=== PATIENT | female | born 1935 | race Caucasian/White ===

== ENCOUNTER → 2017-01-02 | Day surgery (SDC) | payer OTHER, MEDICARE ==
--- NOTE | 2017-01-05 15:22 | PATH ---
Surgical Pathology Report Patient Name: GISELA DAVIDSON [facility]. Rec. #: [id number] /Age/Gender: 1935 (Age: 81) / F Account: [id number] Location: [facility] RADIOLOGY U Taken: 01/02/2017 Received: 01/02/2017 Reported: 01/05/2017 Physicians: Milena Nino Specimen(s) Received LEFT AXILLARY MASS BIOPSY Clinical History Ultrasound findings: Highly suspicious/malignant Highly suspicious left axillary mass (LN) Final Diagnosis AXILLA, LEFT, MASS, BIOPSY: FIBRINOHEMORRHAGIC NECROTIC MATERIAL ONLY; INSUFFICIENT FOR EVALUATION. Electronically Signed Beth Matthews M.D. Gross Description Received in formalin labeled "left axilla biopsy," is a 1.5 x 1.4 x 0.3 cm aggregate of gandhi brown, possibly necrotic appearing portions of tissue admixed with blood clot. The formalin is filtered and the specimen is entirely submitted in one cassette. Time to formalin fixation: 2 minutes Total formalin fixation time: Approximately 7 hours. /01/02/2017 [facility]01/02/2017
== END | disposition home or self-care (01) ==
LOC: FRADUS-SUR 10:29
PROC: 07B63ZX Excision of Left Axillary Lymphatic, Percutaneous Approach, Diagnostic (ICD-10-PCS; principal; 2017-01-02)
PROC: BH47ZZZ Ultrasonography of Upper Extremity (ICD-10-PCS; 2017-01-02)
DX: R22.32 Localized swelling, mass and lump, left upper limb (principal)
CPT/HCPCS: 38505; 76942-TC; 87899; 88305-TC; A4648

== ENCOUNTER 2017-04-22 11:10 | Inpatient (IN) | payer OTHER, MEDICARE ==
--- NOTE | 2017-04-22 11:24 | PDOC ---
History of Present Illness <Andria Jennings - Last Filed: 04/22/17 16:45> - History of Present Illness Initial Comments: 04/22/17 17:13 81 year old female, with significant past medical history of CAD (on plavix and aspirin), chronically dislocated right shoulder, gout, GA, HTN, HLD, lower GI bleed (10/2014), who presents to the emergency room with a nose injury, jaw pain , and right shoulder pain s/p fall in the bathroom at home just prior to arrival. She states that she lost her balance when she was putting on her pants and she fell face first onto the floor, hitting her forehead, nose, and mouth. She believes she also hit her right right shoulder when she fell and the pain is exacerbated upon movement. Denies headache and lightheadedness prior to or after the fall. Her nose is actively bleeding. She took her usual 15 mg of percocet and 325mg of tylenol at 10:00am as prescribed by her pain managment doctor for osteoarthritis. Denies lightheadedness, headache, visual changes. Denies neck or back pain. Denies hip pain. Denies lower extremity pain. Denies chest pain, SOB. Allergies: NKDA Surgical history: bilateral hip replacement, tonsillectomy PCP: Dr. Dilcia Farrar <Belgica Peguero - Last Filed: 04/24/17 19:58> - General Stated Complaint: FALL Time Seen by Provider: 04/22/17 11:24 Past History <Andria Jennings - Last Filed: 04/22/17 16:45> - Past Medical History Anemia: No Asthma: No Cancer: No Cardiac Disorders: Yes (GA) CVA: No COPD: No CHF: Yes (chronic) Dementia: No Diabetes: No GI Disorders: No Disorders: No HTN: Yes Hypercholesterolemia: Yes Liver Disease: No Seizures: No Thyroid Disease: No - Surgical History Abdominal Surgery: No Appendectomy: No Cardiac Surgery: No Cholecystectomy: No Lung Surgery: No Neurologic Surgery: No Orthopedic Surgery: Yes (bilateral hip replacements) - Immunization History Immunization Up to Date: No - Suicide/Smoking/Psychosocial Hx Smoking History: Never smoked Have you smoked in the past 12 months: No Number of Cigarettes Smoked Daily: 20 Hx Alcohol Use: No Drug/Substance Use Hx: No Substance Use Type: None Hx Substance Use Treatment: No <Nassef,Yomna - Last Filed: 04/24/17 19:58> - Past Medical History Allergies/Adverse Reactions: Allergies Allergy/AdvReac Type Severity Reaction Status Date / Time No Known Allergies Allergy Verified 04/22/17 11:28 Home Medications: Ambulatory Orders Allopurinol [Zyloprim -] 200 mg PO DAILY 08/09/15 Atorvastatin Ca [Lipitor] 20 mg PO HS 08/09/15 Calcium Carbonate [Calcium] 600 mg PO DAILY 08/09/15 Clopidogrel Bisulfate [Plavix -] 75 mg PO DAILY 08/09/15 Folic Acid 1 mg PO DAILY 08/09/15 Furosemide [Lasix -] 20 mg PO DAILY 08/09/15 Iron 18 mg PO DAILY 08/09/15 Lactobacillus Acidophilus [Bacid -] 1 each PO DAILY 08/09/15 Methotrexate Sodium [Trexall] 7.5 mg PO WEEKLY 08/09/15 Multivitamins [Multivit ([facility] Formulary)] 1 tab PO DAILY 08/09/15 Ramipril 5 mg PO DAILY 08/09/15 Acetaminophen [Tylenol] 325 mg PO QID PRN 04/22/17 Amoxicillin - [Amoxicillin 500mg Capsule -] 500 mg PO BID 04/22/17 Carvedilol 3.125 mg PO BID 04/22/17 Colchicine [Colcrys -] 0.6 mg PO PRN PRN 04/22/17 Oxycodone HCl 15 mg PO QID PRN 04/22/17 Review of Systems - Review of Systems Comments:: 04/22/17 17:13 GENERAL/CONSTITUTIONAL: No fever or chills. No weakness. HEAD, EYES, EARS, NOSE AND THROAT: +nose injury and bleeding, jaw pain. No change in vision. No ear pain or discharge. No sore throat. GASTROINTESTINAL: No nausea, vomiting, diarrhea or constipation. GENITOURINARY: No dysuria, frequency, or change in urination. CARDIOVASCULAR: No chest pain or shortness of breath. RESPIRATORY: No cough, wheezing, or hemoptysis. MUSCULOSKELETAL: +right shoulder pain. No neck or back pain. SKIN: No rash NEUROLOGIC: No headache, vertigo, loss of consciousness, or change in strength/ sensation. ENDOCRINE: No increased thirst. No abnormal weight change. HEMATOLOGIC/LYMPHATIC: No anemia, easy bleeding, or history of blood clots. ALLERGIC/IMMUNOLOGIC: No hives or skin allergy. <Belgica Peguero - Last Filed: 04/24/17 19:58> *Physical Exam - Vital Signs Last Vital Signs Temp Pulse Resp BP Pulse Ox 98 F 81 18 138/90 97 04/22/17 11:26 04/22/17 11:26 04/22/17 11:26 04/22/17 11:26 04/22/17 11:26 <Raghu Jenningsssica - Last Filed: 04/22/17 16:45> - Physical Exam Comments: 04/22/17 17:13 GENERAL: Awake, alert, and fully oriented, in no acute distress HEAD: swollen nasal bridge, tender, with dried blood in nares, no active bleeding, no septal hematoma, no tenderness or other injuries noted. EYES: PERRLA, EOMI, sclera anicteric, conjunctiva clear NECK: Normal ROM, supple, no lymphadenopathy, JVD, or masses LUNGS: Breath sounds equal, clear to auscultation bilaterally. No wheezes, and no crackles HEART: Regular rate and rhythm, normal S1 and S2, no murmurs, rubs or gallops ABDOMEN: Soft, nontender, normoactive bowel sounds. No guarding, no rebound. No masses EXTREMITIES: RUE adducted, internally rotated, unable to range at shoulder. + deformity to proximal humerus, 2+ radial pulse, normal sensation over shoulder LUE, LLE, RLE: Normal range of motion, no edema. No clubbing or cyanosis. No cords, erythema, or tenderness. 2+peripheral pulses NEUROLOGICAL: Normal speech, cranial nerves intact, negative pronator drift, 5/ 5 strength in all 4 extremities, normal sensation to light touch in all 4 extremities, normal cerebellar exam, normal gait, normal reflexes and tone SKIN: Warm, Dry, normal turgor, no rashes or lesions noted. <Belgica Peguero - Last Filed: 04/24/17 19:58> ED Treatment Course - LABORATORY CBC & Chemistry Diagram: 04/22/17 12:03 04/22/17 12:03 - ADDITIONAL ORDERS Additional order review: Laboratory Results 04/22/17 04/22/17 12:03 12:03 PT with INR 11.60 INR 1.03 PTT (Actin FS) 29.6 Blood Type A POSITIVE Antibody Screen Negative 04/22/17 12:03 RBC 3.34 L MCV 103.0 H MCHC 32.9 RDW 14.6 D MPV 7.1 L D Neutrophils % 71.6 Lymphocytes % 17.5 Monocytes % 7.5 Eosinophils % 2.7 Basophils % 0.7 - Medications Given in the ED: ED Medications Discontinued Medications Generic Name Dose Route Start Last Admin Trade Name Christy PRN Reason Stop Dose Admin Diphtheria/Tetanus/Acell Pertussis 0.5 ml 04/22/17 12:04 04/22/17 12:15 Adacel Adolescent/Adult - IM 04/22/17 12:05 0.5 ml .ONCE ONE Administration Morphine Sulfate 4 mg 04/22/17 14:05 04/22/17 14:28 Morphine Injection - IVPUSH 04/22/17 14:06 4 mg ONCE ONE Administration <Andria Jennings - Last Filed: 04/22/17 16:45> - LABORATORY CBC & Chemistry Diagram: 04/24/17 07:12 04/24/17 07:12 <Belgica Peguero - Last Filed: 04/24/17 19:58> Medical Decision Making - Medical Decision Making 04/22/17 15:[address] Gailndo at 2:30. awaiting call back Second page 3:18pm. Dr. Galindo will come into the ER after seeing patients in his office. Paged Dr. Jonas at 3:00pm. Second page at 3:27pm Third page 4:06pm Called back 4:40pm <Andria Jennnigs - Last Filed: 04/22/17 16:45> - Medical Decision Making 04/22/17 19:53 81yo F with MMP including CAD on plavix p/w mechanical fall. Imaging reveals multiple fractures including R humerus fracture with R shoulder dislocation and nasal and maxillary fractures. Also, maxillary fluid collections c/f hematoma. Pt also with subgaleal hematoma. Dr. Jonas from ortho and Dr. Galindo from ENT are consulted to assist with management of the fractures. Given multiple hematoma's and antiplatelet on board will admit patient for monitoring. Also, Dr. Jonas recommends that patient is NWB with RUE and since patient ambulates with walker at home, she will be unable to be mobile and likely needs placement at [facility]. Pt is admitted to Dr. Corbin/Abbie for further management. <Belgica Peguero - Last Filed: 04/24/17 19:58> *DC/Admit/Observation/Transfer <Andria Jennings - Last Filed: 04/22/17 16:45> - Discharge Dispostion Admit: Yes - Attestations Physician Attestion: 04/22/17 17:18 I, Dr. Belgica Peguero MD, attest that this document has been prepared under my direction and personally reviewed by me in its entirety. I further attest, that it accurately reflects all work, treatment, procedures and medical decision -making performed by me. <Belgica Peguero - Last Filed: 04/24/17 19:58> Diagnosis at time of Disposition: Fall - Discharge Dispostion Condition at time of disposition: Stable
[2017-04-22 11:28] VITALS: BMI 25.6
[2017-04-22] MEDS ORDERED: DIPHTH,PERTUSS(ACELL),TET VAC 0.5 ML VIAL IM ONE (12:04)
[2017-04-22 12:13] LABS: BASOPHIL 0.7 % (0-2.0); EOSINOPHIL 2.7 % (0-4.5); MCH 33.9 pg (25.7-33.7); MCHC 32.9 g/dl (32.0-36.0); MEAN PLT VOLUME 7.1 fl (7.5-11.1); NEUTROPHILS 71.6 % (42.8-82.8); PLATELET COUNT 168 K/MM3 (134-434); RDW 14.6 % (11.6-15.6); WHITE BLOOD COUNT 7.5 K/mm3 (4.0-10.0)
[2017-04-22 12:30] LABS: INR 1.03 (0.82-1.09); PROTHROMBIN TIME (PATIENT) 11.6 SEC (9.98-11.88)
[2017-04-22 12:32] LABS: ACTIVATED PTT 29.6 SECONDS (26.9-34.4)
[2017-04-22] MEDS ORDERED: morphine CARPU-JECT 4 MG/1 ML DISP.SYRIN IVPUSH ONE ×2 (14:05→17:22)
[2017-04-22] MEDS ORDERED: morphine CARPU-JECT 10 MG/1 ML DISP.SYRIN ONE ×2 (14:27→17:05)
[2017-04-22 15:21] LABS: ALBUMIN 3.5 g/dl (3.4-5.0); ANION GAP 6 (8-16); BILIRUBIN,TOTAL 0.5 mg/dL (0.2-1.0); CALCIUM 8.6 mg/dL (8.5-10.1); CO2 33 mmol/L (21-32); CREATININE 0.9 mg/dL (0.55-1.02); GLUCOSE,RANDOM 113 mg/dL (74-106); SGOT/AST 26 U/L (15-37); SGPT/ALT 25 U/L (12-78)
[2017-04-22 15:22] LABS: ALK PHOS 87 U/L (45-117)
--- NOTE | 2017-04-22 17:14 | PN ---
Progress Note (short form) - Note Progress Note: Pt seen and examined in the ER. She is an 81 year old female patient, right hand dominant, who has a terminal carman history of a chronically dislocated right shoulder/glenohumeral joint. She already had very limited function and range of motion of the right shoulder. Closed reductions have been attempted in the past. She fell today injuring her right arm. Usually she uses a walker to ambulate. PE RUE grossly NVI, radial nerve normal. ROM of the elbow, forearm, wrist, fingers all good. + ecchymosis over the right proximal humerus + mild swelling + tender Xrays Show an acute oblique fracture of the right humerus and a chronically dislocated right shoulder joint. Imp Acute right humerus fracture in the setting of a chronically dislocated right shoulder. Rec Sling NWB RUE (using a walker to ambulate is out at this time) We discussed the surgical option, the patient and her daughters are completely against it, refusing at this time. She does not need to be admitted from an orthopedic point of view. F/U as an out patient either way in 10-14 days for repeat xrays.
[2017-04-22] MEDS ORDERED: morphine CARPU-JECT 2 MG/1 ML DISP.SYRIN IVPUSH PRN (18:26)
--- NOTE | 2017-04-22 18:26 | HP ---
CHIEF COMPLAINT: s/p mechanical fall PCP: Dr. Morrell Cardio: Dr. Dan Pain management: Sudeep Arthur Podiatry: Dr. Parekh ID: Dr. Henderson Wound: Dr. Nieto HISTORY OF PRESENT ILLNESS: 81 yr old woman with multiple co-morbidities presents s/p mechanical fall this afternoon. She was seen by her wound care physician in the Am for a routine f/u and when she got home she urgently needed to urinate. As she was getting up from the toilet after urinating she lost her balance and fell forward onto her face and her right side hitting the wall and then the floor. she denies LOC and recalls the episode. denies lightheadedness, dizzyness, palpitations, chest pain. ER course was notable for: (1) pichardo-xrays (2) facial bone/cervical spine and head CT (3) eval by Dr. Jonas Recent Travel: none PAST MEDICAL HISTORY: lives alone, feeds self, does not cook and requires assistance bathing herself, at baseline needs walker for gait instability due to LE deformities, 3 adult children, son is the healthcare proxy. daughter cooks for her and pt gets visited by children daily. HTN arthritis HLD CAD s/p MS (3 yrs) LV diastolic dysfunction gait instability chronic pain chronic right hip infection hemorrhoids chronic nonhealing decubitus ulcer PAST SURGICAL HISTORY: right hip replacement 2006 left hip replacement 2007 Social History: Smoking:denies Alcohol:denies Drugs: denies Family History: [place] Allergies No Known Allergies Allergy (Verified 04/22/17 11:28) HOME MEDICATIONS: Home Medications Medication Instructions Recorded Allopurinol [Zyloprim -] 200 mg PO DAILY 08/09/15 Atorvastatin Ca [Lipitor] 20 mg PO HS 08/09/15 Calcium Carbonate [Calcium] 600 mg PO DAILY 08/09/15 Clopidogrel Bisulfate [Plavix -] 75 mg PO DAILY 08/09/15 Folic Acid 1 mg PO DAILY 08/09/15 Furosemide [Lasix -] 20 mg PO DAILY 08/09/15 Iron 18 mg PO DAILY 08/09/15 Lactobacillus Acidophilus [Bacid -] 1 each PO DAILY 08/09/15 Methotrexate Sodium [Trexall] 7.5 mg PO WEEKLY 08/09/15 Multivitamins [Multivit ([facility] 1 tab PO DAILY 02/04/16 Formulary)] Ramipril 5 mg PO DAILY 08/09/15 Acetaminophen [Tylenol] 325 mg PO QID PRN 04/22/17 Amoxicillin - [Amoxicillin 500mg 500 mg PO BID 04/22/17 Capsule -] Carvedilol 3.125 mg PO BID 04/22/17 Colchicine [Colcrys -] 0.6 mg PO PRN PRN 04/22/17 Oxycodone HCl 15 mg PO QID PRN 04/22/17 REVIEW OF SYSTEMS CONSTITUTIONAL: Absent: fever, chills, diaphoresis, generalized weakness, malaise, loss of appetite, weight change HEENT: Absent: rhinorrhea, nasal congestion, throat pain, throat swelling, difficulty swallowing, mouth swelling, ear pain, eye pain, visual changes CARDIOVASCULAR: Present: chronic peripheral edema Absent: chest pain, syncope, palpitations, irregular heart rate, lightheadedness , RESPIRATORY: Absent: cough, shortness of breath, dyspnea with exertion, orthopnea, wheezing, stridor, hemoptysis GASTROINTESTINAL: Absent: abdominal pain, abdominal distension, nausea, vomiting, diarrhea, constipation, melena, hematochezia GENITOURINARY: Absent: dysuria, frequency, urgency, hesitancy, hematuria, flank pain, genital pain MUSCULOSKELETAL: Absent: myalgia, arthralgia, joint swelling, back pain, neck pain SKIN: Absent: rash, itching, pallor HEMATOLOGIC/IMMUNOLOGIC: Absent: easy bleeding, easy bruising, lymphadenopathy, frequent infections ENDOCRINE: Absent: unexplained weight gain, unexplained weight loss, heat intolerance, cold intolerance NEUROLOGIC: Present: chronic unsteady gait Absent: headache, focal weakness or paresthesias, dizziness, seizure, mental status changes, bladder or bowel incontinence PHYSICAL EXAMINATION GENERAL: Awake, alert, and fully oriented, in no acute distress. HEAD: Normal with no signs of trauma. swelling of left side of face, denied sinus tenderness EYES: Pupils equal, round and reactive to light, extraocular movements intact, sclera anicteric, conjunctiva clear. No lid lag. EARS, NOSE, THROAT: Ears normal, nares patent with dried blood, oropharynx clear without exudates, blood on upper palate. lower two teeth are unstable Moist mucous membranes. no tongue lacerations NECK: decreased range of motion with flexion and extension, wnl on left and right rotation, supple without lymphadenopathy, JVD, or masses. LUNGS: anterior ausculatation: Breath sounds equal, clear to auscultation bilaterally. No wheezes, and no crackles. No accessory muscle use. HEART: Regular rate and rhythm, normal S1 and S2 with murmur heard in RUSB and apex ABDOMEN: Soft, nontender, not distended, normoactive bowel sounds, no guarding, no rebound, no masses. MUSCULOSKELETAL: decreased rom in all joints. bruising in right upper arm. ttp throughout right upper arm from shoulder to hand. UPPER EXTREMITIES: 2+ radial pulses, warm, well-perfused. No cyanosis. No clubbing. No peripheral edema. LOWER EXTREMITIES: 1+ dp pulses, warm, well-perfused. ttp b/l lower legs. b/l valgus deformity L>R. left leg is larger than right. edema from feet to knees. 3 /5 b/l lower leg hip extension. 5/5 handgrip left. 2/5 handgrip in right due to pain. NEUROLOGICAL: Cranial nerves II-XII intact. Normal speech. no facial drooping. sensation intact and equal b/l face, lateral arms/hands, anterior legs and soles of feet. PSYCHIATRIC: Cooperative. Good eye contact. Appropriate mood and affect. SKIN: dry, normal turgor, erythema under both breasts. very dry flaky feet ASSESSMENT/PLAN: 81 yr old woman with multiple co-mobidities s/p mechanical fall admitted for further evaluation due to multiple fractures - monitor closely for neurological changes requiring repeat head CT #Acute right humerus fracture - Dr. Jonas; ortho consult recommendations: - non-weight bearing, no surgerical intervention at this time and outpatient follow-up - pain control with IVpush morphine 5mg ivpush q6hr prn - home pain control continued as well oxy 15mg po q6hr prn+325mg po tylenol - will need placement at SNF as patient lives alone and children are unavailable for full-time care - hold ASA and plavix due to acute fall - physical therapy evaluation #Nondisplaced acute fractures in b/l nasal and maxillary bones - ENT consulted, Dr. Galindo pending recommendations #HTN - ramipril 5mg po daily - carvidilol 3.125mg po bid #arthritis - methotrexate 7.5mg po q weekly #HLD - lipitor 20mg po HS #CAD - Hold plavix and ASA due to acute bleed #gait instability - pt evaluation for placement #chronic pain - oxy 15mg with 325mg po tylenol po q6hr prn #chronic right hip infection/chronic UTI's, will likely cover nasal fracture prophylaxis - amoxicillin 500mg po BID - Bacid 1 tab po daily #gout - colcrys po daily - allopurinol 200mg po daily #Supplements, continue: iron, folic acid, MVI, calcium #DVT: defer due to acute bleed #Diet: soft pending ENT evaluation and of loose teeth Visit type - Emergency Visit Emergency Visit: Yes ED Registration Date: 04/22/17 Care time: The patient presented to the Emergency Department on the above date and was hospitalized for further evaluation of their emergent condition. - New Patient This patient is new to me today: Yes Date on this admission: 04/22/17 - Critical Care Critical Care patient: No
[2017-04-22] MEDS ORDERED: COLCHICINE 0.6 MG TABLET (FP) PO PRN (18:30)
--- NOTE | 2017-04-22 18:51 | PN ---
Teaching Attending Note Name of Resident: Gokul Corbin ATTENDING PHYSICIAN STATEMENT I saw and evaluated the patient. I reviewed the resident's note and discussed the case with the resident. I agree with the resident's findings and plan as documented. SUBJECTIVE:81yo F with PMH CAD on plavix/asa, HTN, dyslipidemia, frequent UTI and lower GI bleed presented to ER after mechanical fall. pt was walking to the bathroom tripped on the carpet landing on her face. fall was witnessed by daughter who was present. no symptoms prior to fall or after. pt c/o pain to the face and mouth and R arm. ambulates with RW. denies CP, SOB, fever, chills, cough, N/V/C/D, LOC, visual changes, palpitations, tonic/clonic movements, bladder incontinence, confusion post fall OBJECTIVE: Last Vital Signs Temp Pulse Resp BP Pulse Ox 98 F 81 18 138/90 97 04/22/17 11:26 04/22/17 11:26 04/22/17 11:26 04/22/17 11:26 04/22/17 11:26 General NAD HEENT EOMI, PERRL, no nystagmus. dried blood over the bridge of the nose. swollen nasal bridge. facial tenderness. loose tooth in front bottom jaw CV S1 S2 RRR no murmur/rub/gallop Lungs CTA anteriorly Abdomen soft NT/ND obese Extremities 1+ pitting edema B/L LE, non pitting edema B/L LE. Tenderness to R shoulder ASSESSMENT AND PLAN: 81yo F with PMH CAD on plavix/asa, HTN, dyslipidemia, frequent UTI and lower GI bleed presented to ER after mechanical fall. 1. B/L nasal and maxillary fracture- s/p mechanical fall. ENT consulted. will likely require Abx due to blood in the sinuses. will defer to ENT as pt is already on amoxicillin for UTI prophylaxis. further management per ENT 2. R humerus fracture- s/p mechanical fall. evaluated by ortho. family opted for medical management. place in sling NWB x6 weeks. will need repeat XR 10-14 days. pain control 3. mechanical fall- s/p multiple fractures. will hold asa/plavix at this time. initial head CT is negative. will monitor for neurological changes if theres is will repeat Head CT. will need PT evaluation. will need [facility] placement as pt will be wheelchair bound while arm is immobilized. 4.CAD- on plavix/asa. will hold anticoagulation at this time. due to fall. cont coreg 5. frequent UTI- on prophylactic amoxil 6. DVT ppx- scd 7. will need [facility] when medically optimized.
--- NOTE | 2017-04-22 20:42 | CON.ENT ---
Consult Consult Specialty:: ENT Referred by:: Dr. Peguero Reason for Consultation:: nasal and maxillary fractures - History of Present Illness Chief Complaint: fall, facial injury History of Present Illness: ER hx: 04/22/17 17:13 81 year old female, with significant past medical history of CAD (on plavix and aspirin), chronically dislocated right shoulder, gout, LA, HTN, HLD, lower GI bleed (10/2014), who presents to the emergency room with a nose injury, jaw pain , and right shoulder pain s/p fall in the bathroom at home just prior to arrival. She states that she lost her balance when she was putting on her pants and she fell face first onto the floor, hitting her forehead, nose, and mouth. She believes she also hit her right right shoulder when she fell and the pain is exacerbated upon movement. Denies headache and lightheadedness prior to or after the fall. Her nose is actively bleeding. She took her usual 15 mg of percocet and 325mg of tylenol at 10:00am as prescribed by her pain managment doctor for osteoarthritis. Denies lightheadedness, headache, visual changes. Denies neck or back pain. Denies hip pain. Denies lower extremity pain. Denies chest pain, SOB. Allergies: NKDA Surgical history: bilateral hip replacement, tonsillectomy PCP: Dr. Dilcia Roberson ENT hx: pt examined on [address] tripped at home, fel forward over walker, no dizziness or other precipitating medical event face hit floor, NO LOC (witnessed by her daughter) had bleeding brought to ER for further evaluation and management. denies prior nasal problems (including prior trauma, allergic rhinitis, sinusitis) has known loose teeth (prior to fall), no change since fall, occlusion feels normal to pt denies diplopia or change in vision swallowed a lot of blood after stomach feels ok CT scan shows fractures of nasal bones and maxilla air fluid levels seen in both maxillary sinuses CT head shows scalp hematoma - History Source History Provided By: Patient, Family Member, Medical Record Limitations to Obtaining History: No Limitations - Past Medical History Cardio/Vascular: Yes: CAD, CHF (diastolic), HTN, Hyperlipdemia Gastrointestinal: Yes: Hemorrhoids. No: Diverticulosis, GI Bleed Infectious Disease: Yes: Other (chronic right hip infection) Rheumatology: Yes: Other (psoriatic arthritis) - Past Surgical History Past Surgical History: Yes: Joint Replacement (bilateral hip), Tonsillectomy ( bilateral iredectomy) - Alcohol/Substance Use Hx Alcohol Use: No - Smoking History Smoking history: Never smoked Have you smoked in the past 12 months: No Aproximately how many cigarettes per day: 20 - Social History Usual Living Arrangement: Alone ADL: Independent Occupation: , walks with walker History of Recent Travel: No Home Medications - Allergies Allergies/Adverse Reactions: Allergies Allergy/AdvReac Type Severity Reaction Status Date / Time No Known Allergies Allergy Verified 04/22/17 11:28 - Home Medications Home Medications: Ambulatory Orders Allopurinol [Zyloprim -] 200 mg PO DAILY 08/09/15 Atorvastatin Ca [Lipitor] 20 mg PO HS 08/09/15 Calcium Carbonate [Calcium] 600 mg PO DAILY 08/09/15 Clopidogrel Bisulfate [Plavix -] 75 mg PO DAILY 08/09/15 Folic Acid 1 mg PO DAILY 08/09/15 Furosemide [Lasix -] 20 mg PO DAILY 08/09/15 Iron 18 mg PO DAILY 08/09/15 Lactobacillus Acidophilus [Bacid -] 1 each PO DAILY 08/09/15 Methotrexate Sodium [Trexall] 7.5 mg PO WEEKLY 08/09/15 Multivitamins [Multivit ([facility] Formul[facility])] 1 tab PO DAILY 08/09/15 Ramipril 5 mg PO DAILY 08/09/15 Acetaminophen [Tylenol] 325 mg PO QID PRN 04/22/17 Amoxicillin - [Amoxicillin 500mg Capsule -] 500 mg PO BID 04/22/17 Carvedilol 3.125 mg PO BID 04/22/17 Colchicine [Colcrys -] 0.6 mg PO PRN PRN 04/22/17 Oxycodone HCl 15 mg PO QID PRN 04/22/17 Family Disease History - Family Disease History Family Disease History: Diabetes: Father, Heart Disease: Mother (s/p mi), Brother (open heart surgery), CA: Father, Other: Daughter (alive and well) Physical Exam-ENT Vital Signs: Vital Signs Temperature 98.9 F 04/22/17 19:59 Pulse Rate 80 04/22/17 19:59 Respiratory Rate 18 04/22/17 19:59 Blood Pressure 108/64 04/22/17 19:59 O2 Sat by Pulse Oximetry (%) 98 04/22/17 19:59 Constitutional: Yes: No Distress, Calm Face: Yes: WNL, Other (TMJ's OK, swelling right nasal dorsum with mild tenderness, no lacerations or bleeding. no stepoff palpable, no trismus or significant jaw deviation) Eyes: Yes: WNL (EOMI, no subconjunctival hemorrhage, no hyphema) Nose: Yes: Other (nasal septum intact, NO septal hematoma, no bleeding, nasal breathing adequate) Oral/Pharynx: Yes: Other (no lesions, missing teeth, poor dentition, lower central incisors loose (from periodontal disease, not trauma) Outer Ear: Yes: WNL Ear Canal: Yes: WNL Tympanic Membrane: Yes: WNL Neck: Yes: WNL Respiratory: Yes: WNL Neurological: Yes: WNL, Alert, Oriented Imaging - Results Cat Scan: Report Reviewed, Image Reviewed (nondisplaced nasal and maxillary fractures; air fluid levels bilateral maxillary sinuses, mild DNS , subgaleal hematoma frontoparietal, no intracranial bleeding) Assessment and Plan-Medical Impression: s/p fall with acute facial trauma no visual changes, non-displaced nasal and maxillary fractures with blood in sinuses loose teeth pre-injury from periodontal disease Plavix and ASA exacerbate bleeding on amoxicillin already for prophylaxis (under care of Dr. Henderson) Recommend: elevate head of bed ice to face prn comfort nasal saline spray continue amoxicillin, should be adequate prophylaxis for blood in maxilary sinuses advised pt to expect dark stool since she swallowed blood also to expect bloody/dark drainage from nose and throat as sinuses drain the blood no surgical intervention recommended since fractures are not displaced and no septal hematoma Discussed in detail with the patient and her two daughters Thank you for consultation, Samuel Galidno MD FACS
[2017-04-22] MEDS: oxyCODONE HCL 5 MG TABLET PO PRN (21:21)
[2017-04-22] MEDS: ACETAMINOPHEN 325 MG TABLET (FP) PO PRN (21:22)
[2017-04-22] MEDS ORDERED: METHOTREXATE 2.5 MG TABLET PO SCH (21:30)
[2017-04-22] MEDS: AMOXICILLIN 500 MG CAPSULE (FP) PO SCH (22:54)
[2017-04-22] MEDS: ATORVASTATIN CA 20 MG TABLET (FP) PO SCH (22:54)
[2017-04-22] MEDS: SODIUM CHLORIDE NASAL SPRAY 44 ML BOTTLE NS SCH (22:54)
[2017-04-22] MEDS ORDERED: PT OWN MED DRAWER 7, Y5N ONE (22:55)
[2017-04-22] MEDS ORDERED: FLU VACCINE QUAD 60 MCG/0.5 ML (MDV 17-18) IM ONE (23:34)
[2017-04-23] MEDS: ACETAMINOPHEN 325 MG TABLET (FP) PO PRN ×3 (03:49→23:30)
[2017-04-23] MEDS: oxyCODONE HCL 5 MG TABLET PO PRN ×3 (03:50→23:30)
--- NOTE | 2017-04-23 06:45 | PN ---
Physical Exam: SUBJECTIVE: Patient seen and examined at bedside. Patient is complaining of continued pain at her injury sites which is only moderately alleviated by pain medications. Patient had some episodes of low blood pressure overnight. Patient also complaining of pain in her unaffected arm and legs secondary to her psoriatic arthritis. OBJECTIVE: Vital Signs Period Temp Pulse Resp BP Sys/Seymour Pulse Ox Last 24 Hr 98.2 F-98.9 F 59-80 18-18 95-142/51-64 95-98 GENERAL: The patient is awake, alert, and fully oriented, in no acute distress. HEAD: Normal with no signs of trauma. EYES: extraocular movements intact, sclera anicteric, conjunctiva clear. No ptosis. ENT: Ears normal, nares patent, oropharynx clear without exudates, moist mucous membranes. Dried blood noted around the edge of the left nare. crusted blood present on the lips and gums. No active bleeding or open wounds seen. NECK: Trachea midline, full range of motion, supple. LUNGS: Breath sounds equal, clear to auscultation bilaterally, no wheezes, no crackles, no accessory muscle use. HEART: Regular rate and rhythm, S1, S2 without murmur, rub or gallop. ABDOMEN: Soft, nontender, nondistended, normoactive bowel sounds, no guarding, no rebound, no hepatosplenomegaly, no masses. EXTREMITIES: 2+ pulses, warm, well-perfused. ROM exam unable to be performed due to tenderness of both upper extremities and both lower extremities. Tenderness to palpation over whole right lower extremity, right upper extremity and left upper extremity. NEUROLOGICAL: Cranial nerves II through X grossly intact. Normal speech, gait not observed. strength 5/5 in all extremities. PSYCH: Normal mood, normal affect. SKIN: Warm, dry, normal turgor. ecchymoses seen over the left face. Active Medications Generic Name Dose Route Start Last Admin Trade Name Freq PRN Reason Stop Dose Admin Acetaminophen 325 mg 04/22/17 20:00 04/23/17 03:49 Tylenol - PO 325 mg Q6H PRN Administration PAIN Allopurinol 200 mg 04/23/17 10:00 Zyloprim - PO DAILY AYAN Amoxicillin 500 mg 04/22/17 22:00 04/22/17 22:54 Amoxicillin - PO 500 mg BID AYAN Administration Atorvastatin Calcium 20 mg 04/22/17 22:00 04/22/17 22:54 Lipitor - PO 20 mg HS AYAN Administration Calcium Carbonate 500 mg 04/23/17 10:00 Os-Ankit 500mg - PO DAILY [facility] Carvedilol 3.125 mg 04/22/17 22:00 Coreg - PO BID AYAN Colchicine 0.6 mg 04/22/17 18:30 Colcrys - PO DAILY PRN PAIN Ferrous Sulfate 325 mg 04/23/17 10:00 Feosol - PO DAILY [facility] Folic Acid 1 mg 04/23/17 10:00 Folic Acid - PO DAILY [facility] Influenza Virus Vaccine Quadrival 60 mcg 04/23/17 09:00 Flulaval Quad [id number] IM 04/23/17 09:01 .ONCE ONE Lactobacillus Acidophilus 1 tab 04/23/17 10:00 Bacid - PO DAILY [facility] Methotrexate 7.5 mg 04/24/17 10:00 Mexate - PO Fr@10 [facility] Morphine Sulfate 5 mg 04/22/17 18:26 Morphine Injection - IVPUSH Q6H PRN PAIN Multivitamins/Minerals/Vitamin C 1 tab 04/23/17 10:00 Tab-A-Vit - PO DAILY [facility] Oxycodone HCl 15 mg 04/22/17 20:00 04/23/17 03:50 Roxicodone - PO 15 mg Q6H PRN Administration PAIN Ramipril 5 mg 04/23/17 10:00 Altace - PO DAILY [facility] Sodium Chloride 2 spray 04/22/17 22:00 04/22/17 22:54 [place] Nasal [place] - NS 2 sprays BID AYAN Administration ASSESSMENT/PLAN: 81 yr old woman with multiple co-mobidities s/p mechanical fall admitted for further evaluation due to multiple fractures - monitor closely for neurological changes requiring repeat head CT #Acute right humerus fracture - Dr. Jonas; ortho consult recommendations: - non-weight bearing, no surgical intervention at this time and outpatient follow-up - pain control: morphine 2mg IVP q4hr. -can increase this if pn uncontrolled, but use caution as pt hypotensive last night -c/w oxy 15mg po q6hr prn + 325mg po tylenol -will require MCKENNA; PT onboard for eval #Nondisplaced acute fractures in b/l nasal and maxillary bones -ENT consulted: no surgical intervention indicated. Current abx are sufficient for sinusitis prophylaxsis -amoxicillin 500mg PO BID -bacid 1tab po daily #anemia 2/2 trauma r/o occult bleed -Patient with acute Hb drop 11.3 -> 8.7 -> 8.8 -most recent Hb stable, will restart home plavix and ASA -will continue to monitor #HTN -ramipril 5mg po daily -carvidilol 3.125mg po bid #psoriatic arthritis -methotrexate 7.5mg po q weekly #HLD -lipitor 20mg po HS #CAD -c/w home plavix 75mg daily -c/w home asa 81 #chronic right hip infection/chronic UTI's -amoxicillin 500mg po BID -Bacid 1 tab po daily #gout -colcrys po daily -allopurinol 200mg po daily #Prophylaxsis -SCDs for DVT -no gi prophy indicated at this time #FEN -no fluids indicated -monitor lytes -soft diet Visit type - Emergency Visit Emergency Visit: Yes ED Registration Date: 04/22/17 Care time: The patient presented to the Emergency Department on the above date and was hospitalized for further evaluation of their emergent condition. - New Patient This patient is new to me today: Yes Date on this admission: 04/23/17 - Critical Care Critical Care patient: No
[2017-04-23] MEDS ORDERED: PT OWN MED DRAWER 7, Y5N ONE ×3 (07:10→21:09)
[2017-04-23 07:38] LABS: BASOPHIL 0.3 % (0-2.0); EOSINOPHIL 0.9 % (0-4.5); MCH 33.9 pg (25.7-33.7); MCHC 33.3 g/dl (32.0-36.0); MEAN CELL VOLUME 101.7 fl (80-96); MEAN PLT VOLUME 7.9 fl (7.5-11.1); NEUTROPHILS 65.4 % (42.8-82.8); PLATELET COUNT 139 K/MM3 (134-434); RDW 14.7 % (11.6-15.6); WHITE BLOOD COUNT 8.8 K/mm3 (4.0-10.0)
[2017-04-23] MEDS ORDERED: morphine CARPU-JECT 2 MG/1 ML DISP.SYRIN IVPUSH PRN (07:44)
[2017-04-23] MEDS ORDERED: FLU VACCINE QUAD 60 MCG/0.5 ML (MDV 17-18) IM ONE (09:00)
--- NOTE | 2017-04-23 09:02 | PN ---
Progress Note (short form) - Note Progress Note: Ortho Pt seen and examined s/p right humerus fx with chronic shoulder dislocation + deformity, + swelling, + ttp, decr rom, nvi a/p Pt defers any surgical tx sling for immobilization pain control may d/c from ortho pov d/w Dr. Jonas
[2017-04-23] MEDS: MULTIVITAMINS (DAILY MVI) TABLET (FP) PO SCH (09:42)
[2017-04-23] MEDS: FOLIC ACID 1 MG TABLET (FP) PO SCH (09:42)
[2017-04-23] MEDS: SODIUM CHLORIDE NASAL SPRAY 44 ML BOTTLE NS SCH ×2 (09:42→21:58)
[2017-04-23] MEDS: RAMIPRIL 5 MG CAPSULE (FP) PO SCH (09:42)
[2017-04-23] MEDS: LACTOBACILLUS ACIDOPHILUS 1 EACH TAB (FP) PO SCH (09:42)
[2017-04-23] MEDS: FERROUS SO4 325 MG TABLET (FP) PO SCH (09:42)
[2017-04-23] MEDS: AMOXICILLIN 500 MG CAPSULE (FP) PO SCH ×2 (09:43→21:58)
[2017-04-23] MEDS: ALLOPURINOL 100 MG TABLET (FP) PO SCH (09:43)
[2017-04-23] MEDS: CALCIUM (OYSTER SHELL) 500 MG TABLET (FP) PO SCH (09:43)
[2017-04-23] MEDS: CARVEDILOL 3.125 MG TABLET (FP) PO SCH ×3 (09:44→21:58)
[2017-04-23] MEDS: morphine CARPU-JECT 2 MG/1 ML DISP.SYRIN IVPUSH PRN ×3 (10:05→22:05)
--- NOTE | 2017-04-23 10:51 | PN ---
Progress Note (short form) - Note Progress Note: Pt seen and examined. She is doing fine, relatively comfortable, in a shoulder sling. RUE is NVI, good ROM forearm, wrist, fingers. Stiff at the elbow. She was shown the exercises to start doing. Light PWB RUE, she cannot use a walker with her right UE. No surgery needed. Can DC from an ortho pov, f/u as an out pt
--- NOTE | 2017-04-23 12:29 | PN ---
Teaching Attending Note Name of Resident: Joshua Wilson ATTENDING PHYSICIAN STATEMENT I saw and evaluated the patient. I reviewed the resident's note and discussed the case with the resident. I agree with the resident's findings and plan as documented. SUBJECTIVE:continues to have RUE pain which is controlled by pain medication. deneis CP, SOB, fever, chills, N/V/C/D OBJECTIVE: Last Vital Signs Temp Pulse Resp BP Pulse Ox 100.4 F H 72 20 114/61 97 04/23/17 10:48 04/23/17 10:00 04/23/17 10:00 04/23/17 10:00 04/23/17 09:00 General NAD HEENT EOMI, swelling of L zygomatic arch. no tenderess to the face. loose tooth in front bottom jaw CV S1 S2 RRR no murmur/rub/gallop Lungs CTA anteriorly Abdomen soft NT/ND obese Extremities 1+ pitting edema B/L LE, non pitting edema B/L LE. Tenderness to R shoulder, decreased ROM on passive mvmt due to pain skin scaly plaques under B/L breast ASSESSMENT AND PLAN: 81yo F with PMH CAD on plavix/asa, HTN, dyslipidemia, frequent UTI and lower GI bleed presented to ER after mechanical fall. 1. B/L nasal and maxillary fracture- s/p mechanical fall. ENT consulted. no intervention at this time. amox is sufficient prophylactic treatment for sinusitis. pain control 2. R humerus fracture- s/p mechanical fall. evaluated by ortho. family opted for medical management. place in sling NWB x6 weeks. will need repeat XR 10-14 days. pain control 3. mechanical fall- s/p multiple fractures. will hold asa/plavix at this time. initial head CT is negative. no neurological changnes. will monitor for now. no need to repeat CT at this time. will need MCKENNA placement. 4. Acute blood loss anemia- due to multiple facial fractures. repeat CBC this afternoon. cont to hold anticoagulation. txn if necessary 5. Psorasis- call pharmacy to verify creams at home 6.CAD- on plavix/asa. will hold anticoagulation at this time. cont coreg 7. frequent UTI- on prophylactic amox 8. DVT ppx- scd 9. will need MCKENNA when medically optimized.
[2017-04-23 17:19] LABS: MCH 34.1 pg (25.7-33.7); MCHC 33.2 g/dl (32.0-36.0); MEAN CELL VOLUME 102.7 fl (80-96); MEAN PLT VOLUME 8.4 fl (7.5-11.1); PLATELET COUNT 140 K/MM3 (134-434); RDW 14.8 % (11.6-15.6); WHITE BLOOD COUNT 7.5 K/mm3 (4.0-10.0)
[2017-04-23] MEDS: KETOCONOZOLE 2% TOPICAL CREAM 15 GM TUBE TP SCH (17:58)
[2017-04-23] MEDS: AMINO ACIDS/PROTEIN HYDROLYS 30 ML LIQUID.PKT PO SCH (18:06)
[2017-04-23] MEDS: ATORVASTATIN CA 20 MG TABLET (FP) PO SCH (21:58)
--- NOTE | 2017-04-24 06:18 | PN ---
Physical Exam: SUBJECTIVE: Patient seen and examined at bedside. Patient feels well today; spiked fever overnight. OBJECTIVE: Vital Signs Period Temp Pulse Resp BP Sys/Seymour Pulse Ox Last 24 Hr 99.2 F-101.2 F 60-72 20-22 94-114/50-62 96-97 GENERAL: The patient is awake, alert, and fully oriented, in no acute distress. HEAD: Normal with no signs of trauma. NECK: Trachea midline, full range of motion, supple. LUNGS: Breath sounds equal, clear to auscultation bilaterally, no wheezes, no crackles, no accessory muscle use. HEART: Regular rate and rhythm, S1, S2 without murmur, rub or gallop. ABDOMEN: Soft, nontender, nondistended, normoactive bowel sounds, no guarding, no rebound. EXTREMITIES: 2+ pulses, warm, well-perfused, no edema. ROM exam unable to be performed due to exquisite tenderness. NEUROLOGICAL: Cranial nerves II through X grossly intact. Normal speech, gait not observed. PSYCH: Normal mood, normal affect. SKIN: Warm, dry, normal turgor, no rashes or lesions noted Laboratory Results - last 24 hr 04/23/17 04/23/17 06:50 16:00 WBC 8.8 7.5 RBC 2.58 L D 2.57 L Hgb 8.7 L D 8.8 L Hct 26.2 L D 26.4 L MCV 101.7 H 102.7 H MCH 33.9 H 34.1 H MCHC 33.3 33.2 RDW 14.7 14.8 Plt Count 139 140 MPV 7.9 D 8.4 Neutrophils % 65.4 Lymphocytes % 21.2 D Monocytes % 12.2 H Eosinophils % 0.9 Basophils % 0.3 Active Medications Generic Name Dose Route Start Last Admin Trade Name Freq PRN Reason Stop Dose Admin Acetaminophen 325 mg 04/22/17 20:00 04/23/17 23:30 Tylenol - PO 325 mg Q6H PRN Administration PAIN Allopurinol 200 mg 04/23/17 10:00 04/23/17 09:43 Zyloprim - PO 200 mg DAILY AYAN Administration Amino Acids 30 ml 04/23/17 17:30 04/23/17 18:06 Prosource No Carb Liquid Pkt PO 30 ml BID@0800,1730 AYAN Administration Amoxicillin 500 mg 04/22/17 22:00 04/23/17 21:58 Amoxicillin - PO 500 mg BID AYAN Administration Aspirin 81 mg 04/24/17 10:00 Ecotrin - PO DAILY AYAN Atorvastatin Calcium 20 mg 04/22/17 22:00 04/23/17 21:58 Lipitor - PO 20 mg HS AYAN Administration Calcium Carbonate 500 mg 04/23/17 10:00 04/23/17 09:43 Os-Ankit 500mg - PO 500 mg DAILY AYAN Administration Carvedilol 3.125 mg 04/22/17 22:00 04/23/17 21:58 Coreg - PO 3.125 mg BID AYAN Administration Clopidogrel Bisulfate 75 mg 04/24/17 10:00 Plavix - PO DAILY AYAN Colchicine 0.6 mg 04/22/17 18:30 Colcrys - PO DAILY PRN PAIN Ferrous Sulfate 325 mg 04/23/17 10:00 04/23/17 09:42 Feosol - PO 325 mg DAILY AYAN Administration Folic Acid 1 mg 04/23/17 10:00 04/23/17 09:42 Folic Acid - PO 1 mg DAILY AYAN Administration Ketoconazole 1 applic 04/23/17 14:45 04/23/17 17:58 Nizoral 2% Cream - TP 1 applic DAILY AYAN Administration Lactobacillus Acidophilus 1 tab 04/23/17 10:00 04/23/17 09:42 Bacid - PO 1 tab DAILY AYAN Administration Methotrexate 7.5 mg 04/24/17 10:00 Mexate - PO Fr@10 [facility] Morphine Sulfate 2 mg 04/23/17 09:53 04/23/17 22:05 Morphine Injection - IVPUSH 2 mg Q4H PRN Administration PAIN Multivitamins/Minerals/Vitamin C 1 tab 04/23/17 10:00 04/23/17 09:42 Tab-A-Vit - PO 1 tab DAILY AYAN Administration Oxycodone HCl 15 mg 04/22/17 20:00 04/23/17 23:30 Roxicodone - PO 15 mg Q6H PRN Administration PAIN Ramipril 5 mg 04/23/17 10:00 04/23/17 09:42 Altace - PO 5 mg DAILY AYAN Administration Sodium Chloride 2 spray 04/22/17 22:00 04/23/17 21:58 [place] Nasal [place] - NS 2 sprays BID AYAN Administration ASSESSMENT/PLAN: 81 yr old woman with multiple co-mobidities s/p mechanical fall admitted for further evaluation due to multiple fractures #new onset fever -patient afebrile since initial fever last night -ucx, bcx pending -CXR negative #Acute right humerus fracture - Dr. Jonas; ortho consult recommendations: - non-weight bearing, no surgical intervention at this time and outpatient follow-up - pain control: morphine 2mg IVP q4hr. -can increase this if pn uncontrolled, but use caution as pt hypotensive last night -c/w oxy 15mg po q6hr prn + 325mg po tylenol -will require MCKENNA; PT onboard for eval #Nondisplaced acute fractures in b/l nasal and maxillary bones -ENT consulted: no surgical intervention indicated. Current abx are sufficient for sinusitis prophylaxsis -amoxicillin 500mg PO BID -bacid 1tab po daily #anemia 2/2 trauma r/o occult bleed -Hb stable today -most recent Hb stable, will restart home plavix and ASA -will continue to monitor #HTN -ramipril 5mg po daily -carvidilol 3.125mg po bid #psoriatic arthritis -methotrexate 7.5mg po q weekly #HLD -lipitor 20mg po HS #CAD -c/w home plavix 75mg daily -c/w home asa 81 #chronic right hip infection/chronic UTI's -amoxicillin 500mg po BID -Bacid 1 tab po daily #gout -colcrys po daily -allopurinol 200mg po daily #Prophylaxsis -SCDs for DVT -no gi prophy indicated at this time #FEN -no fluids indicated -monitor lytes -soft diet Visit type - Emergency Visit Emergency Visit: Yes ED Registration Date: 04/22/17 Care time: The patient presented to the Emergency Department on the above date and was hospitalized for further evaluation of their emergent condition. - New Patient This patient is new to me today: No - Critical Care Critical Care patient: No
[2017-04-24] MEDS: oxyCODONE HCL 5 MG TABLET PO PRN ×4 (06:46→23:38)
[2017-04-24] MEDS: ACETAMINOPHEN 325 MG TABLET (FP) PO PRN ×4 (06:46→23:39)
[2017-04-24 08:48] LABS: MCH 34.3 pg (25.7-33.7); MCHC 33.4 g/dl (32.0-36.0); MEAN CELL VOLUME 102.6 fl (80-96); MEAN PLT VOLUME 7.9 fl (7.5-11.1); PLATELET COUNT 134 K/MM3 (134-434); RDW 14.8 % (11.6-15.6); WHITE BLOOD COUNT 8.3 K/mm3 (4.0-10.0)
[2017-04-24] MEDS: AMINO ACIDS/PROTEIN HYDROLYS 30 ML LIQUID.PKT PO SCH ×2 (08:59→16:57)
[2017-04-24 09:16] LABS: ANION GAP 8 (8-16); CO2 31 mmol/L (21-32); CREATININE 0.7 mg/dL (0.55-1.02); GLUCOSE,RANDOM 93 mg/dL (74-106)
[2017-04-24] MEDS ORDERED: METHOTREXATE 2.5 MG TABLET PO SCH (10:00)
--- NOTE | 2017-04-24 10:07 | PN ---
Progress Note (short form) - Note Progress Note: Ortho Pt seen and examined s/p right humerus fx with chronic shoulder dislocation + deformity, + swelling, + ttp, decr rom, nvi a/p continue sling pain control november d/c from ortho pov d/w Dr. Jonas
[2017-04-24] MEDS ORDERED: PT OWN MED DRAWER 7, Y5N ONE ×3 (10:55→23:44)
[2017-04-24] MEDS: FOLIC ACID 1 MG TABLET (FP) PO SCH (11:00)
[2017-04-24] MEDS: LACTOBACILLUS ACIDOPHILUS 1 EACH TAB (FP) PO SCH (11:00)
[2017-04-24] MEDS: FERROUS SO4 325 MG TABLET (FP) PO SCH (11:00)
[2017-04-24] MEDS: MULTIVITAMINS (DAILY MVI) TABLET (FP) PO SCH (11:00)
[2017-04-24] MEDS: CLOPIDOGREL BISULFATE 75 MG TABLET (FP) PO SCH (11:01)
[2017-04-24] MEDS: ALLOPURINOL 100 MG TABLET (FP) PO SCH (11:01)
[2017-04-24] MEDS: RAMIPRIL 5 MG CAPSULE (FP) PO SCH (11:01)
[2017-04-24] MEDS: ASPIRIN COATED 81 MG TABLET.EC PO SCH (11:01)
[2017-04-24] MEDS: CALCIUM (OYSTER SHELL) 500 MG TABLET (FP) PO SCH (11:02)
[2017-04-24] MEDS: CARVEDILOL 3.125 MG TABLET (FP) PO SCH ×2 (11:02→22:55)
[2017-04-24] MEDS: SODIUM CHLORIDE NASAL SPRAY 44 ML BOTTLE NS SCH ×2 (11:02→22:56)
[2017-04-24] MEDS: AMOXICILLIN 500 MG CAPSULE (FP) PO SCH ×2 (11:04→22:55)
[2017-04-24] MEDS: KETOCONOZOLE 2% TOPICAL CREAM 15 GM TUBE TP SCH (11:05)
[2017-04-24] MEDS: morphine CARPU-JECT 2 MG/1 ML DISP.SYRIN IVPUSH PRN (11:06)
--- NOTE | 2017-04-24 13:17 | PN ---
Teaching Attending Note Name of Resident: Joshua Wilson ATTENDING PHYSICIAN STATEMENT I saw and evaluated the patient. I reviewed the resident's note and discussed the case with the resident. I agree with the resident's findings and plan as documented. SUBJECTIVE:asymptomatic. states pain in arm is continuing to improve. denies CP , cough, fever, chills, N/V/C/D OBJECTIVE: Last Vital Signs Temp Pulse Resp BP Pulse Ox 98.2 F 68 22 139/66 96 04/24/17 06:00 04/24/17 06:00 04/24/17 06:00 04/24/17 06:00 04/23/17 21:00 General NAD HEENT EOMI, swelling of L zygomatic arch. no tenderess to the face. loose tooth in front bottom jaw CV S1 S2 RRR no murmur/rub/gallop Lungs CTA anteriorly Abdomen soft NT/ND obese ASSESSMENT AND PLAN: 81yo F with PMH CAD on plavix/asa, HTN, dyslipidemia, frequent UTI and lower GI bleed presented to ER after mechanical fall. 1. B/L nasal and maxillary fracture- s/p mechanical fall. ENT consulted. no intervention at this time. amox is sufficient prophylactic treatment for sinusitis. pain control 2. R humerus fracture- s/p mechanical fall. evaluated by ortho. family opted for medical management. place in sling NWB x6 weeks. will need repeat XR 10-14 days. pain control 3. mechanical fall- s/p multiple fractures. initial head CT is negative. no neurological changnes. will monitor for now. no need to repeat CT at this time. will need MCKENNA placement. 4. Acute blood loss anemia- due to multiple facial fractures. Hgb now stable. no signs of bleeding. will re-start asa/plavix. txn if necessary 5. Fever- Tm 101.2. no leukocytosis. sepsis workup done. no source identified. will cont to hold abx. if cont to have temp spikes with need to consider re- imaging the facial bones to further evaluate for abscess 6. Psorasis-ketaconazole cream 7.CAD- on plavix/asa/coreg 8. frequent UTI- on prophylactic amox 9. DVT ppx- scd 10. if afebrile over the next 24H can d/c to MCKENNA
--- NOTE | 2017-04-24 17:48 | PN ---
Progress Note (short form) - Note Progress Note: ENT mild pain of nose and face, some bruising noted nasal obstruction shoulder pain PE NAD mild lid ecchymosis left no stepoffs nose: obstructed with anterior crusts - removed with forceps, breathes better sl blood right anterior septum nasal endoscopy performed: septum intact, mild deviation no hemtoma inerior turbinates edematous middle turbinates WNL, middle meati narrowed superior turbinates, superior meati and sphenoethmoid recesses not well seen because of edema no pus or polyp Impression nasal fracture, maxillary fracture minimal bruising nondisplaced, no surgery recommended obstructive crusting, removed continue nasal spray to office after discharge for follow-up] Samuel Galindo MD FACS
[2017-04-24] MEDS ORDERED: oxyCODONE HCL 5 MG TABLET ONE (18:05)
[2017-04-24] MEDS: ATORVASTATIN CA 20 MG TABLET (FP) PO SCH (22:55)
[2017-04-25] MEDS: oxyCODONE HCL 5 MG TABLET PO PRN ×3 (06:18→19:20)
[2017-04-25 07:58] LABS: MCH 34.3 pg (25.7-33.7); MCHC 33.2 g/dl (32.0-36.0); MEAN CELL VOLUME 103.3 fl (80-96); MEAN PLT VOLUME 8.1 fl (7.5-11.1); PLATELET COUNT 137 K/MM3 (134-434); RDW 15.1 % (11.6-15.6); WHITE BLOOD COUNT 8.8 K/mm3 (4.0-10.0)
[2017-04-25] MEDS ORDERED: PT OWN MED DRAWER 7, Y5N ONE ×3 (08:58→21:38)
[2017-04-25] MEDS: AMINO ACIDS/PROTEIN HYDROLYS 30 ML LIQUID.PKT PO SCH ×2 (08:59→17:44)
[2017-04-25] MEDS: RAMIPRIL 5 MG CAPSULE (FP) PO SCH (09:17)
[2017-04-25] MEDS: FERROUS SO4 325 MG TABLET (FP) PO SCH (09:17)
[2017-04-25] MEDS: ASPIRIN COATED 81 MG TABLET.EC PO SCH (09:17)
[2017-04-25] MEDS: FOLIC ACID 1 MG TABLET (FP) PO SCH (09:17)
[2017-04-25] MEDS: LACTOBACILLUS ACIDOPHILUS 1 EACH TAB (FP) PO SCH (09:17)
[2017-04-25] MEDS: CALCIUM (OYSTER SHELL) 500 MG TABLET (FP) PO SCH (09:17)
[2017-04-25] MEDS: SODIUM CHLORIDE NASAL SPRAY 44 ML BOTTLE NS SCH ×2 (09:17→22:36)
[2017-04-25] MEDS: MULTIVITAMINS (DAILY MVI) TABLET (FP) PO SCH (09:17)
[2017-04-25] MEDS: ALLOPURINOL 100 MG TABLET (FP) PO SCH (09:18)
[2017-04-25] MEDS: AMOXICILLIN 500 MG CAPSULE (FP) PO SCH ×2 (09:18→21:37)
[2017-04-25] MEDS: CARVEDILOL 3.125 MG TABLET (FP) PO SCH ×2 (09:20→21:37)
[2017-04-25] MEDS: CLOPIDOGREL BISULFATE 75 MG TABLET (FP) PO SCH (09:20)
[2017-04-25] MEDS: KETOCONOZOLE 2% TOPICAL CREAM 15 GM TUBE TP SCH (09:24)
--- NOTE | 2017-04-25 10:11 | PN ---
Progress Note (short form) - Note Progress Note: ID Consult dictated + Urine c/s c/w contamination No treatment advised Continue concrete form setter amoxicillin for chronic suppression of infected R THR
--- NOTE | 2017-04-25 10:45 | CONS ---
DATE OF CONSULTATION: DATE OF DICTATION: 04/25/2017 HISTORY OF PRESENT ILLNESS: The patient is an 81-year-old female who is evaluated for positive urine culture. She was admitted to the hospital on April 22, 2017, after a mechanical fall at home. She sustained trauma to her face as well as her right upper extremity. She was found to have nasal and maxillary sinus fractures as well as a right humerus fracture and right shoulder dislocation. She was seen in consultation by orthopedics and ENT. Her course was complicated by fever to 101.2. Blood and urine cultures were obtained. Urine culture grew MRSA and a lactose advertising material distributor and low colony count. Blood cultures were negative. She denies any urinary tract symptoms. No complaints of dysuria or hematuria. No suprapubic or flank pain. The patient is known to me from past admissions. In 2007, she underwent a right total hip replacement, which subsequently became infected. She required 2 revisions. A decision was made in 2008 to maintain her on chronic antibiotic suppression. Since that time, she has been on amoxicillin 500 mg p.o. b.i.d. with successful suppression of her chronically infected right hip prosthesis. PAST MEDICAL HISTORY: Positive for rheumatoid and psoriatic arthritis on methotrexate, history of a chronically infected right hip prosthesis, GI bleed, gouty arthritis, coronary artery disease, myocardial infarction, hypertension. ALLERGIES: No known allergies. MEDICATIONS: Include Tylenol, Altace, amoxicillin, Bacid, Zyloprim, colchicine, methotrexate, Coreg, Lipitor, Ecotrin, oxycodone, Plavix, folic acid. SOCIAL HISTORY: She lives at home, a nonsmoker/nondrinker. SYSTEMS REVIEW: Neurologic: No loss of consciousness, seizure activity, or focal weakness. Cardiac: Negative for chest pain or palpitations. Respiratory: Negative for cough or sputum production. Gastrointestinal: Negative for vomiting or diarrhea. Genitourinary: As per HPI. LABORATORY DATA: White count 8.8, hematocrit 25.7, platelet count 137. BUN 25, creatinine 0.7. Urine culture growing MRSA and lactose advertising material distributor. Urinalysis is not available. Blood culture is negative. Chest x-ray with mild cardiomegaly. PHYSICAL EXAMINATION: General: She is awake and alert. She is not acutely toxic-appearing. Vital signs: Temperature 100.1, maximum temperature 101.2, blood pressure 119/54, pulse 80 and regular, respirations 20 per minute. HEENT: Sclerae anicteric. Heart: Heart sounds S1, S2. Lungs: Decreased breath sounds bilaterally. Abdomen: Soft. No tenderness elicited. No suprapubic tenderness. Extremities: Positive for edema. IMPRESSION: 1. Positive urine culture consistent with contamination. 2. Status post mechanical fall with facial fractures and right humerus fracture. 3. History of chronically infected right total hip prosthesis. 4. History of rheumatoid and psoriatic arthritis. No treatment advised for this patient with asymptomatic bacteriuria. Continue amoxicillin for chronic suppression of her right hip prosthesis infection. Thank you for the kind referral. MAKAYLA BROWN M.D. [id number]
[2017-04-25] MEDS: ACETAMINOPHEN 325 MG TABLET (FP) PO PRN ×2 (13:35→19:25)
--- NOTE | 2017-04-25 15:16 | PN ---
Teaching Attending Note Name of Resident: Joshua Wilson ATTENDING PHYSICIAN STATEMENT I saw and evaluated the patient. I reviewed the resident's note and discussed the case with the resident. I agree with the resident's findings and plan as documented. SUBJECTIVE:pain is controlled. no repeat epistaxis. denies CP, SOB, fever, chills, N/V/C/D OBJECTIVE: Last Vital Signs Temp Pulse Resp BP Pulse Ox 100.1 F H 80 20 119/54 94 L 04/25/17 09:06 04/25/17 09:06 04/25/17 09:06 04/25/17 09:06 04/24/17 22:00 General NAD HEENT EOMI, swelling of L zygomatic arch. no tenderness to the face. CV S1 S2 RRR no murmur/rub/gallop Lungs CTA anteriorly Abdomen soft NT/ND obese ASSESSMENT AND PLAN: 81yo F with PMH CAD on plavix/asa, HTN, dyslipidemia, frequent UTI and lower GI bleed presented to ER after mechanical fall. 1. B/L nasal and maxillary fracture- s/p mechanical fall. ENT consulted. no intervention at this time. amox is sufficient prophylactic treatment for sinusitis. pain control 2. R humerus fracture- s/p mechanical fall. evaluated by ortho. family opted for medical management. place in sling NWB x6 weeks. will need repeat XR 10-14 days. pain control 3. mechanical fall- s/p multiple fractures. initial head CT is negative. no neurological changnes. will monitor for now. no need to repeat CT at this time. will need MCKENNA placement. 4. Acute blood loss anemia- due to multiple facial fractures. Hgb now stable. no signs of bleeding. on plavix. txn if necessary 5. Fever-afebrile. UCx showing MRSA and GNR which appear to be colonization. consulted ID to comment and agrees. no indication for abx treatment. 6. Psorasis-ketaconazole cream 7.CAD- on plavix/coreg 8 Hip repair s/p infection and washout - on prophylactic amox 9. DVT ppx- scd 10. d/c to [facility]. spoke with Daughter regarding discharge planning. informed her there is no medical necessity for acute care at this time. verbalized understanding. all questions answered.
--- NOTE | 2017-04-25 16:23 | PN ---
Progress Note (short form) - Note Progress Note: Pt seen and examined. She is comfortable. The pain in her right arm is improving. RUE shey NVI No surgery planned. Will follow
[2017-04-25] MEDS: ATORVASTATIN CA 20 MG TABLET (FP) PO SCH (21:37)
[2017-04-26] MEDS: oxyCODONE HCL 5 MG TABLET PO PRN ×4 (01:56→21:15)
[2017-04-26] MEDS: ACETAMINOPHEN 325 MG TABLET (FP) PO PRN ×4 (01:58→21:18)
[2017-04-26] MEDS ORDERED: PT OWN MED DRAWER 7, Y5N ONE (08:56)
[2017-04-26] MEDS: FERROUS SO4 325 MG TABLET (FP) PO SCH (09:01)
[2017-04-26] MEDS: MULTIVITAMINS (DAILY MVI) TABLET (FP) PO SCH (09:01)
[2017-04-26] MEDS: FUROSEMIDE 20 MG TABLET (FP) PO SCH (09:01)
[2017-04-26] MEDS: AMINO ACIDS/PROTEIN HYDROLYS 30 ML LIQUID.PKT PO SCH ×2 (09:01→17:02)
[2017-04-26] MEDS: LACTOBACILLUS ACIDOPHILUS 1 EACH TAB (FP) PO SCH (09:01)
[2017-04-26] MEDS: RAMIPRIL 5 MG CAPSULE (FP) PO SCH (09:01)
[2017-04-26] MEDS: AMOXICILLIN 500 MG CAPSULE (FP) PO SCH ×2 (09:01→21:15)
[2017-04-26] MEDS: CLOPIDOGREL BISULFATE 75 MG TABLET (FP) PO SCH (09:01)
[2017-04-26] MEDS: ALLOPURINOL 100 MG TABLET (FP) PO SCH (09:01)
[2017-04-26] MEDS: CALCIUM (OYSTER SHELL) 500 MG TABLET (FP) PO SCH (09:01)
[2017-04-26] MEDS: CARVEDILOL 3.125 MG TABLET (FP) PO SCH ×2 (09:01→21:15)
[2017-04-26] MEDS: FOLIC ACID 1 MG TABLET (FP) PO SCH (09:01)
[2017-04-26] MEDS: KETOCONOZOLE 2% TOPICAL CREAM 15 GM TUBE TP SCH (09:02)
[2017-04-26] MEDS: SODIUM CHLORIDE NASAL SPRAY 44 ML BOTTLE NS SCH ×2 (09:02→21:23)
--- NOTE | 2017-04-26 09:03 | PN ---
Teaching Attending Note Name of Resident: Joshua Wilson ATTENDING PHYSICIAN STATEMENT I saw and evaluated the patient. I reviewed the resident's note and discussed the case with the resident. I agree with the resident's findings and plan as documented. SUBJECTIVE:asymptomatic. states she has no pain. denies CP, SOB< fever, chills, N/v/C/D OBJECTIVE: Last Vital Signs Temp Pulse Resp BP Pulse Ox 68 F L 68 20 112/67 95 04/26/17 06:13 04/26/17 06:13 04/26/17 06:13 04/26/17 06:13 04/25/17 21:00 General NAD HEENT EOMI, swelling of L zygomatic arch. no tenderness to the face. CV S1 S2 RRR no murmur/rub/gallop Lungs CTA anteriorly Abdomen soft NT/ND obese ASSESSMENT AND PLAN: 81yo F with PMH CAD on plavix/asa, HTN, dyslipidemia, frequent UTI and lower GI bleed presented to ER after mechanical fall. 1. B/L nasal and maxillary fracture- s/p mechanical fall. ENT consulted. no intervention at this time. amox is sufficient prophylactic treatment for sinusitis. pain control 2. R humerus fracture- s/p mechanical fall. evaluated by ortho. family opted for medical management. place in sling NWB x6 weeks. will need repeat XR 10-14 days. pain control 3. mechanical fall- s/p multiple fractures. initial head CT is negative. no neurological changnes. will monitor for now. no need to repeat CT at this time. will need MCKENNA placement. 4. Acute blood loss anemia- due to multiple facial fractures. Hgb now stable. no signs of bleeding. on plavix. txn if necessary 5. Fever-afebrile. UCx showing MRSA and GNR which appear to be colonization. consulted ID to comment and agrees. no indication for abx treatment. 6. Psorasis-ketaconazole cream 7.CAD- on plavix/coreg 8 Hip repair s/p infection and washout - on prophylactic amox 9. DVT ppx- scd
--- NOTE | 2017-04-26 09:45 | PN ---
Physical Exam: SUBJECTIVE: Patient seen and examined at bedside. Patient feels well. Pain controlled. Still has tenderness over both arms and legs. Pt states LT knee hurts more today. OBJECTIVE: Vital Signs Period Temp Pulse Resp BP Sys/Seymour Pulse Ox Last 24 Hr 68 F-99.3 F 64-69 20-20 98-144/50-67 95-95 GENERAL: The patient is awake, alert, and fully oriented, in no acute distress. HEAD: Normal. No gross abnormalities of posterior skull and anterior forehead and mandible. Bruising over orbits (Left> right) with minimal swelling. EYES: sclera anicteric, conjunctiva clear. No ptosis. NECK: Trachea midline, full range of motion, supple. LUNGS: Breath sounds equal, clear to auscultation bilaterally, no wheezes, no crackles, no accessory muscle use. HEART: Regular rate and rhythm, S1, S2 without murmur, rub or gallop. ABDOMEN: Soft, nontender, nondistended, normoactive bowel sounds, no guarding, no rebound. EXTREMITIES: 2+ pulses, warm, well-perfused. ROM exam could not be performed due to tenderness. Swelling of both knees RT > LT. Bruising over left knee Valgus deformity of both ankles. NEUROLOGICAL: Cranial nerves II through X grossly intact. Normal speech, gait not observed. 5/5 strength in all extremities. SKIN: Warm, dry, normal turgor Active Medications Generic Name Dose Route Start Last Admin Trade Name Freq PRN Reason Stop Dose Admin Acetaminophen 325 mg 04/22/17 20:00 04/26/17 09:15 Tylenol - PO 325 mg Q6H PRN Administration PAIN Allopurinol 200 mg 04/23/17 10:00 04/26/17 09:01 Zyloprim - PO 200 mg DAILY AYAN Administration Amino Acids 30 ml 04/23/17 17:30 04/26/17 09:01 Prosource No Carb Liquid Pkt PO 30 ml BID@0800,1730 AYAN Administration Amoxicillin 500 mg 04/22/17 22:00 04/26/17 09:01 Amoxicillin - PO 500 mg BID AYAN Administration Atorvastatin Calcium 20 mg 04/22/17 22:00 04/25/17 21:37 Lipitor - PO 20 mg HS AYAN Administration Calcium Carbonate 500 mg 04/23/17 10:00 04/26/17 09:01 Os-Ankit 500mg - PO 500 mg DAILY AYAN Administration Carvedilol 3.125 mg 04/22/17 22:00 04/26/17 09:01 Coreg - PO 3.125 mg BID AYAN Administration Clopidogrel Bisulfate 75 mg 04/24/17 10:00 04/26/17 09:01 Plavix - PO 75 mg DAILY AYAN Administration Colchicine 0.6 mg 04/22/17 18:30 Colcrys - PO DAILY PRN PAIN Ferrous Sulfate 325 mg 04/23/17 10:00 04/26/17 09:01 Feosol - PO 325 mg DAILY AYAN Administration Folic Acid 1 mg 04/23/17 10:00 04/26/17 09:01 Folic Acid - PO 1 mg DAILY AYAN Administration Furosemide 20 mg 04/26/17 10:00 04/26/17 09:01 Lasix - PO 20 mg DAILY AYAN Administration Ketoconazole 1 applic 04/23/17 14:45 04/26/17 09:02 Nizoral 2% Cream - TP 1 applic DAILY AYAN Administration Lactobacillus Acidophilus 1 tab 04/23/17 10:00 04/26/17 09:01 Bacid - PO 1 tab DAILY AYAN Administration Methotrexate 7.5 mg 04/24/17 10:00 04/24/17 11:02 Mexate - PO 7.5 mg Fr@10 AYAN Administration Morphine Sulfate 2 mg 04/23/17 09:53 04/24/17 11:06 Morphine Injection - IVPUSH 2 mg Q4H PRN Administration PAIN Multivitamins/Minerals/Vitamin C 1 tab 04/23/17 10:00 04/26/17 09:01 Tab-A-Vit - PO 1 tab DAILY AYAN Administration Oxycodone HCl 15 mg 04/22/17 20:00 04/26/17 08:07 Roxicodone - PO 15 mg Q6H PRN Administration PAIN Ramipril 5 mg 04/23/17 10:00 04/26/17 09:01 Altace - PO 5 mg DAILY AYAN Administration Sodium Chloride 2 spray 04/22/17 22:00 04/26/17 09:02 [place] Nasal [place] - NS 2 sprays BID AYAN Administration ASSESSMENT/PLAN: 81 yr old woman with multiple co-mobidities s/p mechanical fall admitted for further evaluation due to multiple fractures #new onset fever -patient afebrile since initial fever last night -ucx growing MRSA -ID consulted, most likely colonization -no treatment at this time -Bcx NGTD -CXR negative #Acute right humerus fracture - Dr. Jonas; ortho consult recommendations: - non-weight bearing, no surgical intervention at this time and outpatient follow-up - pain control: morphine 2mg IVP q4hr. -can increase this if pn uncontrolled, but use caution as pt hypotensive last night -c/w oxy 15mg po q6hr prn + 325mg po tylenol -will require MCKENNA; PT onboard for eval #Nondisplaced acute fractures in b/l nasal and maxillary bones -ENT consulted: no surgical intervention indicated. Current abx are sufficient for sinusitis prophylaxsis -amoxicillin 500mg PO BID -bacid 1tab po daily #anemia 2/2 trauma r/o occult bleed -Hb stable today -most recent Hb stable, will restart home plavix and ASA -will continue to monitor #HTN -ramipril 5mg po daily -carvidilol 3.125mg po bid #psoriatic arthritis -methotrexate 7.5mg po q weekly #HLD -lipitor 20mg po HS #CAD -c/w home plavix 75mg daily -c/w home asa 81 #chronic right hip infection/chronic UTI's -amoxicillin 500mg po BID -Bacid 1 tab po daily #gout -colcrys po daily -allopurinol 200mg po daily #Prophylaxsis -SCDs for DVT -no gi prophy indicated at this time #FEN -no fluids indicated -monitor lytes -soft diet Visit type - Emergency Visit Emergency Visit: Yes ED Registration Date: 04/22/17 Care time: The patient presented to the Emergency Department on the above date and was hospitalized for further evaluation of their emergent condition. - New Patient This patient is new to me today: No - Critical Care Critical Care patient: No
[2017-04-26] MEDS: ATORVASTATIN CA 20 MG TABLET (FP) PO SCH (21:15)
[2017-04-27] MEDS: ACETAMINOPHEN 325 MG TABLET (FP) PO PRN ×2 (05:24→11:37)
[2017-04-27] MEDS: oxyCODONE HCL 5 MG TABLET PO PRN ×2 (05:25→11:28)
--- NOTE | 2017-04-27 08:03 | PN ---
Physical Exam: SUBJECTIVE: Doing well this AM. RUE pain controlled w/ home chronic pain meds. Febrile overnight 100.7 but denies cough, dysuria, abd pain, CP, SOB OBJECTIVE: Vital Signs Period Temp Pulse Resp BP Sys/Seymour Pulse Ox Last 24 Hr 97.5 F-100.7 F 63-82 18-20 108-119/47-70 95-95 GEN: AAOx3, NAD, Lying comfortably w/ RUE sling HEENT: PERRLA, EOMi, L eyelid healing bruise, facial bruises healing CV: S1, S2, RRR, 4/6 systolic murmur RUSB (consistent w/ aortic stenosis seen on prior Echo in 2015) LUNG: CTABL ABD: Soft, NT, ND, Normoactive BS MSK: RUE Sling, +pulses, +sensation, MSK 4/5 CBC, BMP 04/25/17 07:25 04/24/17 07:12 Active Medications Generic Name Dose Route Start Last Admin Trade Name Freq PRN Reason Stop Dose Admin Acetaminophen 325 mg 04/22/17 20:00 04/27/17 05:24 Tylenol - PO 325 mg Q6H PRN Administration PAIN Allopurinol 200 mg 04/23/17 10:00 04/26/17 09:01 Zyloprim - PO 200 mg DAILY AYAN Administration Amino Acids 30 ml 04/23/17 17:30 04/26/17 17:02 Prosource No Carb Liquid Pkt PO 30 ml BID@0800,1730 AYAN Administration Amoxicillin 500 mg 04/22/17 22:00 04/26/17 21:15 Amoxicillin - PO 500 mg BID AYAN Administration Atorvastatin Calcium 20 mg 04/22/17 22:00 04/26/17 21:15 Lipitor - PO 20 mg HS AYAN Administration Calcium Carbonate 500 mg 04/23/17 10:00 04/26/17 09:01 Os-Ankit 500mg - PO 500 mg DAILY AYAN Administration Carvedilol 3.125 mg 04/22/17 22:00 04/26/17 21:15 Coreg - PO 3.125 mg BID AYAN Administration Clopidogrel Bisulfate 75 mg 04/24/17 10:00 04/26/17 09:01 Plavix - PO 75 mg DAILY AYAN Administration Colchicine 0.6 mg 04/22/17 18:30 Colcrys - PO DAILY PRN PAIN Ferrous Sulfate 325 mg 04/23/17 10:00 04/26/17 09:01 Feosol - PO 325 mg DAILY AYAN Administration Folic Acid 1 mg 04/23/17 10:00 04/26/17 09:01 Folic Acid - PO 1 mg DAILY AYAN Administration Furosemide 20 mg 04/26/17 10:00 04/26/17 09:01 Lasix - PO 20 mg DAILY AYAN Administration Ketoconazole 1 applic 04/23/17 14:45 04/26/17 09:02 Nizoral 2% Cream - TP 1 applic DAILY AYAN Administration Lactobacillus Acidophilus 1 tab 04/23/17 10:00 04/26/17 09:01 Bacid - PO 1 tab DAILY AYAN Administration Methotrexate 7.5 mg 04/24/17 10:00 04/24/17 11:02 Mexate - PO 7.5 mg Fr@10 AYAN Administration Morphine Sulfate 2 mg 04/23/17 09:53 04/24/17 11:06 Morphine Injection - IVPUSH 2 mg Q4H PRN Administration PAIN Multivitamins/Minerals/Vitamin C 1 tab 04/23/17 10:00 04/26/17 09:01 Tab-A-Vit - PO 1 tab DAILY AYAN Administration Oxycodone HCl 15 mg 04/22/17 20:00 04/27/17 05:25 Roxicodone - PO 15 mg Q6H PRN Administration PAIN Ramipril 5 mg 04/23/17 10:00 04/26/17 09:01 Altace - PO 5 mg DAILY AYAN Administration Sodium Chloride 2 spray 04/22/17 22:00 04/26/17 21:23 [place] Nasal [place] - NS 2 sprays BID AYAN Administration ASSESSMENT/PLAN: Pt is an 81yo F w/ PMHx of CAD, HTN, HLD, gait instability due to LE deformities (walks w/ walker), presented s/p mechanical fall. Found to have acute R humerus fracture and non-displaced acute fractures of B/L nasal and maxillary bones w/ blood in sinuses. # S/p Mechanical Fall - CT shows subgaleal hematoma, no IC pathology, no C- spine fx, neuro checks, IV morphine PRN # Acute R humerus fx - S/p fall, ortho consulted, family refuses surgery - Sling immobilizer, RUE NWB x 6 weeks (cannot use rolling walker), f/u in 10 -14 days # Acute nondisplaced B/L nasal and maxillary fx - S/p fall, blood in sinus - ENT consulted, conservative mgmt, no surgical tx, prophylactic sinus abx covered w/ pt's home amoxicillin for chronically infected R THR # Anemia - 2/2 blood loss, currently stable # CAD - On Plavix, held ASA # HTN - Continue Ramipril 5mg, Carvedilol 3.125 BID # Diastolic CHF - Continue Lasix 20mg # Chronically infected R THR - Continue chronic suppression w/ prophylactic amoxicillin # Psoriatic Arthritis - Continue methotrexate 7.5 weekly, ketoconazole cream # HLD - Continue Lipitor 20mg QHS # Chronic Pain - Continue Oxy 15mg + Tylenol Q6H # Gout - Continue Colchicine 0.6 + Allopurinol 200mg # FEN - No IVF, elect WNL, soft diet # PPX - SCDs, hold AC due to facial bleed, # Dispo - Plan for d/c today Eve Andrade MD - PGY1 Internal Medicine Visit type - Emergency Visit Emergency Visit: No - New Patient This patient is new to me today: No - Critical Care Critical Care patient: No - Discharge Referral Referred to [facility] Med P.C.: No
[2017-04-27] MEDS: AMINO ACIDS/PROTEIN HYDROLYS 30 ML LIQUID.PKT PO SCH (09:09)
[2017-04-27] MEDS ORDERED: PT OWN MED DRAWER 7, Y5N ONE ×2 (10:49→11:34)
[2017-04-27] MEDS: AMOXICILLIN 500 MG CAPSULE (FP) PO SCH (11:17)
[2017-04-27] MEDS: CALCIUM (OYSTER SHELL) 500 MG TABLET (FP) PO SCH (11:17)
[2017-04-27] MEDS: RAMIPRIL 5 MG CAPSULE (FP) PO SCH (11:17)
[2017-04-27] MEDS: MULTIVITAMINS (DAILY MVI) TABLET (FP) PO SCH (11:17)
[2017-04-27] MEDS: CLOPIDOGREL BISULFATE 75 MG TABLET (FP) PO SCH (11:18)
[2017-04-27] MEDS: FERROUS SO4 325 MG TABLET (FP) PO SCH (11:18)
[2017-04-27] MEDS: FOLIC ACID 1 MG TABLET (FP) PO SCH (11:18)
[2017-04-27] MEDS: CARVEDILOL 3.125 MG TABLET (FP) PO SCH (11:18)
[2017-04-27] MEDS: LACTOBACILLUS ACIDOPHILUS 1 EACH TAB (FP) PO SCH (11:18)
[2017-04-27] MEDS: FUROSEMIDE 20 MG TABLET (FP) PO SCH (11:18)
[2017-04-27] MEDS: ALLOPURINOL 100 MG TABLET (FP) PO SCH (11:19)
[2017-04-27] MEDS: KETOCONOZOLE 2% TOPICAL CREAM 15 GM TUBE TP SCH (11:20)
[2017-04-27] MEDS: SODIUM CHLORIDE NASAL SPRAY 44 ML BOTTLE NS SCH (11:20)
--- NOTE | 2017-04-27 13:41 | PN ---
Teaching Attending Note Name of Resident: Eve Andrade ATTENDING PHYSICIAN STATEMENT I saw and evaluated the patient. I reviewed the resident's note and discussed the case with the resident. I agree with the resident's findings and plan as documented. SUBJECTIVE:asymptomatic. denies CP, SOB, fever, chills, cough, dysuria, hematuria, N/V/C/D OBJECTIVE: Last Vital Signs Temp Pulse Resp BP Pulse Ox 98.4 F 76 24 125/66 95 04/27/17 08:45 04/27/17 08:45 04/27/17 08:45 04/27/17 08:45 04/26/17 21:00 General NAD HEENT EOMI, swelling of L zygomatic arch. no tenderness to the face. CV S1 S2 RRR no murmur/rub/gallop Lungs CTA anteriorly Abdomen soft NT/ND obese ASSESSMENT AND PLAN: 81yo F with PMH CAD on plavix/asa, HTN, dyslipidemia, frequent UTI and lower GI bleed presented to ER after mechanical fall. 1. B/L nasal and maxillary fracture- s/p mechanical fall. ENT consulted. no intervention at this time. amox is sufficient prophylactic treatment for sinusitis. pain control 2. R humerus fracture- s/p mechanical fall. evaluated by ortho. family opted for medical management. place in sling NWB x6 weeks. will need repeat XR 10-14 days. pain control 3. mechanical fall- s/p multiple fractures. initial head CT is negative. no neurological changnes. will monitor for now. no need to repeat CT at this time. will need MCKENNA placement. 4. Acute blood loss anemia- due to multiple facial fractures. Hgb now stable. no signs of bleeding. on plavix. txn if necessary 5. Fever-Tm 1000.7 no assoc symptoms. will wait on repeating cx or starting different abx at this time as no definate source is identified. Ucx showing colonization 6. Psorasis-ketaconazole cream 7.CAD- on plavix/coreg 8 Hip repair s/p infection and washout - on prophylactic amox 9. DVT ppx- scd 10. d/c on 04/25 as medically ready for discharge. Family appealed as not facility of choice. [facility]
[2017-04-27 14:49] VITALS: BP 123/78; PULSE 89; TEMP 98.3
--- NOTE | 2017-04-27 15:24 | DS ---
Physical Exam: SUBJECTIVE: Doing well this AM. RUE pain controlled w/ home chronic pain meds. Febrile overnight 100.7 but denies cough, dysuria, abd pain, CP, SOB OBJECTIVE: Vital Signs Period Temp Pulse Resp BP Sys/[place] Pulse Ox Last 24 Hr 97.5 F-99.2 F 63-89 18-24 118-125/47-78 95 PHYSICAL EXAM GEN: AAOx3, NAD, Lying comfortably w/ RUE sling HEENT: PERRLA, EOMi, L eyelid healing bruise, facial bruises healing CV: S1, S2, RRR, 4/6 systolic murmur RUSB (consistent w/ aortic stenosis seen on prior Echo in 2014) LUNG: CTABL ABD: Soft, NT, ND, Normoactive BS MSK: RUE Sling, +pulses, +sensation, MSK 4/5 LABS Laboratory Last Values WBC 8.8 K/mm3 (4.0-10.0) 04/25/17 07:25 RBC 2.49 M/mm3 (3.60-5.2) L 04/25/17 07:25 Hgb 8.6 GM/dL (10.7-15.3) L 04/25/17 07:25 Hct 25.7 % (32.4-45.2) L 04/25/17 07:25 MCV 103.3 fl (80-96) H 04/25/17 07:25 MCH 34.3 pg (25.7-33.7) H 04/25/17 07:25 MCHC 33.2 g/dl (32.0-36.0) 04/25/17 07:25 RDW 15.1 % (11.6-15.6) 04/25/17 07:25 Plt Count 137 K/MM3 (134-434) 04/25/17 07:25 MPV 8.1 fl (7.5-11.1) 04/25/17 07:25 Neutrophils % 65.4 % (42.8-82.8) 04/23/17 06:50 Lymphocytes % 21.2 % (8-40) D 04/23/17 06:50 Monocytes % 12.2 % (3.8-10.2) H 04/23/17 06:50 Eosinophils % 0.9 % (0-4.5) 04/23/17 06:50 Basophils % 0.3 % (0-2.0) 04/23/17 06:50 PT with INR 11.60 SEC (9.98-11.88) 04/22/17 12:03 INR 1.03 (0.82-1.09) 04/22/17 12:03 PTT (Actin FS) 29.6 SECONDS (26.9-34.4) 04/22/17 12:03 Sodium 140 mmol/L (136-145) 04/24/17 07:12 Potassium 3.8 mmol/L (3.5-5.1) 04/24/17 07:12 Chloride 101 mmol/L (98-107) 04/24/17 07:12 Carbon Dioxide 31 mmol/L (21-32) 04/24/17 07:12 Anion Gap 8 (8-16) 04/24/17 07:12 BUN 25 mg/dL (7-18) H 04/24/17 07:12 Creatinine 0.7 mg/dL (0.55-1.02) D 04/24/17 07:12 Creat Clearance w eGFR > 60 (>60) 04/22/17 12:03 Random Glucose 93 mg/dL (74-106) 04/24/17 07:12 Calcium 8.0 mg/dL (8.5-10.1) L 04/24/17 07:12 Total Bilirubin 0.5 mg/dL (0.2-1.0) D 04/22/17 12:03 AST 26 U/L (15-37) D 04/22/17 12:03 ALT 25 U/L (12-78) D 04/22/17 12:03 Alkaline Phosphatase 87 U/L (45-117) 04/22/17 12:03 Total Protein 7.0 g/dl (6.4-8.2) D 04/22/17 12:03 Albumin 3.5 g/dl (3.4-5.0) D 04/22/17 12:03 Blood Type A POSITIVE 04/22/17 12:03 Antibody Screen Negative 04/22/17 12:03 HOSPITAL COURSE: Date of Admission:04/22/17 Date of Discharge: 04/27/17 Briefly, Ms. Jones is an 81yo F w/ PMHx of CAD, HTN, HLD, gait instability due to LE deformities (walks w/ walker), bilateral hip replacement, Chronically infected R hip, psoriatic + osteoarthritis, chronically dislocated R shoulder presented to the ER s/p mechanical fall. She said that as she was getting up from the toilet, she lost her balance and fell forward onto her face and right side, hitting the wall and then floor. She denied loss of consciousness, palpitations, seizures, and recalls the episode. CT head was negative for intracranial pathology. She was found to have an acute R humerus fracture and non-displaced acute fractures of B/L nasal and maxillary bones w/ blood in the sinuses. ASA and Plavix were held, and patient was seen by ENT and Orthopedic surgery who after discussions with patient and patients family opted for conservative management of the fractures. She was placed on an immobilization sling. Patients home amoxicillin for frequent UTIs covered her for sinus prophylaxis. Urine cultures incidentally grew MRSA and GNR, likely from colonization. The patient is being transferred to [facility] for physical rehab. She verbalizes understanding and agrees with the plan. was notified. Minutes to complete discharge: 45 Discharge Summary Reason For Visit: FALL Current Active Problems Fall (Acute) Humerus distal fracture (Acute) Maxillary fracture (Acute) Condition: Improved - Instructions Diet, Activity, Other Instructions: RECOMMENDATIONS - You were admitted after your fall due to nasal bone and maxillary fractures of the face as well as R arm fracture. - As for now it is recommended to not ambulate with a rolling walker as this will put too much strain on your arm. - You may due partial weight bearing of the Right arm as tolerated. - Follow recommendations at rehab center as you slowly increase the ability of your Right arm. - You will need a repeat xray of your arm in 5-7 days NEW MEDICATIONS: - [place] spray nasal spray daily FOLLOWUPS: - Dr. Farrar - Primary care Doctor - 1 week, consider ultrasound of thyroid nodule - Dr. Jonas - Orthopedic Surgeon - 1 week - Dr. Galindo - Ear, Nose Throat Doctor - 1 week Return to the ER if your symptoms worsening or if you develop bleeding Referrals: Dilcia Farrar MD [Primary Care Provider] - 1 Week Ghanshyam Jonas MD [Staff Physician] - 2 Weeks Samuel Galindo MD [Staff Physician] - 1 Week Disposition: ALF FACILITY - Home Medications Comprehensive Discharge Medication List: Ambulatory Orders Allopurinol [Zyloprim -] 200 mg PO DAILY 08/09/15 Atorvastatin Ca [Lipitor] 20 mg PO HS 08/09/15 Calcium Carbonate [Calcium] 600 mg PO DAILY 08/09/15 Clopidogrel Bisulfate [Plavix -] 75 mg PO DAILY 08/09/15 Folic Acid 1 mg PO DAILY 08/09/15 Furosemide [Lasix -] 20 mg PO DAILY 08/09/15 Iron 18 mg PO DAILY 08/09/15 Lactobacillus Acidophilus [Bacid -] 1 each PO DAILY 08/09/15 Methotrexate Sodium [Trexall] 7.5 mg PO WEEKLY 08/09/15 Multivitamins [Multivit ([facility] Formulary)] 1 tab PO DAILY 08/09/15 Ramipril 5 mg PO DAILY 08/09/15 Acetaminophen [Tylenol] 325 mg PO QID PRN 04/22/17 Amoxicillin - [Amoxicillin 500mg Capsule -] 500 mg PO BID 04/22/17 Carvedilol 3.125 mg PO BID 04/22/17 Colchicine [Colcrys -] 0.6 mg PO PRN PRN 04/22/17 Oxycodone HCl 15 mg PO QID PRN 04/22/17 Sodium Chloride Nasal [place] [[place] Lengby Nasal Lengby -] 2 spray NS BID spray This patient is new to me today: No Emergency Visit: No Critical Care patient: No - Discharge Referral Referred to [facility] No
== END 2017-04-27 16:10 | DRG 563 ==
LOC: JER 11:10 → JERBED 17:18 → J5S 20:29 → J8W 04-25 17:25
PROVIDERS: ADMIT Internal Medicine; ATTEND Internal Medicine
DX: S42.401A Unspecified fracture of lower end of right humerus, initial encounter for closed fracture (principal); S02.40DA Maxillary fracture, left side, initial encounter for closed fracture; D62 Acute posthemorrhagic anemia; I50.30 Unspecified diastolic (congestive) heart failure; S02.40CA Maxillary fracture, right side, initial encounter for closed fracture; S02.2XXA Fracture of nasal bones, initial encounter for closed fracture; W19.XXXA Unspecified fall, initial encounter; Y93.9 Activity, unspecified; Y92.89 Other specified places as the place of occurrence of the external cause; Y99.9 Unspecified external cause status; I25.10 Atherosclerotic heart disease of native coronary artery without angina pectoris; E78.5 Hyperlipidemia, unspecified; R50.9 Fever, unspecified; L40.50 Arthropathic psoriasis, unspecified; I11.0 Hypertensive heart disease with heart failure; M10.9 Gout, unspecified; L40.9 Psoriasis, unspecified
CPT/HCPCS: 36415; 70450-TC; 70486-TC; 71010-TC; 71020-TC; 72125-TC; 72170-TC; 73030-TC-RT; 73060-TC-RT; 80048; 80053; 85025; 85027; 85610; 85730; 86850; 86900; 86901; 87040; 87086; 87186; 97162-GP; 99283-25; G0463-25; J8610

== ENCOUNTER 2017-09-16 07:35 | Inpatient (IN) | payer OTHER, MEDICARE ==
--- NOTE | 2017-09-16 08:28 | PDOC ---
History of Present Illness - General History Source: Patient Exam Limitations: No Limitations - History of Present Illness Initial Comments: 09/16/17 08:58 The patient is a 82 year old female, with a significant past medical history of osteoarthritis, gout, CAD, chronically dislocated right shoulder, [place], HTN, HLD, and lower GI bleed who presents to the emergency department with L knee pain. The patient reports having left knee pain with any extension, flexion, or movement of her left knee. She reports having difficulties with weight bearing activities. She denies any numbness or tingling in her LEs. She denies recent injury or trauma. She also reports having continued swelling in her LEs and knee. She denies recent fevers, chills, headache or dizziness. She denies recent nausea, voma hit, diarrhea or constipation. She denies recent dysuria, frequency, urgency or hematuria. She denies recent chest pain or shortness of breath. Allergies: NKA Past surgical history: Bilateral THR with recurrent infections now placed on amoxicillin chronically as preventive measure. Social history: Nonsmoker. Denies EtOH use and recreational drug use. Ortho: / (now in different practice) PCP: <Jonatan Barillas - Last Filed: 09/16/17 12:20> <Cayetano Granado - Last Filed: 09/16/17 12:42> - General Chief Complaint: Edema Stated Complaint: SOB Time Seen by Provider: 09/16/17 08:27 Past History <Jonatan Barillas - Last Filed: 09/16/17 12:20> - Past Medical History Anemia: No Asthma: No Cancer: No Cardiac Disorders: Yes ([place]) CVA: No COPD: No CHF: Yes (chronic) Dementia: No Diabetes: No GI Disorders: No Disorders: No HTN: Yes Hypercholesterolemia: Yes Liver Disease: No Seizures: No Thyroid Disease: No - Surgical History Abdominal Surgery: No Appendectomy: No Cardiac Surgery: No Cholecystectomy: No Lung Surgery: No Neurologic Surgery: No Orthopedic Surgery: Yes (bilateral hip replacements) - Immunization History Immunization Up to Date: No - Suicide/Smoking/Psychosocial Hx Smoking History: Never smoked Have you smoked in the past 12 months: No Number of Cigarettes Smoked Daily: 20 Information on smoking cessation initiated: No Hx Alcohol Use: No Drug/Substance Use Hx: No Substance Use Type: None Hx Substance Use Treatment: No <VannesaCayetano - Last Filed: 09/16/17 12:42> - Past Medical History Allergies/Adverse Reactions: Allergies Allergy/AdvReac Type Severity Reaction Status Date / Time No Known Allergies Allergy Verified 04/22/17 11:28 Home Medications: Ambulatory Orders Allopurinol [Zyloprim -] 200 mg PO DAILY 08/09/15 Atorvastatin Ca [Lipitor] 20 mg PO HS 08/09/15 Calcium Carbonate [Calcium] 600 mg PO DAILY 08/09/15 Clopidogrel Bisulfate [Plavix -] 75 mg PO DAILY 08/09/15 Folic Acid 1 mg PO DAILY 08/09/15 Furosemide [Lasix -] 20 mg PO BID 08/09/15 Iron 18 mg PO DAILY 08/09/15 Lactobacillus Acidophilus [Bacid -] 1 each PO DAILY 08/09/15 Methotrexate Sodium [Trexall] 7.5 mg PO WEEKLY 08/09/15 Multivitamins [Multivit ([facility] Formulary)] 1 tab PO DAILY 08/09/15 Ramipril 5 mg PO DAILY 08/09/15 Acetaminophen [Tylenol] 325 mg PO QID PRN 04/22/17 Amoxicillin - [Amoxicillin 500mg Capsule -] 500 mg PO BID 04/22/17 Carvedilol 3.125 mg PO BID 04/22/17 Colchicine [Colcrys -] 0.6 mg PO PRN PRN 04/22/17 Oxycodone HCl 15 mg PO QID PRN 04/22/17 Review of Systems - Review of Systems Able to Perform ROS?: Yes Comments:: 09/16/17 08:58 CONSTITUTIONAL: No fever, no chills, no fatigue EYES: No visual changes ENT: No ear pain, no sore throat CARDIOVASCULAR: No chest pain, no palpitations RESPIRATORY: No cough, no SOB GI: No abdominal pain, no nausea, no vomiting, no constipation, no diarrhea GENITOURINARY: No dysuria, no frequency, no hematuria MUSKULOSKELETAL: +left knee pain. No backpain, no joint pain, no myalgias SKIN: No rash NEURO: No headache <Jonatan Barillas - Last Filed: 09/16/17 12:20> *Physical Exam - Vital Signs Last Vital Signs Temp Pulse Resp BP Pulse Ox 98.1 F 74 16 138/70 97 09/16/17 07:45 09/16/17 08:23 09/16/17 07:45 09/16/17 07:45 09/16/17 08:23 <Jonatan Barillas - Last Filed: 09/16/17 12:20> - Vital Signs Last Vital Signs Temp Pulse Resp BP Pulse Ox 98.1 F 74 16 138/70 97 09/16/17 07:45 09/16/17 08:23 09/16/17 07:45 09/16/17 07:45 09/16/17 08:23 - Physical Exam Comments: 09/16/17 10:25 EXAMINATION CONSTITUTIONAL: Awake and alert, frail-appearing, in mild distress HEAD: +V shape indentation to apex of clvarium (old); atraumatic EYES: PERRL; EOM intact ENMT: External appears normal; normal oropharynx NECK: Supple; non-tender; no cervical lymphadenopathy CARD: Normal S1, S2; 3/6 holos murmur, no rubs, or gallops RESP: Normal chest excursion with respiration; breath sounds clear and equal bilaterally; no wheezes, rhonchi, or rales ABD: Soft, non-distended; non-tender; no palpable organomegaly, no palpable hernias EXT: LLE: + significant soft tissue swelling to the knee joint, most pronounced along the super-medial aspect of the knee joint with limited flex due to pain, warm to touch, w/o overlying erythema, wtih +3 pitting edema distally(aldso noted on the RLE); with lateral deform at the ankle joints and MTP joints b/l; +DP/TP: + 1 b/l SKIN: Warm, dry, + several stage 2 coccyx decub ulcers NEURO: awake and alert, moving all extr symmetrically (with exception of lle due to pain), no pronation drift, gait-deffered <Cayetano Granado - Last Filed: 09/16/17 12:42> Heart Score/ECG Review - ECG Impressions Comment:: 09/16/17 12:20 EKG Impressions by at 8:52am: Normal Sinus Rhythm at 74 bpm Right bundle branch block MS interval 170ms QTc 448 ms <Jonatan Barillas - Last Filed: 09/16/17 12:20> ED Treatment Course - LABORATORY CBC & Chemistry Diagram: 09/16/17 09:35 09/16/17 09:35 - RADIOLOGY Radiograph Interpretation: 09/16/17 11:56 LEFT KNEE X-RAYS: Moderately severe degenerative arthritis with n fracture or acute bone or joint abnormalities. <Jonatan Barillas - Last Filed: 09/16/17 12:20> - LABORATORY CBC & Chemistry Diagram: 09/16/17 09:35 09/16/17 09:35 <Cayetano Granado - Last Filed: 09/16/17 12:42> Medical Decision Making - Medical Decision Making 09/16/17 12:39 Patient is a frail-appearing 82-year-old female with multiple comorbidities who presents with atraumatic severe left knee pain and swelling as well as bilateral lower extremity edema. In the ER, patient is awake and alert, with +3 pitting edema of lower extremity is bilaterally and significant soft tissue swelling of the left knee most pronounced in the superomedial aspect of the joint with pain on palpation of the medial aspect of the knee joint with significantly limited flexion due to pain. Distal pulses are +1 bilaterally. Left knee x-ray reveals no evidence of fracture, arthritic changes and noted, no evidence of effusion is noted. ESR/CRP/uric acid/CBC within normal limit. I do not suspect acute infectious arthritis or gouty arthritis at this time. Patient received IV morphine with improvement in the level of her pain. Patient also diuresis the proximally 600 mL of clear urine after administration of 20 mg of IV Lasix. At this time, patient will require admission for lower extremity edema, continues diuresis as well as pain meds and the rehabilitation due to intractable pain and inability to bear weight. <Cayetano Granado - Last Filed: 09/16/17 12:42> *DC/Admit/Observation/Transfer - Attestations Scribe Attestion: 09/16/17 08:59 Documentation prepared by Jonatan Barillas, acting as biomedical engineering professor for Cayetano Granado MD. <Jonatan Barillas - Last Filed: 09/16/17 12:20> - Discharge Dispostion Admit: Yes - Attestations Physician Attestion: 09/16/17 10:25 The documentation was prepared by the scribe under my direct supervision. I have reviewed the documentation which correctly represents the findings, medical decision-making and critical action taken by me. <Cayetano Granado - Last Filed: 09/16/17 12:42> Diagnosis at time of Disposition: Edema of both legs, Swelling of knee joint, left, Intractable pain - Discharge Dispostion Condition at time of disposition: Fair - Referrals Referrals: Dilcia Farrar MD [Primary Care Provider] - - Patient Instructions - Post Discharge Activity
[2017-09-16] MEDS ORDERED: morphine CARPU-JECT 2 MG/1 ML DISP.SYRIN IVPUSH ONE ×2 (09:00→09:58)
[2017-09-16] MEDS ORDERED: FUROSEMIDE 40 MG/4 ML INJECTABLE VIAL IVPUSH ONE (09:01)
[2017-09-16] MEDS ORDERED: morphine SULFATE 4 MG/ML VIAL ONE ×3 (09:27→14:10)
[2017-09-16] MEDS ORDERED: FUROSEMIDE 40 MG/4 ML INJECTABLE VIAL ONE (09:27)
[2017-09-16 09:46] LABS: BASO % 0.5 % (0-2.0); EOS % 2.5 % (0-4.5); HEMATOCRIT 32.8 % (32.4-45.2); LYMPH % 18.1 % (8-40); MCH 34.3 pg (25.7-33.7); MCHC 33.5 g/dl (32.0-36.0); MEAN CELL VOLUME 102.3 fl (80-96); MEAN PLT VOLUME 7.3 fl (7.5-11.1); MONO % 10.1 % (3.8-10.2); NEUT % 68.8 % (42.8-82.8); PLATELET COUNT 201 K/MM3 (134-434); RBC 3.21 M/mm3 (3.60-5.2); RDW 15.2 % (11.6-15.6); WHITE BLOOD COUNT 7.3 K/mm3 (4.0-10.0)
[2017-09-16 10:06] LABS: ALBUMIN 3.6 g/dl (3.4-5.0); ANION GAP 10 (8-16); BLOOD UREA NITROGEN 20 mg/dL (7-18); CHLORIDE 98 mmol/L (98-107); CO2 26 mmol/L (21-32); CREATININE 0.8 mg/dL (0.55-1.02); GLUCOSE,RANDOM 91 mg/dL (74-106); INR 1.03 (0.82-1.09); POTASSIUM 4.6 mmol/L (3.5-5.1); PROTHROMBIN TIME (PATIENT) 11.6 SEC (9.98-11.88); SGOT/AST 20 U/L (15-37); SGPT/ALT 14 U/L (12-78); SODIUM 134 mmol/L (136-145); URIC ACID 3.4 mg/dL (2.6-7.2)
[2017-09-16 10:08] LABS: ALK PHOS 86 U/L (45-117); BILIRUBIN,TOTAL 0.8 mg/dL (0.2-1.0); TOT PROT 7.1 g/dl (6.4-8.2)
--- NOTE | 2017-09-16 12:37 | EKG ---
Test Reason : Blood Pressure : / mmHG Vent. Rate : 074 BPM Atrial Rate : 074 BPM P-R Int : 170 ms QRS Dur : 140 ms QT Int : 404 ms P-R-T Axes : 079 047 050 degrees QTc Int : 448 ms POOR DATA QUALITY, INTERPRETATION MAY BE ADVERSELY AFFECTED NORMAL SINUS RHYTHM RIGHT BUNDLE BRANCH BLOCK ABNORMAL ECG WHEN COMPARED WITH ECG OF 10-OCT-2014 22:55, PREMATURE SUPRAVENTRICULAR COMPLEXES ARE NO LONGER PRESENT Confirmed by LALITHA ASCENCIO MD ([id number]) on 09/16/2017 12:36:53 PM Referred By: Confirmed By:LALITHA ASCENCIO MD
[2017-09-16] MEDS ORDERED: morphine SULFATE 4 MG/ML VIAL IVPUSH ONE (14:08)
[2017-09-16] MEDS ORDERED: oxyCODONE HCL 5 MG TABLET PO PRN (14:22)
[2017-09-16] MEDS ORDERED: morphine SULFATE 4 MG/ML VIAL IVPUSH PRN ×2 (14:22→15:22)
[2017-09-16] MEDS ORDERED: COLCHICINE 0.6 MG TABLET (FP) PO PRN ×2 (15:14→15:52)
[2017-09-16] MEDS ORDERED: PATIENT'S OWN MEDICATION (NON-FORMULARY) (Oxycodone Hcl [Oxycodone Hcl] 15 MG) PO PRN (15:14)
--- NOTE | 2017-09-16 15:36 | HP ---
CHIEF COMPLAINT:L knee pain PCP:cirilo chaudhari HISTORY OF PRESENT ILLNESS: 82yo F with PMH CAD on plavix/asa, psoriasis arthritis, HTN, dyslipidemia, frequent UTI and lower GI bleed presented to ER for intractable knee pain x 5days. pt states pain has not been relieved with home dose of oxy. noticed for the past week was having increasing difficulty ambulating around and has been reclined to her recliner sofa during this time. no relief with morphine in the ER. also stopped taking her lasix because she was having difficulty getting to and from the bathroom. denies any trauma to the knee, twisting/bending the wrong way, denies CP, SOB, fever, chills, N/V/C/D. claims medications compliance except for lasix. ER course was notable for: (1)morphine 2mg IV x1 (2) Knee XR negative for effusion or fx (3) Recent Travel:denies PAST MEDICAL HISTORY:as above PAST SURGICAL HISTORY:b/l THR, ,cataract surgery Social History: Smoking:quit 20 years ago Alcohol:denies Drugs: denies Family History:father throat ca, 2 brothers with CAD, sister Alzheimer Allergies No Known Allergies Allergy (Verified 04/22/17 11:28) HOME MEDICATIONS: Home Medications Medication Instructions Recorded Allopurinol [Zyloprim -] 200 mg PO DAILY 08/09/15 Atorvastatin Ca [Lipitor] 20 mg PO HS 08/09/15 Calcium Carbonate [Calcium] 600 mg PO DAILY 08/09/15 Clopidogrel Bisulfate [Plavix -] 75 mg PO DAILY 08/09/15 Folic Acid 1 mg PO DAILY 08/09/15 Furosemide [Lasix -] 20 mg PO BID 08/09/15 Iron 18 mg PO DAILY 08/09/15 Lactobacillus Acidophilus [Bacid -] 1 each PO DAILY 08/09/15 Methotrexate Sodium [Trexall] 7.5 mg PO WEEKLY 08/09/15 Multivitamins [Multivit ([facility] 1 tab PO DAILY 08/09/15 Formulary)] Ramipril 5 mg PO DAILY 08/09/15 Acetaminophen [Tylenol] 325 mg PO QID PRN 04/22/17 Amoxicillin - [Amoxicillin 500mg 500 mg PO BID 04/22/17 Capsule -] Carvedilol 3.125 mg PO BID 04/22/17 Colchicine [Colcrys -] 0.6 mg PO PRN PRN 04/22/17 Oxycodone HCl 15 mg PO QID PRN 04/22/17 REVIEW OF SYSTEMS CONSTITUTIONAL: Absent: fever, chills, diaphoresis, generalized weakness, malaise, loss of appetite, weight change HEENT: Absent: rhinorrhea, nasal congestion, throat pain, throat swelling, difficulty swallowing, mouth swelling, ear pain, eye pain, visual changes CARDIOVASCULAR: Absent: chest pain, syncope, palpitations, irregular heart rate, lightheadedness , peripheral edema RESPIRATORY: Absent: cough, shortness of breath, dyspnea with exertion, orthopnea, wheezing, stridor, hemoptysis GASTROINTESTINAL: Absent: abdominal pain, abdominal distension, nausea, vomiting, diarrhea, constipation, melena, hematochezia GENITOURINARY: Absent: dysuria, frequency, urgency, hesitancy, hematuria, flank pain, genital pain MUSCULOSKELETAL: arthralgia, joint swelling, inability to walk, B/L LE swelling Absent: myalgia, back pain, neck pain SKIN: Absent: rash, itching, pallor HEMATOLOGIC/IMMUNOLOGIC: Absent: easy bleeding, easy bruising, lymphadenopathy, frequent infections ENDOCRINE: Absent: unexplained weight gain, unexplained weight loss, heat intolerance, cold intolerance NEUROLOGIC: Absent: headache, focal weakness or paresthesias, dizziness, unsteady gait, seizure, mental status changes, bladder or bowel incontinence PSYCHIATRIC: Absent: anxiety, depression, suicidal or homicidal ideation, hallucinations. PHYSICAL EXAMINATION Vital Signs - 24 hr 09/16/17 09/16/17 09/16/17 07:45 08:23 11:09 Temperature 98.1 F 97.8 F Pulse Rate 77 74 Pulse Rate [ 77 Left Apical] Respiratory 16 16 Rate Blood Pressure 138/70 Blood Pressure 129/60 [Left Calf] O2 Sat by Pulse 95 97 98 Oximetry (%) 09/16/17 12:59 Temperature 98.0 F Pulse Rate Pulse Rate [ 74 Left Apical] Respiratory 16 Rate Blood Pressure Blood Pressure 125/60 [Left Calf] O2 Sat by Pulse 97 Oximetry (%) GENERAL: Awake, alert, and fully oriented, in no acute distress. HEAD: Normal with no signs of trauma. EYES: Pupils equal, round and reactive to light, extraocular movements intact, sclera anicteric, conjunctiva clear. No lid lag. EARS, NOSE, THROAT: Ears normal, nares patent, oropharynx clear without exudates. Moist mucous membranes. NECK: Normal range of motion, supple without lymphadenopathy, JVD, or masses. LUNGS: Breath sounds equal, clear to auscultation bilaterally. No wheezes, and no crackles. No accessory muscle use. HEART: Regular rate and rhythm, normal S1 and S2 +systolic murmur, rub or gallop. ABDOMEN: Soft, nontender, not distended, normoactive bowel sounds, no guarding, no rebound, no masses. No hepatomegaly or splenomegaly. MUSCULOSKELETAL: Normal range of motion at all joints. No bony deformities or tenderness. No CVA tenderness. UPPER EXTREMITIES: 2+ pulses, warm, well-perfused. No cyanosis. No clubbing. No peripheral edema. LOWER EXTREMITIES: 2+ pulses, warm, well-perfused. L knee swollen tender refused movement of the leg. 1+ pitting edema B/L LE. slight erythema to B/L LE not tender or warm. NEUROLOGICAL: Cranial nerves II-XII intact. Normal speech. Normal gait. PSYCHIATRIC: Cooperative. Good eye contact. Appropriate mood and affect. SKIN: Warm, dry, normal turgor, no rashes or lesions noted, normal capillary refill. Laboratory Results - last 24 hr 09/16/17 09/16/17 09/16/17 09:35 09:35 09:35 WBC 7.3 RBC 3.21 L D Hgb 11.0 D Hct 32.8 D MCV 102.3 H MCH 34.3 H MCHC 33.5 RDW 15.2 Plt Count 201 D MPV 7.3 L Neutrophils % 68.8 Lymphocytes % 18.1 Monocytes % 10.1 Eosinophils % 2.5 D Basophils % 0.5 ESR 14 PT with INR INR Sodium 134 L Potassium 4.6 Chloride 98 Carbon Dioxide 26 Anion Gap 10 BUN 20 H Creatinine 0.8 Creat Clearance w eGFR > 60 Random Glucose 91 Uric Acid 3.4 Calcium 9.0 Total Bilirubin 0.8 D AST 20 ALT 14 Alkaline Phosphatase 86 C-Reactive Protein 0.9 H Total Protein 7.1 Albumin 3.6 09/16/17 09:35 WBC RBC Hgb Hct MCV MCH MCHC RDW Plt Count MPV Neutrophils % Lymphocytes % Monocytes % Eosinophils % Basophils % ESR PT with INR 11.60 INR 1.03 Sodium Potassium Chloride Carbon Dioxide Anion Gap BUN Creatinine Creat Clearance w eGFR Random Glucose Uric Acid Calcium Total Bilirubin AST ALT Alkaline Phosphatase C-Reactive Protein Total Protein Albumin ASSESSMENT/PLAN: 82yo F with PMH CAD on plavix/asa, psoriasis arthritis, HTN, dyslipidemia, frequent UTI and lower GI bleed presented to ER for intractable knee pain x 5days. 1. Intractable L knee pain- medicine admission. Uric acid normal. XR negative for fracture or joint effusion. ortho consulted. increase morphine to 4mg and titrate to provide relief. will need PT eval. pt is agreeable to [facility]. 2.pedal edema- non compliance with lasix due to decreased mobility. s/p lasix 20mg IVP in the ER. will resume home dosing of lasix for now. 3. CAD- on plavix. (not on asa due to GI bleed) 4. L THR- on prophylactic amoxicillin due to frequent infections 5. Gout- no flare at this time. cont colchicine, allopurinol 6. Psoratic arthritis- MTX weekly on fridays 7. DVT ppx- hep sq 8. PT assessment. will need [facility] Hospitalist Screening - Colonoscopy Questionnaire Colonoscopy Questionnaire: Colonoscopy Questionnaire
[2017-09-16] MEDS: oxyCODONE HCL 5 MG TABLET PO PRN ×2 (16:07→22:11)
[2017-09-16] MEDS: FUROSEMIDE 20 MG TABLET (FP) PO SCH (16:11)
[2017-09-16 16:39] VITALS: BMI 22.3
[2017-09-16] MEDS: ATORVASTATIN CA 20 MG TABLET (FP) PO SCH (22:11)
[2017-09-16] MEDS: CARVEDILOL 3.125 MG TABLET (FP) PO SCH (22:11)
[2017-09-16] MEDS: AMOXICILLIN 500 MG CAPSULE (FP) PO SCH (22:11)
[2017-09-17] MEDS ORDERED: ACETAMINOPHEN 325 MG TABLET (FP) PO ONE ×2 (02:10→02:15)
[2017-09-17] MEDS ORDERED: oxyCODONE HCL 5 MG TABLET PO ONE (02:15)
[2017-09-17] MEDS: oxyCODONE HCL 5 MG TABLET PO PRN ×4 (05:00→23:31)
[2017-09-17] MEDS: FUROSEMIDE 20 MG TABLET (FP) PO SCH ×2 (05:00→15:04)
[2017-09-17 07:33] LABS: BASO % 0.6 % (0-2.0); EOS % 2.9 % (0-4.5); HEMOGLOBIN 10.1 GM/dL (10.7-15.3); LYMPH % 23.2 % (8-40); MCH 34.5 pg (25.7-33.7); MCHC 33.6 g/dl (32.0-36.0); MEAN CELL VOLUME 102.6 fl (80-96); MEAN PLT VOLUME 7.4 fl (7.5-11.1); MONO % 13.3 % (3.8-10.2); PLATELET COUNT 163 K/MM3 (134-434); RBC 2.93 M/mm3 (3.60-5.2); WHITE BLOOD COUNT 6.5 K/mm3 (4.0-10.0)
[2017-09-17 08:01] LABS: ANION GAP 6 (8-16); BLOOD UREA NITROGEN 20 mg/dL (7-18); CALCIUM 7.5 mg/dL (8.5-10.1); CHLORIDE 100 mmol/L (98-107); CO2 31 mmol/L (21-32); CREATININE 0.7 mg/dL (0.55-1.02); GLUCOSE,RANDOM 86 mg/dL (74-106); SODIUM 137 mmol/L (136-145)
[2017-09-17] MEDS ORDERED: PT OWN MED DRAWER 7, Y5N ONE (10:01)
--- NOTE | 2017-09-17 10:07 | PN ---
Progress Note (short form) - Note Progress Note: Pt seen and examined. She is an 82 yo F with c/o severe acute on chronic Left knee pain. It has been getting worse for the past 5-6 days. She denies any recent h/o trauma. She states she can walk. She has chronic problems with both ankles, she wears AFOs. PE In NAD L knee is not swollen, no signs of acute trauma. No sig swelling No effusion Not hot, no erythema Limited ROM bc of pain + chronic deformity at the left ankle, externally rotated, arch collapsed Xrays Of the Left knee show severe Grade IV OA Imp Acute on chronic left knee pain, severe OA Rec We discussed the options. She is refusing surgery, bracing, and cortisone injections at this time. I rec P.T. for ambulation F/U as an out pt
[2017-09-17] MEDS: CLOPIDOGREL BISULFATE 75 MG TABLET (FP) PO SCH (10:35)
[2017-09-17] MEDS: MULTIVITAMINS (DAILY MVI) TABLET (FP) PO SCH (10:35)
[2017-09-17] MEDS: FOLIC ACID 1 MG TABLET (FP) PO SCH (10:35)
[2017-09-17] MEDS: RAMIPRIL 2.5 MG CAPSULE (FP) PO SCH (10:35)
[2017-09-17] MEDS: LACTOBACILLUS ACIDOPHILUS 1 EACH TAB (FP) PO SCH (10:35)
[2017-09-17] MEDS: ALLOPURINOL 100 MG TABLET (FP) PO SCH (10:35)
[2017-09-17] MEDS: CARVEDILOL 3.125 MG TABLET (FP) PO SCH ×2 (10:35→21:59)
[2017-09-17] MEDS: CALCIUM CARBONATE 650 MG TABLET PO SCH (10:36)
[2017-09-17] MEDS: AMOXICILLIN 500 MG CAPSULE (FP) PO SCH ×2 (10:36→21:59)
[2017-09-17] MEDS: LIDOCAINE 5% TOPICAL PATCH TP SCH (11:55)
--- NOTE | 2017-09-17 12:12 | PN ---
<Amarjit Greenfield - Last Filed: 09/17/17 18:22> Physical Exam: SUBJECTIVE: Patient seen and examined No acute events overnight. Patient still complains of severe pain in the left knee. Patient walks at home with walker and lives by herself. Denies fever, chills, chest pain, abdominal pain. OBJECTIVE: Vital Signs Period Temp Pulse Resp BP Sys/Seymour Pulse Ox Last 24 Hr 97.9 F-98.6 F 64-74 16-20 121-149/60-69 94-97 GENERAL: Awake, alert, and fully oriented, in no acute distress. HEAD: Normal with no signs of trauma. EYES: Pupils equal, round and reactive to light, Extraocular movements intact, sclera anicteric, conjunctiva clear. EARS, NOSE, THROAT: Ears normal, nares patent, oropharynx clear without exudates. Moist mucous membranes. NECK: Normal range of motion, supple without lymphadenopathy, JVD, or masses. LUNGS: Breath sounds equal, clear to auscultation bilaterally. No wheezes, and no crackles. No accessory muscle use. HEART: Regular rate and rhythm, normal S1 and S2, +2/6 SERGEI, No rub or gallop. ABDOMEN: Soft, nontender, not distended, normoactive bowel sounds, no guarding, no rebound, no masses. No hepatomegaly or splenomegaly. UPPER EXTREMITIES: 2+ pulses, warm, well-perfused. No cyanosis. No clubbing. No peripheral edema. LOWER EXTREMITIES: 2+ pulses, warm, well-perfused. +Left knee swollen, Severely tender to palpation, Decreased motion at knee. No warmth or erythema. 1+ pitting edema b/l lower extremities PSYCHIATRIC: Cooperative. Good eye contact. Appropriate mood and affect. SKIN: Warm, dry, normal turgor, no rashes or lesions noted, normal capillary refill. Laboratory Results - last 24 hr 09/17/17 09/17/17 06:15 06:15 WBC 6.5 RBC 2.93 L Hgb 10.1 L Hct 30.0 L MCV 102.6 H MCH 34.5 H MCHC 33.6 RDW 15.0 Plt Count 163 MPV 7.4 L Neutrophils % 60.0 Lymphocytes % 23.2 D Monocytes % 13.3 H Eosinophils % 2.9 Basophils % 0.6 Sodium 137 Potassium 4.0 Chloride 100 Carbon Dioxide 31 Anion Gap 6 L BUN 20 H Creatinine 0.7 Random Glucose 86 Calcium 7.5 L Active Medications Generic Name Dose Route Start Last Admin Trade Name Freq PRN Reason Stop Dose Admin Allopurinol 200 mg 09/17/17 10:00 09/17/17 10:35 Zyloprim - PO 200 mg DAILY AYAN Administration Amoxicillin 500 mg 09/16/17 22:00 09/17/17 10:36 Amoxicillin - PO 500 mg BID AYAN Administration Atorvastatin Calcium 20 mg 09/16/17 22:00 09/16/17 22:11 Lipitor - PO 20 mg HS [facility] Administration Calcium Carbonate 650 mg 09/17/17 10:00 09/17/17 10:36 Calcium Carbonate - PO 650 mg DAILY [facility] Administration Carvedilol 3.125 mg 09/16/17 22:00 09/17/17 10:35 Coreg - PO 3.125 mg BID AYAN Administration Clopidogrel Bisulfate 75 mg 09/17/17 10:00 09/17/17 10:35 Plavix - PO 75 mg DAILY AYAN Administration Folic Acid 1 mg 09/17/17 10:00 09/17/17 10:35 Folic Acid - PO 1 mg DAILY AYAN Administration Furosemide 20 mg 09/16/17 15:45 09/17/17 05:00 Lasix - PO 20 mg BIDLASIX [facility] Administration Lactobacillus Acidophilus 1 tab 09/17/17 10:00 09/17/17 10:35 Bacid - PO 1 tab DAILY [facility] Administration Lidocaine 1 patch 09/17/17 11:00 09/17/17 11:55 Lidoderm Patch - TP 1 patch DAILY [facility] Administration Methotrexate 7.5 mg 09/18/17 10:00 Mexate - PO Fr@1000 [facility] Miscellaneous 1 each 09/17/17 22:00 Lidoderm Patch Removal MC DAILY@2200 [facility] Morphine Sulfate 1 mg 09/17/17 10:46 Morphine Sulfate IVPUSH Q4H PRN PAIN LEVEL 6-10 Multivitamins/Minerals/Vitamin C 1 tab 09/17/17 10:00 09/17/17 10:35 Tab-A-Vit - PO 1 tab DAILY [facility] Administration Oxycodone HCl 15 mg 09/16/17 15:22 09/17/17 10:51 Roxicodone - PO 15 mg Q6H PRN Administration PAIN LEVEL 4 - 6 Ramipril 5 mg 09/17/17 10:00 09/17/17 10:35 Altace - PO 5 mg DAILY AYAN Administration ASSESSMENT/PLAN: 82 year old F with pmh of CAD on plavix, psoriatic arthritis, HTN, HLD, frequent UTIs, and previous lower GI bleed presented with intractable knee pain. #Intractable L knee pain, B/l KATHY -Uric acid levels unremarkable -Xray negative for fracture -Ortho recommends PT for ambulation and f/u outpt -PT evaluation -Will attend [facility] -Continue Morphine 1 mg q4h prn -Continue Oxycodone 15 mg q6h prn -Continue Lidocaine patch -Vascular study- no evidence of DVT -Continue Lasix 20 mg bid po #CAD/HTN -Continue Plavix 75 mg po daily -Continue Coreg 3.125 mg bid -Continue Ramipril 5 mg po daily #Left Total hip replacement -Continue ppx Amoxicillin 200 mg for prevention of infection #Gout -Continue Allopurinol 200 mg po daily #Psoriatic arthritis -Continue Methotrexate on Fridays -Continue Folic acid 1 mg po daily #FEN/GI -no IVF -monitor BMP -Sodium controlled diet #PPx -SCDs Dispo: Can d/c to [facility] when stable Visit type - Emergency Visit Emergency Visit: Yes ED Registration Date: 09/16/17 Care time: The patient presented to the Emergency Department on the above date and was hospitalized for further evaluation of their emergent condition. - New Patient This patient is new to me today: Yes Date on this admission: 09/17/17 - Critical Care Critical Care patient: No <Carmen Mclean - Last Filed: 09/17/17 19:15> Physical Exam: Patient seen and examined, feeling better, refusing any kind of surgery. continue PT, would like to send her to Rehab. Pending rehab.
[2017-09-17] MEDS: morphine SULFATE 4 MG/ML VIAL IVPUSH PRN ×2 (15:04→21:59)
[2017-09-17] MEDS: ATORVASTATIN CA 20 MG TABLET (FP) PO SCH (21:59)
[2017-09-17] MEDS: LIDOCAINE PATCH REMOVAL MC SCH (23:00)
[2017-09-18] MEDS: morphine SULFATE 4 MG/ML VIAL IVPUSH PRN (04:07)
[2017-09-18] MEDS: oxyCODONE HCL 5 MG TABLET PO PRN ×3 (06:08→19:20)
[2017-09-18] MEDS: FUROSEMIDE 20 MG TABLET (FP) PO SCH ×2 (06:09→13:59)
[2017-09-18] MEDS ORDERED: PT OWN MED DRAWER 7, Y5N ONE (06:50)
[2017-09-18 07:01] LABS: BASO % 0.6 % (0-2.0); EOS % 2.7 % (0-4.5); HEMATOCRIT 32.5 % (32.4-45.2); HEMOGLOBIN 10.9 GM/dL (10.7-15.3); LYMPH % 18.6 % (8-40); MCH 34.5 pg (25.7-33.7); MCHC 33.6 g/dl (32.0-36.0); MEAN CELL VOLUME 102.5 fl (80-96); MEAN PLT VOLUME 7.6 fl (7.5-11.1); MONO % 13.6 % (3.8-10.2); NEUT % 64.5 % (42.8-82.8); PLATELET COUNT 177 K/MM3 (134-434); RBC 3.17 M/mm3 (3.60-5.2); RDW 14.9 % (11.6-15.6); WHITE BLOOD COUNT 7.6 K/mm3 (4.0-10.0)
[2017-09-18 07:03] LABS: ANION GAP 11 (8-16); BLOOD UREA NITROGEN 12 mg/dL (7-18); CALCIUM 8.3 mg/dL (8.5-10.1); CHLORIDE 95 mmol/L (98-107); CO2 30 mmol/L (21-32); CREATININE 0.7 mg/dL (0.55-1.02); GLUCOSE,RANDOM 91 mg/dL (74-106); POTASSIUM 4.2 mmol/L (3.5-5.1); SODIUM 136 mmol/L (136-145)
[2017-09-18] MEDS ORDERED: METHOTREXATE 2.5 MG TABLET PO SCH (10:00)
[2017-09-18] MEDS: RAMIPRIL 2.5 MG CAPSULE (FP) PO SCH (10:59)
[2017-09-18] MEDS: CARVEDILOL 3.125 MG TABLET (FP) PO SCH ×2 (10:59→22:56)
[2017-09-18] MEDS: FOLIC ACID 1 MG TABLET (FP) PO SCH (10:59)
[2017-09-18] MEDS: MULTIVITAMINS (DAILY MVI) TABLET (FP) PO SCH (10:59)
[2017-09-18] MEDS: CLOPIDOGREL BISULFATE 75 MG TABLET (FP) PO SCH (10:59)
[2017-09-18] MEDS: LIDOCAINE 5% TOPICAL PATCH TP SCH (10:59)
[2017-09-18] MEDS: AMOXICILLIN 500 MG CAPSULE (FP) PO SCH ×2 (11:01→22:56)
[2017-09-18] MEDS: CALCIUM CARBONATE 650 MG TABLET PO SCH (11:01)
[2017-09-18] MEDS: LACTOBACILLUS ACIDOPHILUS 1 EACH TAB (FP) PO SCH (11:02)
[2017-09-18] MEDS: ALLOPURINOL 100 MG TABLET (FP) PO SCH (11:02)
--- NOTE | 2017-09-18 11:41 | PN ---
<Amarjit Greenfield - Last Filed: 09/18/17 15:11> Physical Exam: SUBJECTIVE: Patient seen and examined No acute events overnight. She continues to have left knee pain. Denies fevers, chills, chest pain, abdominal pain OBJECTIVE: Vital Signs Period Temp Pulse Resp BP Sys/Seymour Pulse Ox Last 24 Hr 98.0 F-98.9 F 62-98 17-20 115-131/56-74 94 GENERAL: Awake, alert, and fully oriented, in no acute distress. HEAD: Normal with no signs of trauma. EYES: Pupils equal, round and reactive to light, Extraocular movements intact, sclera anicteric, conjunctiva clear. EARS, NOSE, THROAT: Ears normal, nares patent, oropharynx clear without exudates. Moist mucous membranes. NECK: Normal range of motion, supple without lymphadenopathy, JVD, or masses. LUNGS: Breath sounds equal, clear to auscultation bilaterally. No wheezes, and no crackles. No accessory muscle use. HEART: Regular rate and rhythm, normal S1 and S2, +2/6 SERGEI, No rub or gallop. ABDOMEN: Soft, nontender, not distended, normoactive bowel sounds, no guarding, no rebound, no masses. No hepatomegaly or splenomegaly. UPPER EXTREMITIES: 2+ pulses, warm, well-perfused. No cyanosis. No clubbing. No peripheral edema. LOWER EXTREMITIES: 2+ pulses, warm, well-perfused. +Left knee swollen, Severely tender to palpation, Decreased motion at knee. No warmth or erythema. 1+ pitting edema b/l lower extremities PSYCHIATRIC: Cooperative. Good eye contact. Appropriate mood and affect. SKIN: Warm, dry, normal turgor, no rashes or lesions noted, normal capillary refill. Laboratory Results - last 24 hr 09/18/17 09/18/17 05:30 05:30 WBC 7.6 RBC 3.17 L Hgb 10.9 Hct 32.5 MCV 102.5 H MCH 34.5 H MCHC 33.6 RDW 14.9 Plt Count 177 MPV 7.6 Neutrophils % 64.5 Lymphocytes % 18.6 Monocytes % 13.6 H Eosinophils % 2.7 Basophils % 0.6 Sodium 136 Potassium 4.2 Chloride 95 L Carbon Dioxide 30 Anion Gap 11 BUN 12 Creatinine 0.7 Random Glucose 91 Calcium 8.3 L Active Medications Generic Name Dose Route Start Last Admin Trade Name Freq PRN Reason Stop Dose Admin Allopurinol 200 mg 09/17/17 10:00 09/18/17 11:02 Zyloprim - PO 200 mg DAILY AYAN Administration Amoxicillin 500 mg 09/16/17 22:00 09/18/17 11:01 Amoxicillin - PO 500 mg BID AYAN Administration Atorvastatin Calcium 20 mg 09/16/17 22:00 09/17/17 21:59 Lipitor - PO 20 mg HS AYAN Administration Calcium Carbonate 650 mg 09/17/17 10:00 09/18/17 11:01 Calcium Carbonate - PO 650 mg DAILY AYAN Administration Carvedilol 3.125 mg 09/16/17 22:00 09/18/17 10:59 Coreg - PO 3.125 mg BID AYAN Administration Clopidogrel Bisulfate 75 mg 09/17/17 10:00 09/18/17 10:59 Plavix - PO 75 mg DAILY AYAN Administration Folic Acid 1 mg 09/17/17 10:00 09/18/17 10:59 Folic Acid - PO 1 mg DAILY AYAN Administration Furosemide 20 mg 09/16/17 15:45 09/18/17 06:09 Lasix - PO 20 mg BIDLASIX AYAN Administration Lactobacillus Acidophilus 1 tab 09/17/17 10:00 09/18/17 11:02 Bacid - PO 1 tab DAILY AYAN Administration Lidocaine 1 patch 09/17/17 11:00 09/18/17 10:59 Lidoderm Patch - TP 1 patch DAILY AYAN Administration Methotrexate 7.5 mg 09/18/17 10:00 09/18/17 11:01 Mexate - PO 7.5 mg Fr@1000 [facility] Administration Miscellaneous 1 each 09/17/17 22:00 09/17/17 23:00 Lidoderm Patch Removal MC 1 each DAILY@2200 AYAN Administration Morphine Sulfate 1 mg 09/17/17 10:46 09/18/17 04:07 Morphine Sulfate IVPUSH 1 mg Q4H PRN Administration PAIN LEVEL 6-10 Multivitamins/Minerals/Vitamin C 1 tab 09/17/17 10:00 09/18/17 10:59 Tab-A-Vit - PO 1 tab DAILY AYAN Administration Oxycodone HCl 15 mg 09/16/17 15:22 09/18/17 06:08 Roxicodone - PO 15 mg Q6H PRN Administration PAIN LEVEL 4 - 6 Ramipril 5 mg 09/17/17 10:00 09/18/17 10:59 Altace - PO 5 mg DAILY AYAN Administration ASSESSMENT/PLAN: 82 year old F with pmh of CAD on plavix, psoriatic arthritis, HTN, HLD, frequent UTIs, and previous lower GI bleed presented with intractable knee pain. #Intractable L knee pain, B/l KATHY -Uric acid levels unremarkable -Xray negative for fracture -Ortho recommends PT for ambulation and f/u outpt -PT evaluation -Will attend [facility] -Continue Morphine 1 mg q4h prn -Continue Oxycodone 15 mg q6h prn -Continue Lidocaine patch -Vascular study- no evidence of DVT -Continue Lasix 20 mg bid po -Will obtain steroid injection to knee #CAD/HTN -Continue Plavix 75 mg po daily -Continue Coreg 3.125 mg bid -Continue Ramipril 5 mg po daily #Left Total hip replacement -Continue ppx Amoxicillin 200 mg for prevention of infection #Gout -Continue Allopurinol 200 mg po daily #Psoriatic arthritis -Continue Methotrexate on Fridays -Continue Folic acid 1 mg po daily #FEN/GI -no IVF -monitor BMP -Sodium controlled diet #PPx -SCDs Dispo: Can d/c to [facility] when stable Visit type - Emergency Visit Emergency Visit: Yes ED Registration Date: 09/16/17 Care time: The patient presented to the Emergency Department on the above date and was hospitalized for further evaluation of their emergent condition. - New Patient This patient is new to me today: No - Critical Care Critical Care patient: No <Carmen Mclean - Last Filed: 09/18/17 18:39> Physical Exam: Patient seen and examined with the resident. Patient is doing well still having difficulty with ambulation, possible discharge to rehab.in am.
[2017-09-18] MEDS ORDERED: methylPREDNISolone ACET (DEPO) 80 MG/1 ML VIAL IAR ONE (11:52)
--- NOTE | 2017-09-18 11:54 | PN ---
Progress Note (short form) - Note Progress Note: Ortho Pt seen and examined still c/o pain in left knee. Pain has not improved and would like a cortisone injection PE- + ttp, decr rom, nvi a/p lido/depo injection ordered will give injection either later today/tomorrow d/w Dr. Jonas
[2017-09-18] MEDS ORDERED: LIDOCAINE HCL 1%, 10 MG/ML (20ML VIAL) ONE (12:19)
--- NOTE | 2017-09-18 14:18 | PROC ---
Arthrocentesis - Arthrocentesis Indication: Steriod Injection Arthrocentesis Site: left: knee Skin prep: Alcohol Joint Injection of: Depo Medrol, Lidocaine 1% Sterile Dressing Applied: Yes Remarks: consent obtained, knee marked, time out was performed prior to injection by HENNY Reyna, injection given under sterile technique, tolerated well with no acute reactions.
[2017-09-18] MEDS: ATORVASTATIN CA 20 MG TABLET (FP) PO SCH (22:56)
[2017-09-18] MEDS: LIDOCAINE PATCH REMOVAL MC SCH (22:56)
[2017-09-19] MEDS: oxyCODONE HCL 5 MG TABLET PO PRN ×2 (03:09→09:56)
[2017-09-19] MEDS: FUROSEMIDE 20 MG TABLET (FP) PO SCH (06:48)
--- NOTE | 2017-09-19 09:17 | DS ---
Physical Exam: SUBJECTIVE: Patient seen and examined Patient is feeling better with no acute distress, going to Rehab. OBJECTIVE: Vital Signs Temperature 99.4 F 09/19/17 06:12 Pulse Rate 58 L 09/19/17 06:12 Respiratory Rate 18 09/19/17 06:12 Blood Pressure 106/51 09/19/17 06:12 O2 Sat by Pulse Oximetry (%) 93 L 09/18/17 21:00 PHYSICAL EXAM GENERAL: Awake, alert, and fully oriented, in no acute distress. HEAD: Normal with no signs of trauma. EYES: Pupils equal, round and reactive to light, Extraocular movements intact, sclera anicteric, conjunctiva clear. EARS, NOSE, THROAT: Ears normal, nares patent, oropharynx clear without exudates. Moist mucous membranes. NECK: Normal range of motion, supple without lymphadenopathy, JVD, or masses. LUNGS: Breath sounds equal, clear to auscultation bilaterally. No wheezes, and no crackles. No accessory muscle use. HEART: Regular rate and rhythm, normal S1 and S2, +2/6 SERGEI, No rub or gallop. ABDOMEN: Soft, nontender, not distended, normoactive bowel sounds, no guarding, no rebound, no masses. No hepatomegaly or splenomegaly. EXTREMITIES: 2+ pulses, warm, well-perfused. No swelling of left knee,No effusion, no erythema or warmth to touch, with Limited ROM, Limited ROM at the knee. positive for chronic deformity at the left ankle, externally rotated, arch collapsed. PSYCHIATRIC: Cooperative. Good eye contact. Appropriate mood and affect. SKIN: Warm, dry, normal turgor, no rashes or lesions noted, normal capillary refill. LABS CBCD WBC 7.6 K/mm3 (4.0-10.0) 09/18/17 05:30 RBC 3.17 M/mm3 (3.60-5.2) L 09/18/17 05:30 Hgb 10.9 GM/dL (10.7-15.3) 09/18/17 05:30 Hct 32.5 % (32.4-45.2) 09/18/17 05:30 MCV 102.5 fl (80-96) H 09/18/17 05:30 MCHC 33.6 g/dl (32.0-36.0) 09/18/17 05:30 RDW 14.9 % (11.6-15.6) 09/18/17 05:30 Plt Count 177 K/MM3 (134-434) 09/18/17 05:30 MPV 7.6 fl (7.5-11.1) 09/18/17 05:30 CMP Sodium 136 mmol/L (136-145) 09/18/17 05:30 Potassium 4.2 mmol/L (3.5-5.1) 09/18/17 05:30 Chloride 95 mmol/L (98-107) L 09/18/17 05:30 Carbon Dioxide 30 mmol/L (21-32) 09/18/17 05:30 Anion Gap 11 (8-16) 09/18/17 05:30 BUN 12 mg/dL (7-18) 09/18/17 05:30 Creatinine 0.7 mg/dL (0.55-1.02) 09/18/17 05:30 Creat Clearance w eGFR > 60 (>60) 09/16/17 09:35 Random Glucose 91 mg/dL (74-106) 09/18/17 05:30 Calcium 8.3 mg/dL (8.5-10.1) L 09/18/17 05:30 Total Bilirubin 0.8 mg/dL (0.2-1.0) D 09/16/17 09:35 AST 20 U/L (15-37) 09/16/17 09:35 ALT 14 U/L (12-78) 09/16/17 09:35 Alkaline Phosphatase 86 U/L (45-117) 09/16/17 09:35 Total Protein 7.1 g/dl (6.4-8.2) 09/16/17 09:35 Albumin 3.6 g/dl (3.4-5.0) 09/16/17 09:35 Current Medications Generic Name Dose Route Start Last Admin Trade Name Freq PRN Reason Stop Dose Admin Allopurinol 200 mg 09/17/17 10:00 09/18/17 11:02 Zyloprim - PO 200 mg DAILY AYAN Administration Amoxicillin 500 mg 09/16/17 22:00 09/18/17 22:56 Amoxicillin - PO 500 mg BID AYAN Administration Atorvastatin Calcium 20 mg 09/16/17 22:00 09/18/17 22:56 Lipitor - PO 20 mg HS AYAN Administration Calcium Carbonate 650 mg 09/17/17 10:00 09/18/17 11:01 Calcium Carbonate - PO 650 mg DAILY AYAN Administration Carvedilol 3.125 mg 09/16/17 22:00 09/18/17 22:56 Coreg - PO 3.125 mg BID AYAN Administration Clopidogrel Bisulfate 75 mg 09/17/17 10:00 09/18/17 10:59 Plavix - PO 75 mg DAILY AYAN Administration Folic Acid 1 mg 09/17/17 10:00 09/18/17 10:59 Folic Acid - PO 1 mg DAILY AYAN Administration Furosemide 20 mg 09/16/17 15:45 09/19/17 06:48 Lasix - PO 20 mg BIDLASIX AYAN Administration Lactobacillus Acidophilus 1 tab 09/17/17 10:00 09/18/17 11:02 Bacid - PO 1 tab DAILY AYAN Administration Lidocaine 1 patch 09/17/17 11:00 09/18/17 10:59 Lidoderm Patch - TP 1 patch DAILY AYAN Administration Methotrexate 7.5 mg 09/18/17 10:00 09/18/17 11:01 Mexate - PO 7.5 mg Fr@1000 AYAN Administration Miscellaneous 1 each 09/17/17 22:00 09/18/17 22:56 Lidoderm Patch Removal MC 1 each DAILY@2200 AYAN Administration Morphine Sulfate 1 mg 09/17/17 10:46 09/18/17 04:07 Morphine Sulfate IVPUSH 1 mg Q4H PRN Administration PAIN LEVEL 6-10 Multivitamins/Minerals/Vitamin C 1 tab 09/17/17 10:00 09/18/17 10:59 Tab-A-Vit - PO 1 tab DAILY AYAN Administration Oxycodone HCl 15 mg 09/16/17 15:22 09/19/17 03:09 Roxicodone - PO 15 mg Q6H PRN Administration PAIN LEVEL 4 - 6 Ramipril 5 mg 09/17/17 10:00 09/18/17 10:59 Altace - PO 5 mg DAILY AYAN Administration Home Medications Medication Instructions Recorded Allopurinol [Zyloprim -] 200 mg PO DAILY 08/09/15 Atorvastatin Ca [Lipitor] 20 mg PO HS 08/09/15 Calcium Carbonate [Calcium] 600 mg PO DAILY 08/09/15 Clopidogrel Bisulfate [Plavix -] 75 mg PO DAILY 08/09/15 Folic Acid 1 mg PO DAILY 08/09/15 Furosemide [Lasix -] 20 mg PO BID 08/09/15 Lactobacillus Acidophilus [Bacid -] 1 each PO DAILY 08/09/15 Methotrexate Sodium [Trexall] 7.5 mg PO FR 08/09/15 Multivitamins [Multivit ([facility] 1 tab PO DAILY 08/09/15 Formulary)] Ramipril 5 mg PO DAILY 08/09/15 Acetaminophen [Tylenol] 325 mg PO Q6H PRN 04/22/17 Amoxicillin - [Amoxicillin 500mg 500 mg PO BID 04/22/17 Capsule -] Carvedilol 3.125 mg PO DAILY 04/22/17 Oxycodone HCl 15 mg PO Q6H PRN 04/22/17 Ferrous Sulfate 325 mg PO DAILY 09/16/17 HOSPITAL COURSE: Date of Admission:09/16/17 Date of Discharge: 09/19/17 82 year old F with pmh of CAD on plavix, psoriatic arthritis, HTN, HLD, frequent UTIs, and previous lower GI bleed presented with intractable knee pain. #Acute over chronic Left knee pain, with severe OA of the knee On Oxycodone 15mg po q6prn , patient was taking it at home. Also added Vit D3 to the calcium that the patient is on. Added 1000U, patient needs Vit d checked as an outpatient. #CAD/HTN Continue Plavix 75 mg po daily, Coreg 3.125 mg bid, Ramipril 5 mg po daily #Left Total hip replacement on ppx Amoxicillin 200 mg for prevention of infection #Gout Continue Allopurinol 200 mg po daily #Psoriatic arthritis Continue Methotrexate on Fridays, and Folic acid 1 mg po daily #PPx: SCDs patient is getting transferred to Rehab. Please follow with ortho in a wek period. Minutes to complete discharge: 40 Discharge Summary Reason For Visit: BILATERAL EDEMA OF LOWER EXTREMITY Current Active Problems Intractable pain (Acute) CAD (coronary artery disease) (Chronic) Psoriatic arthritis (Chronic) Swelling of knee joint, left (Chronic) Condition: Stable - Instructions Diet, Activity, Other Instructions: You were in the hospital due to your severe left knee pain. Please follow up with your primary care provider within 2 week. Please follow up with the orthopedic surgeon within 1 week. Please continue your home medications. You will need to go to short term rehab for physical therapy prior to returning home. *If you have chest pain, shortness of breath, or any new/worsening symptoms please come back to the hospital immediately. Referrals: Dilcia Farrar MD [Primary Care Provider] - 2 Weeks Ghanshyam Jonas MD [Staff Physician] - 1 Week Disposition: HALF-WAY FACILITY - Home Medications Comprehensive Discharge Medication List: Ambulatory Orders Allopurinol [Zyloprim -] 200 mg PO DAILY 08/09/15 Atorvastatin Ca [Lipitor] 20 mg PO HS 08/09/15 Calcium Carbonate [Calcium] 600 mg PO DAILY 08/09/15 Clopidogrel Bisulfate [Plavix -] 75 mg PO DAILY 08/09/15 Folic Acid 1 mg PO DAILY 08/09/15 Furosemide [Lasix -] 20 mg PO BID 08/09/15 Lactobacillus Acidophilus [Bacid -] 1 each PO DAILY 08/09/15 Methotrexate Sodium [Trexall] 7.5 mg PO FR 08/09/15 Multivitamins [Multivit ([facility] Formulary)] 1 tab PO DAILY 08/09/15 Ramipril 5 mg PO DAILY 08/09/15 Acetaminophen [Tylenol] 325 mg PO Q6H PRN 04/22/17 Amoxicillin - [Amoxicillin 500mg Capsule -] 500 mg PO BID 04/22/17 Carvedilol 3.125 mg PO DAILY 04/22/17 Oxycodone HCl 15 mg PO Q6H PRN 04/22/17 Ferrous Sulfate 325 mg PO DAILY 09/16/17 This patient is new to me today: No Emergency Visit: Yes ED Registration Date: 09/16/17 Care time: The patient presented to the Emergency Department on the above date and was hospitalized for further evaluation of their emergent condition. Critical Care patient: No - Discharge Referral Referred to [facility] Yes Physician Referral: Dilcia Farrar MD ([facility]) (in 2 weeks)
[2017-09-19 09:56] VITALS: BP 129/73; PULSE 64; TEMP 98.2
[2017-09-19] MEDS: LIDOCAINE 5% TOPICAL PATCH TP SCH (09:57)
[2017-09-19] MEDS: MULTIVITAMINS (DAILY MVI) TABLET (FP) PO SCH (09:57)
[2017-09-19] MEDS: CLOPIDOGREL BISULFATE 75 MG TABLET (FP) PO SCH (09:57)
[2017-09-19] MEDS: FOLIC ACID 1 MG TABLET (FP) PO SCH (09:57)
[2017-09-19] MEDS: CARVEDILOL 3.125 MG TABLET (FP) PO SCH (09:57)
[2017-09-19] MEDS: LACTOBACILLUS ACIDOPHILUS 1 EACH TAB (FP) PO SCH (09:57)
[2017-09-19] MEDS: RAMIPRIL 2.5 MG CAPSULE (FP) PO SCH (09:57)
[2017-09-19] MEDS: AMOXICILLIN 500 MG CAPSULE (FP) PO SCH (09:58)
[2017-09-19] MEDS: CALCIUM CARBONATE 650 MG TABLET PO SCH (09:58)
[2017-09-19] MEDS: ALLOPURINOL 100 MG TABLET (FP) PO SCH (09:58)
== END 2017-09-19 11:14 | DRG 554 ==
LOC: JER 07:35 → JERBED 12:42 → J7W 14:25
PROVIDERS: ADMIT Internal Medicine; ATTEND Internal Medicine
PROC: 3E0U33Z Introduction of Anti-inflammatory into Joints, Percutaneous Approach (ICD-10-PCS; principal; 2017-09-18)
PROC: 3E0U3BZ Introduction of Anesthetic Agent into Joints, Percutaneous Approach (ICD-10-PCS; 2017-09-18)
DX: M17.12 Unilateral primary osteoarthritis, left knee (principal); I25.10 Atherosclerotic heart disease of native coronary artery without angina pectoris; M10.9 Gout, unspecified; I10 Essential (primary) hypertension; E78.5 Hyperlipidemia, unspecified; I25.2 Old myocardial infarction; M24.411 Recurrent dislocation, right shoulder; L40.50 Arthropathic psoriasis, unspecified; Z96.643 Presence of artificial hip joint, bilateral
CPT/HCPCS: 36415; 73560-TC-LT-FY; 80048; 80053; 84550; 85025; 85610; 85651; 86140; 93005; 93010; 93970-TC; 97116-GP; 97161-GP; 99285-25; J8610

== ENCOUNTER 2018-02-16 10:03 | Inpatient (IN) | payer OTHER, MEDICARE ==
[2018-02-16] MEDS ORDERED: oxyCODONE HCL 5 MG TABLET PO ONE (10:51)
--- NOTE | 2018-02-16 10:51 | PDOC ---
History of Present Illness - General History Source: Patient Exam Limitations: No Limitations - History of Present Illness Initial Comments: 02/16/18 11:17 The patient is a 82 year old female, with a significant PMH of osteoarthritis, gout, CAD, chronically dislocated right shoulder, NC, HTN, HLD, and lower GI bleed who presents to the emergency department for evaluation of her left foot. The patient reports she was sent by her registered nurse supervisor, Dr. Coates, for further evaluation of a pressure ulcer found on the patients 4th digit of her left foot. The patient states she has no pain to the left foot but mentions she has cellulitis. The patient denies chest pain, shortness of breath, headache and dizziness. Denies fever, chills, nausea, vomit, diarrhea and constipation. Allergies: NKDA Past surgical history: Bilateral hip replacement Social history: None reported PCP: Dilcia Looney <Padmini Reeves - Last Filed: 02/16/18 11:17> <Nilesh Haskins - Last Filed: 02/16/18 14:31> - General Chief Complaint: Wound Stated Complaint: WOUND Time Seen by Provider: 02/16/18 10:24 Past History <Padmini Reeves - Last Filed: 02/16/18 11:17> - Past Medical History Anemia: No Asthma: No Cancer: No Cardiac Disorders: Yes (NC) CVA: No COPD: No CHF: Yes (chronic) Dementia: No Diabetes: No GI Disorders: No Disorders: No HTN: Yes Hypercholesterolemia: Yes Liver Disease: No Seizures: No Thyroid Disease: No - Surgical History Abdominal Surgery: No Appendectomy: No Cardiac Surgery: No Cholecystectomy: No Lung Surgery: No Neurologic Surgery: No Orthopedic Surgery: Yes (bilateral hip replacements) - Immunization History Immunization Up to Date: No - Suicide/Smoking/Psychosocial Hx Smoking History: Never smoked Have you smoked in the past 12 months: No Number of Cigarettes Smoked Daily: 20 If you are a former smoker, when did you quit?: 20 years ago Information on smoking cessation initiated: No Hx Alcohol Use: No Drug/Substance Use Hx: No Substance Use Type: None Hx Substance Use Treatment: No <Nilesh Haskins - Last Filed: 02/16/18 14:31> - Past Medical History Allergies/Adverse Reactions: Allergies Allergy/AdvReac Type Severity Reaction Status Date / Time No Known Allergies Allergy Verified 02/16/18 10:10 Home Medications: Ambulatory Orders Allopurinol [Zyloprim -] 200 mg PO DAILY 08/09/15 Atorvastatin Ca [Lipitor] 20 mg PO HS 08/09/15 Calcium Carbonate [Calcium] 600 mg PO DAILY 08/09/15 Clopidogrel Bisulfate [Plavix -] 75 mg PO DAILY 08/09/15 Folic Acid 1 mg PO DAILY 08/09/15 Furosemide [Lasix -] 20 mg PO BID 08/09/15 Lactobacillus Acidophilus [Bacid -] 1 each PO DAILY 08/09/15 Methotrexate Sodium [Trexall] 7.5 mg PO FR 08/09/15 Multivitamins [Multivit ([facility] Formulary)] 1 tab PO DAILY 08/09/15 Ramipril 5 mg PO DAILY 08/09/15 Acetaminophen [Tylenol] 325 mg PO Q6H PRN 04/22/17 Carvedilol 3.125 mg PO BID 04/22/17 Oxycodone HCl 15 mg PO Q6H PRN 04/22/17 Ferrous Sulfate 325 mg PO DAILY 09/16/17 Cholecalciferol (Vitamin D3) [Children's Vitamin D3] 1,000 unit PO DAILY #30 tab.chew 09/19/17 Lidocaine 5% Patch [Lidoderm -] 1 patch TP DAILY patch 09/19/17 Lidocaine Patch Removal [Lidoderm Patch Removal] 1 each MC DAILY@2200 each Mupirocin Ointment [Bactroban 2% Ointment -] 1 applic TP DAILY #30 applic Naftifine HCl [Naftin] 1 applic TP DAILY #60 grams 01/05/18 Nystatin Powder [Nystop Powder -] 60 gm TP DAILY #60 gm 01/19/18 Amoxicillin - [Amoxicillin 500mg Capsule -] 500 mg PO TID 02/16/18 Review of Systems - Review of Systems Able to Perform ROS?: Yes Comments:: 02/16/18 11:02 A complete review of 10 out of 10 review of systems is taken and is negative apart from what is previously mentioned below and in the HPI. <Padmini Reeves - Last Filed: 02/16/18 11:17> *Physical Exam - Vital Signs Last Vital Signs Temp Pulse Resp BP Pulse Ox 98.4 F 59 L 16 156/76 93 L 02/16/18 10:11 02/16/18 10:11 02/16/18 10:11 02/16/18 10:11 02/16/18 10:11 - Physical Exam Comments: 02/16/18 11:00 Vitals: Triage vital signs reviewed General Appearance: No acute distress, well nourished, well developed Chest Wall: Nontender Cardiac: +Systolic injection murmur. Lungs: Clear to auscultation bilateral, good air movement bilaterally Rectal: Exam deferred Extremities: Full range of motion to all extremities, no cyanosis, clubbing, or edema Skin: +Pressure ulcer to the 4th digit of the left foot. Neuro: AOX3; Cranial Nerves 2-12 grossly intact, Strength intact to all extremities, Sensation intact to all extremities, gait normal Psych: Normal mood, normal affect <Padmini Reeves - Last Filed: 02/16/18 11:17> - Vital Signs Last Vital Signs Temp Pulse Resp BP Pulse Ox 98.4 F 59 L 16 156/76 93 L 02/16/18 10:11 02/16/18 10:11 02/16/18 10:11 02/16/18 10:11 02/16/18 10:11 <Nilesh Haskins - Last Filed: 02/16/18 14:31> ED Treatment Course - LABORATORY CBC & Chemistry Diagram: 02/16/18 11:15 02/16/18 11:15 - RADIOLOGY Radiology Studies Ordered: Category Date Time Status CXRPORT [CHEST X-RAY PORTABLE*] [RAD] Stat Radiology 02/16/18 10:32 Ordered FOOT-LEFT [RAD] Stat Radiology 02/16/18 10:38 Ordered <Nilesh Haskins - Last Filed: 02/16/18 14:31> Medical Decision Making - Medical Decision Making 02/16/18 14:31 Patient sent to the emergency department for foot ulcer extending to bone. We'll admit for IV antibiotics podiatry consultation and MRI to rule out osteo-. <Nilesh Haskins - Last Filed: 02/16/18 14:31> *DC/Admit/Observation/Transfer <Padmini Reeves - Last Filed: 02/16/18 11:17> - Discharge Dispostion Decision to Admit order: Yes <Nilesh Haskins - Last Filed: 02/16/18 14:31> Diagnosis at time of Disposition: Foot ulcer Qualifiers: Laterality: left Non-pressure ulcer stage: with fat layer exposed Qualified Code(s): L97.522 - Non-pressure chronic ulcer of other part of left foot with fat layer exposed
[2018-02-16] MEDS ORDERED: oxyCODONE HCL 5 MG TABLET ONE ×2 (11:23→21:20)
[2018-02-16 11:26] LABS: EOS % 4.3 % (0-4.5); HEMATOCRIT 36.7 % (32.4-45.2); HEMOGLOBIN 12.3 GM/dL (10.7-15.3); LYMPH % 27.2 % (8-40); MCH 34.5 pg (25.7-33.7); MCHC 33.4 g/dl (32.0-36.0); MEAN CELL VOLUME 103.2 fl (80-96); MEAN PLT VOLUME 7.1 fl (7.5-11.1); NEUT % 57.5 % (42.8-82.8); PLATELET COUNT 198 K/MM3 (134-434); RBC 3.56 M/mm3 (3.60-5.2); RDW 13.6 % (11.6-15.6)
[2018-02-16 11:51] LABS: ALK PHOS 92 U/L (45-117); ANION GAP 6 (8-16); BILIRUBIN,TOTAL 0.5 mg/dL (0.2-1.0); BLOOD UREA NITROGEN 11 mg/dL (7-18); CALCIUM 9.4 mg/dL (8.5-10.1); CHLORIDE 96 mmol/L (98-107); CO2 31 mmol/L (21-32); CREATININE 0.6 mg/dL (0.55-1.02); GLUCOSE,RANDOM 91 mg/dL (74-106); SGPT/ALT 24 U/L (12-78); SODIUM 133 mmol/L (136-145); TOT PROT 7.5 g/dl (6.4-8.2)
[2018-02-16 11:52] LABS: POTASSIUM 4.7 mmol/L (3.5-5.1); SGOT/AST 25 U/L (15-37)
[2018-02-16] MEDS ORDERED: PIPERACILLIN/TAZOB 3.375 GM 3.375 GM in DEXTROSE 5%-WATER - 50 ML IVPB ONE (12:34)
[2018-02-16] MEDS ORDERED: VANCOMYCIN 1,000 MG in DEXTROSE 5%-WATER - 250 ML IVPB ONE (12:34)
[2018-02-16] MEDS ORDERED: VANCOMYCIN 1 GRAM (PRE-DOCKED) 1,000 MG/250 ML BAG IVPB ONE (13:06)
[2018-02-16] MEDS ORDERED: PIPERACILLIN/TAZOB 3.375 GM 3.375 GM/50 ML BAG IVPB ONE (13:06)
--- NOTE | 2018-02-16 13:46 | EKG ---
Test Reason : Blood Pressure : / mmHG Vent. Rate : 057 BPM Atrial Rate : 057 BPM P-R Int : 158 ms QRS Dur : 138 ms QT Int : 446 ms P-R-T Axes : 077 010 017 degrees QTc Int : 434 ms POOR DATA QUALITY, INTERPRETATION MAY BE ADVERSELY AFFECTED SINUS BRADYCARDIA RIGHT BUNDLE BRANCH BLOCK ABNORMAL ECG WHEN COMPARED WITH ECG OF 16-SEP-2017 07:52, NO SIGNIFICANT CHANGE WAS FOUND Confirmed by Nick Frias MD ([id number]) on 02/16/2018 1:46:22 PM Referred By: Confirmed By:Nick Frias MD
--- NOTE | 2018-02-16 15:06 | HP ---
"CHIEF COMPLAINT: Left foot 4th digit ulcer [employer] Supervisor: Dr. Coates HISTORY OF PRESENT ILLNESS: 82 year-old female with a PMH significant for HTN, HLD, CAD s/p MT (2013), diastolic HF, recurrent UTIs, lower GI bleed (2014), s/p left total hip replacement on prophylactic amoxicillin, severe osteoarthritis, psoriatic arthritis, and gout. Patient has been treated over the past several months by Dr. Coates for cellulitis bilateral feet, pressure ulcer of the right medial rearfoot, and left fourth digit pressure ulcer. Dr. Coates performed excisional debridement of left fourth digit today, culture sent, and patient referred to the ED for admission to r/o osteomyeltitis and to start IV antibiotic therapy. Recent Travel: No PAST MEDICAL HISTORY: Hypertension Hyperlipidemia Coronary artery disease s/p MT (2013) Diastolic heart failure Recurrent UTIs Lower GI bleed (2014) Severe osteoarthritis Psoriatic arthritis Gout Prophylactic antibiotics PAST SURGICAL HISTORY: Bilateral hip replacements (2006, 2007) Tonsillectomy Social History: Smoking: never Alcohol: no Drugs: no Family History: Allergies No Known Allergies Allergy (Verified 02/16/18 10:10) HOME MEDICATIONS: Home Medications Medication Instructions Recorded Allopurinol [Zyloprim -] 200 mg PO DAILY 08/09/15 Atorvastatin Ca [Lipitor] 20 mg PO HS 08/09/15 Calcium Carbonate [Calcium] 600 mg PO DAILY 08/09/15 Clopidogrel Bisulfate [Plavix -] 75 mg PO DAILY 08/09/15 Folic Acid 1 mg PO DAILY 08/09/15 Furosemide [Lasix -] 20 mg PO BID 08/09/15 Lactobacillus Acidophilus [Bacid -] 1 each PO DAILY 08/09/15 Methotrexate Sodium [Trexall] 7.5 mg PO FR 08/09/15 Multivitamins [Multivit ([facility] 1 tab PO DAILY 08/09/15 Formulary)] Ramipril 5 mg PO DAILY 08/09/15 Acetaminophen [Tylenol] 325 mg PO Q6H PRN 04/22/17 Carvedilol 3.125 mg PO BID 04/22/17 Oxycodone HCl 15 mg PO Q6H PRN 04/22/17 Ferrous Sulfate 325 mg PO DAILY 09/16/17 Cholecalciferol (Vitamin D3) 1,000 unit PO DAILY #30 tab.chew 09/19/17 [Children's Vitamin D3] Lidocaine 5% Patch [Lidoderm -] 1 patch TP DAILY patch 09/19/17 Lidocaine Patch Removal [Lidoderm 1 each MC DAILY@2200 each 09/19/17 Patch Removal] Mupirocin Ointment [Bactroban 2% 1 applic TP DAILY #30 applic 01/05/18 Ointment -] Naftifine HCl [Naftin] 1 applic TP DAILY #60 grams 01/05/18 Nystatin Powder [Nystop Powder -] 60 gm TP DAILY #60 gm 01/19/18 Amoxicillin - [Amoxicillin 500mg 500 mg PO TID 02/16/18 Capsule -] REVIEW OF SYSTEMS CONSTITUTIONAL: Absent: fever, chills, diaphoresis, generalized weakness, malaise, loss of appetite, weight change HEENT: Absent: rhinorrhea, nasal congestion, throat pain, throat swelling, difficulty swallowing, mouth swelling, ear pain, eye pain, visual changes CARDIOVASCULAR: Absent: chest pain, syncope, palpitations, irregular heart rate, lightheadedness , peripheral edema RESPIRATORY: Absent: cough, shortness of breath, dyspnea with exertion, orthopnea, wheezing, stridor, hemoptysis GASTROINTESTINAL: Absent: abdominal pain, abdominal distension, nausea, vomiting, diarrhea, constipation, melena, hematochezia GENITOURINARY: Absent: dysuria, frequency, urgency, hesitancy, hematuria, flank pain, genital pain MUSCULOSKELETAL: Absent: myalgia, arthralgia, joint swelling, back pain, neck pain SKIN: Absent: rash, itching, pallor HEMATOLOGIC/IMMUNOLOGIC: Absent: easy bleeding, easy bruising, lymphadenopathy, frequent infections ENDOCRINE: Absent: unexplained weight gain, unexplained weight loss, heat intolerance, cold intolerance NEUROLOGIC: Absent: headache, focal weakness or paresthesias, dizziness, unsteady gait, seizure, mental status changes, bladder or bowel incontinence PSYCHIATRIC: Absent: anxiety, depression, suicidal or homicidal ideation, hallucinations. PHYSICAL EXAMINATION Vital Signs - 24 hr 02/16/18 10:11 Temperature 98.4 F Pulse Rate 59 L Respiratory 16 Rate Blood Pressure 156/76 O2 Sat by Pulse 93 L Oximetry (%) GENERAL: Awake, alert, and fully oriented, in no acute distress. HEAD: Normal with no signs of trauma. EYES: Pupils equal, round and reactive to light, sclera anicteric, conjunctiva clear. Left eyelid droop (chronic) LUNGS: CTA no crackles. No accessory muscle use. HEART: Regular rate and rhythm, S1 and S2 ABDOMEN: Soft, nontender, not distended UPPER EXTREMITIES: 2+ pulses, warm, well-perfused. No cyanosis. No clubbing. No peripheral edema. LOWER EXTREMITIES: No calf tenderness. 1+ bilateral edema; mild erythema bilateral toes; Stage III pressure ulcer left 4th toe 0.5 cm x 0.3 cm x 0.1 cm, slough in center; mild erythema bilateral ankles to shins NEUROLOGICAL: Cranial nerves II-XII intact. Normal speech. Laboratory Results - last 24 hr 02/16/18 02/16/18 02/16/18 11:15 11:15 11:15 WBC 5.0 RBC 3.56 L Hgb 12.3 Hct 36.7 MCV 103.2 H MCH 34.5 H MCHC 33.4 RDW 13.6 Plt Count 198 MPV 7.1 L Absolute Neuts (auto) 2.9 Neutrophils % 57.5 Lymphocytes % 27.2 D Monocytes % 10.0 Eosinophils % 4.3 Basophils % 1.0 Nucleated RBC % 0 PTT (Actin FS) 33.3 Sodium Potassium Chloride Carbon Dioxide Anion Gap BUN Creatinine Creat Clearance w eGFR Random Glucose Calcium Total Bilirubin AST ALT Alkaline Phosphatase Total Protein Albumin Blood Type A POSITIVE Antibody Screen Negative 02/16/18 11:15 WBC RBC Hgb Hct MCV MCH MCHC RDW Plt Count MPV Absolute Neuts (auto) Neutrophils % Lymphocytes % Monocytes % Eosinophils % Basophils % Nucleated RBC % PTT (Actin FS) Sodium 133 L Potassium 4.7 Chloride 96 L Carbon Dioxide 31 Anion Gap 6 L BUN 11 Creatinine 0.6 Creat Clearance w eGFR > 60 Random Glucose 91 Calcium 9.4 Total Bilirubin 0.5 AST 25 ALT 24 Alkaline Phosphatase 92 Total Protein 7.5 Albumin 4.0 Blood Type Antibody Screen ASSESSMENT/PLAN: 82 year-old female with a PMH significant for HTN, HLD, CAD s/p MT (2013), diastolic HF, recurrent UTIs, lower GI bleed (2014), s/p left total hip replacement on prophylactic amoxicillin, severe osteoarthritis, psoriatic arthritis, and gout. Has been treated over the past several months for cellulitis bilateral feet, pressure ulcer of the right medial rearfoot, and left fourth digit pressure ulcer. Admitted for IV antibiotic therapy and to r/o osteo of left foot. Bilateral pedal cellulitis --on immunosuppressant methotrexate --start Vanc and Zosyn Right foot medial rearfoot pressure ulcer Stage II Right foot 5th digit pressure ulcer, Stage III - PRESENT ON ADMISSION Left foot 4th digit pressure ulcer --left foot xray pending --MRI left foot ordered to r/o osteo Hypertension --BP stable --continue carvedilol, ramipril Hyperlipidemia --continue atorvastatin Coronary artery disease --continue clopidogrel, atorvastatin Diastolic heart failure --continue home dose Lasix PO 20mg daily s/p bilateral hip replacements --hold amoxicillin (home prophylaxis) Severe osteoarthritis --verified home dose oxycodone 15mg q6h PRN on ISTOP (see below) Psoriatic arthritis --continue methotrexate Gout --continue allopurinol FEN Fluids: PO intake adequate Electrolytes: replete as indicated Nutrition: low sodium DVT prophylaxis: subq heparin Physical therapy Dispo: continues to require inpatient care. Full code. ISTOP Search Terms: Ruma Jones, 1935 Search Date: 02/16/2018 08:57:33 PM This report was requested by: Becka Leal | Reference #: [id number] Patient Name: Ruma Jones Date: 1935 Address: [address] [place] [address] [place] [address] Sex: Female Rx Written Rx Dispensed Drug Quantity Days Supply Prescriber Name 02/08/2018 02/15/2018 oxycodone hcl 15 mg tablet 120 30 Zach Ridley MD 01/11/2018 01/16/2018 oxycodone hcl 15 mg tablet 120 30 Zach Ridley MD 12/07/2017 12/18/2017 oxycodone hcl 15 mg tablet 120 30 Zach Ridley MD 11/16/2017 11/20/2017 oxycodone hcl 15 mg tablet 120 30 Zach Ridley MD 10/26/2017 10/29/2017 oxycodone hcl 15 mg tablet 90 25 Zach Ridley MD 10/15/2017 10/21/2017 oxycodone hcl 15 mg tablet 30 8 Tata Cox 09/21/2017 09/21/2017 oxycodone hcl 15 mg tablet 120 30 Tata Cox 08/31/2017 08/31/2017 oxycodone hcl 15 mg tablet 120 30 Zach Ridley MD 08/03/2017 08/03/2017 oxycodone hcl 15 mg tablet 120 30 Zach Ridley MD 06/20/2017 07/08/2017 oxycodone hcl 15 mg tablet 120 30 Tata Cox Tami 06/16/2017 06/16/2017 oxycodone hcl 15 mg tablet 90 22 Artis Coxmarika Garrett 05/18/2017 05/18/2017 oxycodone hcl 15 mg tablet 120 30 Lizzeth Coxfredo Garrett 04/28/2017 04/28/2017 oxycodone-acetaminophen 5-325 mg tab 90 11 Lizzeth Coxfredo Garrett 04/28/2017 04/28/2017 oxycodone hcl 15 mg tablet 90 22 Whitley Coxjesenia Garrett 04/01/2017 04/01/2017 oxycodone hcl 15 mg tablet 120 30 Zach Ridley MD 03/04/2017 03/04/2017 oxycodone hcl 15 mg tablet 120 30 Zach Ridley MD Visit type - Emergency Visit Emergency Visit: Yes ED Registration Date: 02/16/18 Care time: The patient presented to the Emergency Department on the above date and was hospitalized for further evaluation of their emergent condition. - New Patient This patient is new to me today: Yes Date on this admission: 02/18/18 - Critical Care Critical Care patient: No Hospitalist Screening - Colonoscopy Questionnaire Colonoscopy Questionnaire: Colonoscopy Questionnaire - Patient: 50 - 75 years old and never had a screening colonoscopy: No History of colon or rectal polyps, or CA: No History of IBD, Crohn's disease or UC: No History of abdominal radiation therapy as a child: No - Relative: 1 with colon or rectal CA, or polyps at age 60 or younger: Unknown Colon or rectal CA diagnosed at age 45 or younger: Unknown Multiple relatives with colon or rectal CA: Unknown - Outcome: Screening Result: Negative Screen"
--- NOTE | 2018-02-16 18:03 | PN ---
Progress Note (short form) - Note Progress Note: id consult dictated imp/reccd 82 year old female admitted from home with worsening toe ulcer just debrided by podiatry history of MRSA in urine 2017 chronic hip infection on amox possible osteo of the toe wound infection cellulitis plan vancomycin/zosyn cultures pending f/u imaging contact isolation Problem List - Problems (1) Osteomyelitis Code(s): M86.9 - OSTEOMYELITIS, UNSPECIFIED (2) Cellulitis Code(s): L03.90 - CELLULITIS, UNSPECIFIED (3) MRSA (methicillin resistant staph aureus) culture positive Code(s): Z22.322 - CARRIER OR SUSPECTED CARRIER OF METHICILLIN RESIS STAPH
[2018-02-16 18:59] LABS: URINE APPEARANCE CLEAR; URINE BILIRUBIN NEGATIVE (<2.0 mg/dL); URINE COLOR LTYELLOW; URINE GLUCOSE (UA) NEGATIVE (NEGATIVE); URINE KETONE NEGATIVE (NEGATIVE); URINE NITRITE NEGATIVE (NEGATIVE); URINE PROTEIN NEGATIVE (NEGATIVE); URINE UROBILINOGEN NEGATIVE mg/dL (0.2-1.0)
[2018-02-16 19:18] LABS: URINE LEUK ESTERASE 2+ (NEGATIVE)
[2018-02-16 19:26] LABS: EPI CELLS RARE /HPF (FEW)
[2018-02-16] MEDS ORDERED: CARVEDILOL 3.125 MG TABLET (FP) ONE (21:20)
[2018-02-16] MEDS ORDERED: LIDOCAINE 5% TOPICAL PATCH ONE (21:21)
[2018-02-16] MEDS ORDERED: ATORVASTATIN CA 10 MG TABLET (FP) ONE (21:21)
[2018-02-16] MEDS: oxyCODONE HCL 5 MG TABLET PO PRN (21:29)
[2018-02-16] MEDS: LIDOCAINE PATCH REMOVAL MC SCH (21:31)
[2018-02-16] MEDS: ATORVASTATIN CA 20 MG TABLET (FP) PO SCH (21:31)
[2018-02-16] MEDS: CARVEDILOL 3.125 MG TABLET (FP) PO SCH (21:31)
--- NOTE | 2018-02-17 00:41 | CONS ---
DATE OF CONSULTATION: DATE OF DICTATION: 02/16/2018 INFECTIOUS DISEASE CONSULTATION REQUESTING REPUBLICAN: [facility]ist [facility] CONSULTING PHYSICIAN: Ginger Castro M.D. HISTORY OF PRESENT ILLNESS: This is an 82-year-old woman with a past medical history of osteoarthritis, psoriatic arthritis, who for the last 6-8 weeks has been under the care of the safety belt installer for cellulitis of both her feet. She recently had a pressure ulcer on the right foot that healed and subsequently developed an ulcer on the left 4th toe that had persisted. Today she had an excisional debridement of the left 4th digit, culture was sent, the patient was sent to the ER for admission. There is no history of any fevers or chills. PAST MEDICAL HISTORY: Notable for hypertension, hyperlipidemia, coronary artery disease, diastolic heart failure, history of UTI, lower GI bleeds, osteoarthritis, psoriatic arthritis, gout, as well as there is a history of prior culture with MRSA in the past. Patient has a history as well of a chronically infected right hip prosthesis and is on amoxicillin 500 b.i.d. for suppression which she has been on for many years, since 2008. PAST SURGICAL HISTORY: Includes right hip total replacement with 2 revisions, as well as a history of tonsillectomy, left hip replacement as well. SOCIAL HISTORY: She is . There is no history of cigarette or substance use. She has no known drug allergies. MEDICATION: As an outpatient include allopurinol, atorvastatin, calcium carbonate, Plavix, folic acid, furosemide, Bacid, methotrexate, multivitamins, ramipril, Coreg, oxycodone, ferrous sulfate, vitamin D3, lidocaine patch, mupirocin ointment, amoxicillin 500 and Nystatin powder. REVIEW OF SYSTEMS: She has no fevers or chills. She has no dysuria or diarrhea , abdominal pain, or chest pain. She apparently wears braces on her legs and walks with a walker. PHYSICAL EXAMINATION: GENERAL: She is a pleasant elderly woman in no acute distress. History was partially from patient, partially from her daughter. Elderly woman in no acute distress. VITAL SIGNS: Temperature 98.4, pulse 59, blood pressure 156/76, respiratory rate 16. HEENT: Normocephalic. Eyes are anicteric. NECK: Supple. LUNGS: Clear to auscultation. HEART: Regular rate and rhythm. She has a harsh 3/6 systolic ejection murmur. ABDOMEN: Soft, nontender. EXTREMITIES: Notable for mild erythema of both feet. She has an open ulcer on her 4th toe of her left foot which is erythematous. There is currently no drainage. LABORATORY: Her white count is 5, hemoglobin 12.3, platelets 198, INR is 1. BUN and creatinine are 11 and 0.6. LFTs are normal. Urinalysis has 2+ leukocytes with 7 white cells. Cultures are pending. She had a urine culture in 2017 that grew E. coli and MRSA. IMAGING STUDIES: X-ray of the foot is pending. Chest x-ray shows large heart, no lung infiltrates IMPRESSION: In summary, this is an 82-year-old woman admitted with worsening toe ulcer and with surrounding erythema, history of methicillin-resistant Staphylococcus aureus in 2017 urine, chronic hip infection on amoxicillin, possible osteo of the toe. I would treat her at this time for possible osteomyelitis of the toe with wound infection and cellulitis of the foot with plan to continue vancomycin and Zosyn. Cultures are pending. Will follow up the imaging studies as well. Case was discussed at length with the family member at bedside. Further recommendations to follow based on her clinical course. hold amox while on BS antibiotics. add probiotics Milena [id number] CLEVE
[2018-02-17] MEDS ORDERED: VANCOMYCIN 1,000 MG in DEXTROSE 5%-WATER - 250 ML IVPB SCH (02:00)
[2018-02-17] MEDS ORDERED: PIPERACILLIN/TAZOB 3.375 GM 3.375 GM in DEXTROSE 5%-WATER - 50 ML IVPB ONE (02:00)
[2018-02-17] MEDS ORDERED: VANCOMYCIN 1,000 MG in DEXTROSE 5%-WATER - 250 ML IVPB ONE (02:00)
[2018-02-17] MEDS ORDERED: PIPERACILLIN/TAZOBACTAM 3.375 GM VIAL IVPB ONE ×2 (02:16→22:17)
[2018-02-17] MEDS ORDERED: DEXTROSE 5%-WATER - 50 ML IVPB ONE ×2 (02:16→22:17)
[2018-02-17] MEDS: oxyCODONE HCL 5 MG TABLET PO PRN ×4 (03:45→22:18)
[2018-02-17] MEDS: FUROSEMIDE 20 MG TABLET (FP) PO SCH ×2 (06:51→15:00)
[2018-02-17] MEDS: HEPARIN NA (PORCINE) 5,000 UNITS/ML 1ML VIAL SQ SCH ×3 (06:51→22:19)
[2018-02-17 07:40] LABS: BASO % 0.6 % (0-2.0); EOS % 3.6 % (0-4.5); HEMATOCRIT 33.2 % (32.4-45.2); HEMOGLOBIN 11.4 GM/dL (10.7-15.3); LYMPH % 22.1 % (8-40); MCH 35.4 pg (25.7-33.7); MCHC 34.4 g/dl (32.0-36.0); MEAN CELL VOLUME 103.1 fl (80-96); MONO % 10.7 % (3.8-10.2); PLATELET COUNT 169 K/MM3 (134-434); RBC 3.21 M/mm3 (3.60-5.2); RDW 13.4 % (11.6-15.6); WHITE BLOOD COUNT 6.9 K/mm3 (4.0-10.0)
[2018-02-17 08:35] LABS: ALBUMIN 3.3 g/dl (3.4-5.0); ANION GAP 8 (8-16); BLOOD UREA NITROGEN 13 mg/dL (7-18); CALCIUM 8.6 mg/dL (8.5-10.1); CHLORIDE 100 mmol/L (98-107); CO2 31 mmol/L (21-32); CREATININE 0.6 mg/dL (0.55-1.02); GLUCOSE,RANDOM 83 mg/dL (74-106); MAGNESIUM 1.9 mg/dL (1.8-2.4); SGOT/AST 20 U/L (15-37); SGPT/ALT 20 U/L (12-78); SODIUM 139 mmol/L (136-145)
[2018-02-17 08:36] LABS: ALK PHOS 78 U/L (45-117); BILIRUBIN,TOTAL 0.6 mg/dL (0.2-1.0); TOT PROT 6.2 g/dl (6.4-8.2)
[2018-02-17] MEDS ORDERED: PT OWN MED DRAWER 7, Y5N ONE (09:44)
[2018-02-17] MEDS: LACTOBACILLUS ACIDOPHILUS 1 TABLET PO SCH (09:47)
[2018-02-17] MEDS: ALLOPURINOL 100 MG TABLET (FP) PO SCH (09:47)
[2018-02-17] MEDS: CARVEDILOL 3.125 MG TABLET (FP) PO SCH ×2 (09:47→22:19)
[2018-02-17] MEDS: CLOPIDOGREL BISULFATE 75 MG TABLET (FP) PO SCH (09:47)
[2018-02-17] MEDS: RAMIPRIL 5 MG CAPSULE (FP) PO SCH (09:48)
[2018-02-17] MEDS: LIDOCAINE 5% TOPICAL PATCH TP SCH (09:51)
[2018-02-17] MEDS ORDERED: NAFTIFINE HCL TP SCH (10:00)
--- NOTE | 2018-02-17 10:06 | PN ---
Physical Exam: SUBJECTIVE: Patient seen and examined at bedside. Complaining of itchiness on stomach and back. OBJECTIVE: Vital Signs Period Temp Pulse Resp BP Sys/Seymour Pulse Ox Last 24 Hr 98.2 F-98.4 F 59-74 16-24 144-159/76-81 93-97 GENERAL: Awake, alert, and fully oriented, in no acute distress. EYES: Pupils equal, round and reactive to light, sclera anicteric, conjunctiva clear. Left eyelid droop (chronic) LUNGS: CTA no crackles. No accessory muscle use. HEART: Regular rate and rhythm, S1 and S2 ABDOMEN: Soft, nontender, not distended UPPER EXTREMITIES: 2+ pulses, warm, well-perfused. No cyanosis. No clubbing. No peripheral edema. LOWER EXTREMITIES: No calf tenderness. 1+ bilateral edema; mild erythema bilateral toes; Stage III pressure ulcer left 4th toe; erythema bilateral ankles to shins, warm to touch Laboratory Results - last 24 hr 02/16/18 02/16/18 02/16/18 11:15 11:15 11:15 WBC 5.0 RBC 3.56 L Hgb 12.3 Hct 36.7 MCV 103.2 H MCH 34.5 H MCHC 33.4 RDW 13.6 Plt Count 198 MPV 7.1 L Absolute Neuts (auto) 2.9 Neutrophils % 57.5 Lymphocytes % 27.2 D Monocytes % 10.0 Eosinophils % 4.3 Basophils % 1.0 Nucleated RBC % 0 PTT (Actin FS) 33.3 Sodium Potassium Chloride Carbon Dioxide Anion Gap BUN Creatinine Creat Clearance w eGFR Random Glucose Calcium Magnesium Total Bilirubin AST ALT Alkaline Phosphatase C-Reactive Protein Total Protein Albumin Urine Color Urine Appearance Urine pH Ur Specific [place] Urine Protein Urine Glucose (UA) Urine Ketones Urine Blood Urine Nitrite Urine Bilirubin Urine Urobilinogen Ur Leukocyte Esterase Urine WBC (Auto) Urine RBC (Auto) Ur Epithelial Cells Blood Type A POSITIVE Antibody Screen Negative 02/16/18 02/16/18 02/17/18 11:15 18:35 06:57 WBC 6.9 RBC 3.21 L Hgb 11.4 Hct 33.2 MCV 103.1 H MCH 35.4 H MCHC 34.4 RDW 13.4 Plt Count 169 MPV 7.0 L Absolute Neuts (auto) 4.3 Neutrophils % 63.0 Lymphocytes % 22.1 Monocytes % 10.7 H Eosinophils % 3.6 Basophils % 0.6 Nucleated RBC % 0 PTT (Actin FS) Sodium 133 L Potassium 4.7 Chloride 96 L Carbon Dioxide 31 Anion Gap 6 L BUN 11 Creatinine 0.6 Creat Clearance w eGFR > 60 Random Glucose 91 Calcium 9.4 Magnesium Total Bilirubin 0.5 AST 25 ALT 24 Alkaline Phosphatase 92 C-Reactive Protein Total Protein 7.5 Albumin 4.0 Urine Color Ltyellow Urine Appearance Clear Urine pH 7.0 Ur Specific [place] 1.005 Urine Protein Negative Urine Glucose (UA) Negative Urine Ketones Negative Urine Blood Negative Urine Nitrite Negative Urine Bilirubin Negative Urine Urobilinogen Negative Ur Leukocyte Esterase 2+ H Urine WBC (Auto) 7 Urine RBC (Auto) 1 Ur Epithelial Cells Rare Blood Type Antibody Screen 02/17/18 02/17/18 06:57 06:57 WBC RBC Hgb Hct MCV MCH MCHC RDW Plt Count MPV Absolute Neuts (auto) Neutrophils % Lymphocytes % Monocytes % Eosinophils % Basophils % Nucleated RBC % PTT (Actin FS) Sodium 139 Potassium 4.0 Chloride 100 Carbon Dioxide 31 Anion Gap 8 BUN 13 Creatinine 0.6 Creat Clearance w eGFR > 60 Random Glucose 83 Calcium 8.6 Magnesium 1.9 Total Bilirubin 0.6 AST 20 ALT 20 Alkaline Phosphatase 78 D C-Reactive Protein < 0.3 Total Protein 6.2 L Albumin 3.3 L Urine Color Urine Appearance Urine pH Ur Specific [place] Urine Protein Urine Glucose (UA) Urine Ketones Urine Blood Urine Nitrite Urine Bilirubin Urine Urobilinogen Ur Leukocyte Esterase Urine WBC (Auto) Urine RBC (Auto) Ur Epithelial Cells Blood Type Antibody Screen Active Medications Generic Name Dose Route Start Last Admin Trade Name Christy PRN Reason Stop Dose Admin Allopurinol 200 mg 02/17/18 10:00 02/17/18 09:47 Zyloprim - PO 200 mg DAILY AYAN Administration Atorvastatin Calcium 20 mg 02/16/18 22:00 02/16/18 21:31 Lipitor - PO 20 mg HS AYAN Administration Carvedilol 3.125 mg 02/16/18 22:00 02/17/18 09:47 Coreg - PO 3.125 mg BID AYAN Administration Clopidogrel Bisulfate 75 mg 02/17/18 10:00 02/17/18 09:47 Plavix - PO 75 mg DAILY AYAN Administration Furosemide 20 mg 02/17/18 06:00 02/17/18 06:51 Lasix - PO 20 mg BIDLASIX AYAN Administration Heparin Sodium (Porcine) 5,000 unit 02/17/18 06:00 02/17/18 06:51 Heparin - SQ 5,000 unit TID AYAN Administration Piperacillin Sod/Tazobactam 50 mls @ 100 mls/hr 02/17/18 02:00 Sod 3.375 gm/ Dextrose IVPB Q8H-IV AYAN Protocol Vancomycin HCl 1 gm in 200 mls @ 133.333 mls/hr 02/17/18 10:00 Vancomycin 1 Gm Premix - IVPB Q24H AYAN Protocol Lactobacillus Acidophilus 1 tab 02/17/18 10:00 02/17/18 09:47 Bacid - PO 1 tab DAILY AYAN Administration Lidocaine 1 patch 02/17/18 10:00 02/17/18 09:51 Lidoderm Patch - TP 1 patch DAILY AYAN Administration Methotrexate 7.5 mg 02/19/18 15:31 Mexate - PO Fr [facility] Miscellaneous 1 each 02/16/18 22:00 02/16/18 21:31 Lidoderm Patch Removal MC Not Given DAILY@2200 [facility] Non-Formulary Medication 1 applic 02/17/18 10:00 Naftifine Hcl [Naftin] TP DAILY AYAN Nystatin 1 applic 02/17/18 10:00 Nystop Powder - TP DAILY AYAN Oxycodone HCl 15 mg 02/16/18 20:58 02/17/18 09:47 Roxicodone - PO 15 mg Q6H PRN Administration PAIN LEVEL 6-10 Ramipril 5 mg 02/17/18 10:00 02/17/18 09:48 Altace - PO 5 mg DAILY AYAN Administration ASSESSMENT/PLAN: 82 year-old female with a PMH significant for HTN, HLD, CAD s/p [place] (2013), diastolic HF, recurrent UTIs, lower GI bleed (2014), s/p left total hip replacement on prophylactic amoxicillin, severe osteoarthritis, psoriatic arthritis, and gout. Has been treated over the past several months for cellulitis bilateral feet, pressure ulcer of the right medial rearfoot, and left fourth digit pressure ulcer. Admitted for IV antibiotic therapy and to r/o osteo of left foot. Osteomyelitis fourth digit of left foot --02/17 MRI positive findings for osteo ----Vanc (day #1), Zosyn (day #1) Bilateral lower extremity cellulitis --antibiotics as above Right foot medial rearfoot pressure ulcer Stage II Right foot 5th digit pressure ulcer, Stage III (present on admission) Hypertension --BP stable --continue carvedilol, ramipril Hyperlipidemia --continue atorvastatin Coronary artery disease --continue clopidogrel, atorvastatin Diastolic heart failure --continue home dose Lasix PO 20mg daily s/p bilateral hip replacements --hold amoxicillin (home prophylaxis) Severe osteoarthritis --verified home dose oxycodone 15mg q6h PRN (verified on ISTOP) Psoriatic arthritis --continue methotrexate Gout --continue allopurinol FEN Fluids: PO intake adequate Electrolytes: replete as indicated Nutrition: low sodium DVT prophylaxis: subq heparin Physical therapy Dispo: called and spoke to daughter Carmen Jensen cell [phone], advised her of osteo finding on MRI. She would like patient to go to [facility]. Patient also said she wants to go to [facility]. Full code. Visit type - Emergency Visit Emergency Visit: Yes ED Registration Date: 02/16/18 Care time: The patient presented to the Emergency Department on the above date and was hospitalized for further evaluation of their emergent condition. - New Patient This patient is new to me today: No - Critical Care Critical Care patient: No
[2018-02-17] MEDS: VANCOMYCIN 1 GM PREMIX - 1 GM/200 ML BAG IVPB SCH (12:14)
[2018-02-17] MEDS: NYSTATIN POWDER 100,000 UNITS/GM - 15 GM TOPICAL POWDER TP SCH (13:33)
[2018-02-17] MEDS: ATORVASTATIN CA 20 MG TABLET (FP) PO SCH (22:19)
[2018-02-17] MEDS: PIPERACILLIN/TAZOB 3.375 GM 3.375 GM in DEXTROSE 5%-WATER - 50 ML IVPB SCH (22:19)
[2018-02-18] MEDS: LIDOCAINE PATCH REMOVAL MC SCH ×2 (00:08→21:43)
[2018-02-18] MEDS ORDERED: DEXTROSE 5%-WATER - 50 ML IVPB ONE ×3 (01:32→17:33)
[2018-02-18] MEDS ORDERED: PIPERACILLIN/TAZOBACTAM 3.375 GM VIAL IVPB ONE ×3 (01:32→17:33)
[2018-02-18] MEDS: PIPERACILLIN/TAZOB 3.375 GM 3.375 GM in DEXTROSE 5%-WATER - 50 ML IVPB SCH ×3 (01:52→17:47)
[2018-02-18] MEDS: oxyCODONE HCL 5 MG TABLET PO PRN ×4 (04:37→22:53)
[2018-02-18] MEDS: HEPARIN NA (PORCINE) 5,000 UNITS/ML 1ML VIAL SQ SCH ×3 (06:10→21:37)
[2018-02-18] MEDS: FUROSEMIDE 20 MG TABLET (FP) PO SCH ×2 (06:10→14:34)
[2018-02-18] MEDS: LIDOCAINE 5% TOPICAL PATCH TP SCH (09:27)
[2018-02-18] MEDS: LACTOBACILLUS ACIDOPHILUS 1 TABLET PO SCH (09:27)
[2018-02-18] MEDS: CARVEDILOL 3.125 MG TABLET (FP) PO SCH ×2 (09:27→21:37)
[2018-02-18] MEDS: CLOPIDOGREL BISULFATE 75 MG TABLET (FP) PO SCH (09:27)
[2018-02-18] MEDS: ALLOPURINOL 100 MG TABLET (FP) PO SCH (09:27)
[2018-02-18] MEDS: RAMIPRIL 5 MG CAPSULE (FP) PO SCH (09:28)
[2018-02-18] MEDS: NYSTATIN POWDER 100,000 UNITS/GM - 15 GM TOPICAL POWDER TP SCH (09:28)
--- NOTE | 2018-02-18 10:00 | CONSULT ---
Consult - text type - Consultation Consultation Note: Podiatry Consultation: Pleasant 82 year old F, well known to me from wound healing center, presented for her wound care appointment with worsening L fourth digit pressure ulcer. She denies F/V/N/C/SOB/CP. She has severe arthritis in both hindfeet and ankles and has trouble getting around. Wound culture taken in wound care center. PMHx: HTN, HLD, CAD s/p [place] (2013), diastolic HF, recurrent UTIs, lower GI bleed (2014), s/p left total hip replacement, psoriatic arthritis Meds: noted ALL: NKMA ROSALINDA: L foot: pedal pulses 1/4, TG wnl, CFT brisk to all toes. There is a dorsal PIPJ pressure ulcer of the left fourth toe down to extensor tendon, fibrotic base, moderate periwound erythema which is slowly improving, no streaking cellulitis, no soft tissue crepitus, no purulence. Mild tenderness to palpation. Wound Cx (from wound care 02/16): pseudomonas, GNBs, group D strep, staph coag negative MRI: (+) OM fourth digit Imp: 82 year old F with L fourth digit pressure ulcer stage 3 1. IV abx per ID 2. Rx santyl to L fourth toe daily 3. Discussed treatment options with patient, will attempt to salvage toe with IV abx 4. Patient amenable to SNF Placement. Case management on board. 5. Upon discharge, will f/u with me in wound healing center 02/23. Jaime Coates DPM
[2018-02-18] MEDS: VANCOMYCIN 1 GM PREMIX - 1 GM/200 ML BAG IVPB SCH (10:36)
[2018-02-18 12:07] VITALS: BMI 22.8
--- NOTE | 2018-02-18 12:30 | PN ---
Physical Exam: SUBJECTIVE: Patient seen and examined. She has no acute complaints. States she walks with ankle bracaes OBJECTIVE: Vital Signs Period Temp Pulse Resp BP Sys/Seymour Pulse Ox Last 24 Hr 98.2 F-98.9 F 52-67 20-20 124-160/63-80 PE Neuro: alert, awake, cn 2-12intact Pulm: basilar crackles, no wheezing CV: s1 s2 rrr + 3/6 murmur Abd: s nt nd + bs Ext: no le edema, R 4th toe wound dry, + tenderness mild erythema, non draining , no streaking Active Medications Generic Name Dose Route Start Last Admin Trade Name Freq PRN Reason Stop Dose Admin Allopurinol 200 mg 02/17/18 10:00 02/18/18 09:27 Zyloprim - PO 200 mg DAILY AYAN Administration Atorvastatin Calcium 20 mg 02/16/18 22:00 02/17/18 22:19 Lipitor - PO 20 mg HS AYAN Administration Carvedilol 3.125 mg 02/16/18 22:00 02/18/18 09:27 Coreg - PO 3.125 mg BID AYAN Administration Clopidogrel Bisulfate 75 mg 02/17/18 10:00 02/18/18 09:27 Plavix - PO 75 mg DAILY AYAN Administration Collagenase 1 applic 02/19/18 10:00 Santyl - TP DAILY AYAN Protocol Furosemide 20 mg 02/17/18 06:00 02/18/18 06:10 Lasix - PO 20 mg BIDLASIX AYAN Administration Heparin Sodium (Porcine) 5,000 unit 02/17/18 06:00 02/18/18 06:10 Heparin - SQ 5,000 unit TID AYAN Administration Piperacillin Sod/Tazobactam 50 mls @ 100 mls/hr 02/17/18 21:00 02/18/18 09:28 Sod 3.375 gm/ Dextrose IVPB 100 mls/hr Q8H-IV AYAN Administration Protocol Vancomycin HCl 1 gm in 200 mls @ 133.333 mls/hr 02/17/18 10:00 02/18/18 10:36 Vancomycin 1 Gm Premix - IVPB 133.333 mls/hr Q24H AYAN Administration Protocol Lactobacillus Acidophilus 1 tab 02/17/18 10:00 02/18/18 09:27 Bacid - PO 1 tab DAILY AYAN Administration Lidocaine 1 patch 02/17/18 10:00 02/18/18 09:27 Lidoderm Patch - TP 1 patch DAILY AYAN Administration Methotrexate 7.5 mg 02/19/18 15:31 Mexate - PO Fr [facility] Miscellaneous 1 each 02/16/18 22:00 02/18/18 00:08 Lidoderm Patch Removal MC 1 each DAILY@2200 AYAN Administration Non-Formulary Medication 1 applic 02/17/18 10:00 Naftifine Hcl [Naftin] TP DAILY AYAN Nystatin 1 applic 02/17/18 10:00 02/18/18 09:28 Nystop Powder - TP 1 applic DAILY AYAN Administration Oxycodone HCl 15 mg 02/16/18 20:58 02/18/18 10:35 Roxicodone - PO 15 mg Q6H PRN Administration PAIN LEVEL 6-10 Ramipril 5 mg 02/17/18 10:00 02/18/18 09:28 Altace - PO 5 mg DAILY AYAN Administration Imaging: - 02/17 MRI positive findings for osteo Assessment: 82 year old female with a PMH significant for HTN, HLD, CAD s/p [place] ( 2013), diastolic HF, recurrent UTIs, lower GI bleed (2014), s/p left total hip replacement on prophylactic amoxicillin, severe osteoarthritis, psoriatic arthritis, and gout. Has been treated over the past several months for cellulitis bilateral feet, pressure ulcer of the right medial rearfoot, and left fourth digit pressure ulcer. Admitted for IV antibiotic therapy and to r/o osteo of left foot. Plan: 1. Osteomyelitis fourth digit of left foot - Vanc (day #2), Zosyn (day #2) - ESR, CRP wnl - ID following, to determine length of time, will need PICC - Per Podiatry, will attempt to save toe at this time, cont abx 2. Bilateral lower extremity cellulitis - Antibiotics as above 3. Right foot medial rearfoot pressure ulcer Stage II - Right foot 5th digit pressure ulcer, Stage III (present on admission) 4. HTN - Controlled - Continue carvedilol, ramipril 5. HLD - Continue atorvastatin 6. CAD - Continue clopidogrel, atorvastatin 7. Diastolic heart failure - Not in exacerbation - Continue home dose Lasix PO 20mg BID 8. s/p bilateral hip replacements - Hold amoxicillin (home prophylaxis) 9. Severe osteoarthritis - Verified home dose oxycodone 15mg q6h PRN (verified on ISTOP) 10. Psoriatic arthritis - Continue methotrexate 11. Gout - Continue allopurinol 12. DVT ppx - Heparin sq Dispo: Daughter Carmen Jensen cell [phone], aware of osteo findings, Sean once accepted, full code Visit type - Emergency Visit Emergency Visit: Yes ED Registration Date: 02/16/18 Care time: The patient presented to the Emergency Department on the above date and was hospitalized for further evaluation of their emergent condition. - New Patient This patient is new to me today: Yes Date on this admission: 02/18/18 - Critical Care Critical Care patient: No
--- NOTE | 2018-02-18 15:59 | PN ---
Progress Note (short form) - Note Progress Note: no complaints +osteo 4th digit on MRI Vital Signs Period Temp Pulse Resp BP Sys/Seymour Pulse Ox Last 24 Hr 98.2 F-98.9 F 52-67 20-20 124-160/63-80 cor-rrr lungs clear abd soft,nt ext ulcer fourth toe left foot CBC, BMP 02/17/18 06:57 02/17/18 06:57 Microbiology 02/16/18 11:06 Blood - Peripheral Venous Blood Culture - Preliminary NO GROWTH OBTAINED AFTER 48 HOURS, INCUBATION TO CONTINUE FOR 3 DAYS. 02/16/18 11:15 Blood - Peripheral Venous Blood Culture - Preliminary NO GROWTH OBTAINED AFTER 48 HOURS, INCUBATION TO CONTINUE FOR 3 DAYS. 02/16/18 18:35 Urine - Urine Clean Catch Urine Culture - Final Contaminated: Please Repeat wound culture polymicrobial- final cultres results pending a/p osteomyelitis of the toe toe ulcer history of MRSA in urine 2016 chronic hip infection on amox contact isolation f/u cultures hopefully to snf with picc line in am probiotics hold amox while on bs antibiotics Problem List - Problems (1) Osteomyelitis Code(s): M86.9 - OSTEOMYELITIS, UNSPECIFIED (2) Cellulitis Code(s): L03.90 - CELLULITIS, UNSPECIFIED (3) MRSA (methicillin resistant staph aureus) culture positive Code(s): Z22.322 - CARRIER OR SUSPECTED CARRIER OF METHICILLIN RESIS STAPH
[2018-02-18] MEDS ORDERED: PICC LINE 8 ML FLUSH PROTOCOL IVPUSH PRN (18:11)
[2018-02-18] MEDS: ATORVASTATIN CA 20 MG TABLET (FP) PO SCH (21:37)
[2018-02-19] MEDS ORDERED: PIPERACILLIN/TAZOBACTAM 3.375 GM VIAL IVPB ONE ×2 (00:30→10:57)
[2018-02-19] MEDS ORDERED: DEXTROSE 5%-WATER - 50 ML IVPB ONE ×2 (00:31→10:57)
[2018-02-19] MEDS: PIPERACILLIN/TAZOB 3.375 GM 3.375 GM in DEXTROSE 5%-WATER - 50 ML IVPB SCH ×2 (01:17→10:58)
[2018-02-19] MEDS: oxyCODONE HCL 5 MG TABLET PO PRN ×4 (04:57→23:28)
[2018-02-19] MEDS: FUROSEMIDE 20 MG TABLET (FP) PO SCH ×2 (05:19→14:23)
[2018-02-19] MEDS: HEPARIN NA (PORCINE) 5,000 UNITS/ML 1ML VIAL SQ SCH ×3 (05:19→21:55)
[2018-02-19] MEDS: LIDOCAINE 5% TOPICAL PATCH TP SCH (09:23)
[2018-02-19] MEDS: CARVEDILOL 3.125 MG TABLET (FP) PO SCH ×2 (09:24→21:55)
[2018-02-19] MEDS: LACTOBACILLUS ACIDOPHILUS 1 TABLET PO SCH (09:24)
[2018-02-19] MEDS: CLOPIDOGREL BISULFATE 75 MG TABLET (FP) PO SCH (09:24)
[2018-02-19] MEDS: ALLOPURINOL 100 MG TABLET (FP) PO SCH (09:25)
[2018-02-19] MEDS: RAMIPRIL 5 MG CAPSULE (FP) PO SCH (09:26)
[2018-02-19] MEDS: NYSTATIN POWDER 100,000 UNITS/GM - 15 GM TOPICAL POWDER TP SCH (09:26)
[2018-02-19] MEDS: COLLAGENASE CLOSTRIDIUM HIST. 30 GRAMS TUBE TP SCH (09:27)
[2018-02-19] MEDS ORDERED: PT OWN MED DRAWER 7, Y5N ONE (09:29)
[2018-02-19] MEDS ORDERED: METHOTREXATE 2.5 MG TABLET PO SCH (10:00)
[2018-02-19] MEDS: VANCOMYCIN 1 GM PREMIX - 1 GM/200 ML BAG IVPB SCH (13:08)
[2018-02-19] MEDS ORDERED: LORATADINE 10 MG TABLET PO ONE (14:25)
--- NOTE | 2018-02-19 14:25 | DS ---
Physical Exam: SUBJECTIVE: Patient seen and examined. She is up in bed feels well, no acute complaints. OBJECTIVE: Vital Signs Period Temp Pulse Resp BP Sys/Seymour Pulse Ox Last 24 Hr 97.6 F-99 F 58-72 18-20 118-150/65-79 PE Neuro: alert, awake, cn 2-12intact Pulm: basilar crackles, no wheezing CV: s1 s2 rrr + 3/6 murmur Abd: s nt nd + bs Ext: no le edema, R 4th toe wound dry, + tenderness mild erythema, non draining , no streaking , LUE picc cdi HOSPITAL COURSE: Date of Admission:02/16/18 Date of Discharge: 02/19/18 Minutes to complete discharge: 37 Discharge Summary Reason For Visit: OSTEOMYELITIS Current Active Problems Cellulitis (Acute) Foot ulcer (Acute) MRSA (methicillin resistant staph aureus) culture positive (Acute) Osteomyelitis (Acute) Hospital Course: Initial Hospital Course: Briefly, this 82 year old female with a PMH significant for HTN, HLD, CAD s/p [place] (2013), diastolic HF, recurrent UTIs, lower GI bleed (2014), s/p left total hip replacement on prophylactic amoxicillin, severe osteoarthritis, psoriatic arthritis, and gout. Patient has been treated over the past several months by Dr. Coates for cellulitis bilateral feet, pressure ulcer of the right medial rearfoot, and left fourth digit pressure ulcer. Dr. Coates performed excisional debridement of left fourth digit, culture sent, and patient referred to the ED for admission to r/o osteomyeltitis and to start IV antibiotic therapy. Imaging: - 02/17 MRI positive findings for osteo Subsequent Hospital Course/Progress Note/DC summary: Plan: 1. Osteomyelitis fourth digit of left foot - PICC line placed 02/19 - Continue vancomycin/cefepime for 6 weeks - Please follow vancomycin levels closely - Podiatry and wound care follow up 2. Bilateral lower extremity cellulitis - Antibiotics as above 3. Right foot medial rearfoot pressure ulcer Stage II - Right foot 5th digit pressure ulcer, Stage III (present on admission) 4. HTN - Controlled - Continue carvedilol, ramipril 5. HLD - Continue atorvastatin 6. CAD - Continue clopidogrel, atorvastatin 7. Diastolic heart failure - Not in exacerbation - Continue home dose Lasix PO 20mg BID 8. s/p bilateral hip replacements - Hold amoxicillin (home prophylaxis) 9. Severe osteoarthritis - Verified home dose oxycodone 15mg q6h PRN (verified on ISTOP) 10. Psoriatic arthritis - Continue methotrexate 11. Gout - Continue allopurinol Dispo: - Transfer to SNF for jail abx Condition: Stable - Instructions Diet, Activity, Other Instructions: Please return to the ED for any new, persistent, or worsening symptoms. Follow up with your PCP in 1 week Take home medications as directed on home discharge list Podiatry follow up Cont IVF abx Referrals: Dilcia Farrar MD [Primary Care Provider] - Abdirahman Coates MD [Staff Physician] - Ginger Castro MD [Staff Physician] - Disposition: [facility] F[facility] - Home Medications Comprehensive Discharge Medication List: Ambulatory Orders Allopurinol [Zyloprim -] 200 mg PO DAILY 08/09/15 Atorvastatin Ca [Lipitor] 20 mg PO HS 08/09/15 Calcium Carbonate [Calcium] 600 mg PO DAILY 08/09/15 Clopidogrel Bisulfate [Plavix -] 75 mg PO DAILY 08/09/15 Folic Acid 1 mg PO DAILY 08/09/15 Furosemide [Lasix -] 20 mg PO BID 08/09/15 Lactobacillus Acidophilus [Bacid -] 1 each PO DAILY 08/09/15 Methotrexate Sodium [Trexall] 7.5 mg PO FR 08/09/15 Multivitamins [Multivit ([facility] Formulary)] 1 tab PO DAILY 08/09/15 Ramipril 5 mg PO DAILY 08/09/15 Acetaminophen [Tylenol] 325 mg PO Q6H PRN 04/22/17 Carvedilol 3.125 mg PO BID 04/22/17 Oxycodone HCl 15 mg PO Q6H PRN 04/22/17 Ferrous Sulfate 325 mg PO DAILY 09/16/17 Cholecalciferol (Vitamin D3) [Children's Vitamin D3] 1,000 unit PO DAILY #30 tab.chew 09/19/17 Lidocaine 5% Patch [Lidoderm -] 1 patch TP DAILY patch 09/19/17 Lidocaine Patch Removal [Lidoderm Patch Removal] 1 each MC DAILY@2200 each Mupirocin Ointment [Bactroban 2% Ointment -] 1 applic TP DAILY #30 applic Naftifine HCl [Naftin] 1 applic TP DAILY #60 grams 01/05/18 Nystatin Powder [Nystop Powder -] 60 gm TP DAILY #60 gm 01/19/18 Amoxicillin - [Amoxicillin 500mg Capsule -] 500 mg PO TID 02/16/18 This patient is new to me today: No Emergency Visit: Yes ED Registration Date: 02/16/18 Care time: The patient presented to the Emergency Department on the above date and was hospitalized for further evaluation of their emergent condition. Critical Care patient: No - Discharge Referral Referred to [facility] Med P.C.: No
--- NOTE | 2018-02-19 14:59 | PN ---
Progress Note (short form) - Note Progress Note: no complaints +osteo 4th digit on MRI cultures pending Vital Signs Period Temp Pulse Resp BP Sys/Seymour Pulse Ox Last 24 Hr 97.6 F-99 F 58-72 18-20 118-150/65-79 cor-rrr lungs clear abd soft,nt ext erythema of the toe with purulence CBC, BMP 02/17/18 06:57 02/17/18 06:57 Microbiology 02/16/18 11:06 Blood - Peripheral Venous Blood Culture - Preliminary NO GROWTH OBTAINED AFTER 72 HOURS, INCUBATION TO CONTINUE FOR 2 DAYS. 02/16/18 11:15 Blood - Peripheral Venous Blood Culture - Preliminary NO GROWTH OBTAINED AFTER 72 HOURS, INCUBATION TO CONTINUE FOR 2 DAYS. 02/16/18 18:35 Urine - Urine Clean Catch Urine Culture - Final Contaminated: Please Repeat a/p osteomyelitis of the toe toe ulcer history of MRSA in urine 2017 chronic hip infection on amox contact isolation f/u cultures cultures reviewed plan vancomycin/cefepime for 6 weeks please follow vancomycin levels closely can see in wound care for f/u as needed Problem List - Problems (1) Osteomyelitis Code(s): M86.9 - OSTEOMYELITIS, UNSPECIFIED (2) Cellulitis Code(s): L03.90 - CELLULITIS, UNSPECIFIED (3) MRSA (methicillin resistant staph aureus) culture positive Code(s): Z22.322 - CARRIER OR SUSPECTED CARRIER OF METHICILLIN RESIS STAPH
[2018-02-19] MEDS: ACETAMINOPHEN 325 MG TABLET (FP) PO PRN (16:12)
[2018-02-19] MEDS: LIDOCAINE PATCH REMOVAL MC SCH (21:55)
[2018-02-19] MEDS: ATORVASTATIN CA 20 MG TABLET (FP) PO SCH (21:55)
[2018-02-19] MEDS: CEFEPIME HCL/D5W 1 GM/50 ML BAG IVPB SCH (21:58)
[2018-02-20] MEDS: ACETAMINOPHEN 325 MG TABLET (FP) PO PRN ×3 (01:40→17:09)
[2018-02-20] MEDS: oxyCODONE HCL 5 MG TABLET PO PRN ×4 (05:09→23:19)
[2018-02-20] MEDS: FUROSEMIDE 20 MG TABLET (FP) PO SCH ×2 (06:20→13:55)
[2018-02-20] MEDS: HEPARIN NA (PORCINE) 5,000 UNITS/ML 1ML VIAL SQ SCH ×3 (06:20→22:16)
[2018-02-20 08:17] LABS: BASO % 0.5 % (0-2.0); EOS % 3.5 % (0-4.5); HEMATOCRIT 32.9 % (32.4-45.2); HEMOGLOBIN 11.4 GM/dL (10.7-15.3); LYMPH % 15.7 % (8-40); MCH 35.6 pg (25.7-33.7); MCHC 34.7 g/dl (32.0-36.0); MEAN CELL VOLUME 102.8 fl (80-96); MEAN PLT VOLUME 7.4 fl (7.5-11.1); MONO % 14.4 % (3.8-10.2); NEUT % 65.9 % (42.8-82.8); PLATELET COUNT 150 K/MM3 (134-434); RBC 3.21 M/mm3 (3.60-5.2); RDW 13.7 % (11.6-15.6); WHITE BLOOD COUNT 8.9 K/mm3 (4.0-10.0)
[2018-02-20] MEDS: AMINO ACIDS/PROTEIN HYDROLYS 30 ML LIQUID.PKT PO SCH ×2 (08:31→17:09)
[2018-02-20 08:52] LABS: ANION GAP 4 (8-16); BLOOD UREA NITROGEN 17 mg/dL (7-18); CALCIUM 8.2 mg/dL (8.5-10.1); CHLORIDE 96 mmol/L (98-107); CO2 33 mmol/L (21-32); CREATININE 0.7 mg/dL (0.55-1.02); GLUCOSE,RANDOM 90 mg/dL (74-106); POTASSIUM 3.7 mmol/L (3.5-5.1); SODIUM 133 mmol/L (136-145)
[2018-02-20] MEDS ORDERED: PT OWN MED DRAWER 7, Y5N ONE (09:27)
[2018-02-20] MEDS: CEFEPIME HCL/D5W 1 GM/50 ML BAG IVPB SCH ×2 (09:31→22:17)
[2018-02-20] MEDS: LACTOBACILLUS ACIDOPHILUS 1 TABLET PO SCH (09:31)
[2018-02-20] MEDS: CARVEDILOL 3.125 MG TABLET (FP) PO SCH ×2 (09:31→22:17)
[2018-02-20] MEDS: RAMIPRIL 5 MG CAPSULE (FP) PO SCH (09:31)
[2018-02-20] MEDS: MULTIVITAMINS (DAILY MVI) TABLET (FP) PO SCH (09:31)
[2018-02-20] MEDS: ALLOPURINOL 100 MG TABLET (FP) PO SCH (09:31)
[2018-02-20] MEDS: LIDOCAINE 5% TOPICAL PATCH TP SCH (09:31)
[2018-02-20] MEDS: CLOPIDOGREL BISULFATE 75 MG TABLET (FP) PO SCH (09:31)
[2018-02-20] MEDS: COLLAGENASE CLOSTRIDIUM HIST. 30 GRAMS TUBE TP SCH (09:32)
[2018-02-20] MEDS: NYSTATIN POWDER 100,000 UNITS/GM - 15 GM TOPICAL POWDER TP SCH (09:35)
[2018-02-20] MEDS: VANCOMYCIN 1 GM PREMIX - 1 GM/200 ML BAG IVPB SCH (11:07)
--- NOTE | 2018-02-20 13:26 | PN ---
Physical Exam: SUBJECTIVE: Patient seen and examined. She denies overt chills, fever. she feels hot in the bed with the plastic covering. OBJECTIVE: Vital Signs Period Temp Pulse Resp BP Sys/Seymour Pulse Ox Last 24 Hr 98.2 F-102.5 F 55-68 18-21 91-117/50-66 95 PE Neuro: alert, awake, cn 2-12intact Pulm: L base crackles, no cough CV: s1 s2 rrr + 3/6 murmur Abd: s nt nd + bs Ext: no le edema, R 4th toe wound dry, + tenderness mild erythema, non draining , no streaking , LUE picc cdi Laboratory Results - last 24 hr 02/20/18 02/20/18 07:55 07:55 WBC 8.9 RBC 3.21 L Hgb 11.4 Hct 32.9 MCV 102.8 H MCH 35.6 H MCHC 34.7 RDW 13.7 Plt Count 150 MPV 7.4 L Absolute Neuts (auto) 5.8 Neutrophils % 65.9 Lymphocytes % 15.7 D Monocytes % 14.4 H Eosinophils % 3.5 Basophils % 0.5 Nucleated RBC % 0 Sodium 133 L Potassium 3.7 Chloride 96 L Carbon Dioxide 33 H Anion Gap 4 L BUN 17 Creatinine 0.7 Creat Clearance w eGFR > 60 Random Glucose 90 Calcium 8.2 L Active Medications Generic Name Dose Route Start Last Admin Trade Name Freq PRN Reason Stop Dose Admin Acetaminophen 650 mg 02/19/18 16:06 02/20/18 11:07 Tylenol - PO 650 mg Q4H PRN Administration FEVER Allopurinol 200 mg 02/17/18 10:00 02/20/18 09:31 Zyloprim - PO 200 mg DAILY AYAN Administration Amino Acids 30 ml 02/20/18 08:00 02/20/18 08:31 Prosource No Carb Liquid Pkt PO 30 ml BID@0800,1730 AYAN Administration Atorvastatin Calcium 20 mg 02/16/18 22:00 02/19/18 21:55 Lipitor - PO 20 mg HS AYAN Administration Carvedilol 3.125 mg 02/16/18 22:00 02/20/18 09:31 Coreg - PO 3.125 mg BID AYAN Administration Clopidogrel Bisulfate 75 mg 02/17/18 10:00 02/20/18 09:31 Plavix - PO 75 mg DAILY AYAN Administration Collagenase 1 applic 02/19/18 10:00 02/20/18 09:32 Santyl - TP 1 applic DAILY AYAN Administration Protocol Furosemide 20 mg 02/17/18 06:00 02/20/18 06:20 Lasix - PO 20 mg BIDLASIX AYAN Administration Heparin Sodium (Porcine) 5,000 unit 02/17/18 06:00 02/20/18 06:20 Heparin - SQ 5,000 unit TID AYAN Administration IV Flush 8 ml 02/18/18 18:11 02/20/18 09:34 Picc Line Flush IVPUSH 8 ml PRN PRN Administration Protocol Vancomycin HCl 1 gm in 200 mls @ 133.333 mls/hr 02/17/18 10:00 02/20/18 11:07 Vancomycin 1 Gm Premix - IVPB 133.333 mls/hr Q24H AYAN Administration Protocol Cefepime HCl 1 gm in 50 mls @ 100 mls/hr 02/19/18 22:00 02/20/18 09:31 Maxipime 1 Gm Premix Ivpb IVPB 100 mls/hr BID AYAN Administration Protocol Lactobacillus Acidophilus 1 tab 02/17/18 10:00 02/20/18 09:31 Bacid - PO 1 tab DAILY AYAN Administration Lidocaine 1 patch 02/17/18 10:00 02/20/18 09:31 Lidoderm Patch - TP 1 patch DAILY AYAN Administration Methotrexate 7.5 mg 02/19/18 10:00 02/19/18 09:29 Mexate - PO 7.5 mg Fr@1000 AYAN Administration Miscellaneous 1 each 02/16/18 22:00 02/19/18 21:55 Lidoderm Patch Removal MC 1 each DAILY@2200 AYAN Administration Multivitamins/Minerals/Vitamin C 1 tab 02/20/18 10:00 02/20/18 09:31 Tab-A-Vit - PO 1 tab DAILY AYAN Administration Non-Formulary Medication 1 applic 02/17/18 10:00 Naftifine Hcl [Naftin] TP DAILY AYAN Nystatin 1 applic 02/17/18 10:00 02/20/18 09:35 Nystop Powder - TP 1 applic DAILY AYAN Administration Oxycodone HCl 15 mg 02/16/18 20:58 02/20/18 11:07 Roxicodone - PO 15 mg Q6H PRN Administration PAIN LEVEL 6-10 Ramipril 5 mg 02/17/18 10:00 02/20/18 09:31 Altace - PO 5 mg DAILY AYAN Administration A/P: 1. Fever - No further fever this AM - Monitor for 24hr more, if febrile continues will pichardo cx - D/w ID 2. Osteomyelitis fourth digit of left foot - PICC line placed 02/19 - Continue vancomycin/cefepime for 6 weeks - Please follow vancomycin levels closely - Podiatry and wound care follow up 3. Bilateral lower extremity cellulitis - Antibiotics as above 4. Right foot medial rearfoot pressure ulcer Stage II - Right foot 5th digit pressure ulcer, Stage III (present on admission) 5. HTN - Controlled - Continue carvedilol, ramipril 6. HLD - Continue atorvastatin 7. CAD - Continue clopidogrel, atorvastatin 8. Diastolic heart failure - Not in exacerbation - Continue home dose Lasix PO 20mg BID 9. s/p bilateral hip replacements - Hold amoxicillin (home prophylaxis) 10. Severe osteoarthritis - Verified home dose oxycodone 15mg q6h PRN (verified on ISTOP) 11. Psoriatic arthritis - Continue methotrexate 12. Gout - Continue allopurinol Visit type - Emergency Visit Emergency Visit: Yes ED Registration Date: 02/16/18 Care time: The patient presented to the Emergency Department on the above date and was hospitalized for further evaluation of their emergent condition. - New Patient This patient is new to me today: No - Critical Care Critical Care patient: No
--- NOTE | 2018-02-20 14:20 | PN ---
Progress Note, Physician History of Present Illness: Temp 102.5 noted C/O generalized pain No c/o rigors Repeat BC obtained - Current Medication List Current Medications: Active Medications Acetaminophen (Tylenol -) 650 mg PO Q4H PRN PRN Reason: FEVER Last Admin: 02/20/18 11:07 Dose: 650 mg Allopurinol (Zyloprim -) 200 mg PO DAILY [facility] Last Admin: 02/20/18 09:31 Dose: 200 mg Amino Acids (Prosource No Carb Liquid Pkt) 30 ml PO BID@0800,1730 AYAN Last Admin: 02/20/18 08:31 Dose: 30 ml Atorvastatin Calcium (Lipitor -) 20 mg PO HS [facility] Last Admin: 02/19/18 21:55 Dose: 20 mg Carvedilol (Coreg -) 3.125 mg PO BID [facility] Last Admin: 02/20/18 09:31 Dose: 3.125 mg Clopidogrel Bisulfate (Plavix -) 75 mg PO DAILY [facility] Last Admin: 02/20/18 09:31 Dose: 75 mg Collagenase (Santyl -) 1 applic TP DAILY [facility]; Protocol Last Admin: 02/20/18 09:32 Dose: 1 applic Furosemide (Lasix -) 20 mg PO BIDLASIX AYAN Last Admin: 02/20/18 13:55 Dose: 20 mg Heparin Sodium (Porcine) (Heparin -) 5,000 unit SQ TID AYAN Last Admin: 02/20/18 13:55 Dose: 5,000 unit IV Flush (Picc Line Flush) 8 ml IVPUSH PRN PRN PRN Reason: Protocol Last Admin: 02/20/18 09:34 Dose: 8 ml Vancomycin HCl (Vancomycin 1 Gm Premix -) 1 gm in 200 mls @ 133.333 mls/hr IVPB Q24H AYAN; Protocol Last Admin: 02/20/18 11:07 Dose: 133.333 mls/hr Cefepime HCl (Maxipime 1 Gm Premix Ivpb) 1 gm in 50 mls @ 100 mls/hr IVPB BID AYAN; Protocol Last Admin: 02/20/18 09:31 Dose: 100 mls/hr Lactobacillus Acidophilus (Bacid -) 1 tab PO DAILY AYAN Last Admin: 02/20/18 09:31 Dose: 1 tab Lidocaine (Lidoderm Patch -) 1 patch TP DAILY [facility] Last Admin: 02/20/18 09:31 Dose: 1 patch Methotrexate (Mexate -) 7.5 mg PO Fr@1000 [facility] Last Admin: 02/19/18 09:29 Dose: 7.5 mg Miscellaneous (Lidoderm Patch Removal) 1 each MC DAILY@2200 [facility] Last Admin: 02/19/18 21:55 Dose: 1 each Multivitamins/Minerals/Vitamin C (Tab-A-Vit -) 1 tab PO DAILY [facility] Last Admin: 02/20/18 09:31 Dose: 1 tab Non-Formulary Medication (Naftifine Hcl [Naftin]) 1 applic TP DAILY [facility] Nystatin (Nystop Powder -) 1 applic TP DAILY [facility] Last Admin: 02/20/18 09:35 Dose: 1 applic Oxycodone HCl (Roxicodone -) 15 mg PO Q6H PRN PRN Reason: PAIN LEVEL 6-10 Last Admin: 02/20/18 11:07 Dose: 15 mg Ramipril (Altace -) 5 mg PO DAILY [facility] Last Admin: 02/20/18 09:31 Dose: 5 mg - Objective Vital Signs: Vital Signs Temperature 98.2 F 02/20/18 06:18 Pulse Rate 55 L 02/20/18 06:18 Respiratory Rate 18 02/20/18 06:18 Blood Pressure 116/62 02/20/18 06:18 O2 Sat by Pulse Oximetry (%) 95 02/19/18 21:00 Constitutional: Yes: No Distress Eyes: Yes: Conjunctiva Clear Cardiovascular: Yes: Regular Rate and Rhythm, Murmur, S1, S2 Respiratory: Yes: CTA Bilaterally Gastrointestinal: Yes: Normal Bowel Sounds, Soft. No: Tenderness Extremities: Yes: Other (L 4th toe with dry ulcer, mild erythema) Labs: CBC, BMP 02/20/18 07:55 02/20/18 07:55 Assessment/Plan Fever R/O sepsis Osteomyelitis L 4th toe Chronic hip infection Repeat BC obtained Continue vancomcin/ cefepime
[2018-02-20] MEDS: ATORVASTATIN CA 20 MG TABLET (FP) PO SCH (22:17)
[2018-02-20] MEDS: LIDOCAINE PATCH REMOVAL MC SCH (22:17)
[2018-02-21] MEDS: HEPARIN NA (PORCINE) 5,000 UNITS/ML 1ML VIAL SQ SCH (05:45)
[2018-02-21] MEDS: FUROSEMIDE 20 MG TABLET (FP) PO SCH (05:46)
[2018-02-21] MEDS: oxyCODONE HCL 5 MG TABLET PO PRN ×2 (05:46→12:03)
[2018-02-21 08:04] VITALS: TEMP 99.4
[2018-02-21] MEDS: AMINO ACIDS/PROTEIN HYDROLYS 30 ML LIQUID.PKT PO SCH (08:15)
[2018-02-21] MEDS ORDERED: PT OWN MED DRAWER 7, Y5N ONE (10:01)
[2018-02-21] MEDS: CEFEPIME HCL/D5W 1 GM/50 ML BAG IVPB SCH (10:04)
[2018-02-21] MEDS: MULTIVITAMINS (DAILY MVI) TABLET (FP) PO SCH (10:05)
[2018-02-21] MEDS: CLOPIDOGREL BISULFATE 75 MG TABLET (FP) PO SCH (10:05)
[2018-02-21] MEDS: LIDOCAINE 5% TOPICAL PATCH TP SCH (10:05)
[2018-02-21] MEDS: LACTOBACILLUS ACIDOPHILUS 1 TABLET PO SCH (10:05)
[2018-02-21] MEDS: ALLOPURINOL 100 MG TABLET (FP) PO SCH (10:05)
[2018-02-21] MEDS: CARVEDILOL 3.125 MG TABLET (FP) PO SCH (10:05)
[2018-02-21] MEDS: VANCOMYCIN 1 GM PREMIX - 1 GM/200 ML BAG IVPB SCH (10:05)
[2018-02-21] MEDS: RAMIPRIL 5 MG CAPSULE (FP) PO SCH (10:06)
[2018-02-21] MEDS: NYSTATIN POWDER 100,000 UNITS/GM - 15 GM TOPICAL POWDER TP SCH (10:07)
[2018-02-21] MEDS: COLLAGENASE CLOSTRIDIUM HIST. 30 GRAMS TUBE TP SCH (10:07)
--- NOTE | 2018-02-21 10:52 | DS ---
Physical Exam: SUBJECTIVE: Patient seen and examined. she states she feels better today. Afebrile OBJECTIVE: Vital Signs Period Temp Pulse Resp BP Sys/Seymour Pulse Ox Last 24 Hr 98.3 F-99.4 F 50-90 18-20 110-150/53-69 95 PE Neuro: alert, awake, cn 2-12intact Pulm: L base crackles, no cough CV: s1 s2 rrr + 3/6 murmur Abd: s nt nd + bs Ext: no le edema, R 4th toe wound dry, LUE picc HOSPITAL COURSE: Date of Admission:02/16/18 Date of Discharge: 02/21/18 Minutes to complete discharge: 37 Discharge Summary Reason For Visit: OSTEOMYELITIS Current Active Problems Cellulitis (Acute) Foot ulcer (Acute) MRSA (methicillin resistant staph aureus) culture positive (Acute) Osteomyelitis (Acute) Hospital Course: Initial Hospital Course: Briefly, this 82 year old female with a PMH significant for HTN, HLD, CAD s/p VT (2013), diastolic HF, recurrent UTIs, lower GI bleed (2014), s/p left total hip replacement on prophylactic amoxicillin, severe osteoarthritis, psoriatic arthritis, and gout. Patient has been treated over the past several months by Dr. Coates for cellulitis bilateral feet, pressure ulcer of the right medial rearfoot, and left fourth digit pressure ulcer. Dr. Coates performed excisional debridement of left fourth digit, culture sent, and patient referred to the ED for admission to r/o osteomyeltitis and to start IV antibiotic therapy. Imaging: - 02/17 MRI positive findings for osteo Subsequent Hospital Course/Progress Note/DC summary: Plan: 1. Osteomyelitis fourth digit of left foot - PICC line placed 02/19 - Continue vancomycin/cefepime for 6 weeks - Please follow vancomycin levels closely - Podiatry and wound care follow up 2. Bilateral lower extremity cellulitis - Antibiotics as above 3. Right foot medial rearfoot pressure ulcer Stage II - Right foot 5th digit pressure ulcer, Stage III (present on admission) 4. HTN - Controlled - Continue carvedilol, ramipril 5. HLD - Continue atorvastatin 6. CAD - Continue clopidogrel, atorvastatin 7. Diastolic heart failure - Not in exacerbation - Continue home dose Lasix PO 20mg BID 8. s/p bilateral hip replacements, chronic infxn - Resume amoxicillin 500mg TID (home prophylaxis) 9. Severe osteoarthritis - Verified home dose oxycodone 15mg q6h PRN (verified on ISTOP) 10. Psoriatic arthritis - Continue methotrexate 11. Gout - Continue allopurinol 12. Fever - Resolved - Repeat blood cx neg Dispo: - Transfer to SNF for mcc abx Condition: Stable - Instructions Diet, Activity, Other Instructions: Please return to the ED for any new, persistent, or worsening symptoms. Follow up with your PCP in 1 week Take home medications as directed on home discharge list Podiatry follow up Cont IVF abx : plan vancomycin/cefepime for 6 weeks please follow vancomycin levels closely Referrals: Abdirahman Coates MD [Staff Physician] - Dilcia Farrar MD [Primary Care Provider] - Ginger Castro MD [Staff Physician] - [facility] - Home Medications Comprehensive Discharge Medication List: Ambulatory Orders Allopurinol [Zyloprim -] 200 mg PO DAILY 08/09/15 Atorvastatin Ca [Lipitor] 20 mg PO HS 08/09/15 Calcium Carbonate [Calcium] 600 mg PO DAILY 08/09/15 Clopidogrel Bisulfate [Plavix -] 75 mg PO DAILY 08/09/15 Folic Acid 1 mg PO DAILY 08/09/15 Furosemide [Lasix -] 20 mg PO BID 08/09/15 Lactobacillus Acidophilus [Bacid -] 1 each PO DAILY 08/09/15 Methotrexate Sodium [Trexall] 7.5 mg PO FR 08/09/15 Multivitamins [Multivit ([facility] Formulary)] 1 tab PO DAILY 08/09/15 Ramipril 5 mg PO DAILY 08/09/15 Acetaminophen [Tylenol] 325 mg PO Q6H PRN 04/22/17 Carvedilol 3.125 mg PO BID 04/22/17 Oxycodone HCl 15 mg PO Q6H PRN 04/22/17 Ferrous Sulfate 325 mg PO DAILY 09/16/17 Cholecalciferol (Vitamin D3) [Children's Vitamin D3] 1,000 unit PO DAILY #30 tab.chew 09/19/17 Lidocaine 5% Patch [Lidoderm -] 1 patch TP DAILY patch 09/19/17 Lidocaine Patch Removal [Lidoderm Patch Removal] 1 each MC DAILY@2200 each Mupirocin Ointment [Bactroban 2% Ointment -] 1 applic TP DAILY #30 applic Naftifine HCl [Naftin] 1 applic TP DAILY #60 grams 01/05/18 Nystatin Powder [Nystop Powder -] 60 gm TP DAILY #60 gm 01/19/18 Amino Acids/Protein Hydrolys [Prosource No Carb Liquid Pkt] 30 ml PO BID@0800, 1730 packet 02/21/18 Amoxicillin - [Amoxicillin 500mg Capsule -] 500 mg PO TID #90 capsule 02/21/18 Cefepime [Maxipime (Restricted To Id) -] 1 gm IV Q12H #80 vial 02/21/18 Vancomycin 1,000 mg IV DAILY #39 vial 02/21/18 This patient is new to me today: No Emergency Visit: Yes ED Registration Date: 02/16/18 Care time: The patient presented to the Emergency Department on the above date and was hospitalized for further evaluation of their emergent condition. Critical Care patient: No - Discharge Referral Referred to [facility] Med P.C.: No
[2018-02-21] MEDS: ACETAMINOPHEN 325 MG TABLET (FP) PO PRN (12:04)
[2018-02-21 13:10] VITALS: BP 135/62; PULSE 67
== END 2018-02-21 13:12 | DRG 539 ==
LOC: JER 10:03 → JERBED 12:33 → J6S 23:56
PROVIDERS: ADMIT Hospitalist; ATTEND Nurse Practitioner Acute Care
PROC: 02HV33Z Insertion of Infusion Device into Superior Vena Cava, Percutaneous Approach (ICD-10-PCS; principal; 2018-02-19)
PROC: B518ZZA Fluoroscopy of Superior Vena Cava, Guidance (ICD-10-PCS; 2018-02-19)
DX: M86.172 Other acute osteomyelitis, left ankle and foot (principal); L89.893 Pressure ulcer of other site, stage 3; I50.32 Chronic diastolic (congestive) heart failure; L03.115 Cellulitis of right lower limb; L03.116 Cellulitis of left lower limb; B95.62 Methicillin resistant Staphylococcus aureus infection as the cause of diseases classified elsewhere; I11.0 Hypertensive heart disease with heart failure; I25.10 Atherosclerotic heart disease of native coronary artery without angina pectoris; L89.892 Pressure ulcer of other site, stage 2; M10.9 Gout, unspecified; I25.2 Old myocardial infarction; R78.5 Finding of other psychotropic drug in blood; Z96.643 Presence of artificial hip joint, bilateral; Z87.891 Personal history of nicotine dependence; L40.50 Arthropathic psoriasis, unspecified; M19.90 Unspecified osteoarthritis, unspecified site; Z22.322 Carrier or suspected carrier of Methicillin resistant Staphylococcus aureus
CPT/HCPCS: 11042; 36415; 36569; 71045-TC-FY; 73630-TC-LT; 73718-LT; 77001-TC-FY; 80048; 80053; 81003; 81015; 83735; 85025; 85651; 85730; 86140; 86850; 86900; 86901; 87040; 87070; 87077; 87086; 87186; 87205; 93005; 93010; 97116-GP; 97161-GP; 99284-25; C1751; J1644; J8610

== ENCOUNTER 2018-03-07 00:01 | Inpatient (IN) | payer OTHER, MEDICARE ==
--- NOTE | 2018-03-07 00:46 | PDOC ---
History of Present Illness - General Chief Complaint: Pain, Acute Stated Complaint: RT ARM BLOOD CLOT Time Seen by Provider: 03/07/18 00:27 History Source: Patient, EMS Exam Limitations: No Limitations - History of Present Illness Initial Comments: 82 YOF with h/o PICC line use to RUE for the past 2 weeks, HTN, HLD, CAD s/p CA (2013, on Plavix now), diastolic HF, recurrent UTIs, lower GI bleed (2014), s/p left total hip replacement on prophylactic amoxicillin, severe osteoarthritis, psoriatic arthritis, and gout. She was send in by [facility] (where she has been staying for IV abx treatment for osteomyelitis and UTI) for a RUE DVT detected on duplex US this afternoon/evening. The patient herself notes swelling to the RUE for the past ~36 hours, and mildly exacerbated chronic right arm pain for the past ~12 hours, as well as engorged veins to the RUE. She denies any f/c/n/v /c/d, chest pain, SOB, LOC, headache, dizziness, lightheadedness, abdominal pain , or any other recent symptoms. 03/07/18 01:51 Per [place] records, patient has DVT to right subclavian, axillary, and basilic veins. Past History - Past Medical History Allergies/Adverse Reactions: Allergies Allergy/AdvReac Type Severity Reaction Status Date / Time No Known Allergies Allergy Verified 03/07/18 00:39 Home Medications: Ambulatory Orders Allopurinol [Zyloprim -] 200 mg PO DAILY 08/09/15 Atorvastatin Ca [Lipitor] 20 mg PO HS 08/09/15 Calcium Carbonate [Calcium] 600 mg PO DAILY 08/09/15 Clopidogrel Bisulfate [Plavix -] 75 mg PO DAILY 08/09/15 Folic Acid 1 mg PO DAILY 08/09/15 Furosemide [Lasix -] 20 mg PO BID 08/09/15 Lactobacillus Acidophilus [Bacid -] 1 each PO DAILY 08/09/15 Methotrexate Sodium [Trexall] 7.5 mg PO FR 08/09/15 Multivitamins [Multivit ([facility] Formulary)] 1 tab PO DAILY 08/09/15 Ramipril 5 mg PO DAILY 08/09/15 Acetaminophen [Tylenol] 325 mg PO Q6H PRN 04/22/17 Carvedilol 3.125 mg PO BID 04/22/17 Oxycodone HCl 15 mg PO Q6H PRN 04/22/17 Ferrous Sulfate 325 mg PO DAILY 09/16/17 Cholecalciferol (Vitamin D3) [Children's Vitamin D3] 1,000 unit PO DAILY #30 tab.chew 09/19/17 Lidocaine 5% Patch [Lidoderm -] 1 patch TP DAILY patch 09/19/17 Lidocaine Patch Removal [Lidoderm Patch Removal] 1 each MC DAILY@2200 each Mupirocin Ointment [Bactroban 2% Ointment -] 1 applic TP DAILY #30 applic Naftifine HCl [Naftin] 1 applic TP DAILY #60 grams 01/05/18 Nystatin Powder [Nystop Powder -] 60 gm TP DAILY #60 gm 01/19/18 Amino Acids/Protein Hydrolys [Prosource No Carb Liquid Pkt] 30 ml PO BID@0800, 1730 packet 02/21/18 Amoxicillin - [Amoxicillin 500mg Capsule -] 500 mg PO TID #90 capsule 02/21/18 Cefepime [Maxipime (Restricted To Id) -] 1 gm IV Q12H #80 vial 02/21/18 Vancomycin 1,000 mg IV DAILY #39 vial 02/21/18 Anemia: No Asthma: No Cancer: No Cardiac Disorders: Yes (CA) CVA: No COPD: No CHF: Yes (chronic) Dementia: No Diabetes: No GI Disorders: No Disorders: No HTN: Yes Hypercholesterolemia: Yes Liver Disease: No Seizures: No Thyroid Disease: No - Surgical History Abdominal Surgery: No Appendectomy: No Cardiac Surgery: No Cholecystectomy: No Lung Surgery: No Neurologic Surgery: No Orthopedic Surgery: Yes (bilateral hip replacements) - Immunization History Immunization Up to Date: No - Suicide/Smoking/Psychosocial Hx Smoking History: Never smoked Have you smoked in the past 12 months: No Number of Cigarettes Smoked Daily: 20 If you are a former smoker, when did you quit?: 20 years ago Information on smoking cessation initiated: No Hx Alcohol Use: No Drug/Substance Use Hx: No Substance Use Type: None Hx Substance Use Treatment: No Review of Systems - Review of Systems Able to Perform ROS?: Yes Constitutional: No: Chills, Fever, Unexplained wgt Loss HEENTM: No: Nose Congestion, Throat Pain Respiratory: No: Cough, Shortness of Breath Cardiac (ROS): No: Chest Pain, Palpitations ABD/GI: No: Constipated, Diarrhea, Nausea, Vomiting : No: Burning, Dysuria Musculoskeletal: Yes: Other (right arm pain and swelling). No: Back Pain, Neck Pain Integumentary: No: Bruising, Rash Neurological: No: Headache, Numbness, Tingling, Weakness, Dizziness Endocrine: No: Unexplained Weight Gain, Unexplained Weight Loss *Physical Exam - Vital Signs Last Vital Signs Temp Pulse Resp BP Pulse Ox 96.6 F L 48 L 16 114/55 94 L 03/07/18 00:05 03/07/18 00:05 03/07/18 00:05 03/07/18 00:05 03/07/18 00:05 - Physical Exam General Appearance: Yes: Nourished, Appropriately Dressed, Other (very pleasant elderly female in no distress accompanied by family members, answering all questions appropriately, appears comfortable, barely moves RUE but states this is chronic d/t chronic right shoulder dislocation). No: Apparent Distress HEENT: positive: EOMI, ANDREW, Normal Voice, Hearing Grossly Normal. negative: Scleral Icterus (R), Scleral Icterus (L), Nasal Congestion Neck: positive: Trachea midline, Supple. negative: Tender, Rigid Respiratory/Chest: positive: Lungs Clear, Normal Breath Sounds. negative: Respiratory Distress, Crackles, Rhonchi, Stridor, Wheezing Cardiovascular: positive: Regular Rhythm, S1, S2, Bradycardia. negative: JVD, Murmur Vascular Pulses: Dorsalis-Pedis (R): 2+, Doralis-Pedis (L): 2+ Comments:: Radial pulses 2+ and equal bilaterally, RUE wwp and cap refill 2 seconds distally Gastrointestinal/Abdominal: positive: Normal Bowel Sounds, Flat, Soft. negative : Tender, Organomegaly, Pulsatile Mass, Guarding Musculoskeletal: positive: Normal Inspection. negative: Decreased Range of Motion, Vertebral Tenderness Extremity: positive: Normal Capillary Refill, Normal Inspection, Normal Range of Motion, Other (RUE with diffuse nonpitting edema). negative: Tender, Cyanosis, Swelling, Calf Tenderness Integumentary: positive: Normal Color, Dry, Warm, Ecchymosis (old small scattered LUE ecchymoses). negative: Erythema, Rash, Bruising Neurologic: positive: concrete spreader II-XII NML intact, Fully Oriented, Alert, Normal Mood/ Affect, Normal Response, Motor Strength 5/ ED Treatment Course - LABORATORY CBC & Chemistry Diagram: 03/07/18 01:38 03/07/18 08:51 Medical Decision Making - Medical Decision Making Elderly female Pt p/w RUE DVT detected on Duplex RUE from [facility]. Patient has indwelling PICC, 1-2 days worsening RUE swelling, mild redness. Initial Vital Signs Temp Pulse Resp BP Pulse Ox 96.6 F L 48 L 16 114/55 94 L 03/07/18 00:05 03/07/18 00:05 03/07/18 00:05 03/07/18 00:05 03/07/18 00:05 Exam: As noted in Physical Exam section. W/U ordered: Labs as noted below. TX ordered: Oxycodone 15 mg and Tylenol 650 mg as per normal dose which she missed at midnight. Laboratory Tests 03/07/18 01:38 WBC 7.5 RBC 3.22 L Hgb 11.2 Hct 33.2 MCV 103.1 H MCH 34.8 H MCHC 33.8 RDW 14.0 Plt Count 228 D MPV 7.3 L Absolute Neuts (auto) 4.8 Neutrophils % 64.8 Lymphocytes % 16.2 Monocytes % 11.5 H Eosinophils % 6.1 H Basophils % 1.4 Nucleated RBC % 0 03/07/18 02:19 Heparin infusion protocol ordered for UE DVT treatment. Opting not to manipulate the PICC line at this time. The Pt is unsafe for discharge at this time. They require further hospital observation, workup, and treatment. PCP is Karol; admits to Hospitalist team. I spoke with Dr. Roberson to inform her of the intent to admit. Microblog sent to [facility] for admission. Blank Decision to Admit order placed to Med/Surg Obs. Patient's care is endorsed to Trino Calderon and Dr. Sheikh at the end of my shift pending remaining lab results and admission. *DC/Admit/Observation/Transfer Diagnosis at time of Disposition: DVT (deep venous thrombosis) Qualifiers: DVT location: upper extremity Affected thrombotic vein of extremity: unspecified vein of extremity Chronicity: acute Laterality: right Qualified Code (s): I82.621 - Acute embolism and thrombosis of deep veins of right upper extremity - Discharge Dispostion Condition at time of disposition: Guarded - Referrals - Patient Instructions - Post Discharge Activity
[2018-03-07] MEDS ORDERED: oxyCODONE HCL 5 MG TABLET PO ONE (01:28)
[2018-03-07] MEDS ORDERED: oxyCODONE HCL 5 MG TABLET ONE ×2 (01:31→07:02)
[2018-03-07] MEDS ORDERED: ACETAMINOPHEN 325 MG TABLET (FP) PO ONE (01:45)
--- NOTE | 2018-03-07 01:49 | PDOC ---
Attending Attestation - Resident Resident Name: TheodoraRadha - ED Attending Attestation I have performed the following: I have examined & evaluated the patient, The case was reviewed & discussed with the resident, I agree w/resident's findings & plan, Exceptions are as noted - HPI HPI: 03/07/18 01:46 h/o osteomyletits left small toe, has had picc line rue for 10 days, here with right arm swelling and engorment. had outpt us today diagnosed with upper extremity dvt right arm. , also h/o HTN, HLD, CAD s/p LA (2013, on Plavix now), diastolic HF, recurrent UTIs, lower GI bleed (2014), s/p left total hip replacement on prophylactic amoxicillin, severe osteoarthritis, psoriatic arthritis, and gout. pt denies cp or sob. no f/c no other complaints. - Physicial Exam PE: 03/07/18 01:47 awake alert lungs clear bilaterally. heart systolic murmu, irregular irregular . skin warm and dry. right upper ext engorment with varicosity, swelling. left lower ext food with mild warmth, and swelling. no ulcer, skin intact. nuero alert and oriented x 3. - Medical Decision Making 03/07/18 01:48 pt wiht upper extremity dvt, due to picc line. will likely require admission for anticoagulation, picc removal . continued iv abx. plan labs cbc lytes. ekg. heparin,
[2018-03-07] MEDS ORDERED: ACETAMINOPHEN 325 MG TABLET (FP) ONE ×2 (01:51→07:01)
[2018-03-07 01:53] LABS: BASO % 1.4 % (0-2.0); EOS % 6.1 % (0-4.5); HEMATOCRIT 33.2 % (32.4-45.2); HEMOGLOBIN 11.2 GM/dL (10.7-15.3); LYMPH % 16.2 % (8-40); MCH 34.8 pg (25.7-33.7); MCHC 33.8 g/dl (32.0-36.0); MEAN CELL VOLUME 103.1 fl (80-96); MEAN PLT VOLUME 7.3 fl (7.5-11.1); MONO % 11.5 % (3.8-10.2); NEUT % 64.8 % (42.8-82.8); PLATELET COUNT 228 K/MM3 (134-434); RBC 3.22 M/mm3 (3.60-5.2); WHITE BLOOD COUNT 7.5 K/mm3 (4.0-10.0)
[2018-03-07] MEDS ORDERED: HEPARIN NA (PORCINE) 5,000 UNITS/ML 1ML VIAL IVPUSH PRN ×2 (02:08)
[2018-03-07 02:16] LABS: INR 1.07 (0.83-1.09); PROTHROMBIN TIME (PATIENT) 12.1 SEC (9.7-13.0)
[2018-03-07 02:19] LABS: ACTIVATED PTT 26.2 SECONDS (25.2-36.5)
[2018-03-07 02:26] LABS: ALBUMIN 3.3 g/dl (3.4-5.0); ANION GAP 8 MMOL/L (8-16); BILIRUBIN,TOTAL 0.4 mg/dL (0.2-1.0); BLOOD UREA NITROGEN 40 mg/dL (7-18); CALCIUM 8.3 mg/dL (8.5-10.1); CHLORIDE 97 mmol/L (98-107); CO2 30 mmol/L (21-32); GLUCOSE,RANDOM 80 mg/dL (74-106); PHOSPHOROUS 3.9 mg/dL (2.5-4.9); SGPT/ALT 22 U/L (12-78); SODIUM 135 mmol/L (136-145); TOT PROT 7.4 g/dl (6.4-8.2)
[2018-03-07 02:27] LABS: ALK PHOS 81 U/L (45-117)
[2018-03-07] MEDS ORDERED: HEPARIN INFUSION - 25,000 UNITS/500 ML INFUS.BAG IVPB ONE (02:32)
[2018-03-07 02:34] LABS: MAGNESIUM 1.8 mg/dL (1.8-2.4); POTASSIUM 4.5 mmol/L (3.5-5.1); SGOT/AST 27 U/L (15-37)
[2018-03-07] MEDS ORDERED: HEPARIN NA (PORCINE) 5,000 UNITS/ML 1ML VIAL ONE (02:44)
[2018-03-07] MEDS: HEPARIN - 25,000 UNIT in SODIUM CHLORIDE 495 ML IV SCH (02:48)
--- NOTE | 2018-03-07 03:04 | PN ---
Teaching Attending Note Name of Resident: Trino Andrews ATTENDING PHYSICIAN STATEMENT I saw and evaluated the patient. I reviewed the resident's note and discussed the case with the resident. I agree with the resident's findings and plan as documented. SUBJECTIVE: Patient is an 82 year old woman with history of PICC line use to RUE for the past 2 weeks, HTN, HLD, CAD s/p TN (2013, on Plavix now), dislocated right shoulder, diastolic HF, recurrent UTIs, lower GI bleed (2014), s/p left total hip replacement on prophylactic amoxicillin, severe osteoarthritis, psoriatic arthritis, and gout. She was sent by [facility] (where she has been staying for IV antibiotics - defepime and vancomycin -for osteomyelitis of left 4th toe and UTI) for a RUE DVT detected on duplex US this afternoon. The patient herself notes swelling to the RUE for the past 36 hours, and mildly exacerbated chronic right arm pain for the past 12 hours, as well as engorged veins to the RUE. She denies any chest pain, SOB, or dizziness. OBJECTIVE: Alert Vital Signs Period Temp Pulse Resp BP Sys/Seymour Pulse Ox Last 24 Hr 96.6 F 48 16 114/55 94 HEENT: No Jaundice, eye redness or discharge, PERRLA, EOMI. Normocephalic, atraumatic. External ears are normal and hearing is grossly intact. No nasal discharge. Neck: Supple, nontender. No palpable adenopathy or thyromegaly. No JVD Chest: Good effort. Clear to auscultation and percussion. Heart: Bradycardia. No S3, rub or murmur Abdomen: Not distended, soft, nontender and no HSM. No rebound or guarding. Normoactive bowel sounds. Ext: Peripheral pulses intact. Dry healing ulcer on left 4th toe. No leg edema. RUE edema. Limited ROM right shoulder. Skin: Warm and dry. No petechiae, rash or ecchymosis. Neuro: Alert. Oriented x3. CN 2-12 grossly intact. Sensation grossly intact in all four extremities and DTR are symmetric. Current Medications Generic Name Dose Route Start Last Admin Trade Name Freq PRN Reason Stop Dose Admin Heparin Sodium (Porcine) 1,000 unit 03/07/18 02:08 03/07/18 02:47 Heparin - IVPUSH 1,000 unit PRN PRN Administration Heparin Heparin Sodium (Porcine) 5,000 unit 03/07/18 02:08 Heparin - IVPUSH PRN PRN Heparin Heparin Sodium (Porcine) 25, 500 mls @ 16 mls/hr 03/07/18 02:15 03/07/18 02: 48 000 unit/ Sodium Chloride IV 800 unit/hr TITR AYAN 16 mls/hr Administration Protocol 800 UNIT/HR Home Medications Medication Instructions Recorded Allopurinol [Zyloprim -] 200 mg PO DAILY 08/09/15 Atorvastatin Ca [Lipitor] 20 mg PO HS 08/09/15 Calcium Carbonate [Calcium] 600 mg PO DAILY 08/09/15 Clopidogrel Bisulfate [Plavix -] 75 mg PO DAILY 08/09/15 Folic Acid 1 mg PO DAILY 08/09/15 Furosemide [Lasix -] 20 mg PO BID 08/09/15 Lactobacillus Acidophilus [Bacid -] 1 each PO DAILY 08/09/15 Methotrexate Sodium [Trexall] 7.5 mg PO FR 08/09/15 Multivitamins [Multivit ([facility] 1 tab PO DAILY 08/09/15 Formulary)] Ramipril 5 mg PO DAILY 08/09/15 Acetaminophen [Tylenol] 325 mg PO Q6H PRN 04/22/17 Carvedilol 3.125 mg PO BID 04/22/17 Oxycodone HCl 15 mg PO Q6H PRN 04/22/17 Ferrous Sulfate 325 mg PO DAILY 09/16/17 Cholecalciferol (Vitamin D3) 1,000 unit PO DAILY #30 tab.chew 09/19/17 [Children's Vitamin D3] Lidocaine 5% Patch [Lidoderm -] 1 patch TP DAILY patch 09/19/17 Lidocaine Patch Removal [Lidoderm 1 each MC DAILY@2200 each 09/19/17 Patch Removal] Mupirocin Ointment [Bactroban 2% 1 applic TP DAILY #30 applic 01/05/18 Ointment -] Naftifine HCl [Naftin] 1 applic TP DAILY #60 grams 01/05/18 Nystatin Powder [Nystop Powder -] 60 gm TP DAILY #60 gm 01/19/18 Amino Acids/Protein Hydrolys 30 ml PO BID@0800,1730 packet 02/21/18 [Prosource No Carb Liquid Pkt] Amoxicillin - [Amoxicillin 500mg 500 mg PO TID #90 capsule 02/21/18 Capsule -] Cefepime [Maxipime (Restricted To 1 gm IV Q12H #80 vial 02/21/18 Id) -] Vancomycin 1,000 mg IV DAILY #39 vial 02/21/18 Abnormal Lab Results 03/07/18 03/07/18 01:38 01:38 RBC 3.22 L MCV 103.1 H MCH 34.8 H MPV 7.3 L Monocytes % 11.5 H Eosinophils % 6.1 H Sodium 135 L Chloride 97 L BUN 40 H Calcium 8.3 L Albumin 3.3 L ASSESSMENT AND PLAN: 1. Right Upper Extremity DVT - DVT noted in subclavian/axillary and basilic vein. Getting repeat study to confirm. On IV heparin drip. Will switch to a DOAC tomorrow. Consult hematology. Get UA since she is being treatd for UTI too. 2. MARITA - Etiology unclear - possibly vancomycin toxicity. Check vancomycin trough level and consult nephrology. Ensure adequate fluid intake and avoid nephrotoxic agents such as NSAIDS, aminoglycosides, contrast dyes and certain Alternative medicine products. 3. DVT prophylaxis - On IV Heparin drip 4. Advance directives - Full code
--- NOTE | 2018-03-07 04:24 | HP ---
CHIEF COMPLAINT: DVT PCP: Karol HISTORY OF PRESENT ILLNESS: Pt is an 82 y/o F with PMH HTN, HLD, CAD dCHF, UTI, GIB, L total hip, Psoriatic arthritis, gout who presents to ED from [facility] for RUE DVT. Pt was recently in this facility for OM of the L 4th toe. She was sent out with PICC on vanc and cefipime. In [facility], pt noted she had enlarged RUE with engorged veins. Of note, pt has a chronically dislocated R shoulder, and her PICC is in the RUE. Pt denies fever chills, n/v/d. In ROS pt admits to urinary frequency. She states she has a known UTI. She also complains of joint pain from her OA. ER course was notable for: (1) oxycodone 15, tylenol (2) (3) Recent Travel: denies PAST MEDICAL HISTORY: as above PAST SURGICAL HISTORY: as above Social History: Smoking: denies Alcohol: denies Drugs: denies Family History: denies Allergies No Known Allergies Allergy (Verified 03/07/18 00:39) HOME MEDICATIONS: Home Medications Medication Instructions Recorded Allopurinol [Zyloprim -] 200 mg PO DAILY 08/09/15 Atorvastatin Ca [Lipitor] 20 mg PO HS 08/09/15 Calcium Carbonate [Calcium] 600 mg PO DAILY 08/09/15 Clopidogrel Bisulfate [Plavix -] 75 mg PO DAILY 08/09/15 Folic Acid 1 mg PO DAILY 08/09/15 Furosemide [Lasix -] 20 mg PO BID 08/09/15 Lactobacillus Acidophilus [Bacid -] 1 each PO DAILY 08/09/15 Methotrexate Sodium [Trexall] 7.5 mg PO FR 08/09/15 Multivitamins [Multivit ([facility] 1 tab PO DAILY 08/09/15 Formulary)] Ramipril 5 mg PO DAILY 08/09/15 Acetaminophen [Tylenol] 325 mg PO Q6H PRN 04/22/17 Carvedilol 3.125 mg PO BID 04/22/17 Oxycodone HCl 15 mg PO Q6H PRN 04/22/17 Ferrous Sulfate 325 mg PO DAILY 09/16/17 Cholecalciferol (Vitamin D3) 1,000 unit PO DAILY #30 tab.chew 09/19/17 [Children's Vitamin D3] Lidocaine 5% Patch [Lidoderm -] 1 patch TP DAILY patch 09/19/17 Lidocaine Patch Removal [Lidoderm 1 each MC DAILY@2200 each 09/19/17 Patch Removal] Mupirocin Ointment [Bactroban 2% 1 applic TP DAILY #30 applic 01/05/18 Ointment -] Naftifine HCl [Naftin] 1 applic TP DAILY #60 grams 01/05/18 Nystatin Powder [Nystop Powder -] 60 gm TP DAILY #60 gm 01/19/18 Amino Acids/Protein Hydrolys 30 ml PO BID@0800,1730 packet 02/21/18 [Prosource No Carb Liquid Pkt] Amoxicillin - [Amoxicillin 500mg 500 mg PO TID #90 capsule 02/21/18 Capsule -] Cefepime [Maxipime (Restricted To 1 gm IV Q12H #80 vial 02/21/18 Id) -] Vancomycin 1,000 mg IV DAILY #39 vial 02/21/18 REVIEW OF SYSTEMS CONSTITUTIONAL: Absent: fever, chills, diaphoresis, generalized weakness, malaise, loss of appetite, weight change HEENT: Absent: rhinorrhea, nasal congestion, throat pain, throat swelling, difficulty swallowing, mouth swelling, ear pain, eye pain, visual changes CARDIOVASCULAR: Absent: chest pain, syncope, palpitations, irregular heart rate, lightheadedness , peripheral edema RESPIRATORY: Absent: cough, shortness of breath, dyspnea with exertion, orthopnea, wheezing, stridor, hemoptysis GASTROINTESTINAL: Absent: abdominal pain, abdominal distension, nausea, vomiting, diarrhea, constipation, melena, hematochezia GENITOURINARY: frequency Absent: dysuria, , urgency, hesitancy, hematuria, flank pain, genital pain MUSCULOSKELETAL: R shoulder dislocation, RUE swelling Absent: myalgia, arthralgia, joint swelling, back pain, neck pain SKIN: Absent: rash, itching, pallor HEMATOLOGIC/IMMUNOLOGIC: Absent: easy bleeding, easy bruising, lymphadenopathy, frequent infections ENDOCRINE: Absent: unexplained weight gain, unexplained weight loss, heat intolerance, cold intolerance NEUROLOGIC: Absent: headache, focal weakness or paresthesias, dizziness, unsteady gait, seizure, mental status changes, bladder or bowel incontinence PSYCHIATRIC: Absent: anxiety, depression, suicidal or homicidal ideation, hallucinations. PHYSICAL EXAMINATION Vital Signs - 24 hr 03/07/18 00:05 Temperature 96.8 F L Pulse Rate 48 L Pulse Rate [ 52 L Left Radial] Respiratory 18 Rate Blood Pressure 114/55 Blood Pressure 114/55 [Left Arm] O2 Sat by Pulse 95 Oximetry (%) Gen: lying in bed in nad HEEN: NCAT, eomi neck: supple, no jvd Cardio: rrr, no mrg Pulm: cta b/l Abd: soft nontender, normal bs Ext: 1+ pulses, swollen RUE with visibly dilated superficial veins. Laboratory Results - last 24 hr 03/07/18 03/07/18 03/07/18 01:38 01:38 01:38 WBC 7.5 RBC 3.22 L Hgb 11.2 Hct 33.2 MCV 103.1 H MCH 34.8 H MCHC 33.8 RDW 14.0 Plt Count 228 D MPV 7.3 L Absolute Neuts (auto) 4.8 Neutrophils % 64.8 Lymphocytes % 16.2 Monocytes % 11.5 H Eosinophils % 6.1 H Basophils % 1.4 Nucleated RBC % 0 PT with INR 12.10 INR 1.07 PTT (Actin FS) 26.2 Sodium 135 L Potassium 4.5 Chloride 97 L Carbon Dioxide 30 Anion Gap 8 BUN 40 H Creatinine 1.0 Creat Clearance w eGFR 53.21 Random Glucose 80 Calcium 8.3 L Phosphorus 3.9 Magnesium 1.8 Total Bilirubin 0.4 AST 27 ALT 22 Alkaline Phosphatase 81 Total Protein 7.4 Albumin 3.3 L ASSESSMENT/PLAN: PT is an 82 y/o F with PMH HTN, HLD, CAD dCHF, UTI, GIB, L total hip, Psoriatic arthritis, gout who presents to ED from [facility] for RUE DVT. #DVT -RUE U/S -Hep ggt -recent surg #OM -began treatment here -Vanc/Zosin in ED. -c/w ABx, per ID team #HTN -Ramipril #HLD -lipitor #UTI -on abx #gout -allopurinol #FEN -gentle hydration -lytes wnl -Na controlled diet #PPx -Hep ggt Dispo - Medsurg Trino Andrews MD, PGY-2, IM Visit type - Emergency Visit Emergency Visit: Yes Care time: The patient presented to the Emergency Department on the above date and was hospitalized for further evaluation of their emergent condition. - New Patient This patient is new to me today: Yes Date on this admission: 03/07/18 - Critical Care Critical Care patient: No Hospitalist Screening - Colonoscopy Questionnaire Colonoscopy Questionnaire: Colonoscopy Questionnaire - Patient: 50 - 75 years old and never had a screening colonoscopy: Unknown History of colon or rectal polyps, or CA: Unknown History of IBD, Crohn's disease or UC: Unknown History of abdominal radiation therapy as a child: Unknown - Relative: 1 with colon or rectal CA, or polyps at age 60 or younger: Unknown Colon or rectal CA diagnosed at age 45 or younger: Unknown Multiple relatives with colon or rectal CA: Unknown - Outcome: Screening Result: Negative Screen
[2018-03-07] MEDS ORDERED: AMOXICILLIN 500 MG CAPSULE (FP) PO SCH (06:00)
[2018-03-07] MEDS: FUROSEMIDE 20 MG TABLET (FP) PO SCH ×2 (06:02→15:42)
[2018-03-07] MEDS ORDERED: FUROSEMIDE 40 MG TABLET (FP) ONE (06:53)
[2018-03-07] MEDS: oxyCODONE HCL 5 MG TABLET PO PRN ×3 (07:09→18:58)
[2018-03-07] MEDS: ACETAMINOPHEN 325 MG TABLET (FP) PO PRN (07:10)
[2018-03-07] MEDS ORDERED: MUPIROCIN 2% TOPICAL OINTMENT FOR DECOLONIZATION NS SCH (10:00)
[2018-03-07] MEDS ORDERED: PATIENT'S OWN MEDICATION (NON-FORMULARY) (Vancomycin 1,000 MG) IV SCH (10:00)
[2018-03-07] MEDS ORDERED: NAFTIFINE HCL TP SCH (10:00)
[2018-03-07] MEDS ORDERED: VANCOMYCIN 1,000 MG in DEXTROSE 5%-WATER - 250 ML IVPB SCH (10:00)
--- NOTE | 2018-03-07 10:32 | PN ---
Physical Exam: SUBJECTIVE: Patient seen and examined OBJECTIVE: Vital Signs Period Temp Pulse Resp BP Sys/Seymour Pulse Ox Last 24 Hr 96.6 F-98.6 F 48-55 16-18 114-147/55-76 94-96 Laboratory Results - last 24 hr 03/07/18 03/07/18 03/07/18 01:38 01:38 01:38 WBC 7.5 RBC 3.22 L Hgb 11.2 Hct 33.2 MCV 103.1 H MCH 34.8 H MCHC 33.8 RDW 14.0 Plt Count 228 D MPV 7.3 L Absolute Neuts (auto) 4.8 Neutrophils % 64.8 Lymphocytes % 16.2 Monocytes % 11.5 H Eosinophils % 6.1 H Basophils % 1.4 Nucleated RBC % 0 PT with INR 12.10 INR 1.07 PTT (Actin FS) 26.2 Sodium 135 L Potassium 4.5 Chloride 97 L Carbon Dioxide 30 Anion Gap 8 BUN 40 H Creatinine 1.0 Creat Clearance w eGFR 53.21 Random Glucose 80 Calcium 8.3 L Phosphorus 3.9 Magnesium 1.8 Total Bilirubin 0.4 AST 27 ALT 22 Alkaline Phosphatase 81 Total Protein 7.4 Albumin 3.3 L Blood Type Antibody Screen 03/07/18 03/07/18 01:38 08:51 WBC RBC Hgb Hct MCV MCH MCHC RDW Plt Count MPV Absolute Neuts (auto) Neutrophils % Lymphocytes % Monocytes % Eosinophils % Basophils % Nucleated RBC % PT with INR INR PTT (Actin FS) 59.7 H Sodium Potassium Chloride Carbon Dioxide Anion Gap BUN Creatinine Creat Clearance w eGFR Random Glucose Calcium Phosphorus Magnesium Total Bilirubin AST ALT Alkaline Phosphatase Total Protein Albumin Blood Type A POSITIVE Antibody Screen Negative Active Medications Generic Name Dose Route Start Last Admin Trade Name Freq PRN Reason Stop Dose Admin Acetaminophen 325 mg 03/07/18 03:58 03/07/18 07:10 Tylenol - PO 325 mg Q6H PRN Administration PAIN LEVEL 1-5 Allopurinol 200 mg 03/07/18 10:00 Zyloprim - PO DAILY AYAN Atorvastatin Calcium 20 mg 03/07/18 22:00 Lipitor - PO HS AYAN Calcium Carbonate 500 mg 03/07/18 10:00 Os-Ankit 500mg - PO DAILY AYAN Carvedilol 3.125 mg 03/07/18 10:00 Coreg - PO BID AYAN Chlorhexidine Gluconate 1 applic 03/07/18 22:00 Hibiclens For Decolonization - TP HS [facility] Cholecalciferol 1,000 unit 03/07/18 10:00 Vitamin D3 - PO DAILY [facility] Clopidogrel Bisulfate 75 mg 03/07/18 10:00 Plavix - PO DAILY [facility] Ferrous Sulfate 325 mg 03/07/18 10:00 Feosol - PO DAILY [facility] Folic Acid 1 mg 03/07/18 10:00 Folic Acid - PO DAILY [facility] Furosemide 20 mg 03/07/18 06:00 03/07/18 06:02 Lasix - PO 20 mg BIDLASIX AYAN Administration Heparin Sodium (Porcine) 1,000 unit 03/07/18 02:08 03/07/18 02:47 Heparin - IVPUSH 1,000 unit PRN PRN Administration Heparin Heparin Sodium (Porcine) 5,000 unit 03/07/18 02:08 Heparin - IVPUSH PRN PRN Heparin Heparin Sodium (Porcine) 25, 500 mls @ 16 mls/hr 03/07/18 02:15 03/07/18 02: 48 000 unit/ Sodium Chloride IV 800 unit/hr TITR AYAN 16 mls/hr Administration Protocol 800 UNIT/HR Vancomycin HCl 1,000 mg/ 250 mls @ 200 mls/hr 03/07/18 10:00 Dextrose IVPB 03/31/18 11:00 DAILY [facility] Lactobacillus Acidophilus 1 tab 03/07/18 10:00 Bacid - PO DAILY [facility] Methotrexate 7.5 mg 03/12/18 10:00 Mexate - PO Fr@1000 [facility] Multivitamins/Minerals/Vitamin C 1 tab 03/07/18 10:00 Tab-A-Vit - PO DAILY [facility] Mupirocin 1 applic 03/07/18 10:00 Bactroban Ointment (For Decolonization) - NS 03/12/18 09:59 BID [facility] Mupirocin 1 applic 03/07/18 10:00 Bactroban 2% Ointment - TP DAILY [facility] Non-Formulary Medication 1 applic 03/07/18 10:00 Naftifine Hcl [Naftin] TP DAILY [facility] Nystatin 1 applic 03/07/18 10:00 Nystop Powder - TP DAILY [facility] Oxycodone HCl 15 mg 03/07/18 03:58 03/07/18 07:09 Roxicodone - PO 15 mg Q6H PRN Administration PAIN LEVEL 6-10 Ramipril 5 mg 03/07/18 10:00 Altace - PO DAILY [facility] ASSESSMENT/PLAN:
[2018-03-07] MEDS ORDERED: VANCOMYCIN 1 GRAM (PRE-DOCKED) 1,000 MG/250 ML BAG IVPB ONE (10:33)
[2018-03-07 10:43] LABS: ANION GAP 8 MMOL/L (8-16); BLOOD UREA NITROGEN 35 mg/dL (7-18); CALCIUM 8.5 mg/dL (8.5-10.1); CHLORIDE 99 mmol/L (98-107); CO2 29 mmol/L (21-32); CREATININE 0.8 mg/dL (0.55-1.02); GLUCOSE,RANDOM 91 mg/dL (74-106); POTASSIUM 4.1 mmol/L (3.5-5.1); SODIUM 136 mmol/L (136-145)
[2018-03-07] MEDS: RAMIPRIL 5 MG CAPSULE (FP) PO SCH (10:49)
[2018-03-07] MEDS: MUPIROCIN 2% TOPICAL OINTMENT 22 GM TUBE TP SCH (10:49)
[2018-03-07] MEDS: FOLIC ACID 1 MG TABLET (FP) PO SCH (10:49)
[2018-03-07] MEDS: CARVEDILOL 3.125 MG TABLET (FP) PO SCH ×2 (10:49→21:35)
[2018-03-07] MEDS: LACTOBACILLUS ACIDOPHILUS 1 TABLET PO SCH (10:49)
[2018-03-07] MEDS: FERROUS SO4 325 MG TABLET (FP) PO SCH (10:49)
[2018-03-07] MEDS: CLOPIDOGREL BISULFATE 75 MG TABLET (FP) PO SCH (10:50)
[2018-03-07] MEDS: MULTIVITAMINS (DAILY MVI) TABLET (FP) PO SCH (10:50)
[2018-03-07] MEDS: CHOLECALCIFEROL (VITAMIN D3) 1,000 UNIT TABLET (FP) PO SCH (10:50)
[2018-03-07] MEDS: NYSTATIN POWDER 100,000 UNITS/GM - 15 GM TOPICAL POWDER TP SCH (10:50)
[2018-03-07] MEDS: ALLOPURINOL 100 MG TABLET (FP) PO SCH (10:50)
[2018-03-07] MEDS: CALCIUM (OYSTER SHELL) 500 MG TABLET (FP) PO SCH (10:50)
--- NOTE | 2018-03-07 14:01 | PN ---
Progress Note (short form) - Note Progress Note: ID Consult dictated DVT R UE Osteomyelitis L 4th toe Remove PICC Continue cefepime/ vanco for osteomyelitis L 4th toe Check vanco level prior to administration
--- NOTE | 2018-03-07 14:38 | CONS ---
DATE OF CONSULTATION: 03/07/2018 The patient is an 82-year-old female who is evaluated for osteomyelitis of the left 4th toe. Patient was recently hospitalized at [facility] from February 16 to February 21 with osteomyelitis of the left 4th toe. [facility] to complete a 6-week course of IV vancomycin and cefepime after a PICC line was placed. She now returns after increased right upper extremity swelling was noted at the alf. A Doppler exam was performed and was positive for DVT. The patient complains of discomfort on the right upper extremity. She denies any foot pain. No complaints of fever or chills. Past medical history positive for hypertension, hyperlipidemia, coronary artery disease, congestive heart failure, recurrent urinary tract infections. PAST SURGICAL HISTORY: Status post PICC line placed in the right upper extremity, history of chronically infected left total hip replacement. No known allergies. LABORATORY DATA: White count 7.5, hematocrit 33.2, platelet count 228, creatinine 0.8. PHYSICAL EXAMINATION: General: She is an elderly female. She is in no acute distress. Vital Signs: Temperature 98.8. Blood pressure 108/63. Pulse 55, regular. Respiration 20 per minute. Eyes: Sclerae anicteric. Heart Sounds: S1, S2. Lungs: Clear. Abdomen: Soft. Nontender. Extremities: There is swelling of the right upper extremity with PICC line in place. Examination of the left lower extremity, there is superficial ulceration present over the left 4th toe, dorsal aspect. No erythema or swelling. IMPRESSION: 1. Deep vein thrombosis, right upper extremity. 2. Osteomyelitis, left 4th toe. 3. Chronically infected left total hip replacement. PLAN: Advised remove PICC line, continue vancomycin and cefepime for treatment of chronic osteomyelitis. Obtain vancomycin level prior to administration. Obtain follow up ESR and C-reactive protein. Thank you for the kind referral. MAKAYLA BROWN M.D. [id number]
[2018-03-07 17:18] VITALS: BMI 21.4
[2018-03-07] MEDS: CEFEPIME HCL/D5W 1 GM/50 ML BAG IVPB SCH ×2 (17:45→21:35)
[2018-03-07] MEDS ORDERED: PT OWN MED DRAWER 7, Y5N ONE (18:53)
[2018-03-07] MEDS: ATORVASTATIN CA 20 MG TABLET (FP) PO SCH (21:35)
[2018-03-07] MEDS ORDERED: CHLORHEXIDINE GLUCONATE 4% CLEANSER FOR DECOLONIZATION TP SCH (22:00)
[2018-03-07] MEDS ORDERED: CEFEPIME HCL/D5W 1 GM/50 ML BAG IVPB SCH (22:00)
[2018-03-07 23:46] LABS: URINE APPEARANCE SLCLOUDY; URINE BILIRUBIN NEGATIVE (<2.0 mg/dL); URINE COLOR LTYELLOW; URINE GLUCOSE (UA) NEGATIVE (NEGATIVE); URINE KETONE NEGATIVE (NEGATIVE); URINE LEUK ESTERASE NEGATIVE (NEGATIVE); URINE NITRITE NEGATIVE (NEGATIVE); URINE PROTEIN NEGATIVE (NEGATIVE); URINE UROBILINOGEN NEGATIVE mg/dL (0.2-1.0)
[2018-03-08] MEDS: oxyCODONE HCL 5 MG TABLET PO PRN ×4 (01:00→21:03)
[2018-03-08] MEDS: FUROSEMIDE 20 MG TABLET (FP) PO SCH ×2 (06:17→14:44)
[2018-03-08] MEDS: ACETAMINOPHEN 325 MG TABLET (FP) PO PRN ×3 (06:42→21:11)
[2018-03-08] MEDS: HEPARIN - 25,000 UNIT in SODIUM CHLORIDE 495 ML IV SCH (08:11)
[2018-03-08] MEDS: ALLOPURINOL 100 MG TABLET (FP) PO SCH (10:08)
[2018-03-08] MEDS: CEFEPIME HCL/D5W 1 GM/50 ML BAG IVPB SCH ×2 (10:08→21:06)
[2018-03-08] MEDS: FERROUS SO4 325 MG TABLET (FP) PO SCH (10:09)
[2018-03-08] MEDS: LACTOBACILLUS ACIDOPHILUS 1 TABLET PO SCH (10:09)
[2018-03-08] MEDS: MULTIVITAMINS (DAILY MVI) TABLET (FP) PO SCH (10:09)
[2018-03-08] MEDS: RAMIPRIL 5 MG CAPSULE (FP) PO SCH (10:09)
[2018-03-08] MEDS: CLOPIDOGREL BISULFATE 75 MG TABLET (FP) PO SCH (10:09)
[2018-03-08] MEDS: CHOLECALCIFEROL (VITAMIN D3) 1,000 UNIT TABLET (FP) PO SCH (10:09)
[2018-03-08] MEDS: CARVEDILOL 3.125 MG TABLET (FP) PO SCH ×2 (10:09→21:05)
[2018-03-08] MEDS: FOLIC ACID 1 MG TABLET (FP) PO SCH (10:10)
[2018-03-08] MEDS: CALCIUM (OYSTER SHELL) 500 MG TABLET (FP) PO SCH (10:10)
[2018-03-08] MEDS: MUPIROCIN 2% TOPICAL OINTMENT 22 GM TUBE TP SCH (10:12)
[2018-03-08] MEDS: NYSTATIN POWDER 100,000 UNITS/GM - 15 GM TOPICAL POWDER TP SCH (10:13)
--- NOTE | 2018-03-08 13:36 | EKG ---
Test Reason : Blood Pressure : / mmHG Vent. Rate : 055 BPM Atrial Rate : 055 BPM P-R Int : 154 ms QRS Dur : 144 ms QT Int : 440 ms P-R-T Axes : 033 016 028 degrees QTc Int : 420 ms SINUS BRADYCARDIA WITH PREMATURE ATRIAL COMPLEXES RIGHT BUNDLE BRANCH BLOCK ABNORMAL ECG WHEN COMPARED WITH ECG OF 16-FEB-2018 11:24, PREMATURE ATRIAL COMPLEXES ARE NOW PRESENT Confirmed by PRERNA GUTIERREZ MD ([id number]) on 03/08/2018 1:35:55 PM Referred By: Confirmed By:PRERNA GUTIERREZ MD
--- NOTE | 2018-03-08 13:56 | PN ---
"Physical Exam: SUBJECTIVE: Patient seen and examined at bedside. Has chronic right shoulder pain which is at baseline. States she is on standing oxydone and tylenol and wants meds dosed at the same time. OBJECTIVE: Vital Signs Period Temp Pulse Resp BP Sys/Seymour Pulse Ox Last 24 Hr 98.0 F-98.8 F 53-67 18-20 99-146/50-77 97-97 GENERAL: The patient is awake, alert, and fully oriented, in no acute distress. LUNGS: Breath sounds CTA HEART: Regular rate and rhythm, S1, S2 ABDOMEN: Soft, nontender, nondistended RUE: PICC line in place, clamped; minimal swelling, no erythema LLE 4th toe: small wound healed, no erythema, no exudate BLE: 2+ pulses, warm, well-perfused, no edema, no calf tenderness NEUROLOGICAL: Cranial nerves II through XII grossly intact. Normal speech Laboratory Results - last 24 hr 03/07/18 03/08/18 03/08/18 23:20 06:00 07:00 ESR 17 PTT (Actin FS) C-Reactive Protein Urine Color Ltyellow Urine Appearance Slcloudy Urine pH 6.0 Ur Specific [place] 1.011 Urine Protein Negative Urine Glucose (UA) Negative Urine Ketones Negative Urine Blood Negative Urine Nitrite Negative Urine Bilirubin Negative Urine Urobilinogen Negative Ur Leukocyte Esterase Negative Vancomycin Pre-Dose 17.53 H* 03/08/18 03/08/18 07:00 07:00 ESR PTT (Actin FS) 57.3 H C-Reactive Protein < 0.3 Urine Color Urine Appearance Urine pH Ur Specific [place] Urine Protein Urine Glucose (UA) Urine Ketones Urine Blood Urine Nitrite Urine Bilirubin Urine Urobilinogen Ur Leukocyte Esterase Vancomycin Pre-Dose Active Medications Generic Name Dose Route Start Last Admin Trade Name Freq PRN Reason Stop Dose Admin Acetaminophen 325 mg 03/07/18 03:58 03/08/18 06:42 Tylenol - PO 325 mg Q6H PRN Administration PAIN LEVEL 1-5 Allopurinol 200 mg 03/07/18 10:00 03/08/18 10:08 Zyloprim - PO 200 mg DAILY AYAN Administration Atorvastatin Calcium 20 mg 03/07/18 22:00 03/07/18 21:35 Lipitor - PO 20 mg HS AYAN Administration Calcium Carbonate 500 mg 03/07/18 10:00 09/03/18 10:10 Os-Ankit 500mg - PO 500 mg DAILY AYAN Administration Carvedilol 3.125 mg 03/07/18 10:00 03/08/18 10:09 Coreg - PO 3.125 mg BID AYAN Administration Cholecalciferol 1,000 unit 03/07/18 10:00 03/08/18 10:09 Vitamin D3 - PO 1,000 unit DAILY AYAN Administration Clopidogrel Bisulfate 75 mg 03/07/18 10:00 03/08/18 10:09 Plavix - PO 75 mg DAILY AYAN Administration Ferrous Sulfate 325 mg 03/07/18 10:00 03/08/18 10:09 Feosol - PO 325 mg DAILY AYAN Administration Folic Acid 1 mg 03/07/18 10:00 03/08/18 10:10 Folic Acid - PO 1 mg DAILY AYAN Administration Furosemide 20 mg 03/07/18 06:00 03/08/18 06:17 Lasix - PO 20 mg BIDLASIX AYAN Administration Heparin Sodium (Porcine) 1,000 unit 03/07/18 02:08 03/07/18 02:47 Heparin - IVPUSH 1,000 unit PRN PRN Administration Heparin Heparin Sodium (Porcine) 5,000 unit 03/07/18 02:08 Heparin - IVPUSH PRN PRN Heparin Heparin Sodium (Porcine) 25, 500 mls @ 16 mls/hr 03/07/18 02:15 03/08/18 08: 11 000 unit/ Sodium Chloride IV 800 unit/hr TITR AYAN 16 mls/hr Administration Protocol 800 UNIT/HR Cefepime HCl 1 gm in 50 mls @ 100 mls/hr 03/07/18 14:30 03/08/18 10:08 Maxipime 1 Gm Premix Ivpb IVPB 100 mls/hr BID AYAN Administration Protocol Lactobacillus Acidophilus 1 tab 03/07/18 10:00 03/08/18 10:09 Bacid - PO 1 tab DAILY AYAN Administration Methotrexate 7.5 mg 03/12/18 10:00 Mexate - PO Fr@1000 AYAN Multivitamins/Minerals/Vitamin C 1 tab 03/07/18 10:00 03/08/18 10:09 Tab-A-Vit - PO 1 tab DAILY AYAN Administration Mupirocin 1 applic 03/07/18 10:00 03/08/18 10:12 Bactroban 2% Ointment - TP Not Given DAILY [facility] Non-Formulary Medication 1 applic 03/07/18 10:00 03/07/18 10:49 Naftifine Hcl [Naftin] TP Not Given DAILY [facility] Nystatin 1 applic 03/07/18 10:00 03/08/18 10:13 Nystop Powder - TP Not Given DAILY AYAN Oxycodone HCl 15 mg 03/07/18 03:58 03/08/18 07:48 Roxicodone - PO 15 mg Q6H PRN Administration PAIN LEVEL 6-10 Ramipril 5 mg 03/07/18 10:00 03/08/18 10:09 Altace - PO 5 mg DAILY AYAN Administration ASSESSMENT/PLAN 82 year-old woman with a PMH significant for HTN, HLD, CAD, dHF, GI bleed, left total hip replacement, dislocated right shoulder, psoriatic arthrits, and gout. On last admission patient found to have osteo of the left 4th toe. A RUE PICC line was placed and patient discharged to [facility]. Admitted for RUE DVT. r/o RUE DVT in setting of PICC line placed 02/19/18 --checked with radiology, no ultrasound imaging presently available --stat US to r/o DVT --in interim, continue heparin drip --IR consult requested Osteomyelitis fourth digit of left foot --02/16 culture: +pseudomonas, +acinetobacter, +enterococcus, +staph --02/17 MRI +osteo; antibiotics started --continue vanc and cefepime --check vanc trough after next two doses Hypertension --BP stable --continue carvedilol, ramipril Hyperlipidemia --continue atorvastatin Coronary artery disease --continue Plavix Diastolic heart failure --was on Lasix 20mg BID --agree with family request to lower to daily dosing: no lower extremity edema, lungs clear, and BUN elevated; will monitor h/o GI bleed --no bleeding episodes --h/h stable Left total hip replacement Dislocated right shoulder --continuing home pain management regiment verified in ISTOP (see below) Psoriatic arthritis --continue methotrexate Gout --stable --continue allopurinol FEN Fluids: PO intake adequate Electrolytes: replete as indicated Nutrition: low sodium DVT prophylaxis: on heparin drip, PTT goal 60-80 Physical therapy Dispo: continues to require inpatient care. Full code. ISTOP This report was requested by: Becka Gretchen Elvis | Reference #: [id number] Others' Prescriptions Patient Name: Ruma Jones Date: 1935 Address: [address] [place] [address] [place] [address] Sex: Female Rx Written Rx Dispensed Drug Quantity Days Supply Prescriber Name 02/27/2018 02/27/2018 oxycodone hcl 15 mg tablet 120 30 Ponce, Jeaneth 02/22/2018 02/22/2018 oxycodone hcl 15 mg tablet 20 5 Ponce, Jeaneth 02/08/2018 02/15/2018 oxycodone hcl 15 mg tablet 120 30 Zach Ridley MD 01/11/2018 01/16/2018 oxycodone hcl 15 mg tablet 120 30 Zach Ridley MD 12/07/2017 12/18/2017 oxycodone hcl 15 mg tablet 120 30 Zach Ridley MD 11/16/2017 11/20/2017 oxycodone hcl 15 mg tablet 120 30 Zach Ridley MD 10/26/2017 10/29/2017 oxycodone hcl 15 mg tablet 90 25 Zach Ridley MD 10/15/2017 10/21/2017 oxycodone hcl 15 mg tablet 30 8 Tata Cox 09/21/2017 09/21/2017 oxycodone hcl 15 mg tablet 120 30 Tata Cox 08/31/2017 08/31/2017 oxycodone hcl 15 mg tablet 120 30 Zach Ridley MD 08/03/2017 08/03/2017 oxycodone hcl 15 mg tablet 120 30 Zach Ridley MD 06/20/2017 07/08/2017 oxycodone hcl 15 mg tablet 120 30 Tata Cox 06/16/2017 06/16/2017 oxycodone hcl 15 mg tablet 90 22 Tata Cox 05/18/2017 05/18/2017 oxycodone hcl 15 mg tablet 120 30 Tata Cox 04/28/2017 04/28/2017 oxycodone-acetaminophen 5-325 mg tab 90 11 Tata Cox 04/28/2017 04/28/2017 oxycodone hcl 15 mg tablet 90 22 Brooke Tata Garrett 04/01/2017 04/01/2017 oxycodone hcl 15 mg tablet 120 30 Zach Ridley MD Visit type - Emergency Visit Emergency Visit: Yes ED Registration Date: 03/07/18 Care time: The patient presented to the Emergency Department on the above date and was hospitalized for further evaluation of their emergent condition. - New Patient This patient is new to me today: Yes Date on this admission: 03/08/18 - Critical Care Critical Care patient: No"
[2018-03-08] MEDS: VANCOMYCIN 1 GM PREMIX - 1 GM/200 ML BAG IVPB SCH (16:37)
[2018-03-08] MEDS ORDERED: PT OWN MED DRAWER 7, Y5N ONE (17:33)
[2018-03-08] MEDS: ATORVASTATIN CA 20 MG TABLET (FP) PO SCH (21:05)
--- NOTE | 2018-03-08 23:34 | CONSULT ---
Consult - text type - Consultation Consultation Note: 82 YOF with h/o PICC line RUE for the past 2 weeks, HTN, HLD, CAD s/p [place] (2013, on Plavix now), diastolic HF, recurrent UTIs, lower GI bleed (2014), s/p left total hip replacement on prophylactic amoxicillin, severe osteoarthritis, psoriatic arthritis, and gout. She was send in by [facility] (where she has been staying for IV abx treatment for osteomyelitis and UTI) for a RUE DVT detected on duplex US. The patient herself notes swelling to the RUE for the past ~36 hours, and mildly exacerbated chronic right arm pain. She denies any f/c/n/v/c/d , chest pain, SOB, LOC, headache, dizziness, lightheadedness, abdominal pain, . Reports cough, dry, chronia 03/07/18 01:[address] records, patient has DVT of right subclavian, axillary, and basilic veins. Past History - Past Medical History Allergies/Adverse Reactions: Allergies Allergy/AdvReac Type Severity Reaction Status Date / Time No Known Allergies Allergy Verified 03/07/18 00:39 Home Medications: Ambulatory Orders Allopurinol [Zyloprim -] 200 mg PO DAILY 08/09/15 Atorvastatin Ca [Lipitor] 20 mg PO HS 08/09/15 Calcium Carbonate [Calcium] 600 mg PO DAILY 08/09/15 Clopidogrel Bisulfate [Plavix -] 75 mg PO DAILY 08/09/15 Folic Acid 1 mg PO DAILY 08/09/15 Furosemide [Lasix -] 20 mg PO BID 08/09/15 Lactobacillus Acidophilus [Bacid -] 1 each PO DAILY 08/09/15 Methotrexate Sodium [Trexall] 7.5 mg PO FR 08/09/15 Multivitamins [Multivit ([facility] Formulary)] 1 tab PO DAILY 08/09/15 Ramipril 5 mg PO DAILY 08/09/15 Acetaminophen [Tylenol] 325 mg PO Q6H PRN 04/22/17 Carvedilol 3.125 mg PO BID 04/22/17 Oxycodone HCl 15 mg PO Q6H PRN 04/22/17 Ferrous Sulfate 325 mg PO DAILY 09/16/17 Cholecalciferol (Vitamin D3) [Children's Vitamin D3] 1,000 unit PO DAILY #30 tab.chew 09/19/17 Lidocaine 5% Patch [Lidoderm -] 1 patch TP DAILY patch 09/19/17 Lidocaine Patch Removal [Lidoderm Patch Removal] 1 each MC DAILY@2200 each Mupirocin Ointment [Bactroban 2% Ointment -] 1 applic TP DAILY #30 applic Naftifine HCl [Naftin] 1 applic TP DAILY #60 grams 01/05/18 Nystatin Powder [Nystop Powder -] 60 gm TP DAILY #60 gm 01/19/18 Amino Acids/Protein Hydrolys [Prosource No Carb Liquid Pkt] 30 ml PO BID@0800, 1730 packet 02/21/18 Amoxicillin - [Amoxicillin 500mg Capsule -] 500 mg PO TID #90 capsule 02/21/18 Cefepime [Maxipime (Restricted To Id) -] 1 gm IV Q12H #80 vial 02/21/18 Vancomycin 1,000 mg IV DAILY #39 vial 02/21/18 PMH HTN Psoriatc arthritis Cardiac Disorders: Yes ([place]) CHF: Yes (chronic) HTN: Yes Hypercholesterolemia: Yes - Surgical History Orthopedic Surgery: Yes (bilateral hip replacements) - Suicide/Smoking/Psychosocial Hx Smoking History: Never smoked - Vital Signs Last Vital Signs Temp Pulse Resp BP Pulse Ox 98.6 F 52 L 20 129/58 97 03/08/18 17:10 03/08/18 17:10 03/08/18 21:00 03/08/18 17:10 03/08/18 21:00 Cor: RSR, No murmurs, No gallops Lungs: Clear to P&A Abd: Soft, Normal bowel sounds, No organomegaly Ext:No significant edema Deformities both feet. Lt. 4th toe slightly erythematous A/P 82 YOF with h/o PICC line RUE for the past 2 weeks, HTN, HLD, CAD s/p [place] (2013 , on Plavix now), diastolic HF, recurrent UTIs, lower GI bleed (2014), s/p left total hip replacement on prophylactic amoxicillin, severe osteoarthritis, psoriatic arthritis, and gout. She was sent in from [facility] (where she has been staying for IV abx treatment for osteomyelitis and UTI) for a RUE DVT detected on duplex US. The patient herself notes swelling to the RUE for the past ~36 hours, and mildly exacerbated chronic right arm pain. 03/07/18 01:[address] records, patient has DVT of right subclavian, axillary, and basilic veins. 1. Repeating duplex here 2. To discuss with ID team about line issue --per their last note, OK to remove PICC. ? switch to oral vs new access to continue iv antibiotics 3. Onheparin drip 4. Discussed pros/cons of switching to coumadin vs NOACs including lack of antidote with NOACs. Pt/PTT/Cr/liver function normal. Will switch to ? eliquis 5mg bid on discharge. Coumadin to interact with multiple meds 4. To remove PICC and anticoagulate for 3months if DVT confirmed 5. To consult cardiology regarding use of plavix 6. To consult pulmonary regarding chronic cough. Patient reports improvement with antihistamine.
[2018-03-09] MEDS: oxyCODONE HCL 5 MG TABLET PO PRN ×4 (03:11→21:29)
[2018-03-09] MEDS: ACETAMINOPHEN 325 MG TABLET (FP) PO PRN ×4 (03:12→21:30)
[2018-03-09] MEDS: HEPARIN - 25,000 UNIT in SODIUM CHLORIDE 495 ML IV SCH ×2 (06:53→16:15)
[2018-03-09] MEDS: FUROSEMIDE 20 MG TABLET (FP) PO SCH ×2 (06:54→13:24)
[2018-03-09 08:28] LABS: HEMATOCRIT 33.7 % (32.4-45.2); HEMOGLOBIN 11.1 GM/dL (10.7-15.3); MEAN CELL VOLUME 103.2 fl (80-96); MEAN PLT VOLUME 7.5 fl (7.5-11.1); PLATELET COUNT 193 K/MM3 (134-434); RBC 3.27 M/mm3 (3.60-5.2); RDW 13.7 % (11.6-15.6); WHITE BLOOD COUNT 6.3 K/mm3 (4.0-10.0)
[2018-03-09] MEDS: CLOPIDOGREL BISULFATE 75 MG TABLET (FP) PO SCH (09:29)
[2018-03-09] MEDS: LACTOBACILLUS ACIDOPHILUS 1 TABLET PO SCH (09:29)
[2018-03-09] MEDS: FERROUS SO4 325 MG TABLET (FP) PO SCH (09:29)
[2018-03-09] MEDS: LORATADINE 10 MG TABLET PO SCH (09:29)
[2018-03-09] MEDS: MULTIVITAMINS (DAILY MVI) TABLET (FP) PO SCH (09:29)
[2018-03-09] MEDS: CARVEDILOL 3.125 MG TABLET (FP) PO SCH ×2 (09:29→21:31)
[2018-03-09] MEDS: ALLOPURINOL 100 MG TABLET (FP) PO SCH (09:30)
[2018-03-09] MEDS: FOLIC ACID 1 MG TABLET (FP) PO SCH (09:30)
[2018-03-09] MEDS: RAMIPRIL 5 MG CAPSULE (FP) PO SCH (09:30)
[2018-03-09] MEDS: CHOLECALCIFEROL (VITAMIN D3) 1,000 UNIT TABLET (FP) PO SCH (09:30)
[2018-03-09] MEDS: CALCIUM (OYSTER SHELL) 500 MG TABLET (FP) PO SCH (09:31)
[2018-03-09] MEDS: NYSTATIN POWDER 100,000 UNITS/GM - 15 GM TOPICAL POWDER TP SCH (11:10)
[2018-03-09] MEDS: MUPIROCIN 2% TOPICAL OINTMENT 22 GM TUBE TP SCH (11:11)
[2018-03-09] MEDS: CEFEPIME HCL/D5W 1 GM/50 ML BAG IVPB SCH ×2 (11:18→21:31)
--- NOTE | 2018-03-09 11:32 | PN ---
Physical Exam: SUBJECTIVE: Patient seen and examined OBJECTIVE: Vital Signs Period Temp Pulse Resp BP Sys/Seymour Pulse Ox Last 24 Hr 97.8 F-98.6 F 52-78 20-20 129-147/58-74 97 GENERAL: The patient is awake, alert, and fully oriented, in no acute distress. HEAD: Normal with no signs of trauma. EYES: PERRL, extraocular movements intact, sclera anicteric, conjunctiva clear. No ptosis. ENT: Ears normal, nares patent, oropharynx clear without exudates, moist mucous membranes. NECK: Trachea midline, full range of motion, supple. LUNGS: Breath sounds equal, clear to auscultation bilaterally, no wheezes, no crackles, no accessory muscle use. HEART: Regular rate and rhythm, S1, S2 without murmur, rub or gallop. ABDOMEN: Soft, nontender, nondistended, normoactive bowel sounds, no guarding, no rebound, no hepatosplenomegaly, no masses. EXTREMITIES: 2+ pulses, warm, well-perfused, no edema. NEUROLOGICAL: Cranial nerves II through XII grossly intact. Normal speech, gait not observed. PSYCH: Normal mood, normal affect. SKIN: Warm, dry, normal turgor, no rashes or lesions noted Laboratory Results - last 24 hr 03/08/18 03/09/18 03/09/18 07:00 07:00 07:00 WBC 6.3 RBC 3.27 L Hgb 11.1 Hct 33.7 MCV 103.2 H MCH 34.0 H MCHC 33.0 RDW 13.7 Plt Count 193 MPV 7.5 ESR 17 PTT (Actin FS) 60.3 H Stool Occult Blood IgG IgA IgM 03/09/18 03/09/18 07:00 09:00 WBC RBC Hgb Hct MCV MCH MCHC RDW Plt Count MPV ESR PTT (Actin FS) Stool Occult Blood Negative IgG Cancelled IgA Cancelled IgM Cancelled Active Medications Generic Name Dose Route Start Last Admin Trade Name Freq PRN Reason Stop Dose Admin Acetaminophen 325 mg 03/08/18 16:00 03/09/18 09:32 Tylenol - PO 325 mg 1000,1600,2200,0400 PRN Administration PAIN LEVEL 1-5 Allopurinol 200 mg 03/07/18 10:00 03/09/18 09:30 Zyloprim - PO 200 mg DAILY AYAN Administration Atorvastatin Calcium 20 mg 03/07/18 22:00 03/08/18 21:05 Lipitor - PO 20 mg HS AYAN Administration Calcium Carbonate 500 mg 03/07/18 10:00 03/09/18 09:31 Os-Ankit 500mg - PO 500 mg DAILY AYAN Administration Carvedilol 3.125 mg 03/07/18 10:00 03/09/18 09:29 Coreg - PO 3.125 mg BID AYAN Administration Cholecalciferol 1,000 unit 03/07/18 10:00 03/09/18 09:30 Vitamin D3 - PO 1,000 unit DAILY AYAN Administration Clopidogrel Bisulfate 75 mg 03/07/18 10:00 03/09/18 09:29 Plavix - PO 75 mg DAILY AYAN Administration Ferrous Sulfate 325 mg 03/07/18 10:00 03/09/18 09:29 Feosol - PO 325 mg DAILY AYAN Administration Folic Acid 1 mg 03/07/18 10:00 03/09/18 09:30 Folic Acid - PO 1 mg DAILY AYAN Administration Furosemide 20 mg 03/07/18 06:00 03/09/18 06:54 Lasix - PO 20 mg BIDLASIX AYAN Administration Heparin Sodium (Porcine) 1,000 unit 03/07/18 02:08 03/07/18 02:47 Heparin - IVPUSH 1,000 unit PRN PRN Administration Heparin Heparin Sodium (Porcine) 5,000 unit 03/07/18 02:08 Heparin - IVPUSH PRN PRN Heparin Heparin Sodium (Porcine) 25, 500 mls @ 16 mls/hr 03/07/18 02:15 03/09/18 06: 53 000 unit/ Sodium Chloride IV Not Given TITR AYAN Protocol 800 UNIT/HR Cefepime HCl 1 gm in 50 mls @ 100 mls/hr 03/07/18 14:30 03/09/18 11:18 Maxipime 1 Gm Premix Ivpb IVPB 100 mls/hr BID AYAN Administration Protocol Vancomycin HCl 1 gm in 200 mls @ 200 mls/hr 03/08/18 16:00 03/08/18 16:37 Vancomycin 1 Gm Premix - IVPB 200 mls/hr Q24H AYAN Administration Protocol Lactobacillus Acidophilus 1 tab 03/07/18 10:00 03/09/18 09:29 Bacid - PO 1 tab DAILY AYAN Administration Loratadine 10 mg 03/09/18 10:00 03/09/18 09:29 Claritin - PO 10 mg DAILY AYAN Administration Methotrexate 7.5 mg 03/12/18 10:00 Mexate - PO Fr@1000 AYAN Multivitamins/Minerals/Vitamin C 1 tab 03/07/18 10:00 03/09/18 09:29 Tab-A-Vit - PO 1 tab DAILY AYAN Administration Mupirocin 1 applic 03/07/18 10:00 03/09/18 11:11 Bactroban 2% Ointment - TP 1 applic DAILY AYAN Administration Non-Formulary Medication 1 applic 03/07/18 10:00 03/07/18 10:49 Naftifine Hcl [Naftin] TP Not Given DAILY AYAN Nystatin 1 applic 03/07/18 10:00 03/09/18 11:10 Nystop Powder - TP 1 applic DAILY AYAN Administration Oxycodone HCl 15 mg 03/08/18 16:00 03/09/18 09:31 Roxicodone - PO 15 mg 1000,1600,2200,0400 PRN Administration PAIN LEVEL 6-10 Ramipril 5 mg 03/07/18 10:00 03/09/18 09:30 Altace - PO 5 mg DAILY AYAN Administration ASSESSMENT/PLAN:
--- NOTE | 2018-03-09 11:42 | CON.CARD ---
Consult Consult Specialty:: Cardiology Referred by:: Hospitalist Reason for Consultation:: Cardiac evaluation - History of Present Illness Chief Complaint: DVT of upper extremity, osteomyelitis and UTI History of Present Illness: Patient is an 82 year old female known to our service (sees Dr. Guille Dan as outpatient) with underlying history of CAD, s/p AL with 70% calcified proximal LAD, non-obstructive LCx and RCA, LV diastolic dysfunction, psoriatic arthritis , HTN and hypercholesterolemia who presents with RUE edema and DVT detected on duplex. She also has had PICC line for antibiotic treatment for osteoarthritis and UTI. She denies chest pain, SOB or palpitations. She denies fever or chills. She denies paroxysmal nocturnal dyspnea or orthopnea. She denies nausea , vomiting, diarrhea or abdominal pain. She denies headache or lightheadedness. She complains of difficulty moving her right arm. Antibiotics and Heparin are being administered. - History Source History Provided By: Patient, Medical Record Limitations to Obtaining History: No Limitations - Past Medical History Cardio/Vascular: Yes: CAD, CHF (diastolic), HTN, Hyperlipdemia, [place] Gastrointestinal: Yes: Hemorrhoids Renal/: Yes: UTI Infectious Disease: Yes: Other (chronic right hip infection) Rheumatology: Yes: Other (psoriatic arthritis) - Past Surgical History Past Surgical History: Yes: Joint Replacement (bilateral hip), Tonsillectomy ( bilateral iredectomy) - Alcohol/Substance Use Hx Alcohol Use: No - Smoking History Smoking history: Former smoker Have you smoked in the past 12 months: No Aproximately how many cigarettes per day: 20 If you are a former smoker, when did you quit?: 20 years ago - Social History Usual Living Arrangement: Alone ADL: Independent Occupation: , walks with walker History of Recent Travel: No Home Medications - Allergies Allergies/Adverse Reactions: Allergies Allergy/AdvReac Type Severity Reaction Status Date / Time No Known Allergies Allergy Verified 03/07/18 00:39 - Home Medications Home Medications: Ambulatory Orders Allopurinol [Zyloprim -] 200 mg PO DAILY 08/09/15 Atorvastatin Ca [Lipitor] 20 mg PO HS 08/09/15 Calcium Carbonate [Calcium] 600 mg PO DAILY 08/09/15 Clopidogrel Bisulfate [Plavix -] 75 mg PO DAILY 08/09/15 Folic Acid 1 mg PO DAILY 08/09/15 Furosemide [Lasix -] 20 mg PO BID 08/09/15 Lactobacillus Acidophilus [Bacid -] 1 each PO DAILY 08/09/15 Methotrexate Sodium [Trexall] 7.5 mg PO FR 08/09/15 Multivitamins [Multivit ([facility] Formulary)] 1 tab PO DAILY 08/09/15 Ramipril 5 mg PO DAILY 08/09/15 Acetaminophen [Tylenol] 325 mg PO Q6H PRN 04/22/17 Carvedilol 3.125 mg PO BID 04/22/17 Oxycodone HCl 15 mg PO Q6H PRN 04/22/17 Ferrous Sulfate 325 mg PO DAILY 09/16/17 Cholecalciferol (Vitamin D3) [Children's Vitamin D3] 1,000 unit PO DAILY #30 tab.chew 09/19/17 Lidocaine 5% Patch [Lidoderm -] 1 patch TP DAILY patch 09/19/17 Lidocaine Patch Removal [Lidoderm Patch Removal] 1 each MC DAILY@2200 each Mupirocin Ointment [Bactroban 2% Ointment -] 1 applic TP DAILY #30 applic Naftifine HCl [Naftin] 1 applic TP DAILY #60 grams 01/05/18 Nystatin Powder [Nystop Powder -] 60 gm TP DAILY #60 gm 01/19/18 Amino Acids/Protein Hydrolys [Prosource No Carb Liquid Pkt] 30 ml PO BID@0800, 1730 packet 02/21/18 Amoxicillin - [Amoxicillin 500mg Capsule -] 500 mg PO TID #90 capsule 02/21/18 Cefepime [Maxipime (Restricted To Id) -] 1 gm IV Q12H #80 vial 02/21/18 Vancomycin 1,000 mg IV DAILY #39 vial 02/21/18 Family Disease History - Family Disease History Family Disease History: Diabetes: Father, Heart Disease: Mother (s/p mi), Brother (open heart surgery), [place]: Father, Other: Daughter (alive and well) Review of Systems - Review of Systems Constitutional: denies: Chills, Fever Cardiovascular: denies: Chest Pain, Palpitations, Shortness of Breath Respiratory: denies: Cough, Hemoptysis, Orthopnea, PND, SOB, SOB on Exertion Gastrointestinal: denies: Abdominal Pain, Constipation, Diarrhea, Melena, Nausea , Rectal Bleeding, Vomiting Genitourinary: denies: Dysuria, Hematuria Musculoskeletal: denies: Back Pain, Joint Pain Neurological: denies: Dizziness, Headache, Seizure, Syncope Vital Signs: Vital Signs Temperature 98.0 F 03/09/18 09:00 Pulse Rate 60 03/09/18 09:00 Respiratory Rate 20 03/09/18 09:00 Blood Pressure 140/60 03/09/18 09:00 O2 Sat by Pulse Oximetry (%) 97 03/08/18 21:00 HENT: Yes: Atraumatic Neck: Yes: Supple Respiratory: Yes: CTA Bilaterally Gastrointestinal: Yes: Normal Bowel Sounds, Soft. No: Tenderness Cardiovascular: Yes: Regular Rate and Rhythm JVD: No Carotid Bruit: No PMI: Non-Displaced Heart Sounds: Yes: S1, S2 Murmur: Yes: Systolic Murmur, Grade 2 Edema: Yes Edema: RUE: 1+ - Other Data Labs, Other Data: CBC, BMP 03/09/18 07:00 03/07/18 08:51 INR, PTT INR 1.07 (0.83-1.09) 03/07/18 01:38 Laboratory Results - last 24 hr 03/09/18 03/09/18 03/09/18 07:00 07:00 07:00 WBC 6.3 RBC 3.27 L Hgb 11.1 Hct 33.7 MCV 103.2 H MCH 34.0 H MCHC 33.0 RDW 13.7 Plt Count 193 MPV 7.5 PTT (Actin FS) 60.3 H Stool Occult Blood IgG Cancelled IgA Cancelled IgM Cancelled 03/09/18 09:00 WBC RBC Hgb Hct MCV MCH MCHC RDW Plt Count MPV PTT (Actin FS) Stool Occult Blood Negative IgG IgA IgM Sinus rhythm with RBBB Problem List - Problems (1) HTN (hypertension) Code(s): I10 - ESSENTIAL (PRIMARY) HYPERTENSION (2) Hypercholesterolemia Code(s): E78.00 - PURE HYPERCHOLESTEROLEMIA, UNSPECIFIED (3) DVT (deep venous thrombosis) Code(s): I82.409 - ACUTE EMBOLISM AND THOMBOS UNSP DEEP VN UNSP LOWER EXTREMITY Qualifiers: DVT location: upper extremity Affected thrombotic vein of extremity: unspecified vein of extremity Chronicity: acute Laterality: right Qualified Code(s): I82.621 - Acute embolism and thrombosis of deep veins of right upper extremity (4) Cellulitis Code(s): L03.90 - CELLULITIS, UNSPECIFIED (5) Osteomyelitis Code(s): M86.9 - OSTEOMYELITIS, UNSPECIFIED (6) Anemia Code(s): D64.9 - ANEMIA, UNSPECIFIED Qualifiers: Other causes of anemia: acute posthemorrhagic Qualified Code(s): D62 - Acute posthemorrhagic anemia (7) Arthritis Code(s): M19.90 - UNSPECIFIED OSTEOARTHRITIS, UNSPECIFIED SITE (8) CAD (coronary artery disease) Code(s): I25.10 - ATHSCL HEART DISEASE OF [place] CORONARY ARTERY W/O ANG PCTRS Assessment/Plan 1. RUE edema with probable DVT, etiology to be determined 2. CAD h/o AL 3. HTN 4. LV diastolic dysfunction without failure 5. Hypercholesterolemia 6. Psoriatic arthritis 7. Osteomyelitis PLAN: 1. Duplex report pending 2. Hematology input noted 3. Currently on Heparin and further instructions to be followed by Hematology in regards to fci anticoagulation 4. Antibiotics as per ID 5. Continue Ramipril and Carvedilol 6. Diuretics 7. Statin 8. Currently also on Plavix, but will provide further instruction Further plans are to follow Alcon Tanner MD
--- NOTE | 2018-03-09 12:55 | CON.PULM ---
Consult Consult Specialty:: PULMONARY Referred by:: Dr. Landin Reason for Consultation:: cough - History of Present Illness Chief Complaint: RUE swelling History of Present Illness: 82yo female with h/o HTN, hypercholesterolemia, psoriatic arthritis, CAD who was admitted with RUE swelling. She had a PICC line in that arm previously. Found to have a DVT, started on anticoagulation. Started coughing since admission which is nonproductive. No shortness of breath or wheezing. No fevers , chills or sweats. Started on claritin with improvement. States she gets a cough sometimes which usually improves with antihistamines. She is a remote smoker, started at age 20, smoked on average <1 PPD, quit about 30 years ago. No history of asthma or COPD. - History Source History Provided By: Patient, Medical Record Limitations to Obtaining History: No Limitations - Past Medical History Cardio/Vascular: Yes: CAD, CHF (diastolic), HTN, Hyperlipdemia, [place] Gastrointestinal: Yes: Hemorrhoids Renal/: Yes: UTI Infectious Disease: Yes: Other (chronic right hip infection) Rheumatology: Yes: Other (psoriatic arthritis) - Past Surgical History Past Surgical History: Yes: Joint Replacement (bilateral hip), Tonsillectomy ( bilateral iredectomy) - Alcohol/Substance Use Hx Alcohol Use: No - Smoking History Smoking history: Former smoker Have you smoked in the past 12 months: No Aproximately how many cigarettes per day: 20 If you are a former smoker, when did you quit?: 20 years ago - Social History Usual Living Arrangement: Alone ADL: Independent Occupation: , walks with walker History of Recent Travel: No Home Medications - Allergies Allergies/Adverse Reactions: Allergies Allergy/AdvReac Type Severity Reaction Status Date / Time No Known Allergies Allergy Verified 03/07/18 00:39 - Home Medications Home Medications: Ambulatory Orders Allopurinol [Zyloprim -] 200 mg PO DAILY 08/09/15 Atorvastatin Ca [Lipitor] 20 mg PO HS 08/09/15 Calcium Carbonate [Calcium] 600 mg PO DAILY 08/09/15 Clopidogrel Bisulfate [Plavix -] 75 mg PO DAILY 08/09/15 Folic Acid 1 mg PO DAILY 08/09/15 Furosemide [Lasix -] 20 mg PO BID 08/09/15 Lactobacillus Acidophilus [Bacid -] 1 each PO DAILY 08/09/15 Methotrexate Sodium [Trexall] 7.5 mg PO FR 08/09/15 Multivitamins [Multivit ([facility] Formulary)] 1 tab PO DAILY 08/09/15 Ramipril 5 mg PO DAILY 08/09/15 Acetaminophen [Tylenol] 325 mg PO Q6H PRN 04/22/17 Carvedilol 3.125 mg PO BID 04/22/17 Oxycodone HCl 15 mg PO Q6H PRN 04/22/17 Ferrous Sulfate 325 mg PO DAILY 09/16/17 Cholecalciferol (Vitamin D3) [Children's Vitamin D3] 1,000 unit PO DAILY #30 tab.chew 09/19/17 Lidocaine 5% Patch [Lidoderm -] 1 patch TP DAILY patch 09/19/17 Lidocaine Patch Removal [Lidoderm Patch Removal] 1 each MC DAILY@2200 each Mupirocin Ointment [Bactroban 2% Ointment -] 1 applic TP DAILY #30 applic Naftifine HCl [Naftin] 1 applic TP DAILY #60 grams 01/05/18 Nystatin Powder [Nystop Powder -] 60 gm TP DAILY #60 gm 01/19/18 Amino Acids/Protein Hydrolys [Prosource No Carb Liquid Pkt] 30 ml PO BID@0800, 1730 packet 02/21/18 Amoxicillin - [Amoxicillin 500mg Capsule -] 500 mg PO TID #90 capsule 02/21/18 Cefepime [Maxipime (Restricted To Id) -] 1 gm IV Q12H #80 vial 02/21/18 Vancomycin 1,000 mg IV DAILY #39 vial 02/21/18 Family Disease History - Family Disease History Family Disease History: Diabetes: Father, Heart Disease: Mother (s/p mi), Brother (open heart surgery), [place]: Father, Other: Daughter (alive and well) Review of Systems - Review of Systems Constitutional: denies: Chills, Fever Eyes: denies: Recent Change in Vision HENT: denies: Nasal Congestion, Throat Pain Neck: denies: Stiffness, Tenderness Cardiovascular: denies: Chest Pain, Palpitations, Shortness of Breath Respiratory: reports: Cough. denies: Hemoptysis, SOB, SOB on Exertion, Wheezing Gastrointestinal: denies: Abdominal Pain, Nausea, Vomiting Genitourinary: denies: Dysuria, Hematuria Neurological: denies: Dizziness, Headache Endocrine: denies: Unexplained Weight Loss Physical Exam Vital Sings: Vital Signs Temperature 98.0 F 03/09/18 09:00 Pulse Rate 60 03/09/18 09:00 Respiratory Rate 20 03/09/18 09:00 Blood Pressure 140/60 03/09/18 09:00 O2 Sat by Pulse Oximetry (%) 97 03/08/18 21:00 Constitutional: Yes: Calm Eyes: Yes: Conjunctiva Clear, EOM Intact HENT: Yes: Atraumatic, Normocephalic Neck: Yes: Supple, Trachea Midline Cardiovascular: Yes: Regular Rate and Rhythm Respiratory: Yes: Regular, Diminished (decreased breath sounds at the bases) ...Clubbing: No Gastrointestinal: Yes: Normal Bowel Sounds, Soft. No: Tenderness Edema: No Neurological: Yes: Alert, Oriented Labs: CBC, BMP 03/09/18 07:00 03/07/18 08:51 Problem List - Problems (1) DVT (deep venous thrombosis) Code(s): I82.409 - ACUTE EMBOLISM AND THOMBOS UNSP DEEP VN UNSP LOWER EXTREMITY Qualifiers: DVT location: upper extremity Affected thrombotic vein of extremity: unspecified vein of extremity Chronicity: acute Laterality: right Qualified Code(s): I82.621 - Acute embolism and thrombosis of deep veins of right upper extremity (2) HTN (hypertension) Code(s): I10 - ESSENTIAL (PRIMARY) HYPERTENSION (3) Hypercholesterolemia Code(s): E78.00 - PURE HYPERCHOLESTEROLEMIA, UNSPECIFIED (4) CAD (coronary artery disease) Code(s): I25.10 - ATHSCL HEART DISEASE OF [place] CORONARY ARTERY W/O ANG PCTRS (5) Psoriatic arthritis Code(s): L40.50 - ARTHROPATHIC PSORIASIS, UNSPECIFIED Assessment/Plan Cough improved RUE DVT CAD HTN Hypercholesterolemia Psoriatic Arthritis - will order CXR - continue claritin - can get outpt PFTs to evaluate for obstructive airways - continue anticoagulation Thank you for this consult Leodan Naidu MD
[2018-03-09] MEDS: VANCOMYCIN 1 GM PREMIX - 1 GM/200 ML BAG IVPB SCH (16:14)
--- NOTE | 2018-03-09 16:45 | PN ---
Physical Exam: SUBJECTIVE: Patient seen and examined at the bedside. OBJECTIVE: right subclavian picc line removed intact by primary RN Jocy. I was at bedside during procedure, patient tolerated it well. No bleeding, pressure applied. picc measured 37cm, discarded. consider transitioning to eliquis, then discharge tomorrow back to [facility]. will need to have peripheral access for iv antibiotics. Vital Signs Period Temp Pulse Resp BP Sys/Seymour Pulse Ox Last 24 Hr 98.0 F-98.6 F 52-84 18-20 112-140/58-64 97 GENERAL: The patient is awake, alert, and fully oriented, in no acute distress. HEAD: Normal with no signs of trauma. EYES: PERRL, extraocular movements intact, sclera anicteric, conjunctiva clear. No ptosis. ENT: Ears normal, nares patent, oropharynx clear without exudates, moist mucous membranes. NECK: Trachea midline, full range of motion, supple. HEART: Regular rate and rhythm, S1, S2 without murmur, rub or gallop. ABDOMEN: Soft, nontender, nondistended, normoactive bowel sounds, no guarding, no rebound, no hepatosplenomegaly, no masses. EXTREMITIES:right arm edema with engorgement of veins, right subclavian removed intact NEUROLOGICAL: Cranial nerves II through XII grossly intact. Normal speech, gait not observed. PSYCH: Normal mood, normal affect. SKIN: Warm, dry, normal turgor, no rashes or lesions noted Laboratory Results - last 24 hr 03/09/18 03/09/18 03/09/18 07:00 07:00 07:00 WBC 6.3 RBC 3.27 L Hgb 11.1 Hct 33.7 MCV 103.2 H MCH 34.0 H MCHC 33.0 RDW 13.7 Plt Count 193 MPV 7.5 PTT (Actin FS) 60.3 H Stool Occult Blood IgG Cancelled IgA Cancelled IgM Cancelled 03/09/18 09:00 WBC RBC Hgb Hct MCV MCH MCHC RDW Plt Count MPV PTT (Actin FS) Stool Occult Blood Negative IgG IgA IgM Active Medications Generic Name Dose Route Start Last Admin Trade Name Freq PRN Reason Stop Dose Admin Acetaminophen 325 mg 03/08/18 16:00 03/09/18 15:15 Tylenol - PO 325 mg 1000,1600,2200,0400 PRN Administration PAIN LEVEL 1-5 Allopurinol 200 mg 03/07/18 10:00 03/09/18 09:30 Zyloprim - PO 200 mg DAILY AYAN Administration Atorvastatin Calcium 20 mg 03/07/18 22:00 03/08/18 21:05 Lipitor - PO 20 mg HS AYAN Administration Calcium Carbonate 500 mg 03/07/18 10:00 03/09/18 09:31 Os-Ankit 500mg - PO 500 mg DAILY AYAN Administration Carvedilol 3.125 mg 03/07/18 10:00 03/09/18 09:29 Coreg - PO 3.125 mg BID AYAN Administration Cholecalciferol 1,000 unit 03/07/18 10:00 03/09/18 09:30 Vitamin D3 - PO 1,000 unit DAILY AYAN Administration Clopidogrel Bisulfate 75 mg 03/07/18 10:00 03/09/18 09:29 Plavix - PO 75 mg DAILY AYAN Administration Ferrous Sulfate 325 mg 03/07/18 10:00 03/09/18 09:29 Feosol - PO 325 mg DAILY AYAN Administration Folic Acid 1 mg 03/07/18 10:00 03/09/18 09:30 Folic Acid - PO 1 mg DAILY AYAN Administration Furosemide 20 mg 03/07/18 06:00 03/09/18 13:24 Lasix - PO 20 mg BIDLASIX AYAN Administration Heparin Sodium (Porcine) 1,000 unit 03/07/18 02:08 03/07/18 02:47 Heparin - IVPUSH 1,000 unit PRN PRN Administration Heparin Heparin Sodium (Porcine) 5,000 unit 03/07/18 02:08 Heparin - IVPUSH PRN PRN Heparin Heparin Sodium (Porcine) 25, 500 mls @ 16 mls/hr 03/07/18 02:15 03/09/18 16: 15 000 unit/ Sodium Chloride IV 800 unit/hr TITR AYAN 16 mls/hr Administration Protocol 800 UNIT/HR Cefepime HCl 1 gm in 50 mls @ 100 mls/hr 03/07/18 14:30 03/09/18 11:18 Maxipime 1 Gm Premix Ivpb IVPB 100 mls/hr BID AYAN Administration Protocol Vancomycin HCl 1 gm in 200 mls @ 200 mls/hr 03/08/18 16:00 03/09/18 16:14 Vancomycin 1 Gm Premix - IVPB 200 mls/hr Q24H AYAN Administration Protocol Lactobacillus Acidophilus 1 tab 03/07/18 10:00 03/09/18 09:29 Bacid - PO 1 tab DAILY AYAN Administration Loratadine 10 mg 03/09/18 10:00 03/09/18 09:29 Claritin - PO 10 mg DAILY AYAN Administration Methotrexate 7.5 mg 03/12/18 10:00 Mexate - PO Fr@1000 AYAN Multivitamins/Minerals/Vitamin C 1 tab 03/07/18 10:00 03/09/18 09:29 Tab-A-Vit - PO 1 tab DAILY AYAN Administration Mupirocin 1 applic 03/07/18 10:00 03/09/18 11:11 Bactroban 2% Ointment - TP 1 applic DAILY AYAN Administration Non-Formulary Medication 1 applic 03/07/18 10:00 03/07/18 10:49 Naftifine Hcl [Naftin] TP Not Given DAILY AYAN Nystatin 1 applic 03/07/18 10:00 03/09/18 11:10 Nystop Powder - TP 1 applic DAILY AYAN Administration Oxycodone HCl 15 mg 03/08/18 16:00 03/09/18 15:15 Roxicodone - PO 15 mg 1000,1600,2200,0400 PRN Administration PAIN LEVEL 6-10 Ramipril 5 mg 03/07/18 10:00 03/09/18 09:30 Altace - PO 5 mg DAILY AYAN Administration ASSESSMENT/PLAN: Patient is an 82 year old female with a significant past medical history of hypertension, hld, CAD, CHF, left total hip replacement. Patient presents to the ED from [facility] for right arm edema and DVT. Patient has right arm PICC line and was currently on Vanco and Cefipime for oteomyelitis fourth digit of left foot. Her PICC line was placed on 02/19/18 and she was to continue her antibiotics for 6 weeks. Hematology: DVT, likely provoked by PICC line. Right upper arm DVT: Confirmed by ultrasound today. Right subclavian picc removed today. Patient to continue antibiotic therapy via peripheral iv access. ID following. Currently on heparin drip. hematology following to determine best a/c and length of treatment. ID: Osteomyelitis fourth digit of left foot: on cefepime and vanco x 6 weeks total therapy. Card: Hypertension: controlled on carvedilol, ramipril Hyperlipidemia: on statin therapy. CAD: on plavix. Diastolic heart failure: On daily lasix. fen tolerating PO monitor electrolytes regular diet prophy heparin to eliquis Visit type - Emergency Visit Emergency Visit: Yes ED Registration Date: 03/07/18 Care time: The patient presented to the Emergency Department on the above date and was hospitalized for further evaluation of their emergent condition. - New Patient This patient is new to me today: Yes Date on this admission: 03/09/18 - Critical Care Critical Care patient: No - Discharge Referral Referred to [facility] Med P.C.: No
[2018-03-09] MEDS: ATORVASTATIN CA 20 MG TABLET (FP) PO SCH (21:31)
[2018-03-10] MEDS: ACETAMINOPHEN 325 MG TABLET (FP) PO PRN ×3 (03:30→16:04)
[2018-03-10] MEDS: oxyCODONE HCL 5 MG TABLET PO PRN ×3 (03:34→16:04)
[2018-03-10] MEDS: HEPARIN - 25,000 UNIT in SODIUM CHLORIDE 495 ML IV SCH (03:35)
[2018-03-10] MEDS: FUROSEMIDE 20 MG TABLET (FP) PO SCH ×2 (06:53→16:05)
[2018-03-10 08:17] LABS: HEMATOCRIT 33.3 % (32.4-45.2); HEMOGLOBIN 10.8 GM/dL (10.7-15.3); MCH 33.7 pg (25.7-33.7); MCHC 32.6 g/dl (32.0-36.0); MEAN CELL VOLUME 103.4 fl (80-96); MEAN PLT VOLUME 7.6 fl (7.5-11.1); PLATELET COUNT 180 K/MM3 (134-434); RBC 3.22 M/mm3 (3.60-5.2); RDW 13.9 % (11.6-15.6); WHITE BLOOD COUNT 6.1 K/mm3 (4.0-10.0)
[2018-03-10 09:51] LABS: ALBUMIN 3.1 g/dl (3.4-5.0); ANION GAP 10 MMOL/L (8-16); BILIRUBIN,TOTAL 0.4 mg/dL (0.2-1.0); BLOOD UREA NITROGEN 22 mg/dL (7-18); CALCIUM 8.9 mg/dL (8.5-10.1); CHLORIDE 98 mmol/L (98-107); CO2 29 mmol/L (21-32); CREATININE 0.8 mg/dL (0.55-1.02); GLUCOSE,RANDOM 83 mg/dL (74-106); SGOT/AST 20 U/L (15-37); SGPT/ALT 21 U/L (12-78); SODIUM 137 mmol/L (136-145); TOT PROT 6.6 g/dl (6.4-8.2)
[2018-03-10 09:52] LABS: ALK PHOS 72 U/L (45-117)
[2018-03-10] MEDS: CEFEPIME HCL/D5W 1 GM/50 ML BAG IVPB SCH (10:07)
[2018-03-10] MEDS: ALLOPURINOL 100 MG TABLET (FP) PO SCH (10:08)
[2018-03-10] MEDS: CHOLECALCIFEROL (VITAMIN D3) 1,000 UNIT TABLET (FP) PO SCH (10:08)
[2018-03-10] MEDS: CARVEDILOL 3.125 MG TABLET (FP) PO SCH (10:08)
[2018-03-10] MEDS: CALCIUM (OYSTER SHELL) 500 MG TABLET (FP) PO SCH (10:08)
[2018-03-10] MEDS: CLOPIDOGREL BISULFATE 75 MG TABLET (FP) PO SCH (10:08)
[2018-03-10] MEDS: FOLIC ACID 1 MG TABLET (FP) PO SCH (10:08)
[2018-03-10] MEDS: LACTOBACILLUS ACIDOPHILUS 1 TABLET PO SCH (10:08)
[2018-03-10] MEDS: RAMIPRIL 5 MG CAPSULE (FP) PO SCH (10:10)
[2018-03-10] MEDS: MULTIVITAMINS (DAILY MVI) TABLET (FP) PO SCH (10:12)
[2018-03-10] MEDS: FERROUS SO4 325 MG TABLET (FP) PO SCH (10:12)
[2018-03-10] MEDS: LORATADINE 10 MG TABLET PO SCH (10:12)
--- NOTE | 2018-03-10 10:22 | PN ---
Progress Note, Physician History of Present Illness: RUE swelling, PICC line removed, denies chest pain or dyspnea. - Current Medication List Current Medications: Active Medications Acetaminophen (Tylenol -) 325 mg PO 1000,1600,2200,0400 PRN PRN Reason: PAIN LEVEL 1-5 Last Admin: 03/10/18 10:09 Dose: 325 mg Allopurinol (Zyloprim -) 200 mg PO DAILY [facility] Last Admin: 03/10/18 10:08 Dose: 200 mg Atorvastatin Calcium (Lipitor -) 20 mg PO HS [facility] Last Admin: 03/09/18 21:31 Dose: 20 mg Calcium Carbonate (Os-Ankit 500mg -) 500 mg PO DAILY [facility] Last Admin: 03/10/18 10:08 Dose: 500 mg Carvedilol (Coreg -) 3.125 mg PO BID [facility] Last Admin: 03/10/18 10:08 Dose: 3.125 mg Cholecalciferol (Vitamin D3 -) 1,000 unit PO DAILY [facility] Last Admin: 03/10/18 10:08 Dose: 1,000 unit Clopidogrel Bisulfate (Plavix -) 75 mg PO DAILY [facility] Last Admin: 03/10/18 10:08 Dose: 75 mg Ferrous Sulfate (Feosol -) 325 mg PO DAILY [facility] Last Admin: 03/10/18 10:12 Dose: 325 mg Folic Acid (Folic Acid -) 1 mg PO DAILY [facility] Last Admin: 03/10/18 10:08 Dose: 1 mg Furosemide (Lasix -) 20 mg PO BIDLASIX [facility] Last Admin: 03/10/18 06:53 Dose: 20 mg Heparin Sodium (Porcine) (Heparin -) 1,000 unit IVPUSH PRN PRN PRN Reason: Heparin Last Admin: 03/07/18 02:47 Dose: 1,000 unit Heparin Sodium (Porcine) (Heparin -) 5,000 unit IVPUSH PRN PRN PRN Reason: Heparin Heparin Sodium (Porcine) 25, (000 unit/ Sodium Chloride) 500 mls @ 16 mls/hr IV TITR [facility]; Protocol Last Admin: 03/10/18 03:35 Dose: Not Given Cefepime HCl (Maxipime 1 Gm Premix Ivpb) 1 gm in 50 mls @ 100 mls/hr IVPB BID [facility]; Protocol Last Admin: 03/10/18 10:07 Dose: 100 mls/hr Vancomycin HCl (Vancomycin 1 Gm Premix -) 1 gm in 200 mls @ 200 mls/hr IVPB Q24H [facility]; Protocol Last Admin: 03/09/18 16:14 Dose: 200 mls/hr Lactobacillus Acidophilus (Bacid -) 1 tab PO DAILY [facility] Last Admin: 03/10/18 10:08 Dose: 1 tab Loratadine (Claritin -) 10 mg PO DAILY [facility] Last Admin: 03/10/18 10:12 Dose: 10 mg Methotrexate (Mexate -) 7.5 mg PO Fr@1000 [facility] Multivitamins/Minerals/Vitamin C (Tab-A-Vit -) 1 tab PO DAILY [facility] Last Admin: 03/10/18 10:12 Dose: 1 tab Mupirocin (Bactroban 2% Ointment -) 1 applic TP DAILY [facility] Last Admin: 03/09/18 11:11 Dose: 1 applic Non-Formulary Medication (Naftifine Hcl [Naftin]) 1 applic TP DAILY [facility] Last Admin: 03/07/18 10:49 Dose: Not Given Nystatin (Nystop Powder -) 1 applic TP DAILY [facility] Last Admin: 03/09/18 11:10 Dose: 1 applic Oxycodone HCl (Roxicodone -) 15 mg PO 1000,1600,2200,0400 PRN PRN Reason: PAIN LEVEL 6-10 Last Admin: 03/10/18 10:12 Dose: 15 mg Ramipril (Altace -) 5 mg PO DAILY [facility] Last Admin: 03/10/18 10:10 Dose: 5 mg - Objective Vital Signs: Vital Signs Temperature 98.3 F 03/10/18 06:00 Pulse Rate 53 L 03/10/18 06:00 Respiratory Rate 20 03/10/18 06:00 Blood Pressure 133/67 03/10/18 06:00 O2 Sat by Pulse Oximetry (%) 98 03/09/18 21:00 Constitutional: Yes: No Distress, Calm Neck: Yes: Supple Cardiovascular: Yes: Regular Rate and Rhythm Respiratory: Yes: Regular, CTA Bilaterally Gastrointestinal: Yes: Normal Bowel Sounds, Soft Edema: Yes Edema: RUE: 2+ Labs: CBC, BMP 03/10/18 07:00 03/10/18 07:00 INR, PTT INR 1.07 (0.83-1.09) 03/07/18 01:38 - ....Imaging Chest X-ray: Report Reviewed (RUL density) Ultrasound: Report Reviewed (RUE DVT) Assessment/Plan 1. RUE provoked DVT with PICC line since removed 2. CAD h/o [place] 3. HTN 4. LV diastolic dysfunction without failure 5. Hypercholesterolemia 6. Psoriatic arthritis 7. Osteomyelitis 8. RUL pulmonary density PLAN: 1. Currently on Heparin gtt recommend transition to Eliquis 10 bid x 7 days then 5 bid for 3 months 2. Agree with removal of PICC if possible, complete antibiotic course as per ID 3. Continue Lipitor 20 qhs, Ramipril 5 qd, Lasix 20 bid and Carvedilol 3.125 bid 4. D/c Plavix while on concomitant NOAC given stability of CAD and resume once NOAC therapy completed 5. Chest CT scan to evaluate for RUL density
--- NOTE | 2018-03-10 10:30 | PN ---
Physical Exam: SUBJECTIVE: Patient seen and examined OBJECTIVE: Vital Signs Period Temp Pulse Resp BP Sys/Seymour Pulse Ox Last 24 Hr 98.0 F-98.3 F 53-84 18-20 105-133/60-67 98 GENERAL: Elderly female is sitting comfortably in bed, awake, alert, and fully oriented, in no acute distress. HEAD: Normal with no signs of trauma. EYES: EOM intact, no pallor or icterus. ENT: Ears normal, moist mucous membranes. NECK: Supple. LUNGS: B/L Breath sounds equal, clear to auscultation bilaterally, no wheezes, no crackles, no accessory muscle use. HEART: Regular rate and rhythm, S1, S2 without murmur, rub or gallop. ABDOMEN: Soft, nontender, nondistended, normoactive bowel sounds, no guarding, no rebound, no hepatosplenomegaly, no masses. UPPER LEFT EXTREMITY: 2+ pulses, warm, well-perfused, no edema. RIGHT UPPER EXTREMITY: Swollen + PICC line removed. NEUROLOGICAL: No facial droop, Normal speech, gait not observed. PSYCH: Normal mood, normal affect. SKIN: Warm, dry, normal turgor, no rashes or lesions noted Laboratory Results - last 24 hr 03/10/18 03/10/18 07:00 07:00 WBC 6.1 RBC 3.22 L Hgb 10.8 Hct 33.3 MCV 103.4 H MCH 33.7 MCHC 32.6 RDW 13.9 Plt Count 180 MPV 7.6 Sodium 137 Potassium 4.0 Chloride 98 Carbon Dioxide 29 Anion Gap 10 BUN 22 H Creatinine 0.8 Creat Clearance w eGFR > 60 Random Glucose 83 Calcium 8.9 Total Bilirubin 0.4 AST 20 ALT 21 Alkaline Phosphatase 72 Total Protein 6.6 Albumin 3.1 L Active Medications Generic Name Dose Route Start Last Admin Trade Name Freq PRN Reason Stop Dose Admin Acetaminophen 325 mg 03/08/18 16:00 03/10/18 10:09 Tylenol - PO 325 mg 1000,1600,2200,0400 PRN Administration PAIN LEVEL 1-5 Allopurinol 200 mg 03/07/18 10:00 03/10/18 10:08 Zyloprim - PO 200 mg DAILY AYAN Administration Atorvastatin Calcium 20 mg 03/07/18 22:00 03/09/18 21:31 Lipitor - PO 20 mg HS AYAN Administration Calcium Carbonate 500 mg 03/07/18 10:00 03/10/18 10:08 Os-Ankit 500mg - PO 500 mg DAILY AYAN Administration Carvedilol 3.125 mg 03/07/18 10:00 03/10/18 10:08 Coreg - PO 3.125 mg BID AYAN Administration Cholecalciferol 1,000 unit 03/07/18 10:00 03/10/18 10:08 Vitamin D3 - PO 1,000 unit DAILY AYAN Administration Clopidogrel Bisulfate 75 mg 03/07/18 10:00 03/10/18 10:08 Plavix - PO 75 mg DAILY AYAN Administration Ferrous Sulfate 325 mg 03/07/18 10:00 03/10/18 10:12 Feosol - PO 325 mg DAILY AYAN Administration Folic Acid 1 mg 03/07/18 10:00 03/10/18 10:08 Folic Acid - PO 1 mg DAILY AYAN Administration Furosemide 20 mg 03/07/18 06:00 03/10/18 06:53 Lasix - PO 20 mg BIDLASIX AYAN Administration Heparin Sodium (Porcine) 1,000 unit 03/07/18 02:08 03/07/18 02:47 Heparin - IVPUSH 1,000 unit PRN PRN Administration Heparin Heparin Sodium (Porcine) 5,000 unit 03/07/18 02:08 Heparin - IVPUSH PRN PRN Heparin Heparin Sodium (Porcine) 25, 500 mls @ 16 mls/hr 03/07/18 02:15 03/10/18 03: 35 000 unit/ Sodium Chloride IV Not Given TITR AYAN Protocol 800 UNIT/HR Cefepime HCl 1 gm in 50 mls @ 100 mls/hr 03/07/18 14:30 03/10/18 10:07 Maxipime 1 Gm Premix Ivpb IVPB 100 mls/hr BID AYAN Administration Protocol Vancomycin HCl 1 gm in 200 mls @ 200 mls/hr 03/08/18 16:00 03/09/18 16:14 Vancomycin 1 Gm Premix - IVPB 200 mls/hr Q24H AYAN Administration Protocol Lactobacillus Acidophilus 1 tab 03/07/18 10:00 03/10/18 10:08 Bacid - PO 1 tab DAILY AYAN Administration Loratadine 10 mg 03/09/18 10:00 03/10/18 10:12 Claritin - PO 10 mg DAILY AYAN Administration Methotrexate 7.5 mg 03/12/18 10:00 Mexate - PO Fr@1000 A[facility]AN Multivitamins/Minerals/Vitamin C 1 tab 03/07/18 10:00 03/10/18 10:12 Tab-A-Vit - PO 1 tab DAILY AYAN Administration Mupirocin 1 applic 03/07/18 10:00 03/09/18 11:11 Bactroban 2% Ointment - TP 1 applic DAILY AYAN Administration Non-Formulary Medication 1 applic 03/07/18 10:00 03/07/18 10:49 Naftifine Hcl [Naftin] TP Not Given DAILY AYAN Nystatin 1 applic 03/07/18 10:00 03/09/18 11:10 Nystop Powder - TP 1 applic DAILY AYAN Administration Oxycodone HCl 15 mg 03/08/18 16:00 03/10/18 10:12 Roxicodone - PO 15 mg 1000,1600,2200,0400 PRN Administration PAIN LEVEL 6-10 Ramipril 5 mg 03/07/18 10:00 03/10/18 10:10 Altace - PO 5 mg DAILY AYAN Administration Patient is a 82 year old Female with PMH HTN, HLD, CAD dCHF, UTI, GIB, L total hip, Psoriatic arthritis, gout who presents to ED from [facility] for RUE DVT. ASSESSMENT: RUE Provoked DVT Osteomyelitis of the fourth digit of left foot CXR: Increased density of right upper lobe-needs outpatient f/up and a possible CT chest. Hypertension-Stable Hyperlipidemia CAD s/p diastolic CHF UTI GIB L total hip replacement Psoriatic arthritis Gout-not in flare. PLAN: RUE Provoked DVT Patient was under treatment for osteomyelitis of the fourth digit of the left foot through a PICC line in the RUE. Ultrasound of the RUE was done at [facility] which showed a DVT. Has been getting IV Heparin drip. PICC line removed. Would recommend to start Eliquis 10mg BID followed by 5mg PO BID for 3 months at least. Discussed with Dr. Dan, to discontinue Plavix while on Eliquis due to increased risk of bleeding. If needed, to place a PICC line in another arm. Has to be on anticoagulation. Risks and benefits of starting the eliquis and placing a PICC line for the antibiotic, explained to the patient. She verbalized understanding. Needs close monitoring as outpatient. Case discussed with Dr. Rosa.
[2018-03-10] MEDS: NYSTATIN POWDER 100,000 UNITS/GM - 15 GM TOPICAL POWDER TP SCH (10:31)
[2018-03-10] MEDS: MUPIROCIN 2% TOPICAL OINTMENT 22 GM TUBE TP SCH (10:32)
--- NOTE | 2018-03-10 10:34 | PN ---
Physical Exam: SUBJECTIVE: Patient seen and examined OBJECTIVE: Vital Signs Period Temp Pulse Resp BP Sys/Seymour Pulse Ox Last 24 Hr 98.0 F-98.3 F 53-84 18-20 105-133/60-67 98 GENERAL: The patient is awake, alert, and fully oriented, in no acute distress. HEAD: Normal with no signs of trauma. EYES: PERRL, extraocular movements intact, sclera anicteric, conjunctiva clear. No ptosis. ENT: Ears normal, nares patent, oropharynx clear without exudates, moist mucous membranes. NECK: Trachea midline, full range of motion, supple. LUNGS: Breath sounds equal, clear to auscultation bilaterally, no wheezes, no crackles, no accessory muscle use. HEART: Regular rate and rhythm, S1, S2 without murmur, rub or gallop. ABDOMEN: Soft, nontender, nondistended, normoactive bowel sounds, no guarding, no rebound, no hepatosplenomegaly, no masses. EXTREMITIES: 2+ pulses, warm, well-perfused, no edema. NEUROLOGICAL: Cranial nerves II through XII grossly intact. Normal speech, gait not observed. PSYCH: Normal mood, normal affect. SKIN: Warm, dry, normal turgor, no rashes or lesions noted Laboratory Results - last 24 hr 03/10/18 03/10/18 07:00 07:00 WBC 6.1 RBC 3.22 L Hgb 10.8 Hct 33.3 MCV 103.4 H MCH 33.7 MCHC 32.6 RDW 13.9 Plt Count 180 MPV 7.6 Sodium 137 Potassium 4.0 Chloride 98 Carbon Dioxide 29 Anion Gap 10 BUN 22 H Creatinine 0.8 Creat Clearance w eGFR > 60 Random Glucose 83 Calcium 8.9 Total Bilirubin 0.4 AST 20 ALT 21 Alkaline Phosphatase 72 Total Protein 6.6 Albumin 3.1 L Active Medications Generic Name Dose Route Start Last Admin Trade Name Freq PRN Reason Stop Dose Admin Acetaminophen 325 mg 03/08/18 16:00 03/10/18 10:09 Tylenol - PO 325 mg 1000,1600,2200,0400 PRN Administration PAIN LEVEL 1-5 Allopurinol 200 mg 03/07/18 10:00 03/10/18 10:08 Zyloprim - PO 200 mg DAILY AYAN Administration Atorvastatin Calcium 20 mg 03/07/18 22:00 03/09/18 21:31 Lipitor - PO 20 mg HS AYAN Administration Calcium Carbonate 500 mg 03/07/18 10:00 03/10/18 10:08 Os-Ankit 500mg - PO 500 mg DAILY AYAN Administration Carvedilol 3.125 mg 03/07/18 10:00 03/10/18 10:08 Coreg - PO 3.125 mg BID AYAN Administration Cholecalciferol 1,000 unit 03/07/18 10:00 03/10/18 10:08 Vitamin D3 - PO 1,000 unit DAILY AYAN Administration Clopidogrel Bisulfate 75 mg 03/07/18 10:00 03/10/18 10:08 Plavix - PO 75 mg DAILY AYAN Administration Ferrous Sulfate 325 mg 03/07/18 10:00 03/10/18 10:12 Feosol - PO 325 mg DAILY AYAN Administration Folic Acid 1 mg 03/07/18 10:00 03/10/18 10:08 Folic Acid - PO 1 mg DAILY AYAN Administration Furosemide 20 mg 03/07/18 06:00 03/10/18 06:53 Lasix - PO 20 mg BIDLASIX AYAN Administration Heparin Sodium (Porcine) 1,000 unit 03/07/18 02:08 03/07/18 02:47 Heparin - IVPUSH 1,000 unit PRN PRN Administration Heparin Heparin Sodium (Porcine) 5,000 unit 03/07/18 02:08 Heparin - IVPUSH PRN PRN Heparin Heparin Sodium (Porcine) 25, 500 mls @ 16 mls/hr 03/07/18 02:15 03/10/18 03: 35 000 unit/ Sodium Chloride IV Not Given TITR AYAN Protocol 800 UNIT/HR Cefepime HCl 1 gm in 50 mls @ 100 mls/hr 03/07/18 14:30 03/10/18 10:07 Maxipime 1 Gm Premix Ivpb IVPB 100 mls/hr BID AYAN Administration Protocol Vancomycin HCl 1 gm in 200 mls @ 200 mls/hr 03/08/18 16:00 03/09/18 16:14 Vancomycin 1 Gm Premix - IVPB 200 mls/hr Q24H AYAN Administration Protocol Lactobacillus Acidophilus 1 tab 03/07/18 10:00 03/10/18 10:08 Bacid - PO 1 tab DAILY AYAN Administration Loratadine 10 mg 03/09/18 10:00 03/10/18 10:12 Claritin - PO 10 mg DAILY AYAN Administration Methotrexate 7.5 mg 03/12/18 10:00 Mexate - PO Fr@1000 AYAN Multivitamins/Minerals/Vitamin C 1 tab 03/07/18 10:00 03/10/18 10:12 Tab-A-Vit - PO 1 tab DAILY AYAN Administration Mupirocin 1 applic 03/07/18 10:00 03/10/18 10:32 Bactroban 2% Ointment - TP 1 applic DAILY AYAN Administration Non-Formulary Medication 1 applic 03/07/18 10:00 03/07/18 10:49 Naftifine Hcl [Naftin] TP Not Given DAILY AYAN Nystatin 1 applic 03/07/18 10:00 03/10/18 10:31 Nystop Powder - TP 1 applic DAILY AYAN Administration Oxycodone HCl 15 mg 03/08/18 16:00 03/10/18 10:12 Roxicodone - PO 15 mg 1000,1600,2200,0400 PRN Administration PAIN LEVEL 6-10 Ramipril 5 mg 03/07/18 10:00 03/10/18 10:10 Altace - PO 5 mg DAILY AYAN Administration ASSESSMENT/PLAN:
--- NOTE | 2018-03-10 11:15 | DS ---
Physical Exam: SUBJECTIVE: Patient seen and examined at the bedside. In no acute distress. feels well. OBJECTIVE: Vital Signs Period Temp Pulse Resp BP Sys/Seymour Pulse Ox Last 24 Hr 98.0 F-98.3 F 53-84 18-20 105-133/60-67 98 PHYSICAL EXAM GENERAL: The patient is awake, alert, and fully oriented, in no acute distress. HEAD: Normal with no signs of trauma. EYES: PERRL, extraocular movements intact, sclera anicteric, conjunctiva clear. No ptosis. ENT: Ears normal, nares patent, oropharynx clear without exudates, moist mucous membranes. NECK: Trachea midline, full range of motion, supple. HEART: Regular rate and rhythm, S1, S2 without murmur, rub or gallop. ABDOMEN: Soft, nontender, nondistended, normoactive bowel sounds, no guarding, no rebound, no hepatosplenomegaly, no masses. EXTREMITIES:right arm edema with engorgement of veins, right subclavian removed intact NEUROLOGICAL: Cranial nerves II through XII grossly intact. Normal speech, gait not observed. PSYCH: Normal mood, normal affect. SKIN: Warm, dry, normal turgor, no rashes or lesions noted LABS Laboratory Results - last 24 hr 03/10/18 03/10/18 03/10/18 07:00 07:00 10:03 WBC 6.1 RBC 3.22 L Hgb 10.8 Hct 33.3 MCV 103.4 H MCH 33.7 MCHC 32.6 RDW 13.9 Plt Count 180 MPV 7.6 Sodium 137 Potassium 4.0 Chloride 98 Carbon Dioxide 29 Anion Gap 10 BUN 22 H Creatinine 0.8 Creat Clearance w eGFR > 60 Random Glucose 83 Calcium 8.9 Total Bilirubin 0.4 AST 20 ALT 21 Alkaline Phosphatase 72 Total Protein 6.6 Albumin 3.1 L Stool Occult Blood Negative HOSPITAL COURSE: Date of Admission:03/07/18 Date of Discharge: 03/10/18 ASSESSMENT/PLAN: Patient is an 82 year old female with a significant past medical history of hypertension, hld, CAD, CHF, left total hip replacement. Patient presents to the ED from [facility] for right arm edema and DVT. Patient has right arm PICC line and was currently on Vanco and Cefipime for oteomyelitis fourth digit of left foot. Her PICC line was placed on 02/19/18 and she was to continue her antibiotics for 6 weeks. Hematology: DVT, likely provoked by PICC line. Right upper arm DVT: Confirmed by ultrasound on 03/09/2018. Right subclavian PICC removed intact. Patient to continue antibiotic therapy via new left arm PICC line. ID following. Heparin drip stopped at 10a.m. today, eliquis 10mg started 2 hours after. Start Eliquis 10mg TWICE per day, in the a.m. and in the p.m. for 7 days (started today 03/10/2018) until 03/17/2018. Then on 03/18/2018 , start Eliquis 5mg twice per day in a.m. and p.m. for 3 months total (until June 17, 2018). Plavix to be stopped until eliquis therapy is complete. ID: Osteomyelitis fourth digit of left foot: on cefepime and vanco x 6 weeks total therapy, started on 02/19/2018. Card: Hypertension: controlled on carvedilol, ramipril Hyperlipidemia: on statin therapy. CAD: plavix stopped, resume after eliquis complete Diastolic heart failure: On daily lasix. full code Minutes to complete discharge: 60 Discharge Summary Reason For Visit: DEEP VEIN THROMBOSIS (DVT) Current Active Problems DVT (deep venous thrombosis) (Acute) HTN (hypertension) (Acute) Hypercholesterolemia (Acute) Condition: Improved - Instructions Diet, Activity, Other Instructions: Mrs. Jones: You were admitted for RIGHT arm deep vein thrombosis. Your right PICC line was removed on 03/09/2018. You are still in the process of receiving IV antibiotics, which will now be on left upper arm. NEW MEDICATIONS: Start Eliquis 10mg TWICE per day, in the a.m. and in the p.m. for 7 days ( started today 03/10/2018) until 03/17/2018. Then on 03/18/2018, start Eliquis 5mg twice per day in a.m. and p.m. for 3 months total (until June 17, 2018). STOP PLAVIX. do NOT take plavix while you are on Eliquis. You can resume Plavix after Eliquis therapy is complete (June 17 2018). Please follow up with Dr. Patel (women's studies professor)within 2 weeks after discharge for follow up. Continue the IV antibiotics for your foot infection as you were doing. you were found to have an abnormal chest xray. We performed a chest CT as a follow up. It is important that you follow up with Dr. Naidu (speedboat driver) for results of the Chest CT. and further imaging. please call me with any questions: Mary Patel [employer] [phone] [facility] Referrals: Leodan Naidu MD, [Staff Physician] - 1 Week Disposition: [facility] - Home Medications Comprehensive Discharge Medication List: Ambulatory Orders Allopurinol [Zyloprim -] 200 mg PO DAILY 08/09/15 Atorvastatin Ca [Lipitor] 20 mg PO HS 08/09/15 Calcium Carbonate [Calcium] 600 mg PO DAILY 08/09/15 Clopidogrel Bisulfate [Plavix -] 75 mg PO DAILY 08/09/15 Folic Acid 1 mg PO DAILY 08/09/15 Furosemide [Lasix -] 20 mg PO BID 08/09/15 Lactobacillus Acidophilus [Bacid -] 1 each PO DAILY 08/09/15 Methotrexate Sodium [Trexall] 7.5 mg PO FR 08/09/15 Multivitamins [Multivit ([facility] Formulary)] 1 tab PO DAILY 08/09/15 Ramipril 5 mg PO DAILY 08/09/15 Acetaminophen [Tylenol] 325 mg PO Q6H PRN 04/22/17 Carvedilol 3.125 mg PO BID 04/22/17 Oxycodone HCl 15 mg PO Q6H PRN 04/22/17 Ferrous Sulfate 325 mg PO DAILY 09/16/17 Cholecalciferol (Vitamin D3) [Children's Vitamin D3] 1,000 unit PO DAILY #30 tab.chew 09/19/17 Lidocaine 5% Patch [Lidoderm -] 1 patch TP DAILY patch 09/19/17 Lidocaine Patch Removal [Lidoderm Patch Removal] 1 each MC DAILY@2200 each Mupirocin Ointment [Bactroban 2% Ointment -] 1 applic TP DAILY #30 applic Naftifine HCl [Naftin] 1 applic TP DAILY #60 grams 01/05/18 Nystatin Powder [Nystop Powder -] 60 gm TP DAILY #60 gm 01/19/18 Amino Acids/Protein Hydrolys [Prosource No Carb Liquid Pkt] 30 ml PO BID@0800, 1730 packet 02/21/18 Amoxicillin - [Amoxicillin 500mg Capsule -] 500 mg PO TID #90 capsule 02/21/18 Cefepime [Maxipime (Restricted To Id) -] 1 gm IV Q12H #80 vial 02/21/18 Vancomycin 1,000 mg IV DAILY #39 vial 02/21/18 This patient is new to me today: No Emergency Visit: Yes ED Registration Date: 03/07/18 Care time: The patient presented to the Emergency Department on the above date and was hospitalized for further evaluation of their emergent condition. Critical Care patient: No - Discharge Referral Referred to [facility] No
[2018-03-10] MEDS ORDERED: PICC LINE 8 ML FLUSH PROTOCOL IVPUSH PRN (11:28)
[2018-03-10] MEDS ORDERED: APIXABAN 5 MG TABLET PO SCH (12:30)
--- NOTE | 2018-03-10 12:51 | PN ---
Progress Note (short form) - Note Progress Note: PULMONARY Still with intermittent nonproductive cough. CXR showing RUL density. Vital Signs Period Temp Pulse Resp BP Sys/Seymour Pulse Ox Last 24 Hr 98.0 F-98.3 F 53-84 18-20 105-133/60-67 98 Gen: NAD at rest Heart: RRR Lung: decreased breath sounds at the bases Abd: soft, nontender Ext: no edema CBC, BMP 03/10/18 07:00 03/10/18 07:00 Active Medications Acetaminophen (Tylenol -) 325 mg PO 1000,1600,2200,0400 PRN PRN Reason: PAIN LEVEL 1-5 Last Admin: 03/10/18 10:09 Dose: 325 mg Allopurinol (Zyloprim -) 200 mg PO DAILY [facility] Last Admin: 03/10/18 10:08 Dose: 200 mg Apixaban (Eliquis -) 10 mg PO BID AYAN Atorvastatin Calcium (Lipitor -) 20 mg PO HS [facility] Last Admin: 03/09/18 21:31 Dose: 20 mg Calcium Carbonate (Os-Ankit 500mg -) 500 mg PO DAILY [facility] Last Admin: 03/10/18 10:08 Dose: 500 mg Carvedilol (Coreg -) 3.125 mg PO BID [facility] Last Admin: 03/10/18 10:08 Dose: 3.125 mg Cholecalciferol (Vitamin D3 -) 1,000 unit PO DAILY [facility] Last Admin: 03/10/18 10:08 Dose: 1,000 unit Ferrous Sulfate (Feosol -) 325 mg PO DAILY [facility] Last Admin: 03/10/18 10:12 Dose: 325 mg Folic Acid (Folic Acid -) 1 mg PO DAILY [facility] Last Admin: 03/10/18 10:08 Dose: 1 mg Furosemide (Lasix -) 20 mg PO BIDLASIX [facility] Last Admin: 03/10/18 06:53 Dose: 20 mg IV Flush (Picc Line Flush) 8 ml IVPUSH PRN PRN PRN Reason: Protocol Cefepime HCl (Maxipime 1 Gm Premix Ivpb) 1 gm in 50 mls @ 100 mls/hr IVPB BID [facility]; Protocol Last Admin: 03/10/18 10:07 Dose: 100 mls/hr Vancomycin HCl (Vancomycin 1 Gm Premix -) 1 gm in 200 mls @ 200 mls/hr IVPB Q24H [facility]; Protocol Last Admin: 03/09/18 16:14 Dose: 200 mls/hr Lactobacillus Acidophilus (Bacid -) 1 tab PO DAILY [facility] Last Admin: 03/10/18 10:08 Dose: 1 tab Loratadine (Claritin -) 10 mg PO DAILY [facility] Last Admin: 03/10/18 10:12 Dose: 10 mg Methotrexate (Mexate -) 7.5 mg PO Fr@1000 [facility] Multivitamins/Minerals/Vitamin C (Tab-A-Vit -) 1 tab PO DAILY [facility] Last Admin: 03/10/18 10:12 Dose: 1 tab Mupirocin (Bactroban 2% Ointment -) 1 applic TP DAILY [facility] Last Admin: 03/10/18 10:32 Dose: 1 applic Non-Formulary Medication (Naftifine Hcl [Naftin]) 1 applic TP DAILY [facility] Last Admin: 03/07/18 10:49 Dose: Not Given Nystatin (Nystop Powder -) 1 applic TP DAILY [facility] Last Admin: 03/10/18 10:31 Dose: 1 applic Oxycodone HCl (Roxicodone -) 15 mg PO 1000,1600,2200,0400 PRN PRN Reason: PAIN LEVEL 6-10 Last Admin: 03/10/18 10:12 Dose: 15 mg Ramipril (Altace -) 5 mg PO DAILY [facility] Last Admin: 03/10/18 10:10 Dose: 5 mg A/P Cough improved RUE DVT CAD HTN Hypercholesterolemia Psoriatic Arthritis - will need CT chest noncontrast for abnormal CXR - continue claritin - can get outpt PFTs to evaluate for obstructive airways - continue anticoagulation Problem List - Problems (1) DVT (deep venous thrombosis) Code(s): I82.409 - ACUTE EMBOLISM AND THOMBOS UNSP DEEP VN UNSP LOWER EXTREMITY Qualifiers: DVT location: upper extremity Affected thrombotic vein of extremity: unspecified vein of extremity Chronicity: acute Laterality: right Qualified Code(s): I82.621 - Acute embolism and thrombosis of deep veins of right upper extremity (2) HTN (hypertension) Code(s): I10 - ESSENTIAL (PRIMARY) HYPERTENSION (3) Hypercholesterolemia Code(s): E78.00 - PURE HYPERCHOLESTEROLEMIA, UNSPECIFIED (4) CAD (coronary artery disease) Code(s): I25.10 - ATHSCL HEART DISEASE OF [place] CORONARY ARTERY W/O ANG PCTRS (5) Psoriatic arthritis Code(s): L40.50 - ARTHROPATHIC PSORIASIS, UNSPECIFIED
[2018-03-10 14:25] LABS: BASO % 1.2 % (0-2.0); HEMATOCRIT 32.9 % (32.4-45.2); LYMPH % 31.8 % (8-40); MCH 34.6 pg (25.7-33.7); MCHC 33.4 g/dl (32.0-36.0); MEAN CELL VOLUME 103.5 fl (80-96); MEAN PLT VOLUME 8.3 fl (7.5-11.1); MONO % 10.4 % (3.8-10.2); NEUT % 47.6 % (42.8-82.8); PLATELET COUNT 192 K/MM3 (134-434); RBC 3.18 M/mm3 (3.60-5.2); RDW 14.4 % (11.6-15.6); WHITE BLOOD COUNT 5.7 K/mm3 (4.0-10.0)
[2018-03-10] MEDS: VANCOMYCIN 1 GM PREMIX - 1 GM/200 ML BAG IVPB SCH (16:26)
[2018-03-10 17:04] VITALS: BP 108/68; PULSE 55; TEMP 98.3
[2018-03-12] MEDS ORDERED: METHOTREXATE 2.5 MG TABLET PO SCH (10:00)
== END 2018-03-10 19:50 | DRG 315 ==
LOC: JER 00:01 → JERBED 04:52 → J8W 13:31
PROVIDERS: ADMIT Internal Medicine; ATTEND Nurse Practitioner Family
PROC: 05PYX3Z Removal of Infusion Device from Upper Vein, External Approach (ICD-10-PCS; principal; 2018-03-10)
PROC: 05HY33Z Insertion of Infusion Device into Upper Vein, Percutaneous Approach (ICD-10-PCS; 2018-03-10)
DX: T82.818A Embolism due to vascular prosthetic devices, implants and grafts, initial encounter (principal); I50.30 Unspecified diastolic (congestive) heart failure; M86.9 Osteomyelitis, unspecified; N17.9 Acute kidney failure, unspecified; L40.50 Arthropathic psoriasis, unspecified; I25.10 Atherosclerotic heart disease of native coronary artery without angina pectoris; I11.0 Hypertensive heart disease with heart failure; E78.5 Hyperlipidemia, unspecified
CPT/HCPCS: 36415; 36569; 71046-TC-FY; 71250-TC; 77001-TC-FY; 80048; 80053; 81003; 82272; 82784; 83735; 84100; 84155; 84165; 85025; 85027; 85610; 85651; 85730; 86140; 86334; 86850; 86900; 86901; 87086; 93005; 93010; 93971; 99285-25; C1751; G0480; J1644

== ENCOUNTER 2018-04-01 13:17 | Observation (INO) | payer OTHER, MEDICARE ==
[2018-04-01 13:28] VITALS: BMI 21.4
[2018-04-01 14:39] LABS: BASO % 1.3 % (0-2.0); EOS % 5.3 % (0-4.5); HEMATOCRIT 32.5 % (32.4-45.2); HEMOGLOBIN 10.8 GM/dL (10.7-15.3); LYMPH % 23.4 % (8-40); MCH 34.5 pg (25.7-33.7); MCHC 33.2 g/dl (32.0-36.0); MEAN CELL VOLUME 103.8 fl (80-96); MEAN PLT VOLUME 7.6 fl (7.5-11.1); MONO % 16.3 % (3.8-10.2); NEUT % 53.7 % (42.8-82.8); PLATELET COUNT 177 K/MM3 (134-434); RBC 3.13 M/mm3 (3.60-5.2); RDW 14.7 % (11.6-15.6); WHITE BLOOD COUNT 4.7 K/mm3 (4.0-10.0)
[2018-04-01 14:50] LABS: INR 1.36 (0.83-1.09); PROTHROMBIN TIME (PATIENT) 15.4 SEC (9.7-13.0)
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
[2018-04-01 15:05] LABS: ALK PHOS 70 U/L (45-117); ANION GAP 5 MMOL/L (8-16); BILIRUBIN,TOTAL 0.4 mg/dL (0.2-1); BLOOD UREA NITROGEN 36 mg/dL (7-18); CALCIUM 8.5 mg/dL (8.5-10.1); CHLORIDE 99 mmol/L (98-107); CO2 31 mmol/L (21-32); CREATININE 1.3 mg/dL (0.55-1.3); GLUCOSE,RANDOM 95 mg/dL (74-106); MAGNESIUM 1.9 mg/dL (1.8-2.4); N-TERMINAL BNP 901.8 pg/ml (5-450); POTASSIUM 4.4 mmol/L (3.5-5.1); SGOT/AST 19 U/L (15-37); SGPT/ALT 16 U/L (13-61); SODIUM 134 mmol/L (136-145); TOT PROT 6.9 g/dl (6.4-8.2)
--- NOTE | 2018-04-01 16:09 | CON.CARD ---
Consult Consult Specialty:: Cardiology Referred by:: ER Reason for Consultation:: Cough, chest pain - History of Present Illness Chief Complaint: Cough, chest pain History of Present Illness: Patient is an 82 year old female with history of CAD, s/p MA with 70% calcified proximal LAD, non-obstructive LCx and RCA, LV diastolic dysfunction, psoriatic arthritis, HTN and hypercholesterolemia, provoked RUE DVT from PICC line for antibiotic treatment for osteomyelitis and UTI now on Eliquis presented with a dry raspy intermittently hacking cough for the past month unrelieved with Claritin for the past 3 weeks states symptoms are worse with lying down, dyspnea and post-tussive chest heaviness, she reports symptoms started with laying down new carpet at [place], denies near or true syncope, palpitations. - History Source History Provided By: Patient Limitations to Obtaining History: No Limitations - Past Medical History Cardio/Vascular: Yes: CAD, CHF (diastolic), HTN, Hyperlipdemia, MA Gastrointestinal: Yes: Hemorrhoids Renal/: Yes: UTI Infectious Disease: Yes: Other (chronic right hip infection) Rheumatology: Yes: Other (psoriatic arthritis) - Past Surgical History Past Surgical History: Yes: Joint Replacement (bilateral hip), Tonsillectomy ( bilateral iredectomy) - Alcohol/Substance Use Hx Alcohol Use: No - Smoking History Smoking history: Former smoker Have you smoked in the past 12 months: No Aproximately how many cigarettes per day: 20 If you are a former smoker, when did you quit?: 20 years ago - Social History Usual Living Arrangement: Alone ADL: Independent Occupation: , walks with walker History of Recent Travel: No Home Medications - Allergies Allergies/Adverse Reactions: Allergies Allergy/AdvReac Type Severity Reaction Status Date / Time No Known Allergies Allergy Verified 03/07/18 00:39 - Home Medications Home Medications: Ambulatory Orders Allopurinol [Zyloprim -] 200 mg PO DAILY 08/09/15 Atorvastatin Ca [Lipitor] 20 mg PO HS 08/09/15 Folic Acid 1 mg PO DAILY 08/09/15 Furosemide [Lasix -] 20 mg PO BID 08/09/15 Lactobacillus Acidophilus [Bacid -] 1 each PO DAILY 08/09/15 Methotrexate Sodium [Trexall] 7.5 mg PO FR 08/09/15 Multivitamins [Multivit ([facility] Formulary)] 1 tab PO DAILY 08/09/15 Ramipril 5 mg PO DAILY 08/09/15 Acetaminophen [Tylenol] 325 mg PO Q6H PRN 04/22/17 Carvedilol 3.125 mg PO BID 04/22/17 Oxycodone HCl 15 mg PO Q6H PRN 04/22/17 Ferrous Sulfate 325 mg PO DAILY 09/16/17 Cholecalciferol (Vitamin D3) [Children's Vitamin D3] 1,000 unit PO DAILY #30 tab.chew 09/19/17 Apixaban [Eliquis] 5 mg PO BID #180 tablet 03/10/18 Loratadine [Claritin -] 10 mg PO DAILY #30 tablet 03/10/18 Cefepime in Iso-Osm Dextrose [Cefepime 1 gm Injection] 1 gm IV BID 04/01/18 Vancomycin 1 gm Premix - [Vancomycin HCl 1g/200 Ml Bag] 1 gm IV DAILY 04/01/18 Family Disease History - Family Disease History Family Disease History: Diabetes: Father, Heart Disease: Mother (s/p mi), Brother (open heart surgery), CA: Father, Other: Daughter (alive and well) Review of Systems - Review of Systems Constitutional: reports: No Symptoms Eyes: reports: No Symptoms HENT: reports: No Symptoms Neck: reports: No Symptoms Cardiovascular: reports: Chest Pain Respiratory: reports: Cough, SOB, Wheezing Gastrointestinal: reports: No Symptoms Genitourinary: reports: No Symptoms Musculoskeletal: reports: No Symptoms Integumentary: reports: No Symptoms Neurological: reports: No Symptoms Endocrine: reports: No Symptoms Vital Signs: Vital Signs Temperature 98.5 F 04/01/18 13:26 Pulse Rate 55 L 04/01/18 13:26 Respiratory Rate 18 04/01/18 13:26 Blood Pressure 165/79 04/01/18 13:26 O2 Sat by Pulse Oximetry (%) 98 04/01/18 13:26 Constitutional: Yes: No Distress, Calm Neck: Yes: Supple Respiratory: Yes: Regular, Cough, Diminished, On Nasal O2, SOB Gastrointestinal: Yes: Normal Bowel Sounds, Soft Cardiovascular: Yes: Regular Rate and Rhythm JVD: No Carotid Bruit: No Heart Sounds: Yes: S1, S2 Murmur: Yes: Systolic Murmur, Grade 1 Edema: No - Other Data Labs, Other Data: CBC, BMP 04/01/18 14:25 04/01/18 14:25 INR, PTT INR 1.36 (0.83-1.09) H 04/01/18 14:25 Troponin, BNP 04/01/18 14:25 Troponin I 0.08 H B-Natriuretic Peptide 901.8 H Troponin, BNP 04/01/18 14:25 Troponin I 0.08 H B-Natriuretic Peptide 901.8 H SB @ 54 RBBB Imaging - Results Chest X-ray: Report Reviewed (Mild CHF) Assessment/Plan 1. Cough suspicious for allergic bronchitis, doubt PE given Eliquis use 2. RUE provoked DVT with PICC line since removed 3. CAD h/o MA, demand ischemia 4. HTN 5. LV diastolic dysfunction without failure 6. Hypercholesterolemia 7. Psoriatic arthritis 8. Osteomyelitis 9. RUL pulmonary density PLAN: 1. Agree with BD, O2 as needed, f/u chest CT, trend trops to document peak 2. Continue Lipitor 20 qhs, Ramipril 5 qd, Lasix 20 bid and Carvedilol 3.125 bid 3. Thank you for consultative opportunity
--- NOTE | 2018-04-01 18:29 | PN ---
Teaching Attending Note Name of Resident: Samuel Bain ATTENDING PHYSICIAN STATEMENT I saw and evaluated the patient. I reviewed the resident's note and discussed the case with the resident. I agree with the resident's findings and plan as documented with exceptions below. SUBJECTIVE: 82 yof with PMHx of CAD, s/p RI with 70% calcified proximal LAD, non- obstructive LCx and RCA, LV diastolic dysfunction, psoriatic arthritis, HTN and hypercholesterolemia, recently admitted to [facility] with left 4th toe OM on cefepime /vanco for 6 weeks (finishing this week), readmitted on 03/07/2018 with RUE DVT in the setting of PICC Line, s/p PICC removal with PICC replacement [place] [facility] [place] comes in with 3 weeks of dry hacking cough for last 3 weeks, not relieved by claritin, associated with dyspnea, specifically when tries to sit up for last 2 -3 days associated with chest heaviness more when again tries to sit up but no with activity or while laying flat. Denies any fevers, chills, sputum, PND/ orthopnea, leg swelling, recent weight gain or sick contacts at the [place]. Has not received her flu shot yet. Patient wheel chair bound minimal activity with transfers. Feels has lost weight recently but no abdominal or urinary symptoms, palpitations, neck or jaw pain, tingling, numbness or new concerns. less than a PPD smoking history for 50 years, quit in 2006. 12 point ROS done, neg except above. OBJECTIVE: Vital Signs Period Temp Pulse Resp BP Sys/[place] Pulse Ox Last 24 Hr 98.5 F 55 18 165/79 98 Intake & Output 03/29/18 03/30/18 03/31/18 04/01/18 23:59 23:59 23:59 23:59 Weight 117 lb GENERAL: Awake, alert, and fully oriented, mild tachypnea on exam, no use of accessory muscles of respiration, able to speak in full sentences. HEAD: Normal with no signs of trauma. EYES: Pupils equal, round and reactive to light, extraocular movements intact, sclera anicteric, conjunctiva clear. No lid lag. EARS, NOSE, THROAT: Ears normal, nares patent, oropharynx clear without exudates. Moist mucous membranes. NECK: soft, supple, no JVD noted LUNGS: decreased air entry all over, no rales or wheezing appreciated on exam, limited exam given kyphosis and decresaed effort HEART: S1S2 regular ABDOMEN: Soft, nontender, not distended, normoactive bowel sounds, no guarding, no rebound, no masses. MUSCULOSKELETAL: multiple joint deformities (reports from arthritis) UPPER EXTREMITIES: 2+ pulses, warm, well-perfused. No cyanosis. No clubbing. No peripheral edema,PICC in LUE. LOWER EXTREMITIES: positive pulses, bilateral feet deformity with pressure dressing, left fouth toe with scab and minimal to resolved erythema, no swelling or tenderness noted NEUROLOGICAL: AAOX3, facial symmetry, tongue mildine, power 5/5 generalized, sensation intact to light touch, gait deferred PSYCHIATRIC: Cooperative. Good eye contact. Appropriate mood and affect. SKIN: Warm, dry, normal turgor, no rashes or lesions noted, normal capillary refill. Home Medications Medication Instructions Recorded Allopurinol [Zyloprim -] 200 mg PO DAILY 08/09/15 Atorvastatin Ca [Lipitor] 20 mg PO HS 08/09/15 Folic Acid 1 mg PO DAILY 08/09/15 Furosemide [Lasix -] 20 mg PO BID 08/09/15 Lactobacillus Acidophilus [Bacid -] 1 each PO DAILY 08/09/15 Methotrexate Sodium [Trexall] 7.5 mg PO FR 08/09/15 Multivitamins [Multivit ([facility] 1 tab PO DAILY 08/09/15 Formulary)] Ramipril 5 mg PO DAILY 08/09/15 Acetaminophen [Tylenol] 325 mg PO Q6H PRN 04/22/17 Carvedilol 3.125 mg PO BID 04/22/17 Oxycodone HCl 15 mg PO Q6H PRN 04/22/17 Ferrous Sulfate 325 mg PO DAILY 09/16/17 Cholecalciferol (Vitamin D3) 1,000 unit PO DAILY #30 tab.chew 09/19/17 [Children's Vitamin D3] Apixaban [Eliquis] 5 mg PO BID #180 tablet 03/10/18 Loratadine [Claritin -] 10 mg PO DAILY #30 tablet 03/10/18 Laboratory Results - last 24 hr 04/01/18 04/01/18 04/01/18 14:25 14:25 14:25 WBC 4.7 RBC 3.13 L Hgb 10.8 Hct 32.5 MCV 103.8 H MCH 34.5 H MCHC 33.2 RDW 14.7 Plt Count 177 MPV 7.6 Absolute Neuts (auto) 2.5 Neutrophils % 53.7 Lymphocytes % 23.4 D Monocytes % 16.3 H Eosinophils % 5.3 H Basophils % 1.3 Nucleated RBC % 0 PT with INR 15.40 H INR 1.36 H D-Dimer Sodium 134 L Potassium 4.4 Chloride 99 Carbon Dioxide 31 Anion Gap 5 L BUN 36 H Creatinine 1.3 Creat Clearance w eGFR 39.31 Random Glucose 95 Calcium 8.5 Magnesium 1.9 Total Bilirubin 0.4 AST 19 ALT 16 Alkaline Phosphatase 70 Creatine Kinase 40 Troponin I 0.08 H B-Natriuretic Peptide 901.8 H Total Protein 6.9 Albumin 3.0 L Blood Type Antibody Screen 04/01/18 04/01/18 14:25 14:25 WBC RBC Hgb Hct MCV MCH MCHC RDW Plt Count MPV Absolute Neuts (auto) Neutrophils % Lymphocytes % Monocytes % Eosinophils % Basophils % Nucleated RBC % PT with INR INR D-Dimer 986 H Sodium Potassium Chloride Carbon Dioxide Anion Gap BUN Creatinine Creat Clearance w eGFR Random Glucose Calcium Magnesium Total Bilirubin AST ALT Alkaline Phosphatase Creatine Kinase Troponin I B-Natriuretic Peptide Total Protein Albumin Blood Type A POSITIVE Antibody Screen Negative CXR - limited given body habitus, cardiomegaly, mild pulmonary venous congestion vs interstitial disease, overall unchanged from prior EKG - sinus bradycardia, RBBB ASSESSMENT AND PLAN: 82 yof with PMHx of CAD, s/p RI with 70% calcified proximal LAD, non- obstructive LCx and RCA, LV diastolic dysfunction, psoriatic arthritis, HTN and hypercholesterolemia, recent Left 4th toe OM on IV cefepime/vancomycin, RUE PICC related DVT on eliquis admitted with dyspnea, dry cough and chest heaviness. -Dyspnea/Dry cough/Chest heaviness, ? acute bronchitis/?Viral illness, r/o PE/ ACS/diastolic HF exacerbation -CAD -LV diastolic dysfunction -Recent Left 4th Toe OM on IV antibiotics -Recent RUE PICC related DVT -Psoariatic arthritis on Methotrexate -HTN -HLD -Ex-smoker Plan: Follow up CTA chest. Will need to address, heparin drip/AC and additional imaging based on the results. Telemetry, cycle ce, cardiology input. check 2D echo. No recent ischemia testing, defer to cardiology about stress test. Nebs standing and prn. Flu swab though low suspicion. Continue cefepime/vanco as prior. Outpatient podiatry follow up. ASA/statin/coreg. continue methotrexate for now. DVTPPX as above. Dispo admit to obs. Change to inpatient if CTA chest positive, elevation in cardiac biomarkers or new concerns. Code status: discussed with patient in detail, confirms DNR/DNI. Witnessed by daughter Carmen plan discussed with patient and daughter at bedside in detail, all questions answered. Total admit time 60 min.
[2018-04-01] MEDS ORDERED: IPRATROPIUM BR 0.02% 0.5 MG/2.5 ML VIAL.NEB. NEB PRN (18:36)
[2018-04-01] MEDS ORDERED: ALBUTEROL SO4 0.083% IH SOL 2.5 MG/3 ML VIAL.NEB. NEB PRN (18:36)
[2018-04-01] MEDS ORDERED: oxyCODONE HCL 5 MG TABLET ONE (18:46)
[2018-04-01] MEDS: oxyCODONE HCL 5 MG TABLET PO PRN (18:47)
--- NOTE | 2018-04-01 18:50 | HP ---
CHIEF COMPLAINT: cough, SOB PCP: Jim Estrada [place] HISTORY OF PRESENT ILLNESS: 82 year old female with a hx of TX (7 years ago), CHF, HTN, HLD, psoriatic arthritis, osteomyelitis in the L foot, and recent RUE DVT presents to the hospital for 1 month history of dry cough and mild shortness of breath. She states that when she was discharged from the hospital to [facility] after her treatment for osteomyelitis, she began having this non-productive cough and shortness of breath that was worse when she is in between laying down and sitting up. She states that it became slightly worse over the last few days. Reports that she feels slightly congested. Reports that she has decreased swelling in her legs since she began taking her lasix, and denies shortness of breath on exertion. Denies that this has ever happened to her in the past. Reports mild chest "heaviness" which she cannot pinpoint a particular location. Denies sick contacts. Denies fevers, chills, nausea, vomiting, diarrhea, abdominal pain. States that when she put on oxygen in the ED, she felt better. She additionally states that she has several more days of antibiotics left for her osteomyelitis. ER course was notable for: (1) Trop 0.08 (2) CTA (-) for PE (3) EKG Sinus Bradycardia with old RBBB Recent Travel: denies PAST MEDICAL HISTORY: TX (7 years ago), CHF, HTN, HLD, psoriatic arthritis, osteomyelitis in the L foot, and recent RUE DVT PAST SURGICAL HISTORY: b/l hip replacements, cataracts, C section Social History: Smoking: former, quit 7 years ago, smoked for 50 years 1 ppd Alcohol: denies Drugs: denies Family History: father with mouth CA, brother with prostate CA, sister with CAD , another brother had TX Allergies No Known Allergies Allergy (Verified 03/07/18 00:39) HOME MEDICATIONS: Home Medications Medication Instructions Recorded Allopurinol [Zyloprim -] 200 mg PO DAILY 08/09/15 Atorvastatin Ca [Lipitor] 20 mg PO HS 08/09/15 Folic Acid 1 mg PO DAILY 08/09/15 Furosemide [Lasix -] 20 mg PO BID 08/09/15 Lactobacillus Acidophilus [Bacid -] 1 each PO DAILY 08/09/15 Methotrexate Sodium [Trexall] 7.5 mg PO FR 08/09/15 Multivitamins [Multivit ([facility] 1 tab PO DAILY 08/09/15 Formulary)] Ramipril 5 mg PO DAILY 08/09/15 Acetaminophen [Tylenol] 325 mg PO Q6H PRN 04/22/17 Carvedilol 3.125 mg PO BID 04/22/17 Oxycodone HCl 15 mg PO Q6H PRN 04/22/17 Ferrous Sulfate 325 mg PO DAILY 09/16/17 Cholecalciferol (Vitamin D3) 1,000 unit PO DAILY #30 tab.chew 09/19/17 [Children's Vitamin D3] Apixaban [Eliquis] 5 mg PO BID #180 tablet 03/10/18 Loratadine [Claritin -] 10 mg PO DAILY #30 tablet 03/10/18 Cefepime in Iso-Osm Dextrose 1 gm IV BID 04/01/18 [Cefepime 1 gm Injection] Vancomycin 1 gm Premix - 1 gm IV DAILY 04/01/18 [Vancomycin HCl 1g/200 Ml Bag] REVIEW OF SYSTEMS CONSTITUTIONAL: Absent: fever, chills, diaphoresis, generalized weakness, malaise, loss of appetite, weight change HEENT: Absent: rhinorrhea, nasal congestion, throat pain, throat swelling, difficulty swallowing, mouth swelling, ear pain, eye pain, visual changes CARDIOVASCULAR: Absent: chest pain, syncope, palpitations, irregular heart rate, lightheadedness , peripheral edema RESPIRATORY: cough, shortness of breath Absent: dyspnea with exertion, orthopnea, wheezing, stridor, hemoptysis GASTROINTESTINAL: Absent: abdominal pain, abdominal distension, nausea, vomiting, diarrhea, constipation, melena, hematochezia GENITOURINARY: Absent: dysuria, frequency, urgency, hesitancy, hematuria, flank pain, genital pain MUSCULOSKELETAL: Absent: myalgia, arthralgia, joint swelling, back pain, neck pain SKIN: Absent: rash, itching, pallor HEMATOLOGIC/IMMUNOLOGIC: Absent: easy bleeding, easy bruising, lymphadenopathy, frequent infections ENDOCRINE: Absent: unexplained weight gain, unexplained weight loss, heat intolerance, cold intolerance NEUROLOGIC: Absent: headache, focal weakness or paresthesias, dizziness, unsteady gait, seizure, mental status changes, bladder or bowel incontinence PSYCHIATRIC: Absent: anxiety, depression, suicidal or homicidal ideation, hallucinations. PHYSICAL EXAMINATION Vital Signs - 24 hr 04/01/18 13:26 Temperature 98.5 F Pulse Rate 55 L Respiratory 18 Rate Blood Pressure 165/79 O2 Sat by Pulse 98 Oximetry (%) GENERAL: A&Ox3, no acute distress EYES: PERRLA, EOMI ENT: Moist mucus membranes, poor dentition NECK: No JVD LUNGS: CTA, no wheezes, no crackles HEART: bradycardic, mild systolic murmur noted ABDOMEN: Soft, mildly tender to palpation, BS present MUSCULOSKELETAL: No CVA Tenderness EXTREMITIES: 2+ pulses, no edema. R shoulder dislocated and has decreased ROM, both feet wrapped, no ulcers on feet NEUROLOGICAL: Cranial nerves II-XII intact. Laboratory Results - last 24 hr 04/01/18 04/01/18 04/01/18 14:25 14:25 14:25 WBC 4.7 RBC 3.13 L Hgb 10.8 Hct 32.5 MCV 103.8 H MCH 34.5 H MCHC 33.2 RDW 14.7 Plt Count 177 MPV 7.6 Absolute Neuts (auto) 2.5 Neutrophils % 53.7 Lymphocytes % 23.4 D Monocytes % 16.3 H Eosinophils % 5.3 H Basophils % 1.3 Nucleated RBC % 0 PT with INR 15.40 H INR 1.36 H D-Dimer Sodium 134 L Potassium 4.4 Chloride 99 Carbon Dioxide 31 Anion Gap 5 L BUN 36 H Creatinine 1.3 Creat Clearance w eGFR 39.31 Random Glucose 95 Calcium 8.5 Magnesium 1.9 Total Bilirubin 0.4 AST 19 ALT 16 Alkaline Phosphatase 70 Creatine Kinase 40 Troponin I 0.08 H B-Natriuretic Peptide 901.8 H Total Protein 6.9 Albumin 3.0 L Blood Type Antibody Screen 04/01/18 04/01/18 14:25 14:25 WBC RBC Hgb Hct MCV MCH MCHC RDW Plt Count MPV Absolute Neuts (auto) Neutrophils % Lymphocytes % Monocytes % Eosinophils % Basophils % Nucleated RBC % PT with INR INR D-Dimer 986 H Sodium Potassium Chloride Carbon Dioxide Anion Gap BUN Creatinine Creat Clearance w eGFR Random Glucose Calcium Magnesium Total Bilirubin AST ALT Alkaline Phosphatase Creatine Kinase Troponin I B-Natriuretic Peptide Total Protein Albumin Blood Type A POSITIVE Antibody Screen Negative ASSESSMENT/PLAN: 82 year old female with a hx of TX (7 years ago), CHF, HTN, HLD, psoriatic arthritis, osteomyelitis in the L foot, and recent RUE DVT presents to the hospital for 1 month history of dry cough and mild shortness of breath that became worse over the past several days #Shortness of Breath and cough: unlikely PE given clinical scenario and labs - more likely bronchitis vs COPD -CTA chest negative for PE -will give duonebs -consult Dr. Dan for cardiac evaluation -repeat echo -respiratory virus panel #Chest Heaviness: patient has a history of TX, unlikely new cardiac event -unknown when last echo was performed, will order another echo -initial troponin 0.08, will repeat troponin -will get cardiology consultation #Osteomyelitis of the L foot: patient is on the tail-end of her antibiotic treatment -need ID consult for Abx -continue vancomycin 1gm QD -continue cefepime 1gm BID -patient has been on chronic amoxicillin for 10+ years but this was stopped during osteomyelitis treatment #RUE DVT: currently resolved -continue eliquis #Psoriatic Arthritis -patient takes methotrexate every Thursday -will give tomorrow's dose -continue oxycodone -will give bowel regimen #Hypertension -continue ramipril -continue carvedilol #CHF -continue lasix 20mg PO BID #Hyperlipidemia -continue atorvastatin 20mg #FEN -no standing fluids -lytes normal -cholesterol/NA diet #Prophylaxis -on eliquis #Disposition -admit tele obs -DNR/DNI Samuel Bain D.O. PGY-2, Internal Medicine *Discussed with attending physician Dr. Estes Visit type - Emergency Visit Emergency Visit: Yes Care time: The patient presented to the Emergency Department on the above date and was hospitalized for further evaluation of their emergent condition. - New Patient This patient is new to me today: Yes Date on this admission: 04/01/18 - Critical Care Critical Care patient: No Hospitalist Screening - Colonoscopy Questionnaire Colonoscopy Questionnaire: Colonoscopy Questionnaire - Patient: 50 - 75 years old and never had a screening colonoscopy: Unknown History of colon or rectal polyps, or CA: Unknown History of IBD, Crohn's disease or UC: Unknown History of abdominal radiation therapy as a child: Unknown - Relative: 1 with colon or rectal CA, or polyps at age 60 or younger: Unknown Colon or rectal CA diagnosed at age 45 or younger: Unknown Multiple relatives with colon or rectal CA: Unknown - Outcome: Screening Result: Negative Screen
[2018-04-01] MEDS ORDERED: DOCUSATE SODIUM 100 MG CAPSULE (FP) PO PRN (19:00)
[2018-04-01] MEDS: ALBUTEROL SO4 0.083% IH SOL 2.5 MG/3 ML VIAL.NEB. NEB SCH (21:03)
[2018-04-01] MEDS ORDERED: CEFEPIME 1 GM in DEXTROSE 5%-WATER - 100 ML IVPB ONE (22:00)
[2018-04-01] MEDS ORDERED: [UNRECOGNIZED DRUG - OTHER] IV SCH (22:00)
[2018-04-01] MEDS ORDERED: ATORVASTATIN CA 20 MG TABLET (FP) PO SCH (22:00)
[2018-04-01] MEDS ORDERED: CEFEPIME IV SCH (22:00)
[2018-04-01] MEDS ORDERED: DEXTROSE IV SCH (22:00)
[2018-04-01] MEDS ORDERED: CEFEPIME 1 GM in DEXTROSE 5%-WATER - 100 ML IVPB SCH (22:00)
[2018-04-01] MEDS: SENNOSIDES 8.6MG TABLET (FP) PO SCH (22:28)
[2018-04-01] MEDS: CARVEDILOL 3.125 MG TABLET (FP) PO SCH (22:28)
[2018-04-01] MEDS: APIXABAN 5 MG TABLET PO SCH (22:28)
[2018-04-01] MEDS ORDERED: DEXTROSE 5%-WATER 100 ML IVPB ONE (22:36)
[2018-04-01] MEDS ORDERED: CEFEPIME HCL 1 GM VIAL (RESTRICTED TO ID) ONE (22:36)
[2018-04-01] MEDS ORDERED: CEFEPIME 1 GM in DEXTROSE 5%-WATER 100 ML IVPB ONE (22:45)
[2018-04-02] MEDS: oxyCODONE HCL 5 MG TABLET PO PRN ×3 (00:02→12:46)
[2018-04-02] MEDS ORDERED: FUROSEMIDE 20 MG TABLET (FP) PO SCH (06:00)
[2018-04-02 07:13] LABS: HEMATOCRIT 30.6 % (32.4-45.2); MCH 33.8 pg (25.7-33.7); MCHC 32.7 g/dl (32.0-36.0); MEAN CELL VOLUME 103.5 fl (80-96); PLATELET COUNT 147 K/MM3 (134-434); RBC 2.95 M/mm3 (3.60-5.2)
[2018-04-02] MEDS: ALBUTEROL SO4 0.083% IH SOL 2.5 MG/3 ML VIAL.NEB. NEB SCH ×3 (07:53→16:50)
[2018-04-02] MEDS ORDERED: PT OWN MED DRAWER 7, Y5N ONE ×2 (09:09→12:43)
[2018-04-02] MEDS ORDERED: FOLIC ACID 1 MG TABLET (FP) PO SCH (10:00)
[2018-04-02] MEDS ORDERED: VANCOMYCIN 1 GM PREMIX - 1 GM/200 ML BAG IVPB SCH (10:00)
[2018-04-02] MEDS ORDERED: MULTIVITAMINS (DAILY MVI) TABLET (FP) PO SCH (10:00)
[2018-04-02] MEDS ORDERED: CHOLECALCIFEROL (VITAMIN D3) 1,000 UNIT TABLET (FP) PO SCH (10:00)
[2018-04-02] MEDS ORDERED: FERROUS SO4 325 MG TABLET (FP) PO SCH (10:00)
[2018-04-02] MEDS ORDERED: METHOTREXATE 2.5 MG TABLET PO SCH (10:00)
[2018-04-02] MEDS ORDERED: LACTOBACILLUS ACIDOPHILUS 1 TABLET PO SCH (10:00)
[2018-04-02] MEDS ORDERED: ALLOPURINOL 100 MG TABLET (FP) PO SCH (10:00)
[2018-04-02] MEDS ORDERED: RAMIPRIL 5 MG CAPSULE (FP) PO SCH (10:00)
[2018-04-02] MEDS ORDERED: LORATADINE 10 MG TABLET PO SCH (10:00)
[2018-04-02] MEDS ORDERED: PATIENT'S OWN MEDICATION (NON-FORMULARY) (Vancomycin 1 Gm Premix - 1 GM) IV SCH (10:00)
[2018-04-02] MEDS: SENNOSIDES 8.6MG TABLET (FP) PO SCH (10:43)
[2018-04-02] MEDS: CARVEDILOL 3.125 MG TABLET (FP) PO SCH (10:43)
[2018-04-02] MEDS: APIXABAN 5 MG TABLET PO SCH (10:43)
--- NOTE | 2018-04-02 10:47 | PN ---
Progress Note, Physician History of Present Illness: Dyspnea, cough, wheeze, post-tussive chest tightness improving with BD and O2. - Current Medication List Current Medications: Active Medications Albuterol Sulfate (Ventolin 0.083% Nebulizer Soln -) 1 amp NEB RQID [facility] Last Admin: 04/02/18 07:53 Dose: 1 amp Allopurinol (Zyloprim -) 200 mg PO DAILY [facility] Last Admin: 04/02/18 10:42 Dose: 200 mg Apixaban (Eliquis -) 5 mg PO BID [facility] Last Admin: 04/02/18 10:43 Dose: 5 mg Atorvastatin Calcium (Lipitor -) 20 mg PO HS [facility] Last Admin: 04/01/18 22:28 Dose: 20 mg Carvedilol (Coreg -) 3.125 mg PO BID [facility] Last Admin: 04/02/18 10:43 Dose: 3.125 mg Cholecalciferol (Vitamin D3 -) 1,000 unit PO DAILY [facility] Last Admin: 04/02/18 10:43 Dose: 1,000 unit Docusate Sodium (Colace -) 100 mg PO Q12H PRN PRN Reason: CONSTIPATION Ferrous Sulfate (Feosol -) 325 mg PO DAILY [facility] Last Admin: 04/02/18 10:43 Dose: 325 mg Folic Acid (Folic Acid -) 1 mg PO DAILY [facility] Last Admin: 04/02/18 10:42 Dose: 1 mg Furosemide (Lasix -) 20 mg PO BIDLASIX [facility] Last Admin: 04/02/18 05:55 Dose: 20 mg Vancomycin HCl (Vancomycin 1 Gm Premix -) 1 gm in 200 mls @ 133.333 mls/hr IVPB DAILY [facility] Cefepime HCl 1 gm/ Dextrose 100 mls @ 100 mls/hr IVPB BID [facility] Ipratropium [place] (Atrovent 0.02% Nebulizer -) 1 amp NEB Q6H PRN PRN Reason: WHEEZING Lactobacillus Acidophilus (Bacid -) 1 tab PO DAILY [facility] Last Admin: 04/02/18 10:43 Dose: 1 tab Loratadine (Claritin -) 10 mg PO DAILY [facility] Last Admin: 04/02/18 10:43 Dose: 10 mg Methotrexate (Mexate -) 7.5 mg PO Fr@1000 [facility] Last Admin: 04/02/18 10:43 Dose: 7.5 mg Multivitamins/Minerals/Vitamin C (Tab-A-Vit -) 1 tab PO DAILY [facility] Last Admin: 04/02/18 10:43 Dose: 1 tab Oxycodone HCl (Roxicodone -) 15 mg PO Q6H PRN PRN Reason: PAIN 7-10 Last Admin: 04/02/18 05:54 Dose: 15 mg Ramipril (Altace -) 5 mg PO DAILY [facility] Last Admin: 04/02/18 10:42 Dose: 5 mg Senna (Senna -) 1 tab PO BID [facility] Last Admin: 04/02/18 10:43 Dose: 1 tab - Objective Vital Signs: Vital Signs Temperature 97.9 F 04/02/18 06:00 Pulse Rate 50 L 04/02/18 06:00 Respiratory Rate 18 04/02/18 06:00 Blood Pressure 133/75 04/02/18 06:00 O2 Sat by Pulse Oximetry (%) 100 04/02/18 03:00 Constitutional: Yes: No Distress, Calm, Thin Neck: Yes: Supple Cardiovascular: Yes: Regular Rate and Rhythm Respiratory: Yes: Regular, Diminished, On Nasal O2 Gastrointestinal: Yes: Normal Bowel Sounds, Soft Edema: No Labs: CBC, BMP 04/02/18 05:30 INR, PTT INR 1.36 (0.83-1.09) H 04/01/18 14:25 - ....Imaging Cat Scan: Report Reviewed (Left lung base ATX, no PE) Problem List - Problems (1) Demand ischemia Code(s): I24.8 - OTHER FORMS OF ACUTE ISCHEMIC HEART DISEASE (2) Bronchitis due to fumes or vapors, acute Code(s): J68.0 - BRONCHITIS & PNEUMONITIS D/T CHEMICALS, GAS, FUMES & VAPORS (3) DVT (deep venous thrombosis) Code(s): I82.409 - ACUTE EMBOLISM AND THOMBOS UNSP DEEP VN UNSP LOWER EXTREMITY Qualifiers: DVT location: upper extremity Affected thrombotic vein of extremity: unspecified vein of extremity Chronicity: acute Laterality: right Qualified Code(s): I82.621 - Acute embolism and thrombosis of deep veins of right upper extremity (4) HTN (hypertension) Code(s): I10 - ESSENTIAL (PRIMARY) HYPERTENSION (5) Hypercholesterolemia Code(s): E78.00 - PURE HYPERCHOLESTEROLEMIA, UNSPECIFIED (6) Osteomyelitis Code(s): M86.9 - OSTEOMYELITIS, UNSPECIFIED (7) CAD (coronary artery disease) Code(s): I25.10 - ATHSCL HEART DISEASE OF [place] CORONARY ARTERY W/O ANG PCTRS (8) Psoriatic arthritis Code(s): L40.50 - ARTHROPATHIC PSORIASIS, UNSPECIFIED Assessment/Plan 1. Cough suspicious for allergic bronchitis improving, ruled out for PE 2. RUE provoked DVT with PICC line since removed 3. CAD h/o NM, demand ischemia 4. HTN 5. LV diastolic dysfunction without failure 6. Hypercholesterolemia 7. Psoriatic arthritis 8. Osteomyelitis 9. RUL pulmonary density no longer seen on chest CT PLAN: 1. Agree with BD, O2 as needed, trops plateaued, f/u echocardiogram previously ordered 2. Continue Eliquis 5 bid, Lipitor 20 qhs, Ramipril 5 qd, Lasix 20 bid and Carvedilol 3.125 bid 3. Continuing abx course, allergen avoidance at [facility]), d/c planning
[2018-04-02 11:17] LABS: ANION GAP 11 MMOL/L (8-16); BLOOD UREA NITROGEN 29 mg/dL (7-18); CALCIUM 8.8 mg/dL (8.5-10.1); CHLORIDE 100 mmol/L (98-107); CO2 27 mmol/L (21-32); CREATININE 0.9 mg/dL (0.55-1.3); GLUCOSE,RANDOM 74 mg/dL (74-106); MAGNESIUM 1.8 mg/dL (1.8-2.4); PHOSPHOROUS 3.6 mg/dL (2.5-4.9); SODIUM 139 mmol/L (136-145)
--- NOTE | 2018-04-02 11:18 | EKG ---
Test Reason : Blood Pressure : / mmHG Vent. Rate : 054 BPM Atrial Rate : 054 BPM P-R Int : 156 ms QRS Dur : 140 ms QT Int : 444 ms P-R-T Axes : 018 -02 010 degrees QTc Int : 421 ms SINUS BRADYCARDIA WITH MARKED SINUS ARRHYTHMIA RIGHT BUNDLE BRANCH BLOCK ABNORMAL ECG WHEN COMPARED WITH ECG OF 07-MAR-2018 07:01, PREMATURE ATRIAL COMPLEXES ARE NO LONGER PRESENT Confirmed by SILVA KAMARA, LALITHA ([id number]) on 04/02/2018 11:18:38 AM Referred By: Confirmed By:LALITHA ASCENCIO MD
--- NOTE | 2018-04-02 12:01 | PN ---
Progress Note (short form) - Note Progress Note: ID Consult dictated Osteomyelitis L 4th toe Chronically infected LTHR Completed course of therapy for osteomyelitis D/C vancomycin/ cefepime D/C PICC Resume chronic antibiotic suppression infected L THR with amoxicillin
--- NOTE | 2018-04-02 12:28 | ECHO ---
Version: 1 Name: GISELA DAVIDSON Exam: Adult Echocardiogram Study Date: 04/02/2018, 8:28 AM Age: 82 Years MMode/2D Measurements & Calculations IVSd: 1.07 cm LVIDs: 2.9 cm LVIDd: 4.5 cm LVPWd: 0.84 cm LVOT diam: 1.99 cm Ao root diam: 2.7 cm LA dimension: 3.2 cm Doppler Measurements & Calculations MV E max carlos eduardo: 107.0 cm/sec MV A max carlos eduardo: 98.5 cm/sec MV E/A: 1.09 MR max P.4 mmHg Ao max P.1 mmHg LINDA(I,D): 1.10 cm Ao mean P.9 mmHg LV V1 mean: 73.4 cm/sec Ao V2 max: 312.4 cm/sec LV V1 mean P.5 mmHg TR max carlos eduardo: 313.0 cm/sec TR max P.3 mmHg Procedure A two-dimensional transthoracic echocardiogram with color flow and Doppler was performed. The study was technically difficult with many images being suboptimal in quality. Left Ventricle The left ventricular size, thickness and function are normal. The left ventricular ejection fraction is normal. The left ventricular wall motion is normal. Atria Normal left and right atrial size and function. Mitral Valve There is mild mitral valve thickening. There is no mitral valve stenosis. There is moderate mitral regurgitation. Tricuspid Valve The tricuspid valve is not well visualized. There is no tricuspid stenosis. There is mild tricuspid regurgitation. Right ventricular systolic pressure is elevated at 40-50mmHg. Aortic Valve The aortic valve is not well visualized. There is moderate aortic valve thickening. There is moderat e aortic sclerosis.;. Moderate valvular aortic stenosis. No aortic regurgitation is present. Pulmonic Valve The pulmonic valve is not well visualized. Great Vessels The aortic root is normal size. Pericardium/Pleura There is no pericardial effusion. Summary Statements There is moderate aortic valve thickening. There is moderate aortic sclerosis.; The aortic valve is not well visualized. The left ventricular size, thickness and function are normal The left ventricular ejection fraction is normal. The left ventricular wall motion is normal. There is mild tricuspid regurgitation. Right ventricular systolic pressure is elevated at 40-50mmHg. There is moderate mitral regurgitation. Moderate valvular aortic stenosis. MD Justin Baez 04/02/2018, 12:27 PM Ordering Physician: Samuel Bain Referring Physician: Nilesh Haskins Performed By: Nuvia Roman Measurements and Calculations Lat E/e': 10.4 Lat Peak E' Carlos Eduardo: 10.3 Med E/e': 15.6 Med Peak E' Carlos Eduardo: 6 .9 cm/sec cm/sec LAV (MOD-bp): 54.5 ml
[2018-04-02] MEDS ORDERED: AMOXICILLIN 500 MG CAPSULE (FP) PO SCH (12:30)
--- NOTE | 2018-04-02 14:05 | PN ---
Teaching Attending Note Name of Resident: Eliz Olivier ATTENDING PHYSICIAN STATEMENT I saw and evaluated the patient. I reviewed the resident's note and discussed the case with the resident. I agree with the resident's findings and plan as documented with exceptions below. SUBJECTIVE: Patient seen and examined, breathing with some improvement, no new concerns. OBJECTIVE: Vital Signs Period Temp Pulse Resp BP Sys/Seymour Pulse Ox Last 24 Hr 97.7 F-99.2 F 50-78 18-20 122-148/50-88 92-100 Intake & Output 03/30/18 03/31/18 04/01/18 04/02/18 23:59 23:59 23:59 23:59 Intake Total 120 Balance 120 Weight 117 lb 132 lb 12.8 oz General: sitting in bed in no acute distress Chest: unchanged exam, no wheezing Abdomen:Soft, NT Extremities: toe exam unchanged, no new erythema or discharge Home Medications Medication Instructions Recorded Allopurinol [Zyloprim -] 200 mg PO DAILY 08/09/15 Atorvastatin Ca [Lipitor] 20 mg PO HS 08/09/15 Folic Acid 1 mg PO DAILY 08/09/15 Furosemide [Lasix -] 20 mg PO BID 08/09/15 Lactobacillus Acidophilus [Bacid -] 1 each PO DAILY 08/09/15 Methotrexate Sodium [Trexall] 7.5 mg PO FR 08/09/15 Multivitamins [Multivit ([facility] 1 tab PO DAILY 08/09/15 Formulary)] Ramipril 5 mg PO DAILY 08/09/15 Acetaminophen [Tylenol] 325 mg PO Q6H PRN 04/22/17 Carvedilol 3.125 mg PO BID 04/22/17 Oxycodone HCl 15 mg PO Q6H PRN 04/22/17 Ferrous Sulfate 325 mg PO DAILY 09/16/17 Cholecalciferol (Vitamin D3) 1,000 unit PO DAILY #30 tab.chew 09/19/17 [Children's Vitamin D3] Apixaban [Eliquis] 5 mg PO BID #180 tablet 03/10/18 Loratadine [Claritin -] 10 mg PO DAILY #30 tablet 03/10/18 Albuterol 0.083% Nebulizer [place] 1 amp NEB Q6H PRN amp 04/02/18 [Ventolin 0.083% Nebulizer Soln -] Amoxicillin - [Amoxicillin 500mg 500 mg PO BID capsule 04/02/18 Capsule -] Docusate Sodium [Colace -] 100 mg PO Q12H PRN capsule 04/02/18 Ipratropium 0.02% Nebulizer 1 amp NEB Q6H PRN amp 04/02/18 [Atrovent 0.02% Nebulizer -] Sennosides [Senna -] 1 tab PO BID tablet 04/02/18 Laboratory Results - last 24 hr 04/01/18 04/01/18 04/01/18 14:10 14:25 14:25 WBC 4.7 RBC 3.13 L Hgb 10.8 Hct 32.5 MCV 103.8 H MCH 34.5 H MCHC 33.2 RDW 14.7 Plt Count 177 MPV 7.6 Absolute Neuts (auto) 2.5 Neutrophils % 53.7 Lymphocytes % 23.4 D Monocytes % 16.3 H Eosinophils % 5.3 H Basophils % 1.3 Nucleated RBC % 0 PT with INR 15.40 H INR 1.36 H D-Dimer Sodium Potassium Chloride Carbon Dioxide Anion Gap BUN Creatinine Creat Clearance w eGFR Random Glucose Calcium Phosphorus Magnesium Total Bilirubin AST ALT Alkaline Phosphatase Creatine Kinase Troponin I 0.08 H B-Natriuretic Peptide Total Protein Albumin Blood Type Antibody Screen 04/01/18 04/01/18 04/01/18 14:25 14:25 14:25 WBC RBC Hgb Hct MCV MCH MCHC RDW Plt Count MPV Absolute Neuts (auto) Neutrophils % Lymphocytes % Monocytes % Eosinophils % Basophils % Nucleated RBC % PT with INR INR D-Dimer 986 H Sodium 134 L Potassium 4.4 Chloride 99 Carbon Dioxide 31 Anion Gap 5 L BUN 36 H Creatinine 1.3 Creat Clearance w eGFR 39.31 Random Glucose 95 Calcium 8.5 Phosphorus Magnesium 1.9 Total Bilirubin 0.4 AST 19 ALT 16 Alkaline Phosphatase 70 Creatine Kinase 40 Troponin I 0.08 H B-Natriuretic Peptide 901.8 H Total Protein 6.9 Albumin 3.0 L Blood Type A POSITIVE Antibody Screen Negative 04/02/18 04/02/18 04/02/18 02:05 05:30 05:30 WBC 6.0 RBC 2.95 L Hgb 10.0 L Hct 30.6 L MCV 103.5 H MCH 33.8 H MCHC 32.7 RDW 15.0 Plt Count 147 MPV 8.0 Absolute Neuts (auto) Neutrophils % Lymphocytes % Monocytes % Eosinophils % Basophils % Nucleated RBC % PT with INR INR D-Dimer Sodium 139 Potassium 4.0 Chloride 100 Carbon Dioxide 27 Anion Gap 11 BUN 29 H Creatinine 0.9 Creat Clearance w eGFR > 60 Random Glucose 74 Calcium 8.8 Phosphorus 3.6 Magnesium 1.8 Total Bilirubin AST ALT Alkaline Phosphatase Creatine Kinase Troponin I 0.08 H B-Natriuretic Peptide Total Protein Albumin Blood Type Antibody Screen 2d echo results reviewed moderate CTA chest neg for PE ASSESSMENT AND PLAN: 82 yof with PMHx of CAD, s/p DC with 70% calcified proximal LAD, non- obstructive LCx and RCA, LV diastolic dysfunction, psoriatic arthritis, HTN and hypercholesterolemia, recent Left 4th toe OM on IV cefepime/vancomycin, RUE PICC related DVT on eliquis admitted with dyspnea, dry cough and chest heaviness. -Dyspnea/Dry cough/Chest heaviness, suspect bronchitis, ?allergic -CAD -LV diastolic dysfunction -Recent Left 4th Toe OM on IV antibiotics -Recent RUE PICC related DVT -Psoariatic arthritis on Methotrexate -HTN -HLD -Ex-smoker Plan: Nebs prn. no home oxygen needs. non ambulatory at baseline. Will benefit from outpatient pulmonary/allergy follow up. 2D echo noted, moderate , discussed with ketan Lopes prior to compare.Recommend outpatient follow up. ID input noted. d/c PICC/cefepime/vancomycin, resume suppressive amoxicillin. Continue home meds d/c back to [facility] today. Plan discussed with patient in detail, all questions answered.
--- NOTE | 2018-04-02 16:04 | CONS ---
DATE OF CONSULTATION: DATE OF DICTATION: 04/02/2018 HISTORY OF PRESENT ILLNESS: The patient is an 82-year-old female who is evaluated for osteomyelitis of the left 4th toe. The patient was recently hospitalized at [facility] with an infected left 4th toe. She was found to have osteomyelitis. Wound cultures grew mixed organisms including pseudomonas and coagulase-negative staph. She was discharged to a [place] [facility] facility to complete a six-week course of IV antibiotic therapy with vancomycin and cefepime. The patient has been doing well. She reports complete healing of the left 4th toe. She tolerated the antibiotic therapy without adverse reaction. She is now admitted for a dry cough for the past several weeks. A CAT scan of her chest shows atelectasis of the left base but otherwise no acute pathology. She denies any fever or chills. 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 She has been maintained on amoxicillin 500 mg twice a day for an indefinite period of time. She has no complaints of hip pain at this time. The has been completely healed and no drainage has been reported. PAST MEDICAL HISTORY: Positive for osteomyelitis of the left 4th toe, history of coronary artery disease, myocardial infarction, congestive heart failure, hypertension, hyperlipidemia, psoriatic arthritis. PAST SURGICAL HISTORY: Status post bilateral total hip replacements, chronically infected left total hip replacement, history of right upper extremity DVT which was associated with a PICC line which was removed. ALLERGIES: No known allergies. MEDICATIONS: Allopurinol, Lipitor, folic acid, Lasix, Bacid, Ramapril, carvedilol, oxycodone, vancomycin and cefepime. LABORATORY DATA: White count 6.0, hematocrit 30.6, platelet count 147, creatinine 0.9. PHYSICAL EXAMINATION: General: The patient is awake and alert. She is in no acute distress. She is chronically ill appearing and frail. Vital Signs: Temperature 97.9, pulse 50 and regular, blood pressure 133/75, respiratory rate 18 per minute. HEENT:: Sclerae anicteric. Heart: Heart sounds S1, S2. There is a 2/6 pansystolic murmur. Lungs: There are crepitations at the bases bilaterally. Abdomen: Soft. No tenderness elicited. No mass, rebound or rigidity. Extremities: On examination of the left 4th toe, the wound on the dorsum of the toe is completely healed. There is no swelling or erythema. IMPRESSION: 1. Osteomyelitis of the left 4th toe. 2. Chronically infected left total hip replacement. PLAN: The patient has completed a six-week course of IV antibiotic therapy for her osteomyelitis. Would decrease vancomycin and cefepime, discontinue her PICC line and resume amoxicillin 500 mg twice a day for chronic suppression of her infected left total hip replacement. Thank you for the kind referral. MAKAYLA BROWN M.D. [id number]
[2018-04-02 16:07] VITALS: BP 115/63; PULSE 62; TEMP 98.6
--- NOTE | 2018-04-02 17:50 | DS ---
Physical Exam: SUBJECTIVE: Patient seen and examined at bedside. No acute events overnight. Patient reports improvement of breathing and cough. Denies chest pain, palpitations, abdominal pain, diarrhea or constipation. OBJECTIVE: Vital Signs Period Temp Pulse Resp BP Sys/Se[place]our Pulse Ox Last 24 Hr 97.7 F-99.2 F 50-78 18-20 115-148/50-88 92-100 PHYSICAL EXAM GENERAL: The patient is awake, alert, and fully oriented, in no acute distress. HEAD: Normal with no signs of trauma. EYES: PERRLA, EOMI, sclera anicteric, conjunctiva clear. ENT: Ears normal, nares patent, oropharynx clear without exudates, moist mucous membranes. NECK: Trachea midline, full range of motion, supple. LUNGS: Breath sounds equal, clear to auscultation bilaterally. HEART: Regular rate and rhythm, S1, S2 without murmur, rub or gallop. ABDOMEN: Soft, nontender, nondistended, normoactive bowel sound. EXTREMITIES: 2+ pulses, warm, well-perfused, no edema. Both feet wrapped with dressing. No ulcers noted. SKIN: Warm, dry, normal turgor, no rashes or lesions noted. LABS Laboratory Results - last 24 hr 04/01/18 04/02/18 04/02/18 14:10 02:05 05:30 WBC 6.0 RBC 2.95 L Hgb 10.0 L Hct 30.6 L MCV 103.5 H MCH 33.8 H MCHC 32.7 RDW 15.0 Plt Count 147 MPV 8.0 Sodium Potassium Chloride Carbon Dioxide Anion Gap BUN Creatinine Creat Clearance w eGFR Random Glucose Calcium Phosphorus Magnesium Troponin I 0.08 H 0.08 H 04/02/18 05:30 WBC RBC Hgb Hct MCV MCH MCHC RDW Plt Count MPV Sodium 139 Potassium 4.0 Chloride 100 Carbon Dioxide 27 Anion Gap 11 BUN 29 H Creatinine 0.9 Creat Clearance w eGFR > 60 Random Glucose 74 Calcium 8.8 Phosphorus 3.6 Magnesium 1.8 Troponin I Imaging CXR - Moderate cardiomegaly and probable mild pulmonary venous congestion. Interval removal of a right internal jugular venous catheter and placement of a left subclavian central venous catheter without gross evidence of a pneumothorax. Chest CTA - There is no gross evidence of a pulmonary embolus within the main pulmonary artery and its proximal branches, bilaterally. Calcified atheromatous plaques in the thoracic and included proximal abdominal aorta without any is mild dilatation. Mild cardiomegaly with dense calcification of the coronary arteries. Mild atelectatic changes in the left lung base without gross evidence of focal infiltrates. Echo - Moderate aortic valve thickening; moderate aortic sclerosis; aortic valve is not well visualized; LV size, thickness, function normal; LV EF normal ; LV wall motion is normal; mild tricuspid regurgitation; RV systolic pressure is elevated at 40-50mmHg; moderate MR; moderate valvular aortic stenosis. HOSPITAL COURSE: Date of Admission:04/01/18 Date of Discharge: 04/02/18 Patient is an 82 year old female with past medical history of PR, CHF, HTN, HLD , Psoriatic arthritis, left foot osteomyelitis and recent RUE DVT, presented with 1 month history of dry cough and worsening shortness of breath with mild chest "heaviness". Patient was admitted to rule out pulmonary embolism and PR. Chest CTA and echocardiogram ordered. Serial troponin remained stable and respiratory virus panel done. Cardiology consulted. Symptoms likely due to an allergic reaction. Instructions for follow-up with Pulmonology/Allergy doctor recommended. Patient was also started on Vancomycin and Cefepime for osteomyelitis of left foot. ID was consulted. Vancomycin and Cefepime discontinued. Resume chronic antibiotic suppression with Amoxicillin. Prior to discharge, PICC line was removed. Patient was discharged to [facility] with instructions to follow-up with Cardiology and ID. Minutes to complete discharge: 40 Discharge Summary Reason For Visit: CHEST PAIN Current Active Problems Bronchitis due to fumes or vapors, acute (Acute) Demand ischemia (Acute) Foot ulcer (Acute) Osteomyelitis (Acute) Condition: Stable - Instructions Diet, Activity, Other Instructions: You were admitted because you had cough and shortness of breath with some chest heaviness. CAT scan of the chest was done which did not show any clots or infection. You were given inhalers that would help loosen up your airways so you can breathe better. It is likely that your cough and shortness of breath might have been caused by an allergen. You were seen by the reproductive surgeon. Ultrasound of the heart was done. You were found with moderate narrowing of your aortic valve and will need to follow with your reproductive surgeon for the same. Dr. Henderson (Infectious disease) also evaluated the infection on your left foot. We have taken your special IV line out and can take Amoxicillin 500mg twice a day at home BY MOUTH. Continue your home medications as prescribed. Follow-ups: Please follow-up with Dr. Dan after 1 week for follow-up Follow-up with Dr. Henderson (the infection doctor) in 1 week. Follow-up with your primary care doctor after 1 week. You may follow-up with an piping design specialist or recovery collector as outpatient. Call 911 or go to the ED if with any worsening chest pain, shortness of breath, cough or any new concerns noted. You expressed wishes to be DNR/DNI in the hospital. Please discuss with your doctor to address health care proxy and advance directives. Referrals: Dane Henderson MD [Staff Physician] - Dilcia Farrar MD [Primary Care Provider] - Guille Dan MD [Staff Physician] - Disposition: RETIREMENT FACILITY - Home Medications Comprehensive Discharge Medication List: Ambulatory Orders Allopurinol [Zyloprim -] 200 mg PO DAILY 08/09/15 Atorvastatin Ca [Lipitor] 20 mg PO HS 08/09/15 Folic Acid 1 mg PO DAILY 08/09/15 Furosemide [Lasix -] 20 mg PO BID 08/09/15 Lactobacillus Acidophilus [Bacid -] 1 each PO DAILY 08/09/15 Methotrexate Sodium [Trexall] 7.5 mg PO FR 08/09/15 Multivitamins [Multivit ([facility] Formulary)] 1 tab PO DAILY 08/09/15 Ramipril 5 mg PO DAILY 08/09/15 Acetaminophen [Tylenol] 325 mg PO Q6H PRN 04/22/17 Carvedilol 3.125 mg PO BID 04/22/17 Oxycodone HCl 15 mg PO Q6H PRN 04/22/17 Ferrous Sulfate 325 mg PO DAILY 09/16/17 Cholecalciferol (Vitamin D3) [Children's Vitamin D3] 1,000 unit PO DAILY #30 tab.chew 09/19/17 Apixaban [Eliquis] 5 mg PO BID #180 tablet 03/10/18 Loratadine [Claritin -] 10 mg PO DAILY #30 tablet 03/10/18 Albuterol 0.083% Nebulizer [place]ine [Ventolin 0.083% Nebulizer Soln -] 1 amp NEB Q6H PRN amp 04/02/18 Amoxicillin - [Amoxicillin 500mg Capsule -] 500 mg PO BID capsule 04/02/18 Docusate Sodium [Colace -] 100 mg PO Q12H PRN capsule 04/02/18 Ipratropium 0.02% Nebulizer [Atrovent 0.02% Nebulizer -] 1 amp NEB Q6H PRN amp 04/02/18 Sennosides [Senna -] 1 tab PO BID tablet 04/02/18 This patient is new to me today: Yes Date on this admission: 04/04/18 Emergency Visit: Yes ED Registration Date: 04/01/18 Care time: The patient presented to the Emergency Department on the above date and was hospitalized for further evaluation of their emergent condition. Critical Care patient: No - Discharge Referral Referred to [facility] No
== END 2018-04-02 17:51 ==
LOC: JER 13:17 → UNDOADMOB 16:25 → JERBED 16:25 → INTOOBSV 16:25 → JERBED 18:36 → J4W 20:36
PROVIDERS: ADMIT Hospitalist; ATTEND Hospitalist
PROC: 3E03329 Introduction of Other Anti-infective into Peripheral Vein, Percutaneous Approach (ICD-10-PCS; principal; 2018-04-01)
PROC: 3E0F7GC Introduction of Other Therapeutic Substance into Respiratory Tract, Via Natural or Artificial Opening (ICD-10-PCS; 2018-04-01)
DX: R07.89 Other chest pain (principal); R77.8 Other specified abnormalities of plasma proteins; I11.0 Hypertensive heart disease with heart failure; E78.5 Hyperlipidemia, unspecified; I25.2 Old myocardial infarction; I50.9 Heart failure, unspecified; R05 Cough; I25.10 Atherosclerotic heart disease of native coronary artery without angina pectoris; I24.8 Other forms of acute ischemic heart disease; J68.0 Bronchitis and pneumonitis due to chemicals, gases, fumes and vapors; I50.1 Left ventricular failure, unspecified; M86.172 Other acute osteomyelitis, left ankle and foot; R91.8 Other nonspecific abnormal finding of lung field; R06.02 Shortness of breath; L40.50 Arthropathic psoriasis, unspecified; Z86.718 Personal history of other venous thrombosis and embolism; Z79.01 Long term (current) use of anticoagulants; Z96.643 Presence of artificial hip joint, bilateral; Z87.891 Personal history of nicotine dependence
CPT/HCPCS: 36415; 71046-TC-FY; 71275-TC; 80048; 80053; 82550; 83735; 83880; 84100; 84484; 85025; 85027; 85379; 85610; 86850; 86900; 86901; 93005; 93010; 93306-TC; 94640; 96365; 99284-25; G0378; J8610